=== PATIENT | female | born 1960 | race Caucasian/White ===

== ENCOUNTER 2020-02-14 11:30 | Outpatient (RCR) | payer MEDICARE, SELFPAY | END 2020-02-14 23:55 | disposition home or self-care (01) | LOC: HO.PAOS 11:30 | PROVIDERS: Visit Provider Psychologist | DX: F33.1 Major depressive disorder, recurrent, moderate (principal); F43.10 Post-traumatic stress disorder, unspecified; F50.81 Binge eating disorder; F10.10 Alcohol abuse, uncomplicated; F11.11 Opioid abuse, in remission | CPT/HCPCS: 90834 ==

== ENCOUNTER → 2020-02-21 10:57 | Outpatient (BNVA) | payer MEDICARE, SELFPAY | PROVIDERS: PCP Nurse Practitioner; Referring Provider Nurse Practitioner; Visit Provider Nurse Practitioner | CPT/HCPCS: Q3014 ==

== ENCOUNTER → 2020-05-21 08:30 | Outpatient (BNVA) | payer MEDICARE, SELFPAY | PROVIDERS: PCP Nurse Practitioner; Visit Provider Nurse Practitioner | DX: K59.9 Functional intestinal disorder, unspecified (principal); K21.9 Gastro-esophageal reflux disease without esophagitis | CPT/HCPCS: Q3014 ==

== ENCOUNTER → 2020-11-11 08:48 | Outpatient (BNVA) | payer MEDICARE, SELFPAY | PROVIDERS: Visit Provider Nurse Practitioner | CPT/HCPCS: 99212 ==

== ENCOUNTER → 2021-02-26 09:30 | Outpatient (BNVA) | payer MEDICARE, SELFPAY | PROVIDERS: Visit Provider Nurse Practitioner | DX: K21.9 Gastro-esophageal reflux disease without esophagitis (principal); K59.9 Functional intestinal disorder, unspecified; K58.9 Irritable bowel syndrome, unspecified; N95.0 Postmenopausal bleeding | CPT/HCPCS: 99212 ==

== ENCOUNTER 2021-03-25 08:52 | Outpatient (REF) | payer MEDICARE, SELFPAY ==
[2021-03-25 15:25] LABS: CT PCR NOT DETECTED (Not Detect.); NG PCR NOT DETECTED (Not Detect.)
[2021-03-26 12:13] LABS: BV Int Neg Control Negative (Negative); BV Int Pos Control Positive (Positive)
[2021-03-27 13:37] LABS: HPV mRNA E6/E7 rflx Not Detected (Not Detected)
== END 2021-03-25 08:53 | disposition home or self-care (01) ==
LOC: HO.LAB 08:52
PROVIDERS: Visit Provider Obstetrics & Gynecology
DX: Z01.411 Encounter for gynecological examination (general) (routine) with abnormal findings (principal); Z11.51 Encounter for screening for human papillomavirus (HPV); N95.0 Postmenopausal bleeding; N76.0 Acute vaginitis; B96.89 Other specified bacterial agents as the cause of diseases classified elsewhere
CPT/HCPCS: 87480; 87491; 87510; 87591; 87624; 87660; 88142; 99202

== ENCOUNTER → 2021-03-26 07:42 | Outpatient (BNVA) | payer MEDICARE, SELFPAY | PROVIDERS: PCP Nurse Practitioner; Visit Provider Nurse Practitioner | DX: K58.9 Irritable bowel syndrome, unspecified (principal); K59.9 Functional intestinal disorder, unspecified; K21.9 Gastro-esophageal reflux disease without esophagitis | CPT/HCPCS: 99212 ==

== ENCOUNTER 2021-04-03 16:13 | Emergency (ER) | payer MEDICARE, SELFPAY ==
--- NOTE | ~2021-04-03 | XR_ITS ---
EXAMINATION: PELVIS AND LEFT HIP, RIGHT TIB-FIB, RIGHT KNEE CLINICAL INFORMATION: Fall with hip and knee and right lower extremity pain COMPARISON: [facility] 11/05/2019, CT abdomen pelvis and bilateral lower extremities 05/25/2017 TECHNIQUE: Single view pelvis with 2 additional views left hip, 4 views right knee, 2 right left tib-fib FINDINGS: Pelvis and left hip: Left hip appears unremarkable without fractures or significant degenerative change. The joint space is well maintained. Marked degenerative changes present in the lower lumbar spine with scoliosis convex to left. Incidental note is made of urethral bulking agents. Right knee: A right total knee prosthesis is present. The prosthesis appears in good position without evidence of loosening. No fractures are seen. Right tib-fib: Aside from the above-mentioned prosthesis, the tibia and fibula appear unremarkable. There is some soft tissue swelling at the level of the lateral malleolus. No fracture or ankle joint widening is seen. XR/XR hip LT min 2V IMPRESSION: No acute osseous injury is detected after the patient's fall. Incidental findings as described above.
--- NOTE | ~2021-04-03 | XR_ITS ---
EXAMINATION: PELVIS AND LEFT HIP, RIGHT TIB-FIB, RIGHT KNEE CLINICAL INFORMATION: Fall with hip and knee and right lower extremity pain COMPARISON: [facility] 11/05/2019, CT abdomen pelvis and bilateral lower extremities 05/25/2017 TECHNIQUE: Single view pelvis with 2 additional views left hip, 4 views right knee, 2 right left tib-fib FINDINGS: Pelvis and left hip: Left hip appears unremarkable without fractures or significant degenerative change. The joint space is well maintained. Marked degenerative changes present in the lower lumbar spine with scoliosis convex to left. Incidental note is made of urethral bulking agents. Right knee: A right total knee prosthesis is present. The prosthesis appears in good position without evidence of loosening. No fractures are seen. Right tib-fib: Aside from the above-mentioned prosthesis, the tibia and fibula appear unremarkable. There is some soft tissue swelling at the level of the lateral malleolus. No fracture or ankle joint widening is seen. XR/XR knee RT 3V IMPRESSION: No acute osseous injury is detected after the patient's fall. Incidental findings as described above.
--- NOTE | ~2021-04-03 | XR_ITS ---
EXAMINATION: PELVIS AND LEFT HIP, RIGHT TIB-FIB, RIGHT KNEE CLINICAL INFORMATION: Fall with hip and knee and right lower extremity pain COMPARISON: [facility] 11/05/2019, CT abdomen pelvis and bilateral lower extremities 05/25/2017 TECHNIQUE: Single view pelvis with 2 additional views left hip, 4 views right knee, 2 right left tib-fib FINDINGS: Pelvis and left hip: Left hip appears unremarkable without fractures or significant degenerative change. The joint space is well maintained. Marked degenerative changes present in the lower lumbar spine with scoliosis convex to left. Incidental note is made of urethral bulking agents. Right knee: A right total knee prosthesis is present. The prosthesis appears in good position without evidence of loosening. No fractures are seen. Right tib-fib: Aside from the above-mentioned prosthesis, the tibia and fibula appear unremarkable. There is some soft tissue swelling at the level of the lateral malleolus. No fracture or ankle joint widening is seen. XR/XR tibia fibula RT 2V IMPRESSION: No acute osseous injury is detected after the patient's fall. Incidental findings as described above.
[2021-04-03 16:29] VITALS: BP 167/89; PULSE 80; O2SAT 98
[2021-04-03 18:26] VITALS: BP 144/71; PULSE 66; RESP 14; TEMP 36.7; O2SAT 97; BMI 45.4
--- NOTE | 2021-04-03 19:22 | ED_ITS ---
HPI - General Adult General Chief complaint: Fall <MACO Kulkarni - Last Filed: 04/03/21 21:45> Stated complaint: mechanical fall, lower back pain <MACO Kulkarni - Last Filed: 04/03/21 21:45> Time Seen by Provider: 04/03/21 19:22 <MACO Kulkarni - Last Filed: 04/03/21 21:45> Source: patient, EMS and RN notes reviewed <MACO Kulkarni - Last Filed: 04/03/21 21:45> Mode of arrival: EMS <MCAO Kulkarni - Last Filed: 04/03/21 21:45> Limitations: no limitations <MACO Kulkarni - Last Filed: 04/03/21 21:45> History of Present Illness HPI narrative: 60-year-old female with past medical history of GERD, IBS, obesity is here today [place] Patient reports that she went to the gym in the morning without breakfast. Patient reports that she worked out for 2-1/2 hours that went out for lunch. Patient reports she had a salad with egg. Patient does report to drink water throughout the day. At 3:00 a.m. patient went to the post office. States that she was shaking and felt like she is going to pass out. Patient reports of falling onto her left side. Complaints of left hip, right knee and right conrad pain. Patient denies hitting head. Patient does not remember if she actually passed out or not. Unable to give me a full description if she lost any consciousness. Patient reports to have chest pressure in the him substernal area without any radiation. Patient denies any shortness of breath, edema, PND. Patient denies any dizziness or lightheadedness. Patient denies any nausea or vomiting no abdominal pain or discomfort. <MACO Kulkarni - Last Filed: 04/03/21 21:45> Onset (ago): minute(s) <MACO Kulkarni - Last Filed: 04/03/21 21:45> Related Data Home medications: Home Medications Medication Instructions Recorded Confirmed ascorbic acid (vitamin C) 500 mg 500 mg PO DAILY 05/21/20 11/11/20 tablet bupropion HCl 200 mg tablet,12 hr 200 mg PO BID 05/21/20 11/11/20 sustained-release celecoxib 100 mg capsule 100 mg PO BID 05/21/20 11/11/20 cetirizine 10 mg tablet 10 mg PO BID 05/21/20 11/11/20 cholecalciferol (vitamin D3) 50 50 mcg PO DAILY 05/21/20 11/11/20 mcg (2,000 unit) tablet clonazepam 1 mg tablet 1 mg PO BID PRN 05/21/20 11/11/20 clonidine HCl 0.1 mg tablet 0.1 mg PO BID PRN 05/21/20 11/11/20 cyanocobalamin (vitamin B-12) 1,000 mcg PO DAILY 05/21/20 11/11/20 1,000 mcg tablet duloxetine 60 mg capsule,delayed 60 mg PO BID 05/21/20 11/11/20 release lamotrigine 150 mg tablet 300 mg PO DAILY 05/21/20 11/11/20 potassium chloride 20 mEq 20 meq PO DAILY 05/21/20 11/11/20 tablet,extended release(part/cryst) topiramate 100 mg tablet mg PO 05/21/20 11/11/20 estradiol 10 mcg vaginal tablet 10 mcg VAGINAL 2XW 11/11/20 11/11/20 Previous Rx's Medication Instructions Recorded lactulose 20 gram/30 mL oral 30 g (45 mL) PO QID #2880 ml 02/21/20 solution dicyclomine 20 mg tablet 40 mg PO QID 30 Days #240 tab 11/11/20 sennosides 8.6 mg tablet (senna) 17.2 mg PO BEDTIME PRN #60 cap 12/23/20 magnesium oxide 500 mg PO DAILY #60 cap 01/13/21 linaclotide 145 mcg capsule 145 mcg PO QAM 30 Days #30 cap 02/26/21 (Linzess) metronidazole 500 mg tablet 500 mg PO BID 7 Days #14 tab 03/25/21 metoclopramide HCl 5 mg tablet 5 mg PO .T.i.d. a.c. 30 Days #90 03/26/21 (Reglan) tab pantoprazole 40 mg tablet,delayed 40 mg PO DAILY 30 Days #30 tab 03/26/21 release <DEAN Kulkarni-BC - Last Filed: 04/03/21 21:45> Allergies/adverse reactions: Allergies Allergy/AdvReac Type Severity Reaction Status Date / Time garlic Allergy Severe THROAT Verified 03/26/21 07:49 CLOSES cephalexin [From Allergy Mild RASH Verified 03/26/21 07:49 Keflex] red dye [Red Dye] Allergy Unknown UNKNOWN Verified 03/26/21 07:49 soy Allergy GI issues, Verified 03/26/21 07:49 mouth swelling <Debbie DEAN Sigala-BC - Last Filed: 04/03/21 21:45> Review of Systems Verdana 4l Review of Systems: Verdana 4d Verdana 4d Constitutional : No Weight loss, No Fever, No Chills, No Night Sweats, No Fatigue, No Malaise ENT/Mouth : No Hearing loss, No Ear Pain, No Nasal Congestion, No Sinus Pain, No Hoarseness, No sore throat, No Rhinorrhea, No Swallowing DifficultyDifficulty Eyes: No Eye Pain, No Swelling, No Redness, No Foreign Body, No Discharge, No Vision Changes Cardiovascular : No Chest Pain, No SOB, No Dyspnea on Exertion, No Orthopnea, No Edema, No Palpitations Respiratory : No Cough, No Sputum, No Wheezing, No Smoke Exposure, No Dyspnea Gastrointestinal : No Nausea, No Vomiting, No Diarrhea, No Constipation, No abdominal Pain, No Hematochezia, No Melena Genitourinary : no irregular bleeding, No Dysuria, No Urinary Frequency, No Hematuria, No Urinary Incontinence, No Urgency, No Flank Pain, No Urinary Flow Changes, No Hesitancy Musculoskeletal : joint pain, Myalgias, No Joint Swelling Skin : No Skin Lesions, No rash Neuro : No Weakness, No Numbness, No Paresthesias, No Loss of Consciousness, No Dizziness, No Headache Psych : No Anxiety/Panic, No Depression, No SI/HI/AH/VH, No Social Issues, <Debbie Kramer Heidi DEAN-BC - Last Filed: 04/03/21 21:45> Yes all other systems are reviewed and are negative <Debbiepb Gordon CYBER INCIDENT ANALYST-BC - Last Filed: 04/03/21 21:45> [facility] Past Medical History Surgical History: Surgical History (Updated 03/27/21 @ 08:29 by DEBI Mills) History of colonoscopy Hx of endoscopy <CIPRIANO KulkarniBC - Last Filed: 04/03/21 21:45> Family History Family History: Family History Father No problems noted. Mother No problems noted. <CIPRIANO KulkarniBC - Last Filed: 04/03/21 21:45> Social History Social History: Social History Alcohol intake: current Alcohol intake frequency: other Advance Directives: No Advance Directives Information Provided: No Patient : No <MACO Kulkarni - Last Filed: 04/03/21 21:45> Physical Exam Verdana 4l Vital Signs: Verdana 4d Verdana 4d Vital Signs: Verdana 4d Verdana 4Bd Last Vital Signs Verdana 4d Delinquent Account Clerk New 4d Delinquent Account Clerk New 4d Temp 98.0 F 04/03/21 18:26 Delinquent Account Clerk New 4d Pulse 60 04/03/21 22:17 Delinquent Account Clerk New 4d Resp 16 04/03/21 22:17 BP 138/59 L 04/03/21 22:17 Pulse Ox 99 04/03/21 22:17 BMI result Body Mass Index 45.4 <CIPRIANO KulkarniBC - Last Filed: 04/03/21 21:45> Vital Signs: Last Vital Signs Temp 98.0 F 04/03/21 18:26 Pulse 60 04/03/21 22:17 Resp 16 04/03/21 22:17 BP 138/59 L 04/03/21 22:17 Pulse Ox 99 04/03/21 22:17 BMI result Body Mass Index 45.4 <LEATHA Hodgson - Last Filed: 04/03/21 22:26> Const: General: healthy appearing, no acute distress and well developed <DEAN Kulkarni-BC - Last Filed: 04/03/21 21:45> Nutritional Appearance: well nourished <DEAN Kulkarni-BC - Last Filed: 04/03/21 21:45> Orientation/consciousness: patient oriented x3 <Debbie Williams Gordon CYBER INCIDENT ANALYST-BC - Last Filed: 04/03/21 21:45> HENMT: Head: Yes normal to inspection, Yes normocephalic and Yes atraumatic <Debbie Williams Gordon CYBER INCIDENT ANALYST-BC - Last Filed: 04/03/21 21:45> Face and sinus: Yes normal facial exam <Debbie Gordon CYBER INCIDENT ANALYST-BC - Last Filed: 04/03/21 21:45> Mouth: Normal oral and palatal mucosa present <Debbiepb Gordon CYBER INCIDENT ANALYST-BC - Last Filed: 04/03/21 21:45> Throat: Yes posterior oropharynx normal, Yes tonsils normal and Yes uvula mid line <Debbiepb Gordon CYBER INCIDENT ANALYST-BC - Last Filed: 04/03/21 21:45> Eyes: General: appearance normal, both eyes and all related structures <Debbiepb Gordon CYBER INCIDENT ANALYST-BC - Last Filed: 04/03/21 21:45> Neck: Neck: Yes normal visual inspection, Yes full ROM and Yes trachea midline <Debbie Williams Gordon CYBER INCIDENT ANALYST-BC - Last Filed: 04/03/21 21:45> Thyroid: Thyroid normal <Debbiepb Gordon CYBER INCIDENT ANALYST-BC - Last Filed: 04/03/21 21:45> Resp: Effort & Inspection: normal respiratory effort, able to speak in complete sentences, no tracheal deviation and symmetric chest movement <Debbie Gordon CYBER INCIDENT ANALYST-BC - Last Filed: 04/03/21 21:45> Auscultation: clear to auscultation bilaterally <Debbiepb Gordon CYBER INCIDENT ANALYST-BC - Last Filed: 04/03/21 21:45> Cardio: Jugular venous distension: no JVD <Debbie Gordon CYBER INCIDENT ANALYST-BC - Last Filed: 04/03/21 21:45> Rate: regular rate <Debbie Gordon CYBER INCIDENT ANALYST-BC - Last Filed: 04/03/21 21:45> Heart sounds: S1 normal heart sound present, S2 normal heart sound present, no gallops and no murmurs <Debbie Williams Gordon CYBER INCIDENT ANALYST-BC - Last Filed: 04/03/21 21:45> GI: Inspection: Yes normal to inspection and No distended <Debbie Williams Santoyoo, CYBER INCIDENT ANALYST- BC - Last Filed: 04/03/21 21:45> Palpation (GI): Soft to palpation, not firm, nontender and No hepatosplenomegaly present <Debbie D Heidi, CYBER INCIDENT ANALYST-BC - Last Filed: 04/03/21 21:45> Auscultation: normal bowel sounds <Debbie D Heidi, CYBER INCIDENT ANALYST-BC - Last Filed: 04/03/21 21:45> : General: Yes no CVA tenderness <Debbie D Heidi, CYBER INCIDENT ANALYST-BC - Last Filed: 04/03/21 21:45> Back/Spine/Pelvis: Back: no CVA tenderness <Debbie D Heidi, CYBER INCIDENT ANALYST-BC - Last Filed: 04/03/21 21:45> Cervical Spine: normal cervical lordosis <Debbie D Heidi, CYBER INCIDENT ANALYST-BC - Last Filed: 04/03/21 21:45> Thoracic/Lumbar Spine: thoracic and lumbar spine normal to inspection <Debbie D Heidi, CYBER INCIDENT ANALYST-BC - Last Filed: 04/03/21 21:45> Skin: General skin exam: elasticity normal, turgor normal and dry skin <Debbie D Heidi, CYBER INCIDENT ANALYST-BC - Last Filed: 04/03/21 21:45> Neuro: General: patient oriented x3 <Debbie D Heidi, CYBER INCIDENT ANALYST-BC - Last Filed: 04/03/21 21:45> Extrem: Right upper extremity: normal to inspection, full ROM and normal capillary re fill <Debbie D Heidi, CYBER INCIDENT ANALYST-BC - Last Filed: 04/03/21 21:45> Left upper extremity: normal to inspection, full ROM and normal capillary refill <Debbie D Heidi, CYBER INCIDENT ANALYST-BC - Last Filed: 04/03/21 21:45> Right lower extremity: normal to inspection, normal capillary refill, knee (Pain) and lower leg (Pain) <Debbie D Heidi, CYBER INCIDENT ANALYST-BC - Last Filed: 04/03/21 21:45> Left lower extremity: normal to inspection and hip/thigh (Hip pain) <Debbie D Heidi, CYBER INCIDENT ANALYST-BC - Last Filed: 04/03/21 21:45> Psych: Appearance: grossly normal <MACO Kulkarni - Last Filed: 04/03/21 21:45> Mental Status: mental status grossly normal <MACO Kulkarni - Last Filed: 04/03/21 21:45> Speech and movement: Normal speech and movement present <MACO Kulkarni - Last Filed: 04/03/21 21:45> Affect: normal affect <MACO Kulkarni - Last Filed: 04/03/21 21:45> Attitude: cooperative <MACO Kulkarni - Last Filed: 04/03/21 21:45> Thought process: Normal thought process present <MACO Kulkarni - Last Filed: 04/03/21 21:45> Thought content: Normal thought content present <MACO Kulkarni - Last Filed: 04/03/21 21:45> Insight: Good insight present (Psych) <MACO Kulkarni - Last Filed: 04/03/21 21:45> Judgement: Good judgement present (Psych) <MACO Kulkarni - Last Filed: 04/03/21 21:45> Course Course Course Narrative: 60-year-old female with past medical history of GERD, IBS, obesity is here today [place] Patient reports that she went to the gym in the morning without breakfast. Patient reports that she worked out for 2-1/2 hours that went out for lunch. Patient reports she had a salad with egg. Patient does report to drink water throughout the day. At 3:00 a.m. patient went to the post office. States that she was shaking and felt like she is going to pass out. Patient reports of falling onto her left side. Complaints of left hip, right knee and right conrad pain. Patient denies hitting head. Patient does not remember if she actually passed out or not. Unable to give me a full description if she lost any consciousness. Patient reports to have chest pressure in the him substernal area without any radiation. Patient denies any shortness of breath, edema, PND. Patient denies any dizziness or lightheadedness. Patient denies any nausea or vomiting no abdominal pain or discomfort. X-ray of left hip, right knee, right tib-fib, EKG, CBC, BMP, trop. Will medicate patient with oxycodone for her hip and extremity pain <DEAN Kulkarni-BC - Last Filed: 04/03/21 21:45> Reevaluation(s) Reevaluation #1: All x-rays are negative, chemistry pending, patient reports mild improvement in pain after taking oxycodone. Report given to Jeana ZHANG to resume care of this patient. <DEAN Kulkarni-BC - Last Filed: 04/03/21 21:45> Medical Decision Making MDM Narrative Medical decision making narrative: Patient is a 60 year old female presenting to the emergency department today after a mechanical fall with hip pain. Patient's physical exam was unremarkable. Patient's blood work was unremarkable. Patient's EKG was unremarkable. Patient's imaging showed no acute process. I explained my physical exam findings as well as all test results to the patient. I answered all questions asked by the patient. I stressed the importance of the patient taking her medication as prescribed. I stressed the importance of the patient following up with her primary care provider. I stressed the importance of the patient having a more robust meal prior to working out. I stressed the importance of the patient returning to the emergency department immediately if her symptoms were to worsen or if she were to develop any dizziness, shortness of breath, difficulty breathing, chest pain, blurry vision, loss of vision, nausea, vomiting, abdominal pain, fever, chills, back pain, or any other complaints. Patient verbalized agreement and understanding with this treatment plan and discharge. <LEATHA Hodgson - Last Filed: 04/03/21 22:26> Differential Diagnosis Differential Diagnosis: vasovagal, hypoglycemia, safe and vault mechanic fall <LEATHA Hodgson - Last Filed: 04/03/21 22:26> Medical Records Medical records reviewed: Yes I reviewed the patient's medical records. <LEATHA Hodgson - Last Filed: 04/03/21 22:26> Lab Data Lab results reviewed: Yes I reviewed the patient's lab results. <LEATHA Hodgson - Last Filed: 04/03/21 22:26> Result diagrams: : 04/03/21 21:12 04/03/21 21:12 <CIPRIANO Kulkarni - Last Filed: 04/03/21 21:45> Labs: Lab Results 04/03/21 04/03/21 04/03/21 Range/Units 21:12 21:12 21:12 WBC 11.9 H (4.8-10.8) X10*3/uL RBC 4.82 (4.20-5.50) X10*6/uL Hgb 14.5 (12.0-16.0) g/dl Hct 43.1 (37.0-47.0) % MCV 89.4 (80.0-98.0) fL MCH 30.1 (27.0-33.0) pg MCHC 33.6 (31.0-35.0) g/dl RDW 13.2 (11.0-16.0) % Plt Count 231 (160-400) X10*3/uL MPV 10.2 (9.4-12.3) fL Immature Gran % (Auto) 0.4 (0.0-0.4) % Neut % (Auto) 64.7 (45-73) % Lymph % (Auto) 29.1 (20-40) % [place] % (Auto) 4.7 (2-11) % Eos % (Auto) 0.9 (0-4) % Baso % (Auto) 0.2 (0-2) % Lymph # (Auto) 3.5 (1.2-4.9) X10*3/uL [place] # (Auto) 0.6 (0.1-1.2) X10*3/uL Eos # (Auto) 0.1 (0.0-0.4) X10*3/uL Baso # (Auto) 0.0 (0.0-0.2) X10*3/uL Abs Immat Gran (auto) 0.05 H (0.00-0.03) X10*3/uL Absolute Neuts (auto) 7.7 (2.0-8.3) x10*3/uL Absolute Nucleated RBC 0.000 (0.0-0.012) X10*3/uL Nucleated RBC % (auto) 0.0 (0.0-0.2) /100WBC Sodium 140 (135-145) mmol/L Potassium 3.9 (3.3-5.1) mmol/L Chloride 105 (96-108) mmol/L Carbon Dioxide 27 (22-29) mmol/L Anion Gap 12 (12-20) BUN 12 (9-16) mg/dL Creatinine 0.70 (0.5-1.4) mg/dL Estim Creat Clear Calc 120.8 Estimated GFR > 60 Random Glucose 107 (60-115) mg/dL Calcium 9.5 (8.4-10.2) mg/dL Troponin I High Sens 5.1 (<3.5-17.0) ng/L <Debbie Gordon, CYBER INCIDENT ANALYST-BC - Last Filed: 04/03/21 21:45> Lab Results 04/03/21 04/03/21 04/03/21 Range/Units 21:12 21:12 21:12 WBC 11.9 H (4.8-10.8) X10*3/uL RBC 4.82 (4.20-5.50) X10*6/uL Hgb 14.5 (12.0-16.0) g/dl Hct 43.1 (37.0-47.0) % MCV 89.4 (80.0-98.0) fL MCH 30.1 (27.0-33.0) pg MCHC 33.6 (31.0-35.0) g/dl RDW 13.2 (11.0-16.0) % Plt Count 231 (160-400) X10*3/uL MPV 10.2 (9.4-12.3) fL Immature Gran % (Auto) 0.4 (0.0-0.4) % Neut % (Auto) 64.7 (45-73) % Lymph % (Auto) 29.1 (20-40) % [place] % (Auto) 4.7 (2-11) % Eos % (Auto) 0.9 (0-4) % Baso % (Auto) 0.2 (0-2) % Lymph # (Auto) 3.5 (1.2-4.9) X10*3/uL [place] # (Auto) 0.6 (0.1-1.2) X10*3/uL Eos # (Auto) 0.1 (0.0-0.4) X10*3/uL Baso # (Auto) 0.0 (0.0-0.2) X10*3/uL Abs Immat Gran (auto) 0.05 H (0.00-0.03) X10*3/uL Absolute Neuts (auto) 7.7 (2.0-8.3) x10*3/uL Absolute Nucleated RBC 0.000 (0.0-0.012) X10*3/uL Nucleated RBC % (auto) 0.0 (0.0-0.2) /100WBC Sodium 140 (135-145) mmol/L Potassium 3.9 (3.3-5.1) mmol/L Chloride 105 (96-108) mmol/L Carbon Dioxide 27 (22-29) mmol/L Anion Gap 12 (12-20) BUN 12 (9-16) mg/dL Creatinine 0.70 (0.5-1.4) mg/dL Estim Creat Clear Calc 120.8 Estimated GFR > 60 Random Glucose 107 (60-115) mg/dL Calcium 9.5 (8.4-10.2) mg/dL Troponin I High Sens 5.1 (<3.5-17.0) ng/L <LEATHA Hodgson - Last Filed: 04/03/21 22:26> Imaging Data Left hip, R knee, R tibfib x-ray: Attestation: I personally reviewed and interpreted this imaging study as follows: <DEAN Kulkarni- - Last Filed: 04/03/21 21:45> Radiologist's impression: FINDINGS: Pelvis and left hip: Left hip appears unremarkable without fractures or significant degenerative change. The joint space is well maintained. Marked degenerative changes present in the lower lumbar spine with scoliosis convex to left. Incidental note is made of urethral bulking agents. Right knee: A right total knee prosthesis is present. The prosthesis appears in good position without evidence of loosening. No fractures are seen. Right tib-fib: Aside from the above-mentioned prosthesis, the tibia and fibula appear unremarkable. There is some soft tissue swelling at the level of the lateral malleolus. No fracture or ankle joint widening is seen.? XR/XR tibia fibula RT 2V IMPRESSION: No acute osseous injury is detected after the patient's fall. Incidental findings as described above.? <Debbie Williams Heidi, MACO - Last Filed: 04/03/21 21:45> Discharge Plan Discharge Clinical Impression: Syncope Qualifiers: Syncope type: unspecified Qualified Code(s): R55 - Syncope and collapse <Debbie Williams Heidi, MACO - Last Filed: 04/03/21 21:45> Patient Disposition: Home, Self-Care <Debbie Williams Heidi, MACO - Last Filed: 04/03/21 21:45> Additional Instructions: Call to discuss finding and establishing with a primary care provider. <Debbie Williams HeidiMACO - Last Filed: 04/03/21 21:45> Prescriptions: No Action sennosides [senna] 8.6 mg tablet 17.2 mg PO BEDTIME PRN (Reason: for constipation) Qty: 60 5RF magnesium oxide 250 mg magnesium tablet 500 mg PO DAILY Qty: 60 2RF lactulose 20 gram/30 mL solution 30 g PO QID Qty: 2880 6RF estradiol 10 mcg tablet 10 mcg vaginal 2XW 0RF dicyclomine 20 mg tablet 40 mg PO QID 30 Days Qty: 240 6RF Hold Instructions: Doctor's Order topiramate 100 mg tablet PO 0RF celecoxib 100 mg capsule 100 mg PO BID 0RF bupropion HCl 200 mg tablet sustained-release 12 hr 200 mg PO BID 0RF lamotrigine 150 mg tablet 300 mg PO DAILY 0RF duloxetine 60 mg capsule,delayed release(DR/EC) 60 mg PO BID 0RF ascorbic acid (vitamin C) 500 mg tablet 500 mg PO DAILY 0RF cyanocobalamin (vitamin B-12) 1,000 mcg tablet 1,000 mcg PO DAILY 0RF potassium chloride 20 mEq tablet,ER particles/crystals 20 meq PO DAILY 0RF clonidine HCl 0.1 mg tablet 0.1 mg PO BID PRN0RF cetirizine 10 mg tablet 10 mg PO BID 0RF cholecalciferol (vitamin D3) 50 mcg (2,000 unit) tablet 50 mcg PO DAILY 0RF clonazepam 1 mg tablet 1 mg PO BID PRN0RF metoclopramide HCl [Reglan] 5 mg tablet 5 mg PO .T.i.d. a.c. 30 Days Qty: 90 6RF pantoprazole 40 mg tablet,delayed release (DR/EC) 40 mg PO DAILY 30 Days Qty: 30 6RF Linzess 145 mcg capsule 145 mcg PO QAM 30 Days Qty: 30 6RF Hold Instructions: too expensive metronidazole 500 mg tablet 500 mg PO BID 7 Days Qty: 14 0RF <MACO Kulkarni - Last Filed: 04/03/21 21:45> Print Language: Somali <MACO Kulkarni - Last Filed: 04/03/21 21:45>
[2021-04-03] MEDS: oxyCODONE HCl Immed Release 5 MG TABLET PO (20:26)
[2021-04-03 21:22] LABS: MANUAL DIFF FLAG NO
[2021-04-03 21:24] LABS: Basophils Percent Auto 0.2 % (0-2); Eosinophils Absolute Auto 0.1 X10*3/uL (0.0-0.4); Eosinophils Percent Auto 0.9 % (0-4); Hematocrit 43.1 % (37.0-47.0); Hemoglobin 14.5 g/dl (12.0-16.0); Imm Gran Abs Auto 0.05 X10*3/uL (0.00-0.03); Imm Gran Pct Auto 0.4 % (0.0-0.4); Lymphocytes Absolute Auto 3.5 X10*3/uL (1.2-4.9); Lymphocytes Percent Auto 29.1 % (20-40); Mean Corpuscular HGB Conc 33.6 g/dl (31.0-35.0); Mean Corpuscular Hemoglobin 30.1 pg (27.0-33.0); Mean Corpuscular Volume 89.4 fL (80.0-98.0); Mean Platelet Volume 10.2 fL (9.4-12.3); Monocytes Absolute Auto 0.6 X10*3/uL (0.1-1.2); Monocytes Percent Auto 4.7 % (2-11); Neutrophils Absolute Auto 7.7 x10*3/uL (2.0-8.3); Neutrophils Percent Auto 64.7 % (45-73); Platelet Count 231 X10*3/uL (160-400); Red Blood Count 4.82 X10*6/uL (4.20-5.50); Red Cell Distribution Width 13.2 % (11.0-16.0); White Blood Count 11.9 X10*3/uL (4.8-10.8)
[2021-04-03 21:42] LABS: Anion Gap 12 (12-20); Blood Urea Nitrogen 12 mg/dL (9-16); Calcium 9.5 mg/dL (8.4-10.2); Carbon Dioxide 27 mmol/L (22-29); Chloride 105 mmol/L (96-108); Creatinine Clr Calc Pharmacy 120.8; Estimated Glomerular Filt Rate > 60; Glucose Random 107 mg/dL (60-115); Potassium 3.9 mmol/L (3.3-5.1); Sodium 140 mmol/L (135-145)
[2021-04-03 21:50] LABS: Troponin-I High Sensitivity 5.1 ng/L (<3.5-17.0)
[2021-04-03 22:17] VITALS: BP 138/59; PULSE 60; RESP 16; O2SAT 99
[2021-04-03] MEDS: Morphine Sulfate 4 MG/ML CARTRIDGE IM (22:57)
== END 2021-04-03 23:04 | disposition home or self-care (01) ==
PROVIDERS: Nurse Practitioner Family; Emergency Provider Emergency Medicine Emergency Medical Services
DX: S79.912A Unspecified injury of left hip, initial encounter (principal); S79.911A Unspecified injury of right hip, initial encounter; R55 Syncope and collapse; M25.561 Pain in right knee; M79.604 Pain in right leg; M54.50 Low back pain, unspecified; W01.0XXA Fall on same level from slipping, tripping and stumbling without subsequent striking against object, initial encounter; Y93.9 Activity, unspecified; Y92.242 Post office as the place of occurrence of the external cause; Y99.9 Unspecified external cause status; Z79.899 Other long term (current) drug therapy
CPT/HCPCS: 36415; 73502; 73562; 73590; 80048; 84484; 85025; 96372; 99284; J2270

== ENCOUNTER 2021-04-15 10:25 | Outpatient (REF) | payer MEDICARE, SELFPAY | END 2021-04-15 10:26 | disposition home or self-care (01) | LOC: HO.LAB 10:25 | PROVIDERS: Visit Provider Obstetrics & Gynecology | DX: N95.0 Postmenopausal bleeding (principal) | CPT/HCPCS: 58100; 88305 ==

== ENCOUNTER → 2021-04-29 12:28 | Outpatient (BNVA) | payer MEDICARE, SELFPAY | PROVIDERS: Visit Provider Obstetrics & Gynecology | DX: N95.0 Postmenopausal bleeding (principal) | CPT/HCPCS: Q3014 ==

== ENCOUNTER 2021-05-11 11:21 | Outpatient (REF) | payer MEDICARE, SELFPAY ==
--- NOTE | ~2021-05-11 | US_ITS ---
EXAMINATION: US PELVIS CLINICAL INFORMATION: Postmenopausal bleeding COMPARISON: None TECHNIQUE: Ultrasound of the pelvis is performed using both transabdominal and transvaginal transducers along with color Doppler. Transvaginal imaging is performed due to inadequate visualization transabdominally. FINDINGS: Uterus: The uterus is anteverted and measures 5.8 x 1.8 x 2.6 cm. The double wall endometrial thickness is 2 mm. The uterus is smooth in contour and has normal myometrial echogenicity. No visible fibroid. Nabothian cyst in the cervix. Adnexa: The left ovary is not seen. The right ovary is better seen transabdominally. The right ovary measures 2.8 x 1.8 x 1.5 cm, volume 4.0 mL and appears normal. Color Doppler appears normal. US/US pelvic and transvaginal IMPRESSION: Unremarkable uterus. The endometrial stripe is 2 mm. Nonvisualization of the left ovary. The right ovary appears normal.
== END 2021-05-11 11:22 | disposition home or self-care (01) ==
LOC: HO.US 11:21
PROVIDERS: Visit Provider Obstetrics & Gynecology
DX: N95.0 Postmenopausal bleeding (principal)
CPT/HCPCS: 76830; 76856

== ENCOUNTER → 2021-05-19 14:59 | Outpatient (BNVA) | payer MEDICARE, SELFPAY | PROVIDERS: PCP Nurse Practitioner; Visit Provider Obstetrics & Gynecology | DX: Z01.818 Encounter for other preprocedural examination (principal); N95.0 Postmenopausal bleeding | CPT/HCPCS: 99212 ==

== ENCOUNTER 2021-05-21 06:57 | Day surgery (SDC) | payer MEDICARE, SELFPAY ==
[2021-05-15 11:50] VITALS: BMI 45.3
--- NOTE | 2021-05-20 09:22 | P.CONAN_ITS ---
Documented by User: Elizabeth Montgomery NP 05/20/21 09:24 HPI - Anesthesia Eval Consult details Narrative: 61yo F for D&C Hysteroscopy PMFSH Active Problems Active Problems: All Active Problems (Updated 05/15/21 @ 11:27 by Lety Jiménez RN) IBS (irritable bowel syndrome) (Acute) GERD (gastroesophageal reflux disease) (Acute) Small bowel motility disorder (Acute) Left lower quadrant abdominal pain (Acute) Post-menopause bleeding (Acute) Well woman exam (Acute) Bacterial vaginosis (Acute) Past Medical History Medical History Anxiety and depression Asthma Chronic back pain Elevated cholesterol GERD (gastroesophageal reflux disease) Headache IBS (irritable bowel syndrome) LINDSEY (obstructive sleep apnea) Osteoarthritis PTSD (post-traumatic stress disorder) Family History Family History Father No problems noted. Mother No problems noted. Surgical History Surgical History History of appendectomy History of colonoscopy History of tonsillectomy and adenoidectomy History of total right knee replacement (TKR) Hx of cholecystectomy Hx of endoscopy Social History Social History Are you a primary home care associate to a significant other at home: No Do you presently have visiting nurse or other home services: No Alcohol intake: current Alcohol intake frequency: holidays/special occasions only Patient Tobacco Use Status: Never used Tobacco Use of substances other than those prescribed or required for medical reasons: No Have you been hit, kicked, punched, or otherwise hurt by someone within the past year? If so, by whom?: No Are you DNR?: No Advance Directives: No Advance Directives Information Provided: No Advance Directives on File: No Recently lost weight without trying: No Eating poorly because of decreased appetite: No Nutrition Risks: No Nutritional Risk Patient : No Meds Allergies Allergy/AdvReac Type Severity Reaction Status Date / Time garlic Allergy Severe THROAT Verified 05/19/21 15:27 CLOSES cephalexin [From Keflex] Allergy Mild RASH Verified 05/15/21 11:27 red dye [Red Dye] Allergy Unknown UNKNOWN Verified 05/15/21 11:27 soy Allergy GI issues, Verified 05/15/21 11:27 mouth swelling Home Medications Medication Instructions Recorded Confirmed Last Taken Type ascorbic acid (vitamin C) 500 mg 500 mg PO DAILY 05/21/20 05/15/21 Unknown History tablet bupropion HCl 200 mg tablet,12 hr 200 mg PO BID 05/21/20 05/15/21 Unknown History sustained-release celecoxib 100 mg capsule 100 mg PO BID 05/21/20 05/15/21 Unknown History cetirizine 10 mg tablet 10 mg PO BID 05/21/20 05/15/21 Unknown History cholecalciferol (vitamin D3) 50 50 mcg PO DAILY 05/21/20 05/15/21 Unknown History mcg (2,000 unit) tablet clonazepam 1 mg tablet 1 mg PO BID PRN 05/21/20 05/15/21 Unknown History clonidine HCl 0.1 mg tablet 0.1 mg PO BID PRN 05/21/20 05/15/21 Unknown History cyanocobalamin (vitamin B-12) 1,000 mcg PO DAILY 05/21/20 05/15/21 Unknown History 1,000 mcg tablet duloxetine 60 mg capsule,delayed 60 mg PO BID 05/21/20 05/15/21 Unknown History release lamotrigine 150 mg tablet 300 mg PO DAILY 05/21/20 05/15/21 Unknown History potassium chloride 20 mEq 20 meq PO DAILY 05/21/20 05/15/21 Unknown History tablet,extended release(part/cryst) topiramate 100 mg tablet 150 mg PO BID 05/21/20 05/15/21 Unknown History estradiol 10 mcg vaginal tablet 10 mcg VAGINAL 2XW 11/11/20 05/15/21 Unknown History beclomethasone dipropionate 80 2 puff PO BID 05/15/21 05/15/21 Unknown History mcg/actuation HFA breath activated aerosol (Qvar RediHaler) hydrochlorothiazide 25 mg tablet 1 tab PO DAILY 05/15/21 05/15/21 Unknown History levalbuterol tartrate 45 1 - 2 puff INHALATION Q4-6H PRN 05/15/21 05/15/21 Unknown History mcg/actuation aerosol inhaler methocarbamol 750 mg tablet 1 tab PO TID 05/15/21 05/15/21 Unknown History pravastatin 80 mg tablet 1 tab PO DAILY 05/15/21 05/15/21 Unknown History Exam Exam Date and Time: May 20, [id number] Height,Weight and Vital Signs: Height 5 ft 6.5 in Weight 129.274 kg Pertinent Lab Results Pertinent Lab Results: Laboratory Tests 04/03/21 04/03/21 21:12 21:12 WBC 11.9 H Hgb 14.5 Hct 43.1 Plt Count 231 Sodium 140 Potassium 3.9 Chloride 105 Carbon Dioxide 27 BUN 12 Creatinine 0.70 Assessment and Plan Assessment Anesthesia Assessment: Chart Reviewed Documented by User: Travis Ceballos MD 05/21/21 08:12 PMFSH Past Medical History Medical History Anxiety and depression Asthma Chronic back pain Elevated cholesterol GERD (gastroesophageal reflux disease) Headache IBS (irritable bowel syndrome) LINDSEY (obstructive sleep apnea) Osteoarthritis PTSD (post-traumatic stress disorder) Family History Family History Father No problems noted. Mother No problems noted. Family history of problems with anesthesia: No Surgical History Surgical History History of appendectomy History of colonoscopy History of tonsillectomy and adenoidectomy History of total right knee replacement (TKR) Hx of cholecystectomy Hx of endoscopy History of Problems with Anesthesia: No Social History Social History Are you a primary home care associate to a significant other at home: No Do you presently have visiting nurse or other home services: No Alcohol intake: current Alcohol intake frequency: holidays/special occasions only Patient Tobacco Use Status: Never used Tobacco Use of substances other than those prescribed or required for medical reasons: No Have you been hit, kicked, punched, or otherwise hurt by someone within the past year? If so, by whom?: No Are you DNR?: No Advance Directives: No Advance Directives Information Provided: No Advance Directives on File: No Recently lost weight without trying: No Eating poorly because of decreased appetite: No Nutrition Risks: No Nutritional Risk Patient : No Meds Allergies Allergy/AdvReac Type Severity Reaction Status Date / Time garlic Allergy Severe THROAT Verified 05/19/21 15:27 CLOSES cephalexin [From Keflex] Allergy Mild RASH Verified 05/15/21 11:27 red dye [Red Dye] Allergy Unknown UNKNOWN Verified 05/15/21 11:27 soy Allergy GI issues, Verified 05/15/21 11:27 mouth swelling Home Medications Medication Instructions Recorded Confirmed Last Taken Type ascorbic acid (vitamin C) 500 mg 500 mg PO DAILY 05/21/20 05/15/21 Unknown History tablet bupropion HCl 200 mg tablet,12 hr 200 mg PO BID 05/21/20 05/15/21 Unknown History sustained-release celecoxib 100 mg capsule 100 mg PO BID 05/21/20 05/15/21 Unknown History cetirizine 10 mg tablet 10 mg PO BID 05/21/20 05/15/21 Unknown History cholecalciferol (vitamin D3) 50 50 mcg PO DAILY 05/21/20 05/15/21 Unknown History mcg (2,000 unit) tablet clonazepam 1 mg tablet 1 mg PO BID PRN 05/21/20 05/15/21 Unknown History clonidine HCl 0.1 mg tablet 0.1 mg PO BID PRN 05/21/20 05/15/21 Unknown History cyanocobalamin (vitamin B-12) 1,000 mcg PO DAILY 05/21/20 05/15/21 Unknown History 1,000 mcg tablet duloxetine 60 mg capsule,delayed 60 mg PO BID 05/21/20 05/15/21 Unknown History release lamotrigine 150 mg tablet 300 mg PO DAILY 05/21/20 05/15/21 Unknown History potassium chloride 20 mEq 20 meq PO DAILY 05/21/20 05/15/21 Unknown History tablet,extended release(part/cryst) topiramate 100 mg tablet 150 mg PO BID 05/21/20 05/15/21 Unknown History estradiol 10 mcg vaginal tablet 10 mcg VAGINAL 2XW 11/11/20 05/15/21 Unknown History beclomethasone dipropionate 80 2 puff PO BID 05/15/21 05/15/21 Unknown History mcg/actuation HFA breath activated aerosol (Qvar RediHaler) hydrochlorothiazide 25 mg tablet 1 tab PO DAILY 05/15/21 05/15/21 Unknown History levalbuterol tartrate 45 1 - 2 puff INHALATION Q4-6H PRN 05/15/21 05/15/21 Unknown History mcg/actuation aerosol inhaler methocarbamol 750 mg tablet 1 tab PO TID 05/15/21 05/15/21 Unknown History pravastatin 80 mg tablet 1 tab PO DAILY 05/15/21 05/15/21 Unknown History Exam Airway Mallampati Class: II TM Dist: >3cm Neck ROM: Full Assessment and Plan Assessment Anesthesia Assessment: Anesthesia Plan Discussed Final Anesthetic Review Family History of Problems with Anesthesia: No History of Problems with Anesthesia: No NPO: Yes ASA Class: III Final Preanesthetic Review: No Changes in Pt Med Stat, Meds/Allgs Chart Reviewed, Consent Obtained/Reviewed and Anes Risks/Benef Reviewed Patient Risk: Intermediate Procedure Risk: Low Anesthetic Plan Anesthetic Plan: GA Disposition: Standard PACU
[2021-05-21] VITALS (9 sets, daily range): BP systolic 121–155; BP diastolic 49–85; PULSE 65–76; RESP 14–18; TEMP 36.1–36.4; O2SAT 94–99
--- NOTE | 2021-05-21 07:29 | MHC.SHP ---
Pre-Procedural Eval Section A Date of Service: 05/21/21 The patient is an INPATIENT: No Changes since office visit: No Cold of Flu in the past 2 weeks, No New Medical Problems, No Changes in Medication and No Patient answered all questions The History & Physical has been completed within 30 days and I have reviewed it.: Yes Section B Chief Complaint: bleeding Allergies: Allergies Allergy/AdvReac Type Severity Reaction Status Date / Time garlic Allergy Severe THROAT Verified 05/19/21 15:27 CLOSES cephalexin [From Keflex] Allergy Mild RASH Verified 05/15/21 11:27 red dye [Red Dye] Allergy Unknown UNKNOWN Verified 05/15/21 11:27 soy Allergy GI issues, Verified 05/15/21 11:27 mouth swelling Plan Diagnosis/Plan: Unchanged I have reviewed the history and physical and performed a pertinent physical examination on my patient. No changes have occurred unless specified.
[2021-05-21] MEDS: Lactated Ringers 1,000 ML 100 ML IVCONT (07:31)
--- NOTE | 2021-05-21 08:42 | P.BOP_ITS ---
Brief Operative Note Date of Service: 05/21/21 Pre-op diagnosis: Menopausal bleeding Post-op diagnosis: same (Normal endometrial cavity) Procedure: Hysteroscopy D&C Surgeon: Ulisses Sanford MD Anesthesia: MAC Was an Acid Dumper used for this Procedure?: No Estimated blood loss (mL): 0 Pathology: other (Endometrial Scrapping.) Condition: stable Disposition: PACU
--- NOTE | 2021-05-21 08:43 | W.PM.OPN ---
Operative Note Operative Note Date of Service: 05/21/21 Narrative: Preop Diagnosis: Post Menopausal bleeding Operation: Diagnostic Hysteroscopy, Dilataion & Curettage Post Op Diagnosis: Normal endometrial cavity QBL: Minimal Anesthesia: MAC Surgeon: Ulisses Sanford MD [employer] Architect: None Complication: None Pathology: Endometrial Scrapings Complication: None Pathology: Endometrial Scrapings Procedure: The patient was put in the dorsal lithotomy position, scrubbed, and draped in the usual manner. A sterile speculum was inserted in the patient's vagina. The anterior lip of the cervix was grasped with a single tooth tenaculum. The cervix was dilated up to 5 mm, then the scope was inserted in the patient's uterus. Inspection revealed Normal endometrial cavity. Sharp curettings was carried on with mild to moderate amount of tissues retrieved. At the end of the procedure, all instruments were taken out of the patient uterine and vaginal cavity. The single tooth tenaculum was removed and homeostasis was assured using pressure,. The patient tolerated the procedure well and was transferred to the PACU in a stable condition.
[2021-05-21] MEDS: oxyCODONE HCl Immed Release 5 MG TABLET PO (09:00)
[2021-05-21] MEDS: fentaNYL citrate/PF 100 MCG/2 ML VIAL 50 MCG IVPUSH ×2 (09:00→09:06)
[2021-05-21] MEDS: ondansetron HCL 4 MG/2 ML VIAL IVPUSH (09:32)
== END 2021-05-21 10:22 | disposition home or self-care (01) ==
PROVIDERS: Visit Provider Obstetrics & Gynecology
PROC: 0UDB8ZZ Extraction of Endometrium, Via Natural or Artificial Opening Endoscopic (ICD-10-PCS; CPT 58558; principal; 2021-05-21 08:30)
DX: N95.0 Postmenopausal bleeding (principal); J45.909 Unspecified asthma, uncomplicated; E78.00 Pure hypercholesterolemia, unspecified; K21.9 Gastro-esophageal reflux disease without esophagitis; G47.33 Obstructive sleep apnea (adult) (pediatric); F32.9 Major depressive disorder, single episode, unspecified; F41.1 Generalized anxiety disorder; Z88.1 Allergy status to other antibiotic agents
CPT/HCPCS: 58558; 88305; J1885; J2250; J2405; J3010

== ENCOUNTER → 2021-05-25 11:59 | Outpatient (BNVA) | payer MEDICARE, SELFPAY | PROVIDERS: Visit Provider Obstetrics & Gynecology | DX: Z13.89 Encounter for screening for other disorder (principal) ==

== ENCOUNTER → 2021-06-04 12:29 | Outpatient (BNVA) | payer MEDICARE, SELFPAY | PROVIDERS: Visit Provider Obstetrics & Gynecology | DX: N95.0 Postmenopausal bleeding (principal); N76.0 Acute vaginitis; B96.89 Other specified bacterial agents as the cause of diseases classified elsewhere | CPT/HCPCS: Q3014 ==

== ENCOUNTER 2021-08-05 12:34 | Emergency (ER) | payer MEDICARE, SELFPAY ==
[2021-08-05 12:41] VITALS: BP 110/70; PULSE 78; O2SAT 98
[2021-08-05 12:45] VITALS: BP 127/65; PULSE 73; RESP 18; TEMP 36.9; O2SAT 95; BMI 46.5
== END 2021-08-05 15:51 | disposition left against medical advice (07) ==
PROVIDERS: Emergency Provider Emergency Medicine
DX: Z71.1 Person with feared health complaint in whom no diagnosis is made (principal)
CPT/HCPCS: 99281

== ENCOUNTER → 2021-10-30 08:00 | Outpatient (BNVA) | payer MEDICARE, SELFPAY | PROVIDERS: Visit Provider Nurse Practitioner | DX: K59.9 Functional intestinal disorder, unspecified (principal); K21.9 Gastro-esophageal reflux disease without esophagitis; D89.40 Mast cell activation, unspecified | CPT/HCPCS: 99212 ==

== ENCOUNTER → 2021-12-25 08:00 | Outpatient (BNVA) | payer MEDICARE, SELFPAY | PROVIDERS: PCP Nurse Practitioner; Visit Provider Nurse Practitioner | DX: K21.9 Gastro-esophageal reflux disease without esophagitis (principal); K58.9 Irritable bowel syndrome, unspecified; D89.40 Mast cell activation, unspecified; K59.04 Chronic idiopathic constipation; K59.9 Functional intestinal disorder, unspecified | CPT/HCPCS: 99212 ==

== ENCOUNTER → 2022-06-09 07:49 | Outpatient (BNVA) | payer MEDICARE, SELFPAY | PROVIDERS: PCP Nurse Practitioner; Referring Provider Nurse Practitioner; Visit Provider Nurse Practitioner | DX: K59.04 Chronic idiopathic constipation (principal); K21.9 Gastro-esophageal reflux disease without esophagitis | CPT/HCPCS: 99212 ==

== ENCOUNTER → 2022-08-04 07:51 | Outpatient (BNVA) | payer MEDICARE, SELFPAY | PROVIDERS: PCP Nurse Practitioner; Referring Provider Nurse Practitioner; Visit Provider Nurse Practitioner | DX: K59.04 Chronic idiopathic constipation (principal); K21.9 Gastro-esophageal reflux disease without esophagitis; K59.9 Functional intestinal disorder, unspecified; Z79.899 Other long term (current) drug therapy | CPT/HCPCS: 99212 ==

== ENCOUNTER → 2022-08-31 13:59 | Outpatient (BNVA) | payer MEDICARE, SELFPAY | PROVIDERS: PCP Nurse Practitioner; Visit Provider Obstetrics & Gynecology | DX: Z01.419 Encounter for gynecological examination (general) (routine) without abnormal findings (principal); R32 Unspecified urinary incontinence | CPT/HCPCS: 99212; G0101 ==

== ENCOUNTER → 2022-09-01 08:06 | Outpatient (BNVA) | payer MEDICARE, SELFPAY | PROVIDERS: PCP Nurse Practitioner; Visit Provider Nurse Practitioner | DX: K59.04 Chronic idiopathic constipation (principal); K21.9 Gastro-esophageal reflux disease without esophagitis; K59.9 Functional intestinal disorder, unspecified | CPT/HCPCS: 99212 ==

== ENCOUNTER 2022-09-22 07:52 | Outpatient (AMB) | payer MEDICARE, SELFPAY ==
--- NOTE | 2022-09-22 08:13 | A.OFFVIS_ITS ---
Intake Vital Signs 09/22/22 08:19 Height 5 ft 7 in Weight 271 lb BMI 42.4 BP 114/56 L Blood Pressure Location Lt brachial Position Sitting Pulse 71 Intake Visit Reasons: 3 Week fu Intake Note: Patient follow up for diarrhea and med check Patient cc: Nauseas, between diarrhea/constipation, abdominal pain with bloating. 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 Is only taking bisacodyl when does not move her bowels, a nd this is producing very hard stool followed by diarrhea (and bloating). I want her to continue the amitiza and add 1 bisacodyl qhs and titrate to 2 if needed. Can even add a third dose in the am if needed. Worried that [facility] sent a letter that the Amitiza will only be paid for over 1 year. Will address this at that time, there may be a new coupon or insurance coverage may change (Medicare coverage had too high a copay for Linzess etc). The she also continues on her Reglan 10 mg 4 times a day and her lansoprazole 30 mg daily. ROV 3 weeks. (2) GERD (gastroesophageal reflux disease): ?Code(s): K21.9 - Gastro-esophageal reflux disease without esophagitis (3) Small bowel motility disorder: ?Code(s): K59.9 - Functional intestinal disorder, unspecified ?Patient Instructions: Alcira Gordon Please continue to take the lubiprostone twice a day and add 1 of the bisacodyl at bedtime. If 1 of the bisacodyl is not moving her bowels then give her 2 at bedtime. If this is not working, then you can give her 1 bisacodyl in the morning (this would be a total of 3 bisacodyl a day, and you should not do more than this.) I want to see you in 3 weeks. TODAY'S VISIT She is here today with her who is supportive She is having many fecal accidents she is taking Amiitza 24 bid and 1 bisacodyl. She is also on reglan 10mg qid, she has had problems with nausea and while improved she still has this sometimes. We will decrease the Amitiza to 24mcg qd and stop bisacodyl. This is really limiting her life, ruchi her participation in her pool PT. She continues on her lansoprazole 30 mg twice a day with good control of her heartburn. Because of her nausea I am reluctant to limit the Reglan right now but we may consider this going forward ROV 2 weeks. [facility] Medical History Anxiety and depression Asthma Chronic back pain Elevated cholesterol GERD (gastroesophageal reflux disease) Headache IBS (irritable bowel syndrome) IBS (irritable bowel syndrome) LINDSEY (obstructive sleep apnea) Osteoarthritis PTSD (post-traumatic stress disorder) Surgical History History of appendectomy History of colonoscopy History of tonsillectomy and adenoidectomy History of total right knee replacement (TKR) Hx of cholecystectomy Hx of endoscopy Family History Father No problems noted. Mother No problems noted. Social History Are you a primary animal care attendant to a significant other at home: No Do you presently have visiting nurse or other home services: No Alcohol intake: current Alcohol intake frequency: holidays/special occasions only Patient Tobacco Use Status: Never used Tobacco Female Reproductive History Menstrual Age of Menarche: 12 Review of Systems Const Denies fatigue and Reports weakness Eyes Details: glasses Reports requires corrective lenses ENT Reports Normal hearing present, Denies dysphagia, Denies odynophagia, Reports disequilibrium, Denies throat swelling and Denies tongue swelling GI Details: Fecal incontinence Denies abdominal pain, Denies melena, Denies bloating, Denies hematochezia, Denies constipation, Denies GI cramping, Denies dysphagia, Denies excessive flatus, Denies early satiety, Reports heartburn, Reports diarrhea, Reports nausea, Denies odynophagia, Denies vomiting and Denies hematemesis Skin/Breast Denies pruritus, Denies lesions, Denies rash and Denies jaundice Neuro Reports Normal hearing present, Denies Abnormal speech present, Reports memory loss, Reports disequilibrium and Reports weakness Psych Reports memory loss Endo Denies fatigue Aller/Immun Denies throat swelling and Denies tongue swelling Physical Exam Vital Signs: Last Vital Signs Pulse 71 09/22/22 08:19 BP 114/56 L 09/22/22 08:19 BMI result Body Mass Index 42.4 Const General: cooperative, no acute distress, well developed and well groomed Nutritional Appearance: well nourished and obese Orientation/consciousness: oriented to person, oriented to place and oriented to time Limitations: No language barrier and wheelchair HEENT Head: Yes normocephalic and Yes atraumatic Eyes General: appearance normal, both eyes and all related structures Pupils: Equal, round and reactive pupils present Neck Neck: Yes normal visual inspection and Yes no lymphadenopathy Thyroid: Thyroid normal Resp Effort & Inspection: normal respiratory effort and able to speak in complete sentences Auscultation: clear to auscultation bilaterally Cardio Rate: regular rate Rhythm: regular rhythm Heart sounds: Normal, physiologic split S2 sound present Peripheral pulses: radial pulses present and posterior tibial pulses present GI Inspection: No distended, Yes Abdominal panniculus present and Yes obesity Palpation (GI): Soft to palpation, nontender, no guarding, not rigid and No hepatosplenomegaly present Percussion: Yes normal to percussion Auscultation: normal bowel sounds Rectal Exam - Female: deferred Skin General skin exam: no rashes or lesions noted, turgor normal, skin not dry, no jaundice, No spider nevi and no striae Rashes: no rashes Nails: normal Neuro General: oriented to person, oriented to place and oriented to time Cranial nerves: Yes Equal, round and reactive pupils present and Yes Normal hearing present Speech: No Abnormal speech present Extrem General: Yes normal to inspection, No clubbing, No cyanosis and No edema Psych Appearance: grossly normal and well kempt Mental Status: mental status grossly normal Speech and movement: Normal speech and movement present Affect: normal affect Attitude: cooperative Thought process: Normal thought process present and not confabulating Thought content: Normal thought content present Insight: Limited insight present (Psych) Judgement: Limited judgement present (Psych) Assessment & Plan Assessment & Plan (1) Small bowel motility disorder: Code(s): K59.9 - Functional intestinal disorder, unspecified Plan: She is here today with her who is supportive She is having many fecal accidents she is taking Amiitza 24 bid and 1 bisacodyl. She is also on reglan 10mg qid, she has had problems with nausea and while improved she still has this sometimes. We will decrease the Amitiza to 24mcg qd and stop bisacodyl. This is really limiting her life, ruchi her participation in her pool PT. She continues on her lansoprazole 30 mg twice a day with good control of her heartburn. Because of her nausea I am reluctant to limit the Reglan right now but we may consider this going forward ROV 2 weeks. (2) Chronic idiopathic constipation: Code(s): K59.04 - Chronic idiopathic constipation (3) GERD (gastroesophageal reflux disease): Code(s): K21.9 - Gastro-esophageal reflux disease without esophagitis (4) Nausea: Code(s): R11.0 - Nausea Coding Level of Care Code Est Pt Level 3 (08354) Diagnoses Small bowel motility disorder K59.9 Chronic idiopathic constipation K59.04 GERD (gastroesophageal reflux disease) K21.9 Nausea R11.0
[2022-09-22 08:19] VITALS: BP 114/56; PULSE 71; BMI 42.4
== END 2022-09-22 08:34 | disposition home or self-care (01) ==
PROVIDERS: PCP Nurse Practitioner; Visit Provider Nurse Practitioner
DX: K59.9 Functional intestinal disorder, unspecified (principal); K59.04 Chronic idiopathic constipation; K21.9 Gastro-esophageal reflux disease without esophagitis; R11.0 Nausea
CPT/HCPCS: 99213

== ENCOUNTER → 2022-09-22 07:52 | Outpatient (BNVA) | payer MEDICARE, SELFPAY | PROVIDERS: PCP Nurse Practitioner; Visit Provider Nurse Practitioner | DX: K59.04 Chronic idiopathic constipation (principal); K59.9 Functional intestinal disorder, unspecified; K21.9 Gastro-esophageal reflux disease without esophagitis; R11.0 Nausea | CPT/HCPCS: 99212 ==

== ENCOUNTER 2022-10-07 07:52 | Outpatient (AMB) | payer MEDICARE, SELFPAY ==
--- NOTE | 2022-10-07 07:56 | A.OFFVIS_ITS ---
Intake Vital Signs 10/07/22 08:24 Height 5 ft 7 in Weight 274 lb BMI 42.9 BP 119/59 L Blood Pressure Location Lt brachial Position Sitting Pulse 77 Intake Visit Reasons: 2 week followup Intake Note: Patient follow up abdominal bloating. Patient cc: abdominal pain with bloating and some diarrhea. Animal Care Assistant Required: No Accompanied by: Spouse Allergies garlic Allergy (Severe, Verified 10/07/22 08:22) THROAT CLOSES cephalexin [From Keflex] Allergy (Mild, Verified 10/07/22 08:22) RASH soy Allergy (Verified 10/07/22 08:22) GI issues, mouth swelling HPI 2 week followup HPI Details Assessment & Plan (1) Small bowel motility disorder: ?Code(s): K59.9 - Functional intestinal disorder, unspecified ?Plan: She is here today with her who is supportive She is having many fecal accidents she is taking Amiitza 24 bid and 1 bisacodyl. She is also on reglan 10mg qid, she has had problems with nausea and while improved she still has this sometimes. We will decrease the Amitiza to 24mcg qd and stop bisacodyl. This is really limiting her life, ruchi her participation in her pool PT. She continues on her lansoprazole 30 mg twice a day with good control of her heartburn.? Because of her nausea I am reluctant to limit the Reglan right now but we may consider this going forward ROV 2 weeks. (2) Chronic idiopathic constipation: ?Code(s): K59.04 - Chronic idiopathic constipation (3) GERD (gastroesophageal reflux disease): ?Code(s): K21.9 - Gastro-esophageal reflux disease without esophagitis (4) Nausea: ?Code(s): R11.0 - Nausea TODAY'S VISIT put 1 Amitiza in am for week one, but then forgot and put 2 for week two. BUT she had cIC with just 1 pill and watery diarrhea with 2 tabs. Will titrate with senna qhs 1-3 tabs and amitiza in am. I want to move the Amitiza to morning dosing to try to prevent overnight fecal accidents. She continues on her lansoprazole 30 mg twice a day with good control of her heartburn.? Because of her nausea I am reluctant to limit the Reglan right now but we may consider this going forward ROV 3 weeks. will call computers down. [facility]LY [facility], [facility] Medical History Anxiety and depression Asthma Chronic back pain Elevated cholesterol GERD (gastroesophageal reflux disease) Headache IBS (irritable bowel syndrome) IBS (irritable bowel syndrome) LINDSEY (obstructive sleep apnea) Osteoarthritis PTSD (post-traumatic stress disorder) Surgical History History of appendectomy History of colonoscopy History of tonsillectomy and adenoidectomy History of total right knee replacement (TKR) Hx of cholecystectomy Hx of endoscopy Family History Father No problems noted. Mother No problems noted. Social History Are you a primary assistant child care teacher to a significant other at home: No Do you presently have visiting nurse or other home services: No Alcohol intake: current Alcohol intake frequency: holidays/special occasions only Patient Tobacco Use Status: Never used Tobacco Female Reproductive History Menstrual Age of Menarche: 12 Review of Systems Const Denies fatigue, Denies fever(s), Denies night sweats, Denies poor appetite and Denies weight loss Eyes Details: Glasses Reports requires corrective lenses ENT Reports Normal hearing present, Denies dental pain, Denies dysphagia, Denies hearing loss, Denies mouth pain, Denies odynophagia, Denies throat swelling, Denies tongue swelling and Reports other (Dentition adequate) Card Reports no additional complaints Resp Reports no additional complaints GI Denies abdominal pain, Denies melena, Reports bloating, Denies hematochezia, Reports constipation, Denies GI cramping, Denies dysphagia, Denies excessive flatus, Denies early satiety, Reports heartburn, Reports diarrhea, Reports nausea, Denies odynophagia, Denies vomiting and Denies hematemesis Musc Reports abnormal gait, Reports back pain, Reports arthralgias and Reports stiffness Skin/Breast Denies pruritus, Denies lesions, Denies rash and Denies jaundice Neuro Reports Normal hearing present, Denies Abnormal speech present, Reports abnormal gait and Reports memory loss Psych Reports memory loss Endo Denies fatigue Aller/Immun Denies throat swelling and Denies tongue swelling Physical Exam Vital Signs: Last Vital Signs Pulse 77 10/07/22 08:24 BP 119/59 L 10/07/22 08:24 BMI result Body Mass Index 42.9 Const General: cooperative, no acute distress, well developed and well groomed Nutritional Appearance: well nourished and obese Orientation/consciousness: oriented to person, oriented to place and oriented to time Limitations: No language barrier, wheelchair and other limitations HEENT Head: Yes normocephalic and Yes atraumatic Eyes General: appearance normal, both eyes and all related structures Pupils: Equal, round and reactive pupils present Neck Neck: Yes normal visual inspection and Yes no lymphadenopathy Thyroid: Thyroid normal Resp Effort & Inspection: normal respiratory effort and able to speak in complete sentences Auscultation: clear to auscultation bilaterally Cardio Rate: regular rate Rhythm: regular rhythm Heart sounds: Normal, physiologic split S2 sound present Peripheral pulses: radial pulses present and posterior tibial pulses present GI Inspection: No distended, Yes Abdominal panniculus present and Yes obesity Palpation (GI): Soft to palpation, nontender, no guarding, not rigid and No hepatosplenomegaly present Percussion: Yes normal to percussion Auscultation: normal bowel sounds Rectal Exam - Female: deferred Skin General skin exam: no rashes or lesions noted, turgor normal, skin not dry, no jaundice, No spider nevi and no striae Rashes: no rashes Nails: normal Neuro General: oriented to person, oriented to place and oriented to time Cranial nerves: Yes Equal, round and reactive pupils present and Yes Normal hearing present Speech: No Abnormal speech present Extrem General: Yes normal to inspection, No clubbing, No cyanosis and No edema Psych Appearance: grossly normal and well kempt Mental Status: mental status grossly normal Speech and movement: Normal speech and movement present Affect: normal affect Attitude: cooperative Thought process: Normal thought process present and not confabulating Thought content: Normal thought content present Insight: Limited insight present (Psych) Judgement: Limited judgement present (Psych) Assessment & Plan Assessment & Plan (1) Chronic idiopathic constipation: Code(s): K59.04 - Chronic idiopathic constipation Plan: put 1 Amitiza in am for week one, but then forgot and put 2 for week two. BUT she had cIC with just 1 pill and watery diarrhea with 2 tabs. Will titrate with senna qhs 1-3 tabs and amitiza in am. I want to move the Amitiza to morning dosing to try to prevent overnight fecal accidents. She continues on her lansoprazole 30 mg twice a day with good control of her heartburn.? Because of her nausea I am reluctant to limit the Reglan right now but we may consider this going forward ROV 3 weeks. will call computers down. 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
[2022-10-07 08:24] VITALS: BP 119/59; PULSE 77; BMI 42.9
== END 2022-10-07 08:25 | disposition home or self-care (01) ==
PROVIDERS: PCP Nurse Practitioner; Visit Provider Nurse Practitioner
DX: K59.04 Chronic idiopathic constipation (principal); K59.9 Functional intestinal disorder, unspecified; K21.9 Gastro-esophageal reflux disease without esophagitis; R11.0 Nausea; D89.40 Mast cell activation, unspecified
CPT/HCPCS: 99213

== ENCOUNTER → 2022-10-07 07:52 | Outpatient (BNVA) | payer MEDICARE, SELFPAY | PROVIDERS: PCP Nurse Practitioner; Visit Provider Nurse Practitioner | DX: K59.04 Chronic idiopathic constipation (principal); K59.9 Functional intestinal disorder, unspecified; K21.9 Gastro-esophageal reflux disease without esophagitis; R11.0 Nausea; D89.40 Mast cell activation, unspecified | CPT/HCPCS: 99212 ==

== ENCOUNTER 2022-10-22 11:52 | Outpatient (REF) | payer MEDICARE, SELFPAY | END 2022-10-22 11:53 | disposition home or self-care (01) | LOC: HO.LNP 11:52 | PROVIDERS: PCP Nurse Practitioner; Visit Provider Nurse Practitioner Family | DX: R33.9 Retention of urine, unspecified (principal); R32 Unspecified urinary incontinence | CPT/HCPCS: 51798; 81003; 87086; 99202 ==

== ENCOUNTER 2022-10-22 11:52 | Outpatient (AMB) | payer MEDICARE, SELFPAY ==
--- NOTE | 2022-10-22 12:20 | A.OFFVIS_ITS ---
Intake Intake Visit Reasons: urinary incontinence Intake Note: New Patient presents for initial visit urinary incontinence Urology Medications: none Blood Thinner: none PVR: 222ml's Harnessmaker Required: No Accompanied by: Spouse Allergies garlic Allergy (Severe, Verified 10/22/22 12:43) THROAT CLOSES cephalexin [From Keflex] Allergy (Mild, Verified 10/22/22 12:43) RASH soy Allergy (Verified 10/22/22 12:43) GI issues, mouth swelling Medication List - Last Reconciled 10/22/22 by DEAN Pritchard- ascorbic acid (vitamin C) 500 mg PO DAILY beclomethasone dipropionate 80 mcg/actuation (Qvar RediHaler) 2 puffs PO BID betamethasone, augmented 0.05 % appl topical BID PRN bisacodyl (Dulcolax (bisacodyl)) 5 mg PO BID bupropion HCl 200 mg PO BID celecoxib 100 mg PO BID cetirizine 10 mg PO BID cholecalciferol (vitamin D3) 50 mcg PO DAILY clonazepam 1 mg PO BID PRN clonidine HCl 0.1 mg PO BID PRN cromolyn mg PO cyanocobalamin (vitamin B-12) 1,000 mcg PO DAILY desmopressin 0 mg PO dicyclomine 40 mg (2 x 20 mg) PO QID 30 days duloxetine 60 mg PO BID epinephrine 0.3 mL IM ONCE PRN famotidine (Pepcid) 40 mg PO BEDTIME hydrochlorothiazide 1 tab PO DAILY hydrocortisone 10 mg PO BID lactulose 30 grams (45 mL) PO QID lamotrigine 300 mg PO DAILY lansoprazole 30 mg PO DAILY levalbuterol tartrate 45 mcg/actuation (Xopenex HFA) 1 puff inhalation Q4-6H PRN levothyroxine 100 mcg PO DAILY lubiprostone (Amitiza) 24 mcg PO BID 30 days magnesium oxide 500 mg (2 x 250 mg magnesium) PO DAILY metoclopramide HCl (Reglan) 10 mg PO QIDACHS montelukast 10 mg PO QPM nitrofurantoin macrocrystal 100 mg PO BID 7 days potassium chloride ER 20 mEq PO DAILY pravastatin 1 tab PO DAILY sennosides (senna) 17.2 mg (2 x 8.6 mg) PO BEDTIME PRN terazosin 1 mg PO BEDTIME 30 days topiramate 150 mg PO BID HPI HPI Comments History of Present Illness Details Alcira is a pleasant 62 year old female patient of Dr. Mathews was accompanied by her at today's visit. She has a past medical history of anxiety, depression, asthma, chronic back pain, hypercholesteremia, GERD, headaches, irritable bowel syndrome, obstructive sleep apnea, diabetes insipidus, osteoarthritis, and PTSD. She presents to the office today as a new patient for ongoing urinary issues. In discussion with the patient today she reports noting for months now urinary frequency, urinary urgency, and episodes of incontinence if not near a bathroom. She also reports intermittent issues with dysuria. She otherwise denies hematuria, foul smelling urine, changes to urinary stream, flank pain, fever, and or chills. In office urinalysis results reviewed with the patient today. PVR 222 mL. Discussed contributing factors of diabetes insipidus and obstructive sleep apnea. Discussed at length potential c auses as well as affects of incomplete bladder emptying. She otherwise offers no other issues or concerns at this time. [facility] Medical History Anxiety and depression Asthma Chronic back pain Elevated cholesterol GERD (gastroesophageal reflux disease) Headache IBS (irritable bowel syndrome) IBS (irritable bowel syndrome) LINDSEY (obstructive sleep apnea) Osteoarthritis PTSD (post-traumatic stress disorder) Surgical History History of appendectomy History of colonoscopy History of tonsillectomy and adenoidectomy History of total right knee replacement (TKR) Hx of cholecystectomy Hx of endoscopy Family History Father No problems noted. Mother No problems noted. Social History Are you a primary aged or disabled carer to a significant other at home: No Do you presently have visiting nurse or other home services: No Alcohol intake: current Alcohol intake frequency: holidays/special occasions only Patient Tobacco Use Status: Never used Tobacco Female Reproductive History Menstrual Age of Menarche: 12 Review of Systems Const Reports as per HPI Eyes Reports no additional complaints ENT Reports no additional complaints Card Reports as per HPI Resp Reports as per HPI GI Reports as per HPI Reports as per [facility] Psych Reports as per HPI Endo Reports as per HPI Physical Exam Const General: cooperative, healthy appearing, comfortable, no acute distress, well developed, alert and awake Orientation/consciousness: patient oriented x3 Limitations: wheelchair HEENT Head: Yes normal to inspection, Yes normocephalic and Yes atraumatic Ears: hearing grossly normal bilaterally Eyes General: appearance normal, both eyes and all related structures Neck Neck: Yes normal visual inspection and Yes trachea midline Chest Chest palpation & inspection: normal inspection of the chest Resp Effort & Inspection: normal respiratory effort and able to speak in complete sentences Cardio Rate: regular rate GI Inspection: Yes normal to inspection General: Yes no CVA tenderness Back/Spine/Pelvis Back: no CVA tenderness Skin General skin exam: no rashes or lesions noted Neuro General: patient oriented x3 Extrem General: Yes normal to inspection Psych Appearance: grossly normal and well kempt Mental Status: mental status grossly normal Speech and movement: Normal speech and movement present and Clear speech present Affect: normal affect Attitude: cooperative Thought process: Normal thought process present Thought content: Normal thought content present Insight: Fair insight present (Psych) Judgement: Fair judgement present (Psych) Office Procedures Post Void Residual Post Residual Void Post Void Residual (PVR): 222 [id number] Void Residual by ultrasound Results AMB Urinalysis, Automated UA Leukoctes 15 Yemi/uL Last Edit by Shahbaz Pichardo on 10/22/22 12:31 UA Nitrite Last Edit by Shahbaz Pichardo on 10/22/22 12:31 UA Urobilinogen 0.2 mg/dL Last Edit by Shahbaz Pichardo on 10/22/22 12:31 UA Protein 30 mg/dL Last Edit by Cool Lumenssamantha Pichardo on 10/22/22 12:31 UA pH 6.0 Last Edit by Bambecoernestine Pichardo on 10/22/22 12:31 UA Blood 10 Thanh/uL Last Edit by Shahbaz Pichardo on 10/22/22 12:31 UA Specific [place] 1.015 Last Edit by Bambecoernestine Pichardo on 10/22/22 12:31 UA Ketone Positive Last Edit by GilmerRoyal Yatri Holidaysernestine Pichardo on 10/22/22 12:31 UA Bilirubin 1 mg/dL Last Edit by Shahbaz Pichardo on 10/22/22 12:31 UA Glucose 0 mg/dL Last Edit by Shahbaz Pichardo on 10/22/22 12:31 Results Reviewed Results Reviewed: Laboratory Last Values Urine pH (Auto) 6.0 10/22/22 12:22 Specific [place] (Auto) 1.015 10/22/22 12:22 Urine Protein (Auto) 30 mg/dL 10/22/22 12:22 Glucose (UA)(Auto) 0 mg/dL 10/22/22 12:22 Urine Ketones (Auto) Positive 10/22/22 12:22 Urine Blood (Auto) 10 Thanh/uL 10/22/22 12:22 Urine Bilirubin (Auto) 1 mg/dL 10/22/22 12:22 Urine Urobilinogen (Auto) 0.2 mg/dL 10/22/22 12:22 Leukocyte Esterase (Auto) 15 Yemi/uL 10/22/22 12:22 Assessment & Plan Assessment & Plan (1) Incomplete bladder emptying: Code(s): R33.9 - Retention of urine, unspecified (2) Urine incontinence: Code(s): R32 - Unspecified urinary incontinence Plan In office urinalysis results reviewed with the patient today; will send for urine culture PVR 222 mL. Discussed at length potential causes as well as affects of incomplete bladder emptying on the body as well as overall health and well-being Discussed obtaining retroperitoneal ultrasound for further assessment evaluation. Start terazosin 1 mg at bedtime as discussed and prescribed. Start Macrobid 100mg BID as discussed and prescribed. Discussed scheduled toileting to assist with incomplete bladder emptying due to decreased mobility as patient reporting urinary urgency and frequency with episodes of incontinence not near a bathroom and utilizes wheelchair. Follow-up in 6-8 weeks with imaging to be completed prior; or sooner with any issues, concerns, and or questions. Orders: Orders US retroperitoneal comp 10/22/22 R33.9 - Retention of urine, unspecified Urine Culture 10/22/22 R32 - Unspecified urinary incontinence, R33.9 - Retention of urine, unspecified AMB Urinalysis Automated 10/22/22 Z13.9 - Encounter for screening, unspecified AMB Post Void Residual by ultrasound 10/22/22 R32 - Unspecified urinary incontinence Medications: New nitrofurantoin macrocrystal must administer with a meal/food 100 mg PO BID 7 days 14 caps 0RF N39.0 - Urinary tract infection, site not specified terazosin 1 mg PO BEDTIME 30 days 30 caps 1RF R39.12 - Poor urinary stream Patient Instructions: The patient had an opportunity to ask questions regarding the treatment plan. All questions were answered. Physical exam, labs, and imaging were discussed and reviewed in detail. As well as risks, benefits, and discussion of treatment choices. No major barriers to understanding were identified. The patient expressed understanding and agreement with the above treatment plan. The patient was made aware they should contact our office by phone for worsening of their current condition, the appearance of new symptoms, or with any questions or concerns. Compliance is encouraged with any medications and follow up testing that is ordered. It is a privilege to be allowed the opportunity to participate in? your urological care.? Again, if you have any questions or concerns If you have any questions or concerns please do not hesitate to contact me. The office is [phone]. This note is constructed using voice recognition software. While every effort has been made to ensure accuracy bottom bleacher errors may have been included. Yours sincerely, DEAN Pritchard-ROMINA Coding Level of Care Code New Pt Level 4 (41056) Diagnoses Incomplete bladder emptying R33.9 Urine incontinence R32 CPT Codes Post Residual Void - PVR CPT Code: 26132-Eqyv Void Residual by ultrasound ([id number])
== END 2022-10-22 12:40 | disposition home or self-care (01) ==
PROVIDERS: PCP Nurse Practitioner; Visit Provider Nurse Practitioner Family
DX: R33.9 Retention of urine, unspecified (principal); R32 Unspecified urinary incontinence
CPT/HCPCS: 99204; 99214

== ENCOUNTER 2022-10-26 08:09 | Outpatient (AMB) | payer MEDICARE, SELFPAY ==
--- NOTE | 2022-10-26 08:12 | A.OFFVIS_ITS ---
Intake Vital Signs 10/26/22 08:22 Height 5 ft 7 in Weight 270 lb BMI 42.3 BP 107/74 Blood Pressure Location Lt brachial Position Sitting Pulse 71 Intake Visit Reasons: 3 week follow up Intake Note: Alcira presents in office as a est.patient for a 3week f/u PT CC: pt reports having abdominal pain , diarrhea/ constipation pt denies any other GI Issues Commercial Insurance Underwriter Required: No Accompanied by: Significant Other Allergies garlic Allergy (Severe, Verified 10/26/22 08:22) THROAT CLOSES cephalexin [From Keflex] Allergy (Mild, Verified 10/26/22 08:22) RASH soy Allergy (Verified 10/26/22 08:22) GI issues, mouth swelling HPI 3 week follow up HPI Details Assessment & Plan (1) Chronic idiopathic constipation: ?Code(s): K59.04 - Chronic idiopathic constipation ?Plan: put 1 Amitiza in am for week one, but then forgot and put 2 for week two. BUT she had cIC with just 1 pill and watery diarrhea with 2 tabs. Will titrate with senna qhs 1-3 tabs and amitiza in am.? I want to move the Amitiza to morning dosing to try to prevent overnight fecal accidents. She continues on her lansoprazole 30 mg twice a day with good control of her heartburn.? Because of her nausea I am reluctant to limit the Reglan right now but we may consider this going forward ROV 3 weeks. will call computers down. (2) Small bowel motility disorder: ?Code(s): K59.9 - Functional intestinal disorder, unspecified (3) GERD (gastroesophageal reflux disease): ?Code(s): K21.9 - Gastro-esophageal reflux disease without esophagitis (4) Nausea: ?Code(s): R11.0 - Nausea (5) Mast cell activation syndrome: ?Code(s): D89.40 - Mast cell activation, unspecified TODAY'S VISIT She only moved her bowels twice since I saw her, one solid bowel movement, one diarrheal. She had severe cramping prior to the diarrhea, but she made it to the BR. I think we need to add fiber, she had some left over fibercon at home. I will also send psylluim tablets to see if they are covered by insurance. Despite the fact that she says she has had no bloating when she did not move her bowels she feels that she needs to move more frequently. However, she is having better control of her stools unless fecal accidents. Given the severity of her response to twice a day Amitiza I want to move very slowly and add fiber before we consider titrating up the senna. Especially since she did have 1 episode of watery diarrhea. They were never called to make the appt last time computers were down! I apologize for this as that was a very confusing day and I am happy that we eventually got back together. She continues on her lansoprazole twice a day and her Reglan. Her appetite is good. ROV 3 weeks. [facility] Medical History Anxiety and depression Asthma Chronic back pain Elevated cholesterol GERD (gastroesophageal reflux disease) Headache IBS (irritable bowel syndrome) IBS (irritable bowel syndrome) LINDSEY (obstructive sleep apnea) Osteoarthritis PTSD (post-traumatic stress disorder) Surgical History History of appendectomy History of colonoscopy History of tonsillectomy and adenoidectomy History of total right knee replacement (TKR) Hx of cholecystectomy Hx of endoscopy Family History Father No problems noted. Mother No problems noted. Social History Are you a primary childbirth and infant care teacher to a significant other at home: No Do you presently have visiting nurse or other home services: No Alcohol intake: current Alcohol intake frequency: holidays/special occasions only Patient Tobacco Use Status: Never used Tobacco Female Reproductive History Menstrual Age of Menarche: 12 Review of Systems Const Denies fatigue, Denies fever(s), Reports frequent falls, Denies night sweats, Denies poor appetite and Denies weight loss Eyes Details: gkasses Reports requires corrective lenses ENT Reports Normal hearing present, Denies dental pain, Denies dysphagia, Denies hearing loss, Denies mouth pain, Denies odynophagia, Denies throat swelling, Denies tongue swelling and Reports other (Dentition adequate) Card Reports no additional complaints Resp Reports no additional complaints GI Denies abdominal pain, Denies melena, Denies bloating, Denies hematochezia, Reports constipation, Denies GI cramping, Denies dysphagia, Denies excessive flatus, Reports early satiety, Reports heartburn, Reports diarrhea, Denies nausea, Denies odynophagia, Denies vomiting and Denies hematemesis Musc Reports myalgias Skin/Breast Denies pruritus, Denies lesions, Denies rash and Denies jaundice Neuro Reports Normal hearing present, Denies Abnormal speech present and Reports frequent falls Endo Denies fatigue Aller/Immun Denies throat swelling and Denies tongue swelling Physical Exam Vital Signs: Last Vital Signs Pulse 71 10/26/22 08:22 BP 107/74 10/26/22 08:22 BMI result Body Mass Index 42.3 Const General: cooperative, no acute distress, well developed and well groomed Nutritional Appearance: well nourished and obese Orientation/consciousness: oriented to person, oriented to place and oriented to time Limitations: No language barrier and wheelchair HEENT Head: Yes normocephalic and Yes atraumatic Eyes General: appearance normal, both eyes and all related structures Pupils: Equal, round and reactive pupils present Neck Neck: Yes normal visual inspection and Yes no lymphadenopathy Thyroid: Thyroid normal Resp Effort & Inspection: normal respiratory effort and able to speak in complete sentences Auscultation: clear to auscultation bilaterally Cardio Rate: regular rate Rhythm: regular rhythm Heart sounds: Normal, physiologic split S2 sound present Peripheral pulses: radial pulses present and posterior tibial pulses present GI Inspection: No distended, Yes Abdominal panniculus present and Yes obesity Palpation (GI): Soft to palpation, nontender, no guarding, not rigid and No hepatosplenomegaly present Percussion: Yes normal to percussion Auscultation: normal bowel sounds Rectal Exam - Female: deferred Skin General skin exam: no rashes or lesions noted, turgor normal, skin not dry, no jaundice, No spider nevi and no striae Rashes: no rashes Nails: normal Neuro General: oriented to person, oriented to place and oriented to time Cranial nerves: Yes Equal, round and reactive pupils present and Yes Normal hearing present Speech: No Abnormal speech present Extrem General: Yes normal to inspection, No clubbing, No cyanosis and No edema Psych Appearance: grossly normal and well kempt Mental Status: mental status grossly normal Speech and movement: Normal speech and movement present Affect: normal affect Attitude: cooperative Thought process: Normal thought process present and not confabulating Thought content: Normal thought content present Insight: Limited insight present (Psych) Judgement: Limited judgement present (Psych) Assessment & Plan Assessment & Plan (1) Chronic idiopathic constipation: Code(s): K59.04 - Chronic idiopathic constipation Plan: She is here today with her who is her main cavalry officer and is supportive. She only moved her bowels twice since I saw her, one solid bowel movement, one diarrheal. She had severe cramping prior to the diarrhea, but she made it to the BR. I think we need to add fiber, she had some left over fibercon at home. I will also send psylluim tablets to see if they are covered by insurance. Despite the fact that she says she has had no bloating when she did not move her bowels she feels that she needs to move more frequently. However, she is having better control of her stools unless fecal accidents. Given the severity of her response to twice a day Amitiza I want to move very slowly and add fiber before we consider titrating up the senna. Especially since she did have 1 episode of watery diarrhea. They were never called to make the appt last time computers were down! I apologize for this as that was a very confusing day and I am happy that we eventually got back together. She continues on her lansoprazole twice a day and her Reglan. Her appetite is good. ROV 3 weeks. (2) GERD (gastroesophageal reflux disease): Code(s): K21.9 - Gastro-esophageal reflux disease without esophagitis (3) Small bowel motility disorder: Code(s): K59.9 - Functional intestinal disorder, unspecified Medications: New psyllium husk (Daily Fiber) 0.8 grams (2 x 0.4 gram) PO DAILY 60 caps 3RF K59.04 - Chronic idiopathic constipation Coding Level of Care Code Est Pt Level 3 (35042) Diagnoses Chronic idiopathic constipation K59.04 GERD (gastroesophageal reflux disease) K21.9 Small bowel motility disorder K59.9
[2022-10-26 08:22] VITALS: BP 107/74; PULSE 71; BMI 42.3
== END 2022-10-26 08:44 | disposition home or self-care (01) ==
PROVIDERS: PCP Nurse Practitioner; Visit Provider Nurse Practitioner
DX: K59.04 Chronic idiopathic constipation (principal); K21.9 Gastro-esophageal reflux disease without esophagitis; K59.9 Functional intestinal disorder, unspecified
CPT/HCPCS: 99213

== ENCOUNTER → 2022-10-26 08:09 | Outpatient (BNVA) | payer MEDICARE, SELFPAY | PROVIDERS: PCP Nurse Practitioner; Visit Provider Nurse Practitioner | DX: K59.04 Chronic idiopathic constipation (principal); K21.9 Gastro-esophageal reflux disease without esophagitis; K59.9 Functional intestinal disorder, unspecified | CPT/HCPCS: 99212 ==

== ENCOUNTER 2022-11-11 10:16 | Outpatient (REF) | payer MEDICARE, SELFPAY ==
--- NOTE | ~2022-11-11 | US_ITS ---
EXAMINATION: US RETROPERITONEAL COMPLETE (RENAL) CLINICAL INFORMATION: Retention of urine, unspecified. COMPARISON: Ultrasound abdomen limited 11/05/2019. X-ray abdomen 03/14/2019. TECHNIQUE: Real-time imaging of the kidneys and bladder. FINDINGS: RIGHT KIDNEY: 10.7 x 5.1 x 6.8 cm (SAG x AP x TRV). The kidney is normal in size, contour, and echogenicity. Renal cortical thickness is normal. No calculi or focal parenchymal lesions. No hydronephrosis. LEFT KIDNEY: 11.6 x 5.0 x 5.1 cm (SAG x AP x TRV). The kidney is normal in size, contour, and echogenicity. Renal cortical thickness is normal. No calculi or focal parenchymal lesions. No hydronephrosis. BLADDER: Well distended and normal. Bilateral ureteral jets are demonstrated. Prevoid bladder volume is 286 mL. Postvoid bladder volume is 27 mL. US/US retroperitoneal comp IMPRESSION: Unremarkable examination.
== END 2022-11-11 10:17 | disposition home or self-care (01) ==
LOC: HO.US 10:16
PROVIDERS: Visit Provider Nurse Practitioner Family
DX: R33.9 Retention of urine, unspecified (principal)
CPT/HCPCS: 76770

== ENCOUNTER 2022-11-18 09:40 | Outpatient (AMB) | payer MEDICARE, SELFPAY ==
--- NOTE | 2022-11-18 09:43 | A.OFFVIS_ITS ---
Intake Vital Signs 11/18/22 09:47 Height 5 ft 7 in BP 100/50 L Blood Pressure Location Lt brachial Position Sitting Pulse 62 Comment Unable to stand on scale, PT came in on wheelchair Intake Visit Reasons: 3 week follow up Intake Note: Alcira presents presents to in office visit today in 3 weeks follow up of CIC. CC: Patient reports she continues having constipation and diarrhea but is a little bit better per PT. She also reports having LUQ abdominal pain for the last few weeks . Denies other GI symptoms today. Site Operations Manager Required: No Accompanied by: Significant Other Allergies garlic Allergy (Severe, Verified 10/26/22 08:22) THROAT CLOSES cephalexin [From Keflex] Allergy (Mild, Verified 10/26/22 08:22) RASH soy Allergy (Verified 10/26/22 08:22) GI issues, mouth swelling HPI 3 week follow up HPI Details Assessment & Plan (1) Chronic idiopathic constipation: Code(s): K59.04 - Chronic idiopathic constipation Plan: She is here today with her who is her main social media content specialist and is supportive. She only moved her bowels twice since I saw her, one solid bowel movement, one diarrheal. She had severe cramping prior to the diarrhea, but she made it to the BR. I think we need to add fiber, she had some left over fibercon at home. I will also send psylluim tablets to see if they are covered by insurance. Despite the fact that she says she has had no bloating when she did not move her bowels she feels that she needs to move more frequently. However, she is having better control of her stools unless fecal accidents. Given the severity of her response to twice a day Amitiza I want to move very slowly and add fiber before we consider titrating up the senna. Especially since she did have 1 episode of watery diarrhea. They were never called to make the appt last time computers were down! I apologize for this as that was a very confusing day and I am happy that we eventually got back together. She continues on her lansoprazole twice a day and her Reglan. Her appetite is good. ROV 3 weeks. (2) GERD (gastroesophageal reflux diseas e): Code(s): K21.9 - Gastro-esophageal reflux disease without esophagitis (3) Small bowel motility disorder: Code(s): K59.9 - Functional intestinal disorder, unspecified Medications: New psyllium husk (Clementine ly Fiber) 0.8 grams (2 x 0.4 gram) PO DAILY 60 caps 3RF K59.04 - Chronic i diopathic constipa tion TODAY'S VISIT She continues to struggle, but the fiber has helped with her urge to poop although she still has urgency. Overall, the diarrhea is better controlled (no more nocturnal accidents or trails to the br or poop ) but now does not move bowels every day and struggles with very hard stooling when she does build up I have to yank it out. After this she will have some diarrhea and urgency. She is taking 2 fiber tablets qam and 2 senna qhs. Will now add a third senna qam and continue her prior regimen, she continues on her lansoprazole and her Reglan. Has pain in low left flank, ? if bowel vs other, had US of renals that was neg. No colicky course of the pain. ROV 2 weeks. [facility] Medical History Osteoarthritis IBS (irritable bowel syndrome) Chronic back pain Headache GERD (gastroesophageal reflux disease) PTSD (post-traumatic stress disorder) Anxiety and depression LINDSEY (obstructive sleep apnea) Asthma Elevated cholesterol IBS (irritable bowel syndrome) Surgical History History of appendectomy History of tonsillectomy and adenoidectomy Hx of cholecystectomy History of total right knee replacement (TKR) Hx of endoscopy History of colonoscopy Family History Father No problems noted. Mother No problems noted. Social History Are you a primary career center director to a significant other at home: No Do you presently have visiting nurse or other home services: No Alcohol intake: current Alcohol intake frequency: holidays/special occasions only Patient Tobacco Use Status: Never used Tobacco Female Reproductive History Menstrual Age of Menarche: 12 Review of Systems Const Denies fatigue, Denies fever(s), Denies night sweats, Denies poor appetite and Denies weight loss Eyes Details: glasses Reports requires corrective lenses ENT Reports Normal hearing present, Denies dental pain, Denies dysphagia, Denies hearing loss, Denies mouth pain, Denies odynophagia, Denies throat swelling, Denies tongue swelling and Reports other (Dentition adequate) Card Reports no additional complaints Resp Reports no additional complaints GI Reports abdominal pain, Denies melena, Reports bloating, Denies hematochezia, Reports constipation, Reports GI cramping, Denies dysphagia, Denies excessive flatus, Denies early satiety, Reports heartburn, Reports diarrhea, Denies nausea, Denies odynophagia, Denies vomiting and Denies hematemesis Skin/Breast Denies pruritus, Denies lesions, Denies rash and Denies jaundice Neuro Reports Normal hearing present and Denies Abnormal speech present Endo Denies fatigue Aller/Immun Denies throat swelling and Denies tongue swelling Physical Exam Vital Signs: Last Vital Signs Pulse 62 11/18/22 09:47 BP 100/50 L 11/18/22 09:47 Const General: cooperative, no acute distress, well developed and well groomed Nutritional Appearance: well nourished and obese Orientation/consciousness: oriented to person, oriented to place and oriented to time Limitations: No language barrier and wheelchair HEENT Head: Yes normocephalic and Yes atraumatic Eyes General: appearance normal, both eyes and all related structures Pupils: Equal, round and reactive pupils present Neck Neck: Yes normal visual inspection and Yes no lymphadenopathy Thyroid: Thyroid normal Resp Effort & Inspection: normal respiratory effort and able to speak in complete sentences Auscultation: clear to auscultation bilaterally Cardio Rate: regular rate Rhythm: regular rhythm Heart sounds: Normal, physiologic split S2 sound present Peripheral pulses: radial pulses present and posterior tibial pulses present GI Inspection: No distended, Yes Abdominal panniculus present and Yes obesity Palpation (GI): Soft to palpation, nontender, no guarding, not rigid and No hepatosplenomegaly present Percussion: Yes normal to percussion Auscultation: normal bowel sounds Rectal Exam - Female: deferred Skin General skin exam: no rashes or lesions noted, turgor normal, skin not dry, no jaundice, No spider nevi and no striae Rashes: no rashes Nails: normal Neuro General: oriented to person, oriented to place and oriented to time Cranial nerves: Yes Equal, round and reactive pupils present and Yes Normal hearing present Speech: No Abnormal speech present Extrem General: Yes normal to inspection, No clubbing, No cyanosis and No edema Psych Appearance: grossly normal and well kempt Mental Status: mental status grossly normal Speech and movement: Normal speech and movement present Affect: normal affect Attitude: cooperative Thought process: Normal thought process present and not confabulating Thought content: Normal thought content present Insight: Limited insight present (Psych) Judgement: Limited judgement present (Psych) Assessment & Plan Assessment & Plan (1) Chronic idiopathic constipation: Code(s): K59.04 - Chronic idiopathic constipation Plan: She continues to struggle, but the fiber has helped with her urge to poop although she still has urgency. Overall, the diarrhea is better controlled (no more nocturnal accidents or trails to the br or poop ) but now does not move bowels every day and struggles with very hard stooling when she does build up I have to yank it out. After this she will have some diarrhea and urgency. She is taking 2 fiber tablets qam and 2 senna qhs. Will now add a third senna qam and continue her prior regimen, she continues on her lansoprazole and her Reglan. Has pain in low left flank, ? if bowel vs other, had US of renals that was neg. No colicky course of the pain. ROV 2 weeks. (2) GERD (gastroesophageal reflux disease): Code(s): K21.9 - Gastro-esophageal reflux disease without esophagitis (3) Small bowel motility disorder: Code(s): K59.9 - Functional intestinal disorder, unspecified Medications: Changed From sennosides 17.2 mg (2 x 8.6 mg) PO BEDTIME PRN 60 tabs 5RF for constipation To sennosides (senna) 1 tab qam and 2 tab qhs orally bedtime PRN; 90 tabs 5RF for constipation Coding Level of Care Code Est Pt Level 3 (49896) Diagnoses Chronic idiopathic constipation K59.04 GERD (gastroesophageal reflux disease) K21.9 Small bowel motility disorder K59.9
[2022-11-18 09:47] VITALS: BP 100/50; PULSE 62
== END 2022-11-18 10:29 | disposition home or self-care (01) ==
PROVIDERS: PCP Nurse Practitioner; Visit Provider Nurse Practitioner
DX: K59.04 Chronic idiopathic constipation (principal); K21.9 Gastro-esophageal reflux disease without esophagitis; K59.9 Functional intestinal disorder, unspecified
CPT/HCPCS: 99213

== ENCOUNTER → 2022-11-18 09:40 | Outpatient (BNVA) | payer MEDICARE, SELFPAY | PROVIDERS: PCP Nurse Practitioner; Visit Provider Nurse Practitioner | DX: K59.04 Chronic idiopathic constipation (principal); K21.9 Gastro-esophageal reflux disease without esophagitis; K59.9 Functional intestinal disorder, unspecified; Z79.899 Other long term (current) drug therapy | CPT/HCPCS: 99212 ==

== ENCOUNTER 2022-12-03 10:05 | Outpatient (AMB) | payer MEDICARE, SELFPAY ==
--- NOTE | 2022-12-03 10:05 | MHC.OFFVIS ---
Intake Vital Signs 12/03/22 10:10 Height 5 ft 7 in Weight 266 lb BMI 41.7 BP 125/57 L Blood Pressure Location Lt brachial Position Sitting Pulse 66 Comment Weight stated per PT/wheelchair Intake Visit Reasons: 2 week follow up Intake Note: Patient presents to in office visit today in 2 weeks follow up. CC: Patient reports she was doing great for the first 4 days after last visit but then everything went back to how it was before. She c/o constipation, diarrhea, abdominal bloating and pain. Allergies garlic Allergy (Severe, Verified 10/26/22 08:22) THROAT CLOSES cephalexin [From Keflex] Allergy (Mild, Verified 10/26/22 08:22) RASH soy Allergy (Verified 10/26/22 08:22) GI issues, mouth swelling HPI 2 week follow up HPI Details Assessment & Plan (1) Chronic idiopathic constipation: Code(s): K59.04 - Chronic idiopathic constipation Plan: She continues to struggle, but the fiber has helped with her urge to poop although she still has urgency. Overall, the diarrhea is better controlled (no more nocturnal accidents or trails to the br or poop ) but now does not move bowels every day and struggles with very hard stooling when she does build up I have to yank it out. After this she will have some diarrhea and urgency. She is taking 2 fiber tablets qam and 2 senna qhs. Will now add a third senna qam and continue her prior regimen, she continues on her lansoprazole and her Reglan. Has pain in low left flank, ? if bowel vs other, had US of renals that was neg. No colicky course of the pain. ROV 2 weeks. (2) GERD (gastroesophageal reflux disease): Code(s): K21.9 - Gastro-esophageal reflux disease without esophagitis (3) Small bowel motility disorder: Code(s): K59.9 - Functional intestinal disorder, unspecified Medications: Changed From sennosides 17.2 mg (2 x 8.6 m g) PO BEDTIME PRN 60 tabs 5RF for co nstipation To sennosides (senna) 1 tab qam and 2 ta b qhs orally bedti me PRN; 90 tabs 5 RF for constipatio n TODAY'S VISIT She is here today with her who is supportive For the 1st 4 days she was having normal bowel movements and was very excited! Then she had constipation with hard stools followed by diarrhea again. Because she had to go out to medical appointments she took an Imodium which further led to dysfunction of her cycle. There are no other changes in terms of medications or diet. At this point I think will try doing 2 senna in the morning 2 at night and continue with the 2 fiber in the morning and see if we can get better control of her bowels. If this gives her diarrhea then we may back off to 1 senna in the morning 2 at night and do 3 fiber pills in the morning and will try to continue to titrate this from there. Return office visit in 2 weeks. [facility] Medical History Osteoarthritis IBS (irritable bowel syndrome) Chronic back pain Headache GERD (gastroesophageal reflux disease) PTSD (post-traumatic stress disorder) Anxiety and depression LINDSEY (obstructive sleep apnea) Asthma Elevated cholesterol IBS (irritable bowel syndrome) Surgical History History of appendectomy History of tonsillectomy and adenoidectomy Hx of cholecystectomy History of total right knee replacement (TKR) Hx of endoscopy History of colonoscopy Family History Father No problems noted. Mother No problems noted. Social History Are you a primary personal care service provider to a significant other at home: No Do you presently have visiting nurse or other home services: No Alcohol intake: current Alcohol intake frequency: holidays/special occasions only Patient Tobacco Use Status: Never used Tobacco Female Reproductive History Menstrual Age of Menarche: 12 Review of Systems Const Denies fatigue, Denies fever(s), Denies night sweats, Denies poor appetite and Denies weight loss Eyes Details: glasses Reports requires corrective lenses ENT Reports Normal hearing present, Denies dental pain, Denies dysphagia, Denies hearing loss, Denies mouth pain, Denies odynophagia, Denies throat swelling, Denies tongue swelling and Reports other (Dentition adequate) Card Reports no additional complaints Resp Reports no additional complaints GI Denies abdominal pain, Denies melena, Denies bloating, Denies hematochezia, Reports constipation, Denies GI cramping, Denies dysphagia, Denies excessive flatus, Denies early satiety, Reports heartburn, Reports diarrhea, Denies nausea, Denies odynophagia, Denies vomiting and Denies hematemesis Skin/Breast Denies pruritus, Denies lesions, Denies rash and Denies jaundice Neuro Reports Normal hearing present and Denies Abnormal speech present Endo Denies fatigue Aller/Immun Denies throat swelling and Denies tongue swelling Physical Exam Vital Signs: Last Vital Signs Pulse 66 12/03/22 10:10 BP 125/57 L 12/03/22 10:10 BMI result Body Mass Index 41.7 Const General: cooperative, no acute distress, well developed and well groomed Nutritional Appearance: well nourished and obese Orientation/consciousness: oriented to person, oriented to place and oriented to time Limitations: No language barrier and wheelchair HEENT Head: Yes normocephalic and Yes atraumatic Eyes General: appearance normal, both eyes and all related structures Pupils: Equal, round and reactive pupils present Neck Neck: Yes normal visual inspection and Yes no lymphadenopathy Thyroid: Thyroid normal Resp Effort & Inspection: normal respiratory effort and able to speak in complete sentences Auscultation: clear to auscultation bilaterally Cardio Rate: regular rate Rhythm: regular rhythm Heart sounds: Normal, physiologic split S2 sound present Peripheral pulses: radial pulses present and posterior tibial pulses present GI Inspection: No distended, Yes Abdominal panniculus present and Yes obesity Palpation (GI): Soft to palpation, nontender, no guarding, not rigid and No hepatosplenomegaly present Percussion: Yes normal to percussion Auscultation: normal bowel sounds Rectal Exam - Female: deferred Skin General skin exam: no rashes or lesions noted, turgor normal, skin not dry, no jaundice, No spider nevi and no striae Rashes: no rashes Nails: normal Neuro General: oriented to person, oriented to place and oriented to time Cranial nerves: Yes Equal, round and reactive pupils present and Yes Normal hearing present Speech: No Abnormal speech present Extrem General: Yes normal to inspection, No clubbing, No cyanosis and No edema Psych Appearance: grossly normal and well kempt Mental Status: mental status grossly normal Speech and movement: Normal speech and movement present Affect: normal affect Attitude: cooperative Thought process: Normal thought process present and not confabulating Thought content: Normal thought content present Insight: Limited insight present (Psych) Judgement: Limited judgement present (Psych) Assessment & Plan Assessment & Plan (1) Chronic idiopathic constipation: Code(s): K59.04 - Chronic idiopathic constipation Plan: She is here today with her who is supportive For the 1st 4 days she was having normal bowel movements and was very excited! Then she had constipation with hard stools followed by diarrhea again. Because she had to go out to medical appointments she took an Imodium which further led to dysfunction of her cycle. There are no other changes in terms of medications or diet. At this point I think will try doing 2 senna in the morning 2 at night and continue with the 2 fiber in the morning and see if we can get better control of her bowels. If this gives her diarrhea then we may back off to 1 senna in the morning 2 at night and do 3 fiber pills in the morning and will try to continue to titrate this from there. She continues on her famotidine with good control of her GERD. Return office visit in 2 weeks. (2) GERD (gastroesophageal reflux disease): Code(s): K21.9 - Gastro-esophageal reflux disease without esophagitis (3) Small bowel motility disorder: Code(s): K59.9 - Functional intestinal disorder, unspecified Medications: Changed From sennosides (senna) 1 tab qam and 2 tab qhs orally bedtime PRN; 90 tabs 5RF for constipation To sennosides (senna) 17.2 mg (2 x 8.6 mg) PO BID 120 tabs 5RF for constipation Coding Level of Care Code Est Pt Level 3 (80533) Diagnoses Chronic idiopathic constipation K59.04 GERD (gastroesophageal reflux disease) K21.9 Small bowel motility disorder K59.9
[2022-12-03 10:10] VITALS: BP 125/57; PULSE 66; BMI 41.7
== END 2022-12-03 10:31 | disposition home or self-care (01) ==
PROVIDERS: PCP Nurse Practitioner; Visit Provider Nurse Practitioner
DX: K59.04 Chronic idiopathic constipation (principal); K21.9 Gastro-esophageal reflux disease without esophagitis; K59.9 Functional intestinal disorder, unspecified
CPT/HCPCS: 99213

== ENCOUNTER → 2022-12-03 10:05 | Outpatient (BNVA) | payer MEDICARE, SELFPAY | PROVIDERS: PCP Nurse Practitioner; Visit Provider Nurse Practitioner | DX: K59.04 Chronic idiopathic constipation (principal); K59.9 Functional intestinal disorder, unspecified; K21.9 Gastro-esophageal reflux disease without esophagitis | CPT/HCPCS: 99212 ==

== ENCOUNTER 2022-12-15 08:38 | Outpatient (AMB) | payer MEDICARE, SELFPAY ==
--- NOTE | 2022-12-15 08:42 | MHC.OFFVIS ---
Intake Intake Visit Reasons: 7 week follow up/ US(set) Intake Note: Patient presents for follow up visit incomplete bladder emptying Urology Medications: terazosin Blood Thinner: none PVR: Belt Sander Stone Required: No Accompanied by: Spouse Allergies garlic Allergy (Severe, Verified 12/15/22 09:13) THROAT CLOSES cephalexin [From Keflex] Allergy (Mild, Verified 12/15/22 09:13) RASH soy Allergy (Verified 12/15/22 09:13) GI issues, mouth swelling Medication List - Last Reconciled 12/15/22 by DEAN Pritchard-ROMINA ascorbic acid (vitamin C) 500 mg PO DAILY beclomethasone dipropionate 80 mcg/actuation (Qvar RediHaler) 2 puffs PO BID betamethasone, augmented 0.05 % appl topical BID PRN bisacodyl (Dulcolax (bisacodyl)) 5 mg PO BID bupropion HCl 200 mg PO BID celecoxib 100 mg PO BID cetirizine 10 mg PO BID cholecalciferol (vitamin D3) 50 mcg PO DAILY clonazepam 1 mg PO BID PRN clonidine HCl 0.1 mg PO BID PRN cromolyn mg PO cyanocobalamin (vitamin B-12) 1,000 mcg PO DAILY desmopressin 0.1 mg PO dicyclomine 40 mg (2 x 20 mg) PO QID 30 days duloxetine 60 mg PO BID epinephrine 0.3 mL IM ONCE PRN famotidine (Pepcid) 40 mg PO BEDTIME uzyppkqvxrj-ulyqzdusv-wjqlbomr 200-62.5-25 mcg (Trelegy Ellipta) 1 ea inhalation DAILY hydrochlorothiazide 1 tab PO DAILY hydrocortisone 10 mg PO BID lactulose 30 grams (45 mL) PO QID lamotrigine 300 mg PO DAILY lansoprazole 30 mg PO DAILY levalbuterol tartrate 45 mcg/actuation (Xopenex HFA) 1 puff inhalation Q4-6H PRN levothyroxine 112 mcg PO DAILY lubiprostone (Amitiza) 24 mcg PO BID 30 days magnesium oxide 500 mg (2 x 250 mg magnesium) PO DAILY metoclopramide HCl (Reglan) 10 mg PO QIDACHS montelukast 10 mg PO QPM potassium chloride ER 20 mEq PO DAILY pravastatin 1 tab PO DAILY psyllium husk (Daily Fiber) 0.8 grams (2 x 0.4 gram) PO DAILY sennosides (senna) 17.2 mg (2 x 8.6 mg) PO BID terazosin 1 mg PO BEDTIME 30 days tizanidine 4 mg PO TID topiramate 150 mg PO BID HPI HPI Comments History of Present Illness Details Alcira is a pleasant 62 year old female patient of Dr. Mathews was accompanied by her at today's visit. She has a past medical history of anxiety, depression, asthma, chronic back pain, hypercholesteremia, GERD, headaches, irritable bowel syndrome, obstructive sleep apnea, diabetes insipidus, osteoarthritis, and PTSD. She presents to the office today for follow-up. Of note, patient was seen approximately 2 months ago for ongoing lower urinary tract issues at which time a retroperitoneal ultrasound was ordered and the patient was started on 1 mg of terazosin at bedtime due to incomplete bladder emptying. Recent retroperitoneal ultrasound results reviewed with the patient today and her today. Bilateral kidneys with no calculi, lesions, and or hydronephrosis noted. The bladder is well distended and normal. Pre void bladder volume is approximately 285 mL. Postvoid bladder volume is approximately 30 mL. Patient reports feeling ongoing issues with dysuria and foul-smelling urine. However feels urinary frequency and urgency has improved with 1 mg of terazosin at bedtime. In office urinalysis results reviewed with the patient today. Discussed obtaining microgen for further assessment and evaluation. She otherwise denies hematuria, changes to urinary stream, flank pain, fever, and or chills. Discussed contributing factors of diabetes insipidus and obstructive sleep apnea in relation to lower urinary tract symptoms. She discusses following up with a probe hours every 2 weeks in attempt to manage constipation/diarrhea. She discusses continuing to lose weight. She otherwise offers no other issues or concerns at this time. [facility] Medical History Osteoarthritis IBS (irritable bowel syndrome) Chronic back pain Headache GERD (gastroesophageal reflux disease) PTSD (post-traumatic stress disorder) Anxiety and depression LINDSEY (obstructive sleep apnea) Asthma Elevated cholesterol IBS (irritable bowel syndrome) Surgical History History of appendectomy History of tonsillectomy and adenoidectomy Hx of cholecystectomy History of total right knee replacement (TKR) Hx of endoscopy History of colonoscopy Family History Father No problems noted. Mother No problems noted. Social History Are you a primary daycare worker to a significant other at home: No Do you presently have visiting nurse or other home services: No Alcohol intake: current Alcohol intake frequency: holidays/special occasions only Patient Tobacco Use Status: Never used Tobacco Female Reproductive History Menstrual Age of Menarche: 12 Review of Systems Const Reports as per HPI Eyes Reports no additional complaints ENT Reports no additional complaints Card Reports as per HPI Resp Reports as per HPI GI Reports as per HPI Reports as per HPI Psych Reports as per HPI Endo Reports as per HPI Physical Exam Const General: cooperative, healthy appearing, comfortable, no acute distress, well developed, alert and awake Orientation/consciousness: patient oriented x3 Limitations: wheelchair HEENT Head: Yes normal to inspection, Yes normocephalic and Yes atraumatic Ears: hearing grossly normal bilaterally Eyes General: appearance normal, both eyes and all related structures Neck Neck: Yes normal visual inspection and Yes trachea midline Chest Chest palpation & inspection: normal inspection of the chest Resp Effort & Inspection: normal respiratory effort and able to speak in complete sentences Cardio Rate: regular rate GI Inspection: Yes normal to inspection General: Yes no CVA tenderness Back/Spine/Pelvis Back: no CVA tenderness Skin General skin exam: no rashes or lesions noted Neuro General: patient oriented x3 Extrem General: Yes normal to inspection Psych Appearance: grossly normal and well kempt Mental Status: mental status grossly normal Speech and movement: Normal speech and movement present and Clear speech present Affect: normal affect Attitude: cooperative Thought process: Normal thought process present Thought content: Normal thought content present Insight: Fair insight present (Psych) Judgement: Fair judgement present (Psych) Office Procedures Post Void Residual Post Residual Void Post Void Residual (PVR): 32 [id number] Void Residual by ultrasound Results AMB Urinalysis, Automated UA Leukoctes 15 Yemi/uL Last Edit by Shahbaz Pichardo on 12/15/22 08:59 UA Nitrite Negative Last Edit by Shahbaz Pichardo on 12/15/22 08:59 UA Urobilinogen 0.2 mg/dL Last Edit by Shahbaz Pichardo on 12/15/22 08:59 UA Protein 0 mg/dL Last Edit by Shahbaz Pichardo on 12/15/22 08:59 UA pH 6.5 Last Edit by Shahbaz Pichardo on 12/15/22 08:59 UA Blood 0 Thanh/uL Last Edit by Shahbaz Pichardo on 12/15/22 08:59 UA Specific [place] 1.010 Last Edit by Shahbaz Pichardo on 12/15/22 08:59 UA Ketone Negative Last Edit by Shahbaz Pichardo on 12/15/22 08:59 UA Bilirubin 0 mg/dL Last Edit by Shahbaz Pichardo on 12/15/22 08:59 UA Glucose 0 mg/dL Last Edit by Shahbaz Pichardo on 12/15/22 08:59 Results Reviewed Results Reviewed: Laboratory Last Values Urine pH (Auto) 6.5 12/15/22 08:49 Specific [place] (Auto) 1.010 12/15/22 08:49 Urine Protein (Auto) 0 mg/dL 12/15/22 08:49 Glucose (UA)(Auto) 0 mg/dL 12/15/22 08:49 Urine Ketones (Auto) Negative 12/15/22 08:49 Urine Blood (Auto) 0 Thanh/uL 12/15/22 08:49 Urine Nitrite (Auto) Negative 12/15/22 08:49 Urine Bilirubin (Auto) 0 mg/dL 12/15/22 08:49 Urine Urobilinogen (Auto) 0.2 mg/dL 12/15/22 08:49 Leukocyte Esterase (Auto) 15 Yemi/uL 12/15/22 08:49 Date of Service: 11/11/22 EXAMINATION: US RETROPERITONEAL COMPLETE (RENAL) FINDINGS: RIGHT KIDNEY: 10.7 x 5.1 x 6.8 cm (SAG x AP x TRV). The kidney is normal in size, contour, and echogenicity. Renal cortical thickness is normal. No calculi or focal parenchymal lesions. No hydronephrosis. LEFT KIDNEY: 11.6 x 5.0 x 5.1 cm (SAG x AP x TRV). The kidney is normal in size, contour, and echogenicity. Renal cortical thickness is normal. No calculi or focal parenchymal lesions. No hydronephrosis. BLADDER: Well distended and normal. Bilateral ureteral jets are demonstrated. Prevoid bladder volume is 286 mL. Postvoid bladder volume is 27 mL. IMPRESSION: Unremarkable examination. Assessment & Plan Assessment & Plan (1) Incomplete bladder emptying: Code(s): R33.9 - Retention of urine, unspecified (2) Foul smelling urine: Code(s): R82.90 - Unspecified abnormal findings in urine (3) Cloudy urine: Code(s): R82.90 - Unspecified abnormal findings in urine (4) Dysuria: Code(s): R30.0 - Dysuria Plan In office urinalysis results reviewed with the patient today; will send for microgen testing (patient reporting cloudy urine, dysuria, and foul-smelling urine) Recent retroperitoneal ultrasound results reviewed with the patient and her today; as noted above. Continue terazosin 1 mg at bedtime. Start Estrace cream as discussed and prescribed. Discussed, educated, encouraged on the importance of continuing to drink plenty of water daily. Discussed regulation of bowels in correlation with lower urinary tract symptoms Continue to follow with GI as planned Follow-up in 3 months with PVR; or sooner with any issues, concerns, and or questions. Orders: Orders AMB Urinalysis Automated Today Z13.9 - Encounter for screening, unspecified AMB Post Void Residual by ultrasound Today R33.9 - Retention of urine, unspecified Medications: New estradiol 0.01%(0.1mg/gram) (Estrace) 1 g vaginal 3XW 30 days 42.5 grams 0RF Patient Instructions: The patient had an opportunity to ask questions regarding the treatment plan. All questions were answered. Physical exam, labs, and imaging were discussed and reviewed in detail. As well as risks, benefits, and discussion of treatment choices. No major barriers to understanding were identified. The patient expressed understanding and agreement with the above treatment plan. The patient was made aware they should contact our office by phone for worsening of their current condition, the appearance of new symptoms, or with any questions or concerns. Compliance is encouraged with any medications and follow up testing that is ordered. It is a privilege to be allowed the opportunity to participate in? your urological care.? Again, if you have any questions or concerns If you have any questions or concerns please do not hesitate to contact me. The office is [phone]. This note is constructed using voice recognition software. While every effort has been made to ensure accuracy corporate sales trainer errors may have been included. Yours sincerely, DEAN Pritchard-ROMINA Coding Level of Care Code Est Pt Level 4 (02076) Diagnoses Incomplete bladder emptying R33.9 Foul smelling urine R82.90 Cloudy urine R82.90 Dysuria R30.0 CPT Codes Post Residual Void - PVR CPT Code: 78865-[place] Void Residual by ultrasound ([id number])
== END 2022-12-15 09:30 | disposition home or self-care (01) ==
PROVIDERS: PCP Nurse Practitioner; Visit Provider Nurse Practitioner Family
DX: R33.9 Retention of urine, unspecified (principal); R82.90 Unspecified abnormal findings in urine; R30.0 Dysuria; Z13.9 Encounter for screening, unspecified
CPT/HCPCS: 99214

== ENCOUNTER → 2022-12-15 08:38 | Outpatient (BNVA) | payer MEDICARE, SELFPAY | PROVIDERS: PCP Nurse Practitioner; Visit Provider Nurse Practitioner Family | DX: R33.9 Retention of urine, unspecified (principal); E23.2 Diabetes insipidus; R82.90 Unspecified abnormal findings in urine; R30.0 Dysuria | CPT/HCPCS: 51798; 81003; 99212 ==

== ENCOUNTER 2022-12-31 08:19 | Outpatient (AMB) | payer MEDICARE, SELFPAY ==
--- NOTE | 2022-12-31 08:33 | MHC.OFFVIS ---
Intake Vital Signs 12/31/22 08:37 Height 5 ft 7 in Weight 258 lb BMI 40.4 BP 128/60 Blood Pressure Location Lt brachial Position Sitting Pulse 73 Intake Visit Reasons: 2 week follow up Intake Note: Patient follow up Patient cc: nauseas on and off, abdominal pain with bloating on and off, and between diarrhea and constipation. 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 Then she had constipation with hard stools followed by diarrhea again. Because she had to go out to medical appointments she took an Imodium which further led to dysfunction of her cycle. There are no other changes in terms of medications or diet. At this point I think will try doing 2 senna in the morning 2 at night and continue with the 2 fiber in the morning and see if we can get better control of her bowels. If this gives her diarrhea then we may back off to 1 senna in the morning 2 at night and do 3 fiber pills in the morning and will try to continue to titrate this from there. She continues on her famotidine with good control of her GERD. Return office visit in 2 weeks. (2) GERD (gastroesophageal reflux disease): Code(s): K21.9 - Gastro-esophageal reflux disease without esophagitis (3) Small bowel motility disorder: Code(s): K59.9 - Functional intestinal disorder, unspecified Medications: Changed From sennosides (senna) 1 tab qam and 2 t ab qhs orally bedt rick PRN; 90 tabs 5RF for constipati on To sennosides (senna) 17.2 mg (2 x 8.6 m g) PO BID 120 tabs 5RF for constipat ion TODAY'S VISIT Her is with her today Having quite a bit of diarrhea and accidents. Given her difficulties ? 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 Sanford and I will send him a note. Back to 2 senna qam and 1 senna qha, changing the reglan to 1 qam and qlunch and 2 qsupper an qhs. She continues to be quite difficult to regulate alternating wildly between diarrhea and constipation and having extreme reactions to some medications we will continue to try to chip away at this to give her the best normalcy. Certainly since she is largely wheelchair bound we want to minimize her falling because of fecal urgency. ROV 2 weeks. [facility] Medical History Osteoarthritis IBS (irritable bowel syndrome) Chronic back pain Headache GERD (gastroesophageal reflux disease) PTSD (post-traumatic stress disorder) Anxiety and depression LINDSEY (obstructive sleep apnea) Asthma Elevated cholesterol IBS (irritable bowel syndrome) Surgical History History of appendectomy History of tonsillectomy and adenoidectomy Hx of cholecystectomy History of total right knee replacement (TKR) Hx of endoscopy History of colonoscopy Family History Father No problems noted. Mother No problems noted. Social History Are you a primary care analyst to a significant other at home: No Do you presently have visiting nurse or other home services: No Alcohol intake: current Alcohol intake frequency: holidays/special occasions only Comment: Fell > 1 month ago - states fainted- no issues since Patient Tobacco Use Status: Never used Tobacco Female Reproductive History Menstrual Age of Menarche: 12 Review of Systems Const Denies fatigue, Denies fever(s), Reports frequent falls, Denies night sweats, Denies poor appetite and Denies weight loss Eyes Details: glasses Reports requires corrective lenses ENT Reports Normal hearing present, Denies dental pain, Denies dysphagia, Denies hearing loss, Denies mouth pain, Denies odynophagia, Denies throat swelling, Denies tongue swelling and Reports other (Dentition adequate) Card Reports no additional complaints Resp Reports no additional complaints GI Denies abdominal pain, Denies melena, Denies bloating, Denies hematochezia, Denies constipation, Reports GI cramping, Denies dysphagia, Denies excessive flatus, Denies early satiety, Reports heartburn, Reports diarrhea, Denies nausea, Denies odynophagia, Denies vomiting and Denies hematemesis Musc Reports abnormal gait, Reports back pain and Reports arthralgias Skin/Breast Denies pruritus, Denies lesions, Denies rash and Denies jaundice Neuro Reports Normal hearing present, Denies Abnormal speech present, Reports abnormal gait and Reports frequent falls Endo Denies fatigue Aller/Immun Denies throat swelling and Denies tongue swelling Physical Exam Vital Signs: Last Vital Signs Pulse 73 12/31/22 08:37 BP 128/60 12/31/22 08:37 BMI result Body Mass Index 40.4 Const General: cooperative, no acute distress, well developed and well groomed Nutritional Appearance: well nourished and obese Orientation/consciousness: oriented to person, oriented to place and oriented to time Limitations: No language barrier, wheelchair and other limitations (Memory limitations) HEENT Head: Yes normocephalic and Yes atraumatic Eyes General: appearance normal, both eyes and all related structures Pupils: Equal, round and reactive pupils present Neck Neck: Yes normal visual inspection and Yes no lymphadenopathy Thyroid: Thyroid normal Resp Effort & Inspection: normal respiratory effort and able to speak in complete sentences Auscultation: clear to auscultation bilaterally Cardio Rate: regular rate Rhythm: regular rhythm Heart sounds: Normal, physiologic split S2 sound present Peripheral pulses: radial pulses present and posterior tibial pulses present GI Inspection: No distended, Yes Abdominal panniculus present and Yes obesity Palpation (GI): Soft to palpation, nontender, no guarding, not rigid and No hepatosplenomegaly present Percussion: Yes normal to percussion Auscultation: normal bowel sounds Rectal Exam - Female: deferred Skin General skin exam: no rashes or lesions noted, turgor normal, skin not dry, no jaundice, No spider nevi and no striae Rashes: no rashes Nails: normal Neuro General: oriented to person, oriented to place and oriented to time Cranial nerves: Yes Equal, round and reactive pupils present and Yes Normal hearing present Speech: No Abnormal speech present Extrem General: Yes normal to inspection, No clubbing, No cyanosis and No edema Psych Appearance: grossly normal and well kempt Mental Status: mental status grossly normal Speech and movement: Normal speech and movement present Affect: normal affect Attitude: cooperative Thought process: Normal thought process present and not confabulating Thought content: Normal thought content present Insight: Limited insight present (Psych) Judgement: Limited judgement present (Psych) Assessment & Plan Assessment & Plan (1) Chronic idiopathic constipation: Code(s): K59.04 - Chronic idiopathic constipation (2) GERD (gastroesophageal reflux disease): Code(s): K21.9 - Gastro-esophageal reflux disease without esophagitis (3) Small bowel motility disorder: Code(s): K59.9 - Functional intestinal disorder, unspecified (4) Left lower quadrant abdominal pain: Code(s): R10.32 - Left lower quadrant pain Plan Her is with her today Having quite a bit of diarrhea and accidents. Given her difficulties ? 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 Sanford and I will send him a note. Back to 2 senna qam and 1 senna qha, changing the reglan to 1 qam and qlunch and 2 qsupper an qhs. She continues to be quite difficult to regulate alternating wildly between diarrhea and constipation and having extreme reactions to some medications we will continue to try to chip away at this to give her the best normalcy. Certainly since she is largely wheelchair bound we want to minimize her falling because of fecal urgency. Nevertheless constipation is the dominant underlying process. ROV 2 weeks. Medications: Changed From metoclopramide HCl 10 mg PO QIDACHS 120 tabs 6RF K59.9 - Functional intestinal disorder, unspecified To metoclopramide HCl (Reglan) 1 qac am, 1qac lunch, 2qac supper, 2qhs orally 4 times a day before meal/bed; 180 tabs 6RF K59.9 - Functional intestinal disorder, unspecified Patient Instructions: Alcira Gordon Continue your Amitiza and magnesium, go back to 2 senna qam an 1 qhs and I am changing the metoclopramide as follows: 1 tablet at breakfast 1 tablet at lunch 2 tablets at supper 2 tablets at bedtime Continue the fiber as usual. ROV 2 weeks. Coding Level of Care Code Est Pt Level 3 (74221) Diagnoses Chronic idiopathic constipation K59.04 GERD (gastroesophageal reflux disease) K21.9 Small bowel motility disorder K59.9 Left lower quadrant abdominal pain R10.32
[2022-12-31 08:37] VITALS: BP 128/60; PULSE 73; BMI 40.4
== END 2022-12-31 09:01 | disposition home or self-care (01) ==
PROVIDERS: PCP Nurse Practitioner; Visit Provider Nurse Practitioner
DX: K59.04 Chronic idiopathic constipation (principal); K21.9 Gastro-esophageal reflux disease without esophagitis; K59.9 Functional intestinal disorder, unspecified; R10.32 Left lower quadrant pain
CPT/HCPCS: 99213

== ENCOUNTER → 2022-12-31 08:19 | Outpatient (BNVA) | payer MEDICARE, SELFPAY | PROVIDERS: PCP Nurse Practitioner; Visit Provider Nurse Practitioner | DX: K59.04 Chronic idiopathic constipation (principal); K21.9 Gastro-esophageal reflux disease without esophagitis; K59.9 Functional intestinal disorder, unspecified; R10.32 Left lower quadrant pain | CPT/HCPCS: 99212 ==

== ENCOUNTER 2023-01-14 10:28 | Outpatient (AMB) | payer MEDICARE, SELFPAY ==
--- NOTE | 2023-01-14 10:42 | MHC.OFFVIS ---
Intake Vital Signs 01/14/23 10:43 Height 5 ft 7 in BMI Reason not done Patient refused/unable BP 114/54 L Blood Pressure Location Lt brachial Position Sitting Pulse 74 Comment Patient came in a wheelchair Intake Visit Reasons: 2 week follow up Intake Note: Patient presents to in office today in follow up of abdominal pain and constipation. CC: Patient reports she is constipated and has only had a BM twice since last visit. She also c/o abdominal pain, and excruciating pain when she had a BM. 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 Accompanied by: Spouse Allergies garlic Allergy (Severe, Verified 02/16/23 13:24) THROAT CLOSES cephalexin [From Keflex] Allergy (Mild, Verified 02/16/23 13:24) RASH HPI 2 week follow up HPI Details Assessment & Plan (1) Chronic idiopathic constipation: Code(s): K59.04 - Chronic idiopathic constipation (2) GERD (gastroesophageal reflux disease): Code(s): K21.9 - Gastro-esophageal reflux disease without esophagitis Medications: Changed From metoclopramide HCl (Reglan) 10 mg PO QIDACHS 120 tabs 6RF K59.9 - Functional intestinal disord er, unspecified To metoclopramide HCl (Reglan) 1 qac am, 1qac liat ch, 2qac supper, 2 qhs orally 4 times a day before meal /bed; 180 tabs 6R F K59.9 - Functional intestinal disord er, unspecified Patient Instructions: Alcira Gordon Continue your Amitiza and magnesium, go back to 2 senna qam an 1 qhs and I am changing the metoclopramide as follows: 1 tablet at breakfast 1 tablet at lunch 2 tablets at supper 2 tablets at bedtime Continue the fiber as usual. ROV 2 weeks. TODAY'S VISIT She did not move her bowels for 6 days. Then she moved very large bolus that was quite painful and really emptied out for 2 days in a row. She this happened in over the last 3 days and although she has not moved her bowels yet today she does not feel bloated yet. At least she has not had any diarrhea. They did implemented changes including the new metoclopramide dosing and at this point I think we might be close to where we need to be. Hopefully she will be able to move a smaller amount every day or every other day and not become impacted and not have to worry about the life limiting occurrences of severe diarrhea. Return office visit in 2 weeks. I sent a note to her tube sizer operator Dr. Sanford to see if he can consider evaluating her for possible rectocele and if she needs a bladder suspension. Return office visit in 2 weeks. [facility] Medical History Osteoarthritis IBS (irritable bowel syndrome) Chronic back pain Headache GERD (gastroesophageal reflux disease) PTSD (post-traumatic stress disorder) Anxiety and depression LINDSEY (obstructive sleep apnea) Asthma Elevated cholesterol IBS (irritable bowel syndrome) Surgical History History of appendectomy History of tonsillectomy and adenoidectomy Hx of cholecystectomy History of total right knee replacement (TKR) Hx of endoscopy History of colonoscopy Family History Father No problems noted. Mother No problems noted. Social History Are you a primary residential child care counselor to a significant other at home: No Do you presently have visiting nurse or other home services: No Alcohol intake: current Alcohol intake frequency: holidays/special occasions only Comment: Fell > 1 month ago - states fainted- no issues since Patient Tobacco Use Status: Never used Tobacco Female Reproductive History Menstrual Age of Menarche: 12 Review of Systems Const Denies fatigue, Denies fever(s), Denies night sweats, Denies poor appetite and Denies weight loss Eyes Details: glasses Reports requires corrective lenses ENT Reports Normal hearing present, Denies dental pain, Denies dysphagia, Denies hearing loss, Denies mouth pain, Denies odynophagia, Denies throat swelling, Denies tongue swelling and Reports other (Dentition adequate) Card Reports no additional complaints Resp Reports no additional complaints GI Denies abdominal pain, Denies melena, Reports bloating, Denies hematochezia, Reports constipation, Reports GI cramping, Denies dysphagia, Denies excessive flatus, Denies early satiety, Reports heartburn, Reports diarrhea, Denies nausea, Denies odynophagia, Denies vomiting and Denies hematemesis Skin/Breast Denies pruritus, Denies lesions, Denies rash and Denies jaundice Neuro Reports Normal hearing present and Denies Abnormal speech present Endo Denies fatigue Aller/Immun Denies throat swelling and Denies tongue swelling Physical Exam Vital Signs: Last Vital Signs Pulse 74 01/14/23 10:43 BP 114/54 L 01/14/23 10:43 Const General: cooperative, no acute distress, well developed and well groomed Nutritional Appearance: well nourished and obese Orientation/consciousness: oriented to person, oriented to place and oriented to time Limitations: No language barrier and wheelchair HEENT Head: Yes normocephalic and Yes atraumatic Eyes General: appearance normal, both eyes and all related structures Pupils: Equal, round and reactive pupils present Neck Neck: Yes normal visual inspection and Yes no lymphadenopathy Thyroid: Thyroid normal Resp Effort & Inspection: normal respiratory effort and able to speak in complete sentences Auscultation: clear to auscultation bilaterally Cardio Rate: regular rate Rhythm: regular rhythm Heart sounds: Normal, physiologic split S2 sound present Peripheral pulses: radial pulses present and posterior tibial pulses present GI Inspection: No distended, Yes Abdominal panniculus present and Yes obesity Palpation (GI): Soft to palpation, nontender, no guarding, not rigid and No hepatosplenomegaly present Percussion: Yes normal to percussion Auscultation: normal bowel sounds Rectal Exam - Female: deferred Skin General skin exam: no rashes or lesions noted, turgor normal, skin not dry, no jaundice, No spider nevi and no striae Rashes: no rashes Nails: normal Neuro General: oriented to person, oriented to place and oriented to time Cranial nerves: Yes Equal, round and reactive pupils present and Yes Normal hearing present Speech: No Abnormal speech present Extrem General: Yes normal to inspection, No clubbing, No cyanosis and No edema Psych Appearance: grossly normal and well kempt Mental Status: mental status grossly normal Speech and movement: Normal speech and movement present Affect: normal affect Attitude: cooperative Thought process: Normal thought process present and not confabulating Thought content: Normal thought content present Insight: Limited insight present (Psych) Judgement: Limited judgement present (Psych) Assessment & Plan Assessment & Plan (1) Chronic idiopathic constipation: Code(s): K59.04 - Chronic idiopathic constipation Plan: She did not move her bowels for 6 days. Then she moved very large bolus that was quite painful and really emptied out for 2 days in a row. She this happened in over the last 3 days and although she has not moved her bowels yet today she does not feel bloated yet. At least she has not had any diarrhea. They did implemented changes including the new metoclopramide dosing and at this point I think we might be close to where we need to be. Hopefully she will be able to move a smaller amount every day or every other day and not become impacted and not have to worry about the life limiting occurrences of severe diarrhea. Return office visit in 2 weeks. I sent a note to her tube sizer operator Dr. Sanford to see if he can consider evaluating her for possible rectocele and if she needs a bladder suspension. Return office visit in 2 weeks. (2) GERD (gastroesophageal reflux disease): Code(s): K21.9 - Gastro-esophageal reflux disease without esophagitis Coding Level of Care Code Est Pt Level 3 (21112) Diagnoses Chronic idiopathic constipation K59.04 GERD (gastroesophageal reflux disease) K21.9
[2023-01-14 10:43] VITALS: BP 114/54; PULSE 74
== END 2023-01-14 11:17 | disposition home or self-care (01) ==
PROVIDERS: PCP Nurse Practitioner; Visit Provider Nurse Practitioner
DX: K59.04 Chronic idiopathic constipation (principal); K21.9 Gastro-esophageal reflux disease without esophagitis
CPT/HCPCS: 99213

== ENCOUNTER → 2023-01-14 10:28 | Outpatient (BNVA) | payer MEDICARE, SELFPAY | PROVIDERS: PCP Nurse Practitioner; Visit Provider Nurse Practitioner | DX: K59.04 Chronic idiopathic constipation (principal); K21.9 Gastro-esophageal reflux disease without esophagitis | CPT/HCPCS: 99212 ==

== ENCOUNTER 2023-02-01 12:48 | Outpatient (AMB) | payer MEDICARE, SELFPAY ==
--- NOTE | 2023-02-01 12:54 | A.OFFVIS_ITS ---
Intake Vital Signs 02/01/23 13:02 Height 5 ft 7 in BMI Reason not done Patient refused/unable BP 101/52 L Blood Pressure Location Lt brachial Position Sitting Pulse 68 Intake Visit Reasons: 2 week follow up Intake Note: Alcira returns to in office 2 weeks follow up of [facility] CC:Patient reports she was impacted the other day and not doing well. She also reports abdominal pain and a little bit of nausea. Allergies garlic Allergy (Severe, Verified 03/17/23 13:04) THROAT CLOSES cephalexin [From Keflex] Allergy (Mild, Verified 03/17/23 13:04) RASH HPI 2 week follow up HPI Details She did not move h er bowels for 6 da ys. Then she move d very large bolus that was quite pa inful and really e mptied out for 2 d ays in a row. She this happened in over the last 3 da ys and although sh e has not moved he r bowels yet today she does not feel bloated yet. At least she has not had any diarrhea. They did implemen mable changes includ ing the new metocl opramide dosing an d at this point I think we might be close to where we need to be. Hopef ully she will be a ble to move a smal ler amount every d ay or every other day and not become impacted and not have to worry abou t the life limitin g occurrences of s evere diarrhea. Return office vis it in 2 weeks. 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 Sanford to see if he can cons ider evaluating he r for possible rec tocele and if she needs a bladder bee spension. TODAYS VISIT She left a messag e They implemente d 1 senna at night , but she became i mpacted...BUT they also travelled to [place], and was not h er usual diet or w ater intake. We wi ll not change anyt tyrone for now will keep the same to s ee how she does on her regular routi ne especially sinc e she knows how to deal with impacti on if necessary. 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 But for now we want to see how she does with this regimen during her normal routines. At ast on the positiv e side, she did no t have any diarrhe al accidents to sp lit all her trip. Return office v isit in 2 weeks [facility] Medical History Osteoarthritis IBS (irritable bowel syndrome) Chronic back pain Headache GERD (gastroesophageal reflux disease) PTSD (post-traumatic stress disorder) Anxiety and depression LINDSEY (obstructive sleep apnea) Asthma Elevated cholesterol IBS (irritable bowel syndrome) Surgical History History of appendectomy History of tonsillectomy and adenoidectomy Hx of cholecystectomy History of total right knee replacement (TKR) Hx of endoscopy History of colonoscopy Family History Father No problems noted. Mother No problems noted. Social History Are you a primary residential care officer to a significant other at home: No Do you presently have visiting nurse or other home services: No Alcohol intake: current Alcohol intake frequency: holidays/special occasions only Comment: Fell > 1 month ago - states fainted- no issues since Patient Tobacco Use Status: Never used Tobacco Female Reproductive History Menstrual Age of Menarche: 12 Review of Systems Const Denies fatigue, Denies fever(s), Reports frequent falls, Denies night sweats, Denies poor appetite and Denies weight loss ENT Reports Normal hearing present, Denies dental pain, Denies dysphagia, Denies hearing loss, Denies mouth pain, Denies odynophagia, Denies throat swelling, Denies tongue swelling and Reports other (Dentition adequate) Card Reports no additional complaints Resp Reports no additional complaints GI Denies abdominal pain, Denies melena, Reports bloating, Denies hematochezia, Reports constipation, Denies GI cramping, Denies dysphagia, Denies excessive flatus, Denies early satiety, Reports heartburn, Reports diarrhea, Denies nausea, Denies odynophagia, Denies vomiting and Denies hematemesis Musc Reports abnormal gait, Reports back pain and Reports arthralgias Skin/Breast Denies pruritus, Denies lesions, Denies rash and Denies jaundice Neuro Reports Normal hearing present, Denies Abnormal speech present, Reports abnormal gait and Reports frequent falls Endo Denies fatigue Aller/Immun Denies throat swelling and Denies tongue swelling Physical Exam Vital Signs: Last Vital Signs Pulse 68 02/01/23 13:02 BP 101/52 L 02/01/23 13:02 Const General: cooperative, no acute distress, well developed and well groomed Nutritional Appearance: well nourished and obese Orientation/consciousness: oriented to person, oriented to place and oriented to time Limitations: No language barrier and wheelchair HEENT Head: Yes normocephalic and Yes atraumatic Eyes General: appearance normal, both eyes and all related structures Pupils: Equal, round and reactive pupils present Neck Neck: Yes normal visual inspection and Yes no lymphadenopathy Thyroid: Thyroid normal Resp Effort & Inspection: normal respiratory effort and able to speak in complete sentences Auscultation: clear to auscultation bilaterally Cardio Rate: regular rate Rhythm: regular rhythm Heart sounds: Normal, physiologic split S2 sound present Peripheral pulses: radial pulses present and posterior tibial pulses present GI Inspection: No distended, Yes Abdominal panniculus present and Yes obesity Palpation (GI): Soft to palpation, nontender, no guarding, not rigid and No hepatosplenomegaly present Percussion: Yes normal to percussion Auscultation: normal bowel sounds Rectal Exam - Female: deferred Skin General skin exam: no rashes or lesions noted, turgor normal, skin not dry, no jaundice, No spider nevi and no striae Rashes: no rashes Nails: normal Neuro General: oriented to person, oriented to place and oriented to time Cranial nerves: Yes Equal, round and reactive pupils present and Yes Normal hearing present Speech: No Abnormal speech present Extrem General: Yes normal to inspection, No clubbing, No cyanosis and No edema Psych Appearance: grossly normal and well kempt Mental Status: mental status grossly normal Speech and movement: Normal speech and movement present Affect: normal affect Attitude: cooperative Thought process: Normal thought process present and not confabulating Thought content: Normal thought content present Insight: Limited insight present (Psych) Judgement: Limited judgement present (Psych) Assessment & Plan Assessment & Plan (1) Rectocele: Code(s): N81.6 - Rectocele (2) Chronic idiopathic constipation: Code(s): K59.04 - Chronic idiopathic constipation (3) Incomplete bladder emptying: Code(s): R33.9 - Retention of urine, unspecified (4) GERD (gastroesophageal reflux disease): Code(s): K21.9 - Gastro-esophageal reflux disease without esophagitis (5) Left lower quadrant abdominal pain: Code(s): R10.32 - Left lower quadrant pain Plan She left a message They implemented 1 senna at night, but she became impacted...BUT they also travelled to [place], and was not her usual diet or water intake. We will not change anything for now will keep the same to see how she does on her regular routine especially since she knows how to deal with impaction if necessary. If this is not successful we can consider some sort of modified alternation of dose of the senna such as 1 tablet 1 night to the next or something that seems to fit her body. But for now we want to see how she does with this regimen during her normal routines. At least on the positive side, she did not have any diarrheal accidents to split all her trip. Return office visit in 2 weeks Orders: Referrals VACCINE MANAGER Referral N81.6 - Rectocele, K59.04 - Chronic idiopathic constipation Coding Level of Care Code Est Pt Level 3 (97667) Diagnoses Rectocele N81.6 Chronic idiopathic constipation K59.04 Incomplete bladder emptying R33.9 GERD (gastroesophageal reflux disease) K21.9 Left lower quadrant abdominal pain R10.32
[2023-02-01 13:02] VITALS: BP 101/52; PULSE 68
== END 2023-02-01 13:44 | disposition home or self-care (01) ==
PROVIDERS: PCP Nurse Practitioner; Visit Provider Nurse Practitioner
DX: N81.6 Rectocele (principal); K59.04 Chronic idiopathic constipation; R33.9 Retention of urine, unspecified; K21.9 Gastro-esophageal reflux disease without esophagitis; R10.32 Left lower quadrant pain
CPT/HCPCS: 99213

== ENCOUNTER → 2023-02-01 12:48 | Outpatient (BNVA) | payer MEDICARE, SELFPAY | PROVIDERS: PCP Nurse Practitioner; Visit Provider Nurse Practitioner | DX: K59.04 Chronic idiopathic constipation (principal); K21.9 Gastro-esophageal reflux disease without esophagitis; R33.9 Retention of urine, unspecified; R10.32 Left lower quadrant pain; N81.6 Rectocele | CPT/HCPCS: 99212 ==

== ENCOUNTER 2023-02-16 13:14 | Outpatient (REF) | payer MEDICARE, SELFPAY ==
[2023-02-16 15:16] LABS: Alanine Aminotransferase 12 U/L (0-31); Albumin Level 4.1 g/dL (3.5-5.0); Alkaline Phosphatase 92 U/L (39-117); Anion Gap 9 (12-20); Aspartate Amino Transferase 15 U/L (5-31); Bilirubin Total 0.3 mg/dL (0.0-1.0); Blood Urea Nitrogen 11 mg/dL (9-16); Calcium 9.3 mg/dL (8.4-10.2); Carbon Dioxide 24 mmol/L (22-29); Chloride 97 mmol/L (96-108); Estimated Glomerular Filt Rate > 60; Glucose Random 102 mg/dL (60-115); Potassium 4.2 mmol/L (3.3-5.1); Sodium 126 mmol/L (135-145); Total Protein 6.7 g/dL (6.5-8.0)
== END 2023-02-16 13:15 | disposition home or self-care (01) ==
LOC: HO.LAB 13:14
PROVIDERS: PCP Nurse Practitioner; Visit Provider Nurse Practitioner
DX: K59.04 Chronic idiopathic constipation (principal); K21.9 Gastro-esophageal reflux disease without esophagitis; K59.9 Functional intestinal disorder, unspecified; N81.6 Rectocele; R33.9 Retention of urine, unspecified; R10.32 Left lower quadrant pain; D89.40 Mast cell activation, unspecified; E28.2 Polycystic ovarian syndrome; E23.2 Diabetes insipidus
CPT/HCPCS: 36415; 80053; 99212

== ENCOUNTER 2023-02-16 13:14 | Outpatient (AMB) | payer MEDICARE, SELFPAY ==
--- NOTE | 2023-02-16 13:19 | MHC.OFFVIS ---
Intake Vital Signs 02/16/23 13:23 Height 5 ft 7 in Weight 260 lb BMI 40.7 BP 111/55 L Blood Pressure Location Lt brachial Position Sitting Pulse 63 Intake Visit Reasons: 2 week follow up Intake Note: Alcira presents in the office as a 2 week follow up. CC: States that she went 9 days without having a BM - no blood but she has lots of pains when it is time to have her BM. 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 Allergies garlic Allergy (Severe, Verified 02/16/23 13:24) THROAT CLOSES cephalexin [From Keflex] Allergy (Mild, Verified 02/16/23 13:24) RASH HPI 2 week follow up HPI Details Assessment & Plan (1) Rectocele: Code(s): N81.6 - Rectocele (2) Chronic idiopathic constipation: Code(s): K59.04 - Chronic idiopathic constipation (3) Incomplete bladder emptying: Code(s): R33.9 - Retention of urine, unspecified (4) GERD (gastroesophageal reflux disease): Code(s): K21.9 - Gastro-esophageal reflux disease without esophagitis (5) Left lower quadrant abdominal pain: Code(s): R10.32 - Left lower quadrant pain Orders: Referrals RRTS Referral K59.04 - Chronic i diopathic constipa tion, N81.6 - Rect ocele . She left a [facility] e [place] implemented ti 1 senna at night, but she became impacted...BUT they also travelled to [facility] T day, and was not her usual diet or water intake. We will not change anything for now will keep the same to see how she does on her regular routine especially since she knows how to deal with impaction if necessary. If this is not successful we can consider some sort of modified alternation of dose of the senna such as 1 tablet 1 night to the next or something that seems to fit her body. But for now we want to see how she does with this regimen during her normal routines. At least on the positive side, she did not have any diarrheal accidents to split all her trip. Return office visit in 2 weeks CORRESPONDENCE On 01/20/23 @ 11:33 JamesJune Wrote To Ramirez (2) V please call the patient and have her call Dr. Claribel Miller to make an earlier appointment for evaluation for possible rectocele. On 01/14/23 @ 14:00 ClaribelUlisses Faustino Wrote To Ramirez I will be happy to see her in the office for evaluation, please have her call the office for an evaluation On 01/14/23 @ 11:11 JamesJune Wrote To (2) Hi, I am seeing this pt and wonder if you can see her and evaluate if she has any rectal prolapse contributing to her severe and difficult to manage constipation. Please advise. Thank you for your consideration. TODAY'S VISIT She is here today with her who is supportive They mention that they have not been able to get the Cromyln to treat her mast cell syndrome and this is likely effecting the gut as well. It is a mfg problems and she has been out of it for 4-6 weeks. She feels that her stooling problems were not as severe when she had access to the medication. She also has SIADH which causes hyponatremia and complicates her situation - but will try a small dose of budesinide (since it should only act in the gut) and monitor sodium levels. ROV next week, no change in bowel regimen - did not move bowels for 9 days then one very large BM. At least she is not having diarrhea and fecal incontinence that puts her at risk for falls. ? IBS manifestation of uncontrolled mast cell activation syndrome. I feel that this is a necessary trial since we have done everything we can to try to manipulate her constipation meds without being able to adequately regulate her bowel movements so there has to be something else interfering. It is most likely that this systemic problem is complicating matters.. [facility] Medical History Osteoarthritis IBS (irritable bowel syndrome) Chronic back pain Headache GERD (gastroesophageal reflux disease) PTSD (post-traumatic stress disorder) Anxiety and depression LINDSEY (obstructive sleep apnea) Asthma Elevated cholesterol IBS (irritable bowel syndrome) Surgical History History of appendectomy History of tonsillectomy and adenoidectomy Hx of cholecystectomy History of total right knee replacement (TKR) Hx of endoscopy History of colonoscopy Family History Father No problems noted. Mother No problems noted. Social History Are you a primary critical care technician to a significant other at home: No Do you presently have visiting nurse or other home services: No Alcohol intake: current Alcohol intake frequency: holidays/special occasions only Comment: Fell > 1 month ago - states fainted- no issues since Patient Tobacco Use Status: Never used Tobacco Female Reproductive History Menstrual Age of Menarche: 12 Review of Systems Const Denies fatigue, Denies fever(s), Reports frequent falls, Denies night sweats, Denies poor appetite and Denies weight loss Eyes Details: glasses Reports requires corrective lenses ENT Reports Normal hearing present, Denies dental pain, Denies dysphagia, Denies hearing loss, Denies mouth pain, Denies odynophagia, Denies throat swelling, Denies tongue swelling and Reports other (Dentition adequate) Card Reports no additional complaints Resp Reports no additional complaints GI Denies abdominal pain, Denies melena, Reports bloating, Denies hematochezia, Reports constipation, Reports GI cramping, Denies dysphagia, Denies excessive flatus, Denies early satiety, Reports heartburn, Denies diarrhea, Denies nausea, Denies odynophagia, Denies vomiting and Denies hematemesis Musc Reports abnormal gait, Reports back pain, Reports myalgias and Reports arthralgias Skin/Breast Denies pruritus, Denies lesions, Denies rash and Denies jaundice Neuro Reports Normal hearing present, Denies Abnormal speech present, Reports abnormal gait, Reports frequent falls and Reports lack of coordination Endo Denies fatigue Aller/Immun Denies throat swelling and Denies tongue swelling Physical Exam Vital Signs: Last Vital Signs Pulse 63 02/16/23 13:23 BP 111/55 L 02/16/23 13:23 BMI result Body Mass Index 40.7 Const General: cooperative, no acute distress, well developed and well groomed Nutritional Appearance: well nourished and obese Orientation/consciousness: oriented to person, oriented to place and oriented to time Limitations: No language barrier and wheelchair HEENT Head: Yes normocephalic and Yes atraumatic Eyes General: appearance normal, both eyes and all related structures Pupils: Equal, round and reactive pupils present Neck Neck: Yes normal visual inspection and Yes no lymphadenopathy Thyroid: Thyroid normal Resp Effort & Inspection: normal respiratory effort and able to speak in complete sentences Auscultation: clear to auscultation bilaterally Cardio Rate: regular rate Rhythm: regular rhythm Heart sounds: Normal, physiologic split S2 sound present Peripheral pulses: radial pulses present and posterior tibial pulses present GI Inspection: No distended, Yes Abdominal panniculus present and Yes obesity Palpation (GI): Soft to palpation, nontender, no guarding, not rigid and No hepatosplenomegaly present Percussion: Yes normal to percussion Auscultation: normal bowel sounds Rectal Exam - Female: deferred Skin General skin exam: no rashes or lesions noted, turgor normal, skin not dry, no jaundice, No spider nevi and no striae Rashes: no rashes Nails: normal Neuro General: oriented to person, oriented to place and oriented to time Cranial nerves: Yes Equal, round and reactive pupils present and Yes Normal hearing present Speech: No Abnormal speech present Extrem General: Yes normal to inspection, No clubbing, No cyanosis and No edema Psych Appearance: grossly normal and well kempt Mental Status: mental status grossly normal Speech and movement: Normal speech and movement present Affect: normal affect Attitude: cooperative Thought process: not confabulating and Impoverished thought process present Thought content: Normal thought content present Insight: Limited insight present (Psych) Judgement: Limited judgement present (Psych) Assessment & Plan Assessment & Plan (1) Chronic idiopathic constipation: Code(s): K59.04 - Chronic idiopathic constipation (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 - Mast cell activation, unspecified (3) Rectocele: Code(s): N81.6 - Rectocele (4) GERD (gastroesophageal reflux disease): Code(s): K21.9 - Gastro-esophageal reflux disease without esophagitis (5) Small bowel motility disorder: Code(s): K59.9 - Functional intestinal disorder, unspecified (6) Hyponatremia: Code(s): E87.1 - Hypo-osmolality and hyponatremia (7) Diabetes insipidus: Code(s): 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 It is a mfg problems and she has been out of it for 4-6 weeks. She feels that her stooling problems were not as severe when she had access to the medication. She also has SIADH which causes hyponatremia and complicates her situation - but will try a small dose of budesinide (since it should only act in the gut) and monitor sodium levels. ROV next week, no change in bowel regimen - did not move bowels for 9 days then one very large BM. At least she is not having diarrhea and fecal incontinence that puts her at risk for falls. ? IBS manifestation of uncontrolled mast cell activation syndrome. I feel that this is a necessary trial since we have done everything we can to try to manipulate her constipation meds without being able to adequately regulate her bowel movements so there has to be something else interfering. It is most likely that this systemic problem is complicating matters.. A in terms of her other GI conditions she continues on her lansoprazole 30 mg daily,. Dicyclomine as needed, famotidine at bedtime, and she has lactulose magnesium and fiber available for her. Orders: Orders Comprehensive Met. Panel Today E23.2 - Diabetes insipidus, E87.1 - Hypo-osmolality and hyponatremia Medications: New budesonide ER 3 mg PO QAM 30 ea 6RF D89.40 - Mast cell activation, unspecified, E87.1 - Hypo-osmolality and hyponatremia, K59.04 - Chronic idiopathic constipation Coding Level of Care Code Est Pt Level 4 (88988) Diagnoses Chronic idiopathic constipation K59.04 Mast cell activation syndrome D89.40 Rectocele N81.6 GERD (gastroesophageal reflux disease) K21.9 Small bowel motility disorder K59.9 Hyponatremia E87.1 Diabetes insipidus E23.2
[2023-02-16 13:23] VITALS: BP 111/55; PULSE 63; BMI 40.7
== END 2023-02-16 13:56 | disposition home or self-care (01) ==
PROVIDERS: PCP Nurse Practitioner; Visit Provider Nurse Practitioner
DX: K59.04 Chronic idiopathic constipation (principal); D89.40 Mast cell activation, unspecified; N81.6 Rectocele; K21.9 Gastro-esophageal reflux disease without esophagitis; E87.1 Hypo-osmolality and hyponatremia; E23.2 Diabetes insipidus
CPT/HCPCS: 99214

== ENCOUNTER 2023-02-22 13:09 | Outpatient (AMB) | payer MEDICARE, SELFPAY ==
--- NOTE | 2023-02-22 13:15 | MHC.OFFVIS ---
Intake Vital Signs 02/22/23 13:26 Height 5 ft 7 in Weight 255 lb BMI 39.9 BP 137/69 Blood Pressure Location Lt brachial Position Sitting Pulse 71 Intake Visit Reasons: 1 week follow up Intake Note: Patient one week follow up Patient cc: constipation, abdominal pain with bloating and cramping. 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 Accompanied by: Spouse Allergies garlic Allergy (Severe, Verified 02/22/23 13:19) THROAT CLOSES cephalexin [From Keflex] Allergy (Mild, Verified 02/22/23 13:19) RASH HPI 1 week follow up HPI Details Assessment & Plan (1) Chronic idiopathic constipation: Code(s): K59.04 - Chronic idiopathic constipation (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 - Mast cell activation, unspecified (3) Rectocele: Code(s): N81.6 - Rectocele (4) GERD (gastroesophageal reflux disease): Code(s): K21.9 - Gastro-esophageal reflux disease without esophagitis (5) Small bowel motility disorder: Code(s): K59.9 - Functional intestinal disorder, unspecified (6) Hyponatremia: Code(s): E87.1 - Hypo-osmolality and hyponatremia (7) Diabetes insipidus: Code(s): 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 It is a mfg problems and she has been out of it for 4-6 weeks. She feels that her stooling problems were not as severe when she had access to the medication. She also has SIADH which causes hyponatremia and complicates her situation - but will try a small dose of budesinide (since it should only act in the gut) and monitor sodium levels. ROV next week, no change in bowel regimen - did not move bowels for 9 days then one very large BM. At least she is not having diarrhea and fecal incontinence that puts her at risk for falls. ? IBS manifestation of uncontrolled mast cell activation syndrome. I feel that this is a necessary trial since we have done everything we can to try to manipulate her constipation meds without being able to adequately regulate her bowel movements so there has to be something else interfering. It is most likely that this systemic problem is complicating matters.. A in terms of her other GI conditions she continues on her lansoprazole 30 mg daily,. Dicyclomine as needed, famotidine at bedtime, and she has lactulose magnesium and fiber available for her. Orders: Orders Comprehensive Met. Panel Today E23.2 - Diabetes i nsipidus, E87.1 - Hypo-osmolality an d hyponatremia Medications: New budesonide ER 3 mg PO QAM 30 ea 6RF D89.40 - Mast cell activation, unspe cified, E87.1 - Hy po-osmolality and hyponatremia, K59. 04 - Chronic idiop athic constipation LABS: Laboratory Tests 02/16/23 14:31 Sodium 126 L Potassium 4.2 Chloride 97 Carbon Dioxide 24 Anion Gap 9 L Estimated GFR > 60 Total Bilirubin 0.3 AST 15 ALT 12 Alkaline Phosphata se 92 TODAY'S VISIT She only moved bowels once this week, but no diarrhea. DId not receive budesinide, apparently it needed a PA. We will get on this. I don't want her to start the med until 03/08. Will see her back week so f9th and monitor na+. SHe goes in for back surgery 04/07/2023!! [facility] Medical History Osteoarthritis IBS (irritable bowel syndrome) Chronic back pain Headache GERD (gastroesophageal reflux disease) PTSD (post-traumatic stress disorder) Anxiety and depression LINDSEY (obstructive sleep apnea) Asthma Elevated cholesterol IBS (irritable bowel syndrome) Surgical History History of appendectomy History of tonsillectomy and adenoidectomy Hx of cholecystectomy History of total right knee replacement (TKR) Hx of endoscopy History of colonoscopy Family History Father No problems noted. Mother No problems noted. Social History Are you a primary animal care service worker to a significant other at home: No Do you presently have visiting nurse or other home services: No Alcohol intake: current Alcohol intake frequency: holidays/special occasions only Comment: Fell > 1 month ago - states fainted- no issues since Patient Tobacco Use Status: Never used Tobacco Female Reproductive History Menstrual Age of Menarche: 12 Review of Systems Const Denies fatigue, Denies fever(s), Denies night sweats, Denies poor appetite and Denies weight loss Eyes Details: Glasses Reports requires corrective lenses ENT Reports Normal hearing present, Denies dental pain, Denies dysphagia, Denies hearing loss, Denies mouth pain, Denies odynophagia, Denies throat swelling, Denies tongue swelling and Reports other (Dentition adequate) Card Reports no additional complaints Resp Reports no additional complaints GI Denies abdominal pain, Denies melena, Reports bloating, Denies hematochezia, Reports constipation, Reports GI cramping, Denies dysphagia, Denies excessive flatus, Denies early satiety, Reports heartburn, Denies diarrhea, Denies nausea, Denies odynophagia, Denies vomiting and Denies hematemesis Musc Reports abnormal gait, Reports back pain, Reports myalgias and Reports stiffness Skin/Breast Denies pruritus, Denies lesions, Denies rash and Denies jaundice Neuro Reports Normal hearing present, Denies Abnormal speech present, Reports abnormal gait and Reports memory loss Psych Reports memory loss Endo Denies fatigue Aller/Immun Denies throat swelling and Denies tongue swelling Physical Exam Vital Signs: Last Vital Signs Pulse 71 02/22/23 13:26 BP 137/69 02/22/23 13:26 BMI result Body Mass Index 39.9 Const General: cooperative, no acute distress, well developed and well groomed Nutritional Appearance: well nourished and obese Orientation/consciousness: oriented to person, oriented to place and oriented to time Limitations: No language barrier and wheelchair HEENT Head: Yes normocephalic and Yes atraumatic Eyes General: appearance normal, both eyes and all related structures Pupils: Equal, round and reactive pupils present Neck Neck: Yes normal visual inspection and Yes no lymphadenopathy Thyroid: Thyroid normal Resp Effort & Inspection: normal respiratory effort and able to speak in complete sentences Auscultation: clear to auscultation bilaterally Cardio Rate: regular rate Rhythm: regular rhythm Heart sounds: Normal, physiologic split S2 sound present Peripheral pulses: radial pulses present and posterior tibial pulses present GI Inspection: No distended, Yes Abdominal panniculus present and Yes obesity Palpation (GI): Soft to palpation, nontender, no guarding, not rigid and No hepatosplenomegaly present Percussion: Yes normal to percussion Auscultation: normal bowel sounds Rectal Exam - Female: deferred Skin General skin exam: no rashes or lesions noted, turgor normal, skin not dry, no jaundice, No spider nevi and no striae Rashes: no rashes Nails: normal Neuro General: oriented to person, oriented to place and oriented to time Cranial nerves: Yes Equal, round and reactive pupils present and Yes Normal hearing present Speech: No Abnormal speech present Extrem General: Yes normal to inspection, No clubbing, No cyanosis and No edema Psych Appearance: grossly normal and well kempt Mental Status: mental status grossly normal Speech and movement: Normal speech and movement present Affect: normal affect Attitude: cooperative Thought process: Normal thought process present and not confabulating Thought content: Normal thought content present Insight: Fair insight present (Psych) Judgement: Fair judgement present (Psych) Assessment & Plan Assessment & Plan (1) Chronic idiopathic constipation: Code(s): K59.04 - Chronic idiopathic constipation (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 - Mast cell activation, unspecified (3) Diabetes insipidus: Code(s): E23.2 - Diabetes insipidus (4) Hyponatremia: Code(s): E87.1 - Hypo-osmolality and hyponatremia (5) GERD (gastroesophageal reflux disease): Code(s): K21.9 - Gastro-esophageal reflux disease without esophagitis (6) Rectocele: Code(s): N81.6 - Rectocele Plan She only moved bowels once this week, but no diarrhea. DId not receive budesinide, apparently it needed a PA. We will get on this. I don't want her to start the med until 03/08. Will see her back week so f9th and monitor na+. SHe goes in for back surgery 04/07/2023!! Coding Level of Care Code Est Pt Level 3 (76665) Diagnoses Chronic idiopathic constipation K59.04 Mast cell activation syndrome D89.40 Diabetes insipidus E23.2 Hyponatremia E87.1 GERD (gastroesophageal reflux disease) K21.9 Rectocele N81.6
[2023-02-22 13:26] VITALS: BP 137/69; PULSE 71; BMI 39.9
== END 2023-02-22 14:18 | disposition home or self-care (01) ==
PROVIDERS: PCP Nurse Practitioner; Visit Provider Nurse Practitioner
DX: K59.04 Chronic idiopathic constipation (principal); D89.40 Mast cell activation, unspecified; E23.2 Diabetes insipidus; E87.1 Hypo-osmolality and hyponatremia; K21.9 Gastro-esophageal reflux disease without esophagitis; N81.6 Rectocele
CPT/HCPCS: 99213

== ENCOUNTER → 2023-02-22 13:09 | Outpatient (BNVA) | payer MEDICARE, SELFPAY | PROVIDERS: PCP Nurse Practitioner; Visit Provider Nurse Practitioner | DX: K59.04 Chronic idiopathic constipation (principal); K21.9 Gastro-esophageal reflux disease without esophagitis; D89.40 Mast cell activation, unspecified; E23.2 Diabetes insipidus; E87.1 Hypo-osmolality and hyponatremia; N81.6 Rectocele | CPT/HCPCS: 99212 ==

== ENCOUNTER 2023-03-16 14:38 | Outpatient (AMB) | payer MEDICARE, SELFPAY ==
--- NOTE | 2023-03-16 14:45 | A.OFFVIS_ITS ---
Intake Vital Signs 03/16/23 14:46 Height 5 ft 7 in BMI Reason not done Patient refused/unable BP 101/60 Blood Pressure Location Lt brachial Position Sitting Pulse 74 Intake Visit Reasons: 3 weeks follow up Intake Note: Patient presents to in office visit today in follow up of of CIC. CC: Patient reports doing about the same and having x2 accidents in her pants, most recent one last night. Denies other GI symptoms today. 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 Accompanied by: Spouse Allergies garlic Allergy (Severe, Verified 03/16/23 14:55) THROAT CLOSES cephalexin [From Keflex] Allergy (Mild, Verified 03/16/23 14:55) RASH HPI 3 weeks follow up HPI Details Assessment & Plan (1) Chronic idiopathic constipation: Code(s): K59.04 - Chronic idiopathic constipation (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 - Mast cell activation, unspecified (3) Diabetes insipidus: Code(s): E23.2 - Diabetes insipidus (4) Hyponatremia: Code(s): E87.1 - Hypo-osmolality and hyponatremia (5) GERD (gastroesophageal reflux diseas e): Code(s): K21.9 - Gastro-esophageal reflux disease without esophagitis (6) Rectocele: Code(s): N81.6 - Rectocele Plan She only moved bowels once this week, but no diarrhea. DId not receive bu desinide, apparently it needed a PA. We will get on this. I don't want her to start the med until 03/08. Will see her back week so f9th and monitor na+. SHe goes in for back surgery 04/07/2023!! TODAY'S VISIT She had 3 episodes of diarrhea with fecal incontinence since I last saw her. This is obviously distressing to her. However there been a several medication changes 1 is that there been taking Metamucil and senna psyllium fiber (which I doubt is having an impact) but also her desmopressin was discontinued. Of course also she is on the budesonide. She continues on her senna 2 at night 1 in the morning without modification. She had her blood drawn 4 days ago at [facility] and I check the system and her sodium was 142 so clearly the budesonide is not having bad impact on that. At this point I think were going to try continuing to be a desonide and decreasing the senna to 1 in the morning 1 at night. This is going along the lines of thinking that her mast cell activation syndrome may be affecting her got because she cannot access her swallowed [place] in sodium because of drug shortage is. She will be seeing SAFETY AND SECURITY OFFICER for eval of the rectocele next week. Return office visit before the end of the month and before her back surgery. [facility] Medical History Osteoarthritis IBS (irritable bowel syndrome) Chronic back pain Headache GERD (gastroesophageal reflux disease) PTSD (post-traumatic stress disorder) Anxiety and depression LINDSEY (obstructive sleep apnea) Asthma Elevated cholesterol IBS (irritable bowel syndrome) Surgical History History of appendectomy History of tonsillectomy and adenoidectomy Hx of cholecystectomy History of total right knee replacement (TKR) Hx of endoscopy History of colonoscopy Family History Father No problems noted. Mother No problems noted. Social History Are you a primary health care marketing manager to a significant other at home: No Do you presently have visiting nurse or other home services: No Alcohol intake: current Alcohol intake frequency: holidays/special occasions only Comment: Fell > 1 month ago - states fainted- no issues since Patient Tobacco Use Status: Never used Tobacco Female Reproductive History Menstrual Age of Menarche: 12 Review of Systems Const Denies fatigue, Denies fever(s), Denies night sweats, Denies poor appetite and Reports weight loss (Intentional dieting) Eyes Details: glasses Reports requires corrective lenses ENT Reports Normal hearing present, Denies dental pain, Denies dysphagia, Denies hearing loss, Denies mouth pain, Denies odynophagia, Denies throat swelling, Denies tongue swelling and Reports other (Dentition adequate) Card Reports no additional complaints Resp Reports no additional complaints GI Denies abdominal pain, Denies melena, Denies bloating, Denies hematochezia, Reports constipation, Denies GI cramping, Denies dysphagia, Denies excessive flatus, Denies early satiety, Reports heartburn, Reports diarrhea, Denies nausea, Denies odynophagia, Denies vomiting and Denies hematemesis Musc Reports abnormal gait and Reports back pain Skin/Breast Denies pruritus, Denies lesions, Denies rash and Denies jaundice Neuro Reports Normal hearing present, Denies Abnormal speech present and Reports abnormal gait Endo Denies fatigue Aller/Immun Denies throat swelling and Denies tongue swelling Physical Exam Vital Signs: Last Vital Signs Pulse 74 03/16/23 14:46 BP 101/60 03/16/23 14:46 Const General: cooperative, no acute distress, well developed and well groomed Nutritional Appearance: well nourished and obese Orientation/consciousness: oriented to person, oriented to place and oriented to time Limitations: No language barrier HEENT Head: Yes normocephalic and Yes atraumatic Eyes General: appearance normal, both eyes and all related structures Pupils: Equal, round and reactive pupils present Neck Neck: Yes normal visual inspection and Yes no lymphadenopathy Thyroid: Thyroid normal Resp Effort & Inspection: normal respiratory effort and able to speak in complete sentences Auscultation: clear to auscultation bilaterally Cardio Rate: regular rate Rhythm: regular rhythm Heart sounds: Normal, physiologic split S2 sound present Peripheral pulses: radial pulses present and posterior tibial pulses present GI Inspection: No distended, Yes Abdominal panniculus present and Yes obesity Palpation (GI): Soft to palpation, nontender, no guarding, not rigid and No hepatosplenomegaly present Percussion: Yes normal to percussion Auscultation: normal bowel sounds Rectal Exam - Female: deferred Skin General skin exam: no rashes or lesions noted, turgor normal, skin not dry, no jaundice, No spider nevi and no striae Rashes: no rashes Nails: normal Neuro General: oriented to person, oriented to place and oriented to time Cranial nerves: Yes Equal, round and reactive pupils present and Yes Normal hearing present Speech: No Abnormal speech present Extrem General: Yes normal to inspection, No clubbing, No cyanosis and No edema Psych Appearance: grossly normal and well kempt Mental Status: mental status grossly normal Speech and movement: Normal speech and movement present Affect: normal affect Attitude: cooperative Thought process: Normal thought process present and not confabulating Thought content: Normal thought content present Insight: Limited insight present (Psych) Judgement: Limited judgement present (Psych) Assessment & Plan Assessment & Plan (1) Chronic idiopathic constipation: Code(s): K59.04 - Chronic idiopathic constipation (2) GERD (gastroesophageal reflux disease): Code(s): K21.9 - Gastro-esophageal reflux disease without esophagitis (3) Mast cell activation syndrome: Code(s): D89.40 - Mast cell activation, unspecified (4) Small bowel motility disorder: Code(s): K59.9 - Functional intestinal disorder, unspecified (5) Rectocele: Code(s): N81.6 - Rectocele Plan She had 3 episodes of diarrhea with fecal incontinence since I last saw her. This is obviously distressing to her. However there been a several medication changes 1 is that there been taking Metamucil and senna psyllium fiber (which I doubt is having an impact) but also her desmopressin was discontinued. Of course also she is on the budesonide. She continues on her senna 2 at night 1 in the morning without modification. She had her blood drawn 4 days ago at [facility] and I check the system and her sodium was 142 so clearly the budesonide is not having bad impact on that. At this point I think were going to try continuing to be a desonide and decreasing the senna to 1 in the morning 1 at night. This is going along the lines of thinking that her mast cell activation syndrome may be affecting her got because she cannot access her swallowed [place] in sodium because of drug shortage is. She will be seeing SAFETY AND SECURITY OFFICER for eval of the rectocele next week. Return office visit before the end of the month and before her back surgery. Coding Level of Care Code Est Pt Level 3 (76069) Diagnoses Chronic idiopathic constipation K59.04 GERD (gastroesophageal reflux disease) K21.9 Mast cell activation syndrome D89.40 Small bowel motility disorder K59.9 Rectocele N81.6
[2023-03-16 14:46] VITALS: BP 101/60; PULSE 74
== END 2023-03-16 15:24 | disposition home or self-care (01) ==
PROVIDERS: PCP Nurse Practitioner; Visit Provider Nurse Practitioner
DX: K59.04 Chronic idiopathic constipation (principal); K21.9 Gastro-esophageal reflux disease without esophagitis; D89.40 Mast cell activation, unspecified; K59.9 Functional intestinal disorder, unspecified; N81.6 Rectocele
CPT/HCPCS: 99213

== ENCOUNTER → 2023-03-16 14:38 | Outpatient (BNVA) | payer MEDICARE, SELFPAY | PROVIDERS: PCP Nurse Practitioner; Visit Provider Nurse Practitioner | DX: K59.04 Chronic idiopathic constipation (principal); K21.9 Gastro-esophageal reflux disease without esophagitis; K59.9 Functional intestinal disorder, unspecified; N81.6 Rectocele; D89.40 Mast cell activation, unspecified | CPT/HCPCS: 99212 ==

== ENCOUNTER 2023-03-17 12:56 | Outpatient (AMB) | payer MEDICARE, SELFPAY ==
--- NOTE | 2023-03-17 12:57 | A.OFFVIS_ITS ---
Intake Intake Visit Reasons: 3m/PVR Intake Note: Patient presents for follow up visit urinary incontinence Urology Medications: terazosin, estrace cream Blood Thinner: none PVR: 0ml's Commercial Painter Required: No Accompanied by: Spouse Allergies garlic Allergy (Severe, Verified 03/17/23 19:25) THROAT CLOSES cephalexin [From Keflex] Allergy (Mild, Verified 03/17/23 19:25) RASH Medication List - Last Reconciled 03/17/23 by MACO Pritchard ascorbic acid (vitamin C) 500 mg PO DAILY beclomethasone dipropionate 80 mcg/actuation (Qvar RediHaler) 2 puffs PO BID betamethasone, augmented 0.05 % appl topical BID PRN budesonide ER 3 mg PO QAM bupropion HCl 200 mg PO BID celecoxib 100 mg PO BID cetirizine 10 mg PO BID cholecalciferol (vitamin D3) 50 mcg PO DAILY clonazepam 1 mg PO BID PRN clonidine HCl 0.1 mg PO BID PRN cromolyn mg PO cyanocobalamin (vitamin B-12) 1,000 mcg PO DAILY desmopressin 0.1 mg PO dicyclomine 40 mg (2 x 20 mg) PO QID 30 days duloxetine 60 mg PO BID epinephrine 0.3 mL IM ONCE PRN estradiol 0.01%(0.1mg/gram) (Estrace) 1 g vaginal 3XW 30 days famotidine 40 mg PO BEDTIME hydrochlorothiazide 1 tab PO DAILY hydrocortisone 10 mg PO BID lactulose 30 grams PO QID PRN lamotrigine 300 mg PO DAILY lansoprazole 30 mg PO DAILY levalbuterol tartrate 45 mcg/actuation (Xopenex HFA) 1 puff inhalation Q4-6H PRN levothyroxine 112 mcg PO DAILY lubiprostone 24 mcg PO BID magnesium oxide 500 mg (2 x 250 mg magnesium) PO DAILY metoclopramide HCl mg PO montelukast 10 mg PO QPM potassium chloride ER 20 mEq PO DAILY pravastatin 1 tab PO DAILY psyllium husk 0.8 grams (2 x 0.4 gram) PO DAILY sennosides (senna) 17.2 mg (2 x 8.6 mg) PO BID terazosin 1 mg PO BEDTIME 90 days tizanidine 4 mg PO TID topiramate 150 mg PO BID HPI HPI Comments History of Present Illness Details Alcira is a pleasant 62 year old female patient of Dr. Mathews was accompanied by her at today's visit. She has a past medical history of anxiety, depression, asthma, chronic back pain, hypercholesteremia, GERD, headaches, irritable bowel syndrome, obstructive sleep apnea, diabetes insipidus, osteoarthritis, and PTSD. She presents to the office today for follow-up. Of note, patient was seen approximately 3 months ago for ongoing lower urinary tract issues at which time she was started on low-dose terazosin 1 mg for incomplete bladder emptying as well as Estrace cream. In discussion with the patient today she reports noting significant improvement in lower urinary tract symptoms. She currently denies any bothersome urinary issues or concerns. Previous workup has included a retroperitoneal ultrasound noting bilateral kidneys with no calculi, lesions, and or hydronephrosis noted. The bladder is well distended and normal. Pre void bladder volume is approximately 285 mL. Postvoid bladder volume is approximately 30 mL. A microgen was ordered and completed and patient has since completed antibiotic therapy of levofloxacin as prescribed. She reports noting dysuria and foul-smelling urine have since improved. In office urinalysis results reviewed with the patient today. PVR 0 mL Discussed obtaining microgen for further assessment and evaluation. She otherwise denies hematuria, changes to urinary stream, flank pain, fever, and or chills. Discussed contributing factors of diabetes insipidus and obstructive sleep apnea in relation to lower urinary tract symptoms. She discusses how she is continuing to lose weight and has upcoming lumbar surgery. She otherwise offers no other issues or concerns at this time. [facility] Medical History Osteoarthritis IBS (irritable bowel syndrome) Chronic back pain Headache GERD (gastroesophageal reflux disease) PTSD (post-traumatic stress disorder) Anxiety and depression LINDSEY (obstructive sleep apnea) Asthma Elevated cholesterol IBS (irritable bowel syndrome) Surgical History History of appendectomy History of tonsillectomy and adenoidectomy Hx of cholecystectomy History of total right knee replacement (TKR) Hx of endoscopy History of colonoscopy Family History Father No problems noted. Mother No problems noted. Social History Are you a primary career discovery teacher to a significant other at home: No Do you presently have visiting nurse or other home services: No Alcohol intake: current Alcohol intake frequency: holidays/special occasions only Comment: Fell > 1 month ago - states fainted- no issues since Patient Tobacco Use Status: Never used Tobacco Female Reproductive History Menstrual Age of Menarche: 12 Review of Systems Const Reports as per [facility] Eyes Reports no additional complaints ENT Reports no additional complaints Card Reports as per HPI Resp Reports as per HPI GI Reports as per HPI Reports as per [facility] Psych Reports as per [facility] Endo Reports as per HPI Physical Exam Const General: cooperative, healthy appearing, comfortable, no acute distress, well developed, alert and awake Orientation/consciousness: patient oriented x3 Limitations: wheelchair HEENT Head: Yes normal to inspection, Yes normocephalic and Yes atraumatic Ears: hearing grossly normal bilaterally Eyes General: appearance normal, both eyes and all related structures Neck Neck: Yes normal visual inspection and Yes trachea midline Chest Chest palpation & inspection: normal inspection of the chest Resp Effort & Inspection: normal respiratory effort and able to speak in complete se ntences Cardio Rate: regular rate GI Inspection: Yes normal to inspection General: Yes no CVA tenderness Back/Spine/Pelvis Back: no CVA tenderness Skin General skin exam: no rashes or lesions noted Neuro General: patient oriented x3 Extrem General: Yes normal to inspection Psych Appearance: grossly normal and well kempt Mental Status: mental status grossly normal Speech and movement: Normal speech and movement present and Clear speech present Affect: normal affect Attitude: cooperative Thought process: Normal thought process present Thought content: Normal thought content present Insight: Fair insight present (Psych) Judgement: Fair judgement present (Psych) Office Procedures Post Void Residual Post Residual Void Post Void Residual (PVR): 0 [id number]-[id number] Void Residual by ultrasound Results AMB Urinalysis, Automated UA Leukoctes 15 Yemi/uL Last Edit by Shahbaz Pichardo on 03/17/23 13:17 UA Nitrite Negative Last Edit by Shahbaz Pichardo on 03/17/23 13:17 UA Urobilinogen 0.2 mg/dL Last Edit by Shahbaz Pichardo on 03/17/23 13:17 UA Protein 15 mg/dL Last Edit by Shahbaz Escalantejavad on 03/17/23 13:17 UA pH 6.0 Last Edit by Shahbaz Pichardo on 03/17/23 13:17 UA Blood 0 Thanh/uL Last Edit by Shahbaz Pichardo on 03/17/23 13:17 UA Specific [place] 1.015 Last Edit by Shahbaz Pichardo on 03/17/23 13:17 UA Ketone Negative Last Edit by Shahbaz Pichardo on 03/17/23 13:17 UA Bilirubin 0 mg/dL Last Edit by Shahbaz Pichardo on 03/17/23 13:17 UA Glucose 0 mg/dL Last Edit by Shahbaz Pichardo on 03/17/23 13:17 Results Reviewed Results Reviewed: Laboratory Last Values Urine pH (Auto) 6.0 03/17/23 13:05 Specific [place] (Auto) 1.015 03/17/23 13:05 Urine Protein (Auto) 15 mg/dL 03/17/23 13:05 Glucose (UA)(Auto) 0 mg/dL 03/17/23 13:05 Urine Ketones (Auto) Negative 03/17/23 13:05 Urine Blood (Auto) 0 Thanh/uL 03/17/23 13:05 Urine Nitrite (Auto) Negative 03/17/23 13:05 Urine Bilirubin (Auto) 0 mg/dL 03/17/23 13:05 Urine Urobilinogen (Auto) 0.2 mg/dL 03/17/23 13:05 Leukocyte Esterase (Auto) 15 Yemi/uL 03/17/23 13:05 Assessment & Plan Assessment & Plan (1) Incomplete bladder emptying: Code(s): R33.9 - Retention of urine, unspecified (2) Foul smelling urine: Code(s): R82.90 - Unspecified abnormal findings in urine (3) Cloudy urine: Code(s): R82.90 - Unspecified abnormal findings in urine (4) Dysuria: Code(s): R30.0 - Dysuria Plan In office urinalysis results reviewed with the patient today PVR 0 mL. Continue terazosin 1 mg at bedtime; refill provided Continue Estrace cream as discussed and prescribed. Patient currently denies any bothersome urinary issues or concerns. Discussed, educated, encouraged on the importance of continuing to drink plenty of water daily. Follow-up in 6 months with PVR; or sooner with any issues, concerns, and or questions. Orders: Orders AMB Urinalysis Automated Today Z13.9 - Encounter for screening, unspecified AMB Post Void Residual by ultrasound Today R32 - Unspecified urinary incontinence Medications: Changed From terazosin 1 mg PO BEDTIME 30 days 30 caps 1RF R39.12 - Poor urinary stream To terazosin 1 mg PO BEDTIME 90 days 90 caps 2RF R39.12 - Poor urinary stream Patient Instructions: The patient had an opportunity to ask questions regarding the treatment plan. All questions were answered. Physical exam, labs, and imaging were discussed and reviewed in detail. As well as risks, benefits, and discussion of treatment choices. No major barriers to understanding were identified. The patient expressed understanding and agreement with the above treatment plan. The patient was made aware they should contact our office by phone for worsening of their current condition, the appearance of new symptoms, or with any questions or concerns. Compliance is encouraged with any medications and follow up testing that is ordered. It is a privilege to be allowed the opportunity to participate in? your urological care.? Again, if you have any questions or concerns If you have any questions or concerns please do not hesitate to contact me. The office is [phone]. This note is constructed using voice recognition software. While every effort has been made to ensure accuracy manager retail store errors may have been included. Yours sincerely, MACO Pritchard Coding Level of Care Code Est Pt Level 3 (02847) Diagnoses Incomplete bladder emptying R33.9 Foul smelling urine R82.90 Cloudy urine R82.90 Dysuria R30.0 CPT Codes Post Residual Void - PVR CPT Code: 68451-Vwtl Void Residual by ultrasound ([id number])
== END 2023-03-17 13:40 | disposition home or self-care (01) ==
PROVIDERS: PCP Nurse Practitioner; Visit Provider Nurse Practitioner Family
DX: R33.9 Retention of urine, unspecified (principal); R82.90 Unspecified abnormal findings in urine; R30.0 Dysuria; Z13.9 Encounter for screening, unspecified
CPT/HCPCS: 99213

== ENCOUNTER → 2023-03-17 12:56 | Outpatient (BNVA) | payer MEDICARE, SELFPAY | PROVIDERS: PCP Nurse Practitioner; Visit Provider Nurse Practitioner Family | DX: R33.9 Retention of urine, unspecified (principal); R82.90 Unspecified abnormal findings in urine; R30.0 Dysuria | CPT/HCPCS: 51798; 81003; 99212 ==

== ENCOUNTER 2023-03-23 15:13 | Outpatient (AMB) | payer MEDICARE, SELFPAY ==
--- NOTE | 2023-03-23 15:14 | A.OFFVIS_ITS ---
Intake Vital Signs 03/23/23 15:17 Height 5 ft 7 in Weight 253 lb 8.505 oz BMI 39.7 BP 132/84 Intake Visit Reasons: Rectocele Pierogi Maker Required: No Information Interpreted: non-clinical & clinical Cooky Machine Operator: Cooky Machine Operator Present (Autumn SORIANO) Accompanied by: Spouse Allergies garlic Allergy (Severe, Verified 03/23/23 15:18) THROAT CLOSES cephalexin [From Keflex] Allergy (Mild, Verified 03/23/23 15:18) RASH Post menopausal: Yes HPI HPI Comments History of Present Illness Details The patient is referred from GI to rule out rectocele as a cause of her constipation the patient is not having any bulge per vagina. The patient is complaining of a rash around her inguinal area that is recurrent PFS Medical History Osteoarthritis IBS (irritable bowel syndrome) Chronic back pain Headache GERD (gastroesophageal reflux disease) PTSD (post-traumatic stress disorder) Anxiety and depression LINDSEY (obstructive sleep apnea) Asthma Elevated cholesterol IBS (irritable bowel syndrome) Surgical History History of appendectomy History of tonsillectomy and adenoidectomy Hx of cholecystectomy History of total right knee replacement (TKR) Hx of endoscopy History of colonoscopy Family History Father No problems noted. Mother No problems noted. Social History Are you a primary morning caregiver to a significant other at home: No Do you presently have visiting nurse or other home services: No Alcohol intake: current Alcohol intake frequency: holidays/special occasions only Comment: Fell > 1 month ago - states fainted- no issues since Patient Tobacco Use Status: Never used Tobacco Female Reproductive History Menstrual Age of Menarche: 12 Review of Systems Const All systems reviewed & are unremarkable except as noted in HPI and below Physical Exam Vital Signs: Last Vital Signs BP 132/84 03/23/23 15:17 BMI result Body Mass Index 39.7 General: Yes no CVA tenderness External Female Exam: normal external appearance and normal appearance of the urethra Speculum Exam - Vagina: normal appearance of the vagina, normal palpation, no lesions and no masses Speculum Exam - Cervix: normal appearance of the cervix, normal palpation, no lesions, no masses and nontender Bimanual exam- vagina & uterus: normal bimanual exam, normal palpation, uterine size normal, normal palpation, uterine shape normal, No Cervical tenderness present and non-tender Bimanual Exam- Adnexa, other: normal adnexae Back/Spine/Pelvis Back: no CVA tenderness Skin Other: Skin tag candidiasis around the inguinal area Assessment & Plan Assessment & Plan (1) Constipation: Code(s): K59.00 - Constipation, unspecified Plan: Discussed with the patient the finding on pelvic exam showing no evidence of rectocele, recommended to follow-up with GI for other possible cause of constipation (2) Skin candidiasis: Code(s): B37.2 - Candidiasis of skin and nail Plan: The patient was instructed to keep the area dry, use hair blower after showering, use baby powder without Talc and Desitin cream in addition to applying lotrisone cream BID x5 days Medications: New clotrimazole-betamethasone 1-0.05 % 1 appl topical BID 45 grams 0RF 5 days Coding Level of Care Code Est Pt Level 3 (17949) Diagnoses Constipation K59.00 Skin candidiasis B37.2
[2023-03-23 15:17] VITALS: BP 132/84; BMI 39.7
== END 2023-03-23 15:32 | disposition home or self-care (01) ==
LOC: HO.HWS 15:13
PROVIDERS: PCP Nurse Practitioner; Visit Provider Obstetrics & Gynecology
DX: K59.00 Constipation, unspecified (principal); B37.2 Candidiasis of skin and nail
CPT/HCPCS: 99213

== ENCOUNTER → 2023-03-23 15:13 | Outpatient (BNVA) | payer MEDICARE, SELFPAY | PROVIDERS: PCP Nurse Practitioner; Visit Provider Obstetrics & Gynecology | DX: K59.00 Constipation, unspecified (principal); B37.2 Candidiasis of skin and nail | CPT/HCPCS: 99212 ==

== ENCOUNTER 2023-03-31 14:07 | Outpatient (AMB) | payer MEDICARE, SELFPAY ==
[2023-03-31 14:14] VITALS: BP 131/81; BMI 39.5
--- NOTE | 2023-03-31 14:14 | MHC.OFFVIS ---
Intake Vital Signs 03/31/23 14:14 Height 5 ft 7 in Weight 252 lb BMI 39.5 BP 131/81 Blood Pressure Location Lt radial Position Sitting Intake Visit Reasons: 2 week follow up Intake Note: Patient presents to in office visit today in follow up of of CIC. CC: Patient reports she have only had 2 BMs since her last visit. Per patient one was normal and the 2nd one was diarrhea. 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 This is obviously distressing to her. However there been a several medication changes 1 is that there been taking Metamucil and senna psyllium fiber (which I doubt is having an impact) but also her desmopressin was discontinued. Of course also she is on the budesonide. She continues on her senna 2 at night 1 in the morning without modification. She had her blood drawn 4 days ago at [facility] and I check the system and her sodium was 142 so clearly the budesonide is not having bad impact on that. At this point I think were going to try continuing budesonide and decreasing the senna to 1 in the morning 1 at night. This is going along the lines of thinking that her mast cell activation syndrome may be affecting her got because she cannot access her swallowed Harjit in sodium because of drug shortage is. She will be seeing ACTIVITIES AIDE for eval of the rectocele next week. Return office visit before the end of the month and before her back surgery. TODAY'S VISIT She saw the ACTIVITIES AIDE and they do not believe she has a rectocele. SHe had one episode of diarrhea after one regular BM and then she did not move her bowels for several days and the next BM was diarrhea with urgency. For now I think were going to hold at this level with 1 senna in the morning and 1 at night she will continue her fiber supplement, and will take this up after she has her back surgery which is happening at the beginning of next month. They have already had to stop the magnesium and several other kwst-mdj-zznkubi medications to limit bleeding possibilities for surgery. Although magnesium is not known for causing bleeding that is fine it probably will make a big difference right now anyway. Certainly her senna although technically an eaek-usy-gvjyzzf her fiber also will not cause a problem. She continues on budesonide for now since she still does not have access to cromolyn sodium. Were going to have to play it by ear to see when she comes back to see me depending on how the back surgery goes and how she does in her process of healing. ROV 6 weeks or reschedule depending on her response to surgery. [facility] Medical History (Updated 03/31/23 @ 14:27 by DEBI Mills) Osteoarthritis IBS (irritable bowel syndrome) Chronic back pain Headache GERD (gastroesophageal reflux disease) PTSD (post-traumatic stress disorder) Anxiety and depression LINDSEY (obstructive sleep apnea) Asthma Elevated cholesterol IBS (irritable bowel syndrome) Surgical History History of appendectomy History of tonsillectomy and adenoidectomy Hx of cholecystectomy History of total right knee replacement (TKR) Hx of endoscopy History of colonoscopy Family History Father No problems noted. Mother No problems noted. Social History Are you a primary care program resident to a significant other at home: No Do you presently have visiting nurse or other home services: No Alcohol intake: current Alcohol intake frequency: holidays/special occasions only Comment: Fell > 1 month ago - states fainted- no issues since Patient Tobacco Use Status: Never used Tobacco Female Reproductive History Menstrual Age of Menarche: 12 Review of Systems Const Denies fatigue, Denies fever(s), Denies night sweats, Denies poor appetite and Reports weight loss (Intentional dieting) Eyes Details: glasses Reports requires corrective lenses ENT Reports Normal hearing present, Denies dental pain, Denies dysphagia, Denies hearing loss, Denies mouth pain, Denies odynophagia, Denies throat swelling, Denies tongue swelling and Reports other (Dentition adequate) Card Reports no additional complaints Resp Reports no additional complaints GI Denies abdominal pain, Denies melena, Reports bloating, Denies hematochezia, Reports constipation, Denies GI cramping, Denies dysphagia, Denies excessive flatus, Denies early satiety, Denies heartburn, Reports diarrhea, Denies nausea, Denies odynophagia, Denies vomiting and Denies hematemesis Musc Reports abnormal gait, Reports back pain, Reports myalgias and Reports arthralgias Skin/Breast Denies pruritus, Denies lesions, Denies rash and Denies jaundice Neuro Reports Normal hearing present, Denies Abnormal speech present and Reports abnormal gait Endo Denies fatigue Aller/Immun Denies throat swelling and Denies tongue swelling Physical Exam Vital Signs: Last Vital Signs BP 131/81 03/31/23 14:14 BMI result Body Mass Index 39.5 Const General: cooperative, no acute distress, well developed and well groomed Nutritional Appearance: well nourished and obese Orientation/consciousness: oriented to person, oriented to place and oriented to time Limitations: No language barrier HEENT Head: Yes normocephalic and Yes atraumatic Eyes General: appearance normal, both eyes and all related structures Pupils: Equal, round and reactive pupils present Neck Neck: Yes normal visual inspection and Yes no lymphadenopathy Thyroid: Thyroid normal Resp Effort & Inspection: normal respiratory effort and able to speak in complete sentences Auscultation: clear to auscultation bilaterally Cardio Rate: regular rate Rhythm: regular rhythm Heart sounds: Normal, physiologic split S2 sound present Peripheral pulses: radial pulses present and posterior tibial pulses present GI Inspection: No distended, Yes Abdominal panniculus present and Yes obesity Palpation (GI): Soft to palpation, nontender, no guarding, not rigid and No hepatosplenomegaly present Percussion: Yes normal to percussion Auscultation: normal bowel sounds Rectal Exam - Female: deferred Skin General skin exam: no rashes or lesions noted, turgor normal, skin not dry, no jaundice, No spider nevi and no striae Rashes: no rashes Nails: normal Neuro General: oriented to person, oriented to place and oriented to time Cranial nerves: Yes Equal, round and reactive pupils present and Yes Normal hearing present Speech: No Abnormal speech present Extrem General: Yes normal to inspection, No clubbing, No cyanosis and No edema Psych Appearance: grossly normal and well kempt Mental Status: mental status grossly normal Speech and movement: Normal speech and movement present Affect: normal affect Attitude: cooperative Thought process: Normal thought process present and not confabulating Thought content: Normal thought content present Insight: Limited insight present (Psych) Judgement: Limited judgement present (Psych) Assessment & Plan Assessment & Plan (1) Chronic idiopathic constipation: Code(s): K59.04 - Chronic idiopathic constipation (2) GERD (gastroesophageal reflux disease): Code(s): K21.9 - Gastro-esophageal reflux disease without esophagitis (3) Small bowel motility disorder: Code(s): K59.9 - Functional intestinal disorder, unspecified (4) Rectocele: Code(s): N81.6 - Rectocele (5) Mast cell activation syndrome: Code(s): D89.40 - Mast cell activation, unspecified Plan She is here today with her who is supportive, as usual. She has not in a wheelchair today, again! She saw the ACTIVITIES AIDE and they do not believe she has a rectocele. SHe had one episode of diarrhea after one regular BM and then she did not move her bowels for several days and the next BM was diarrhea with urgency. For now I think were going to hold at this level with 1 senna in the morning and 1 at night she will continue her fiber supplement, and will take this up after she has her back surgery which is happening at the beginning of next month. They have already had to stop the magnesium and several other rrfo-oie-dtxugrz medications to limit bleeding possibilities for surgery. Although magnesium is not known for causing bleeding that is fine it probably will make a big difference right now anyway. Certainly her senna although technically an tcqi-omg-bpgwuud her fiber also will not cause a problem. She continues on budesonide for now since she still does not have access to cromolyn sodium. Were going to have to play it by ear to see when she comes back to see me depending on how the back surgery goes and how she does in her process of healing. ROV 6 weeks or reschedule depending on her response to surgery. Coding Level of Care Code Est Pt Level 3 (41951) Diagnoses Chronic idiopathic constipation K59.04 GERD (gastroesophageal reflux disease) K21.9 Small bowel motility disorder K59.9 Rectocele N81.6 Mast cell activation syndrome D89.40
== END 2023-03-31 15:10 | disposition home or self-care (01) ==
PROVIDERS: PCP Nurse Practitioner; Visit Provider Nurse Practitioner
DX: K59.04 Chronic idiopathic constipation (principal); K21.9 Gastro-esophageal reflux disease without esophagitis; K59.9 Functional intestinal disorder, unspecified; N81.6 Rectocele; D89.40 Mast cell activation, unspecified
CPT/HCPCS: 99213

== ENCOUNTER → 2023-03-31 14:07 | Outpatient (BNVA) | payer MEDICARE, SELFPAY | PROVIDERS: PCP Nurse Practitioner; Visit Provider Nurse Practitioner | DX: K59.04 Chronic idiopathic constipation (principal); K21.9 Gastro-esophageal reflux disease without esophagitis; K59.9 Functional intestinal disorder, unspecified; N81.6 Rectocele; D89.40 Mast cell activation, unspecified | CPT/HCPCS: 99212 ==

== ENCOUNTER 2023-04-28 13:40 | Outpatient (REF) | payer MEDICARE, SELFPAY ==
[2023-04-28 13:52] LABS: Appearance Urine Turbid; Color Urine Dark Yellow; Glucose Urine UA Negative (Negative); Leukocyte Esterase Urine Large (3+) (Negative); Nitrite Urine Positive (Negative); Specific Gravity - Urine 1.025 (1.005-1.025); UMIC TRIGGER UA YES; Urine Blood Large (3+) (Negative); Urine Ketones Trace mg/dL (Negative); Urine Protein 30 (1+) mg/dL (Neg-Trace)
[2023-04-28 14:02] LABS: Bacteria Urine 4+ (None Seen); RBC Urine >20 /HPF (0-2); Squamous Epithelial Cell Urine 0-2 /HPF (0-2); WBC Urine >50 /HPF (0-5)
== END 2023-04-28 13:41 | disposition home or self-care (01) ==
LOC: HO.HVNA 13:40
PROVIDERS: Visit Provider Nurse Practitioner
DX: R35.0 Frequency of micturition (principal)
CPT/HCPCS: 81001; 87086; 87088; 87186

== ENCOUNTER 2023-05-03 11:57 | Outpatient (REF) | payer MEDICARE, SELFPAY ==
[2023-05-03 12:00] LABS: MANUAL DIFF FLAG NO
[2023-05-03 12:06] LABS: Basophils Percent Auto 0.4 % (0-2); Eosinophils Absolute Auto 0.1 X10*3/uL (0.0-0.4); Eosinophils Percent Auto 1.1 % (0-4); Hematocrit 35.9 % (37.0-47.0); Hemoglobin 11.6 g/dl (12.0-16.0); Imm Gran Abs Auto 0.02 X10*3/uL (0.00-0.03); Imm Gran Pct Auto 0.2 % (0.0-0.4); Lymphocytes Absolute Auto 2.8 X10*3/uL (1.2-4.9); Lymphocytes Percent Auto 32.9 % (20-40); Mean Corpuscular HGB Conc 32.3 g/dl (31.0-35.0); Mean Corpuscular Hemoglobin 28.9 pg (27.0-33.0); Mean Corpuscular Volume 89.3 fL (80.0-98.0); Monocytes Absolute Auto 0.4 X10*3/uL (0.1-1.2); Monocytes Percent Auto 4.9 % (2-11); Neutrophils Absolute Auto 5.2 x10*3/uL (2.0-8.3); Neutrophils Percent Auto 60.5 % (45-73); Platelet Count 316 X10*3/uL (160-400); Red Blood Count 4.02 X10*6/uL (4.20-5.50); Red Cell Distribution Width 15.2 % (11.0-16.0); White Blood Count 8.5 X10*3/uL (4.8-10.8)
== END 2023-05-03 11:58 | disposition home or self-care (01) ==
LOC: HO.HVNA 11:57
PROVIDERS: Visit Provider Nurse Practitioner
DX: D72.829 Elevated white blood cell count, unspecified (principal)
CPT/HCPCS: 36415; 85025

== ENCOUNTER 2023-05-12 13:22 | Outpatient (AMB) | payer MEDICARE, SELFPAY ==
[2023-05-12 13:37] VITALS: BP 115/63; PULSE 71; BMI 38.1
--- NOTE | 2023-05-12 13:37 | MHC.OFFVIS ---
Intake Vital Signs 05/12/23 13:37 Height 5 ft 7 in Weight 243 lb BMI 38.1 BP 115/63 Blood Pressure Location Lt brachial Position Sitting Pulse 71 Intake Visit Reasons: 6 week follow up Intake Note: Patient presents to in office visit today in follow up of of CIC. CC: Patient states she was 9 days without a BM. She called the office on 05/04 and advised to take Senna BID. She was finally able to go on but has not gone to the BR since. She c/o abdominal pain. Hydro Technician Required: No Accompanied by: Spouse Allergies garlic Allergy (Severe, Verified 05/12/23 14:05) THROAT CLOSES cephalexin [From Keflex] Allergy (Mild, Verified 05/12/23 14:05) RASH HPI 6 week follow up HPI Details Assessment & Plan (1) Chronic idiopathic constipation: Code(s): K59.04 - Chronic idiopathic constipation (2) GERD (gastroesophageal reflux disease): Code(s): K21.9 - Gastro-esophageal reflux disease without esophagitis (3) Small bowel motility disorder: Code(s): K59.9 - Functional intestinal disorder, unspecified (4) Rectocele: Code(s): N81.6 - Rectocele (5) Mast cell activation syndrome: Code(s): D89.40 - Mast cell activation, unspecified Plan She is here today with her who is supportive, as usual. She has not in a wheelchair today, again! She saw the [employer] SUPERVISOR and they do not believe she has a rectocele. SHe had one episode of diarrhea after one regular BM and then she did not move her bowels for several days and the next BM was diarrhea with urgency. For now I think were going to hold at this level with 1 senna in the morning and 1 at night she will continue her fiber supplement, and will take this up after she has her back surgery which is happening at the beginning of next month. They have already had to stop the magnesium and several other [id number] medications to limit bleeding possibilities for surgery. Although magnesium is not known for causing bleeding that is fine it probably will make a big difference right now anyway. Certainly her senna although technically an [id number] her fiber also will not cause a problem. She continues on budesonide for now since she still does not have access to cromolyn sodium. Were going to have to play it by ear to see when she comes back to see me depending on how the back surgery goes and how she does in her process of healing. ROV 6 weeks or reschedule depending on her response to surgery. CORRESPONDENCE On 05/04/23 @ 12:20 Catie Flores Wrote To Catie Flores patient had surgery on 04/07/23 - patient did get Oxycodone but has not used it recently. I advised her to take the Senna BID until she moves her bowels, did inform her it may cause diarrhea. Catie Flores completed item. On 05/04/23 @ 10:29 Oliva Ramirez Wrote To Catie Flores Did she have her surgery yet? Any other medication changes? I recommend she go to 2 senna bid until she moves her bowels, but this may cause diarrhea. On 05/04/23 @ 09:16 Catie Flores Wrote To JamesJune I received a call from patients VNA. patients VNA states patient has not had a BM in approximately a week. I spoke w/ patient and she confirmed that she is taking all medications prescribed by you as prescribed but she is not having any relief. patient reports the other thing she has trialed is Metamucil OTC. patient requesting advice. TODAY'S VISIT She is here today with her who is supportive She is post op, and her back is sore but it does not hurt like hell like they said it would. She has only used 2 oxycodone inthe past 2 weeks. She took 2 senna qam and 1 qhs and then moved her bowels after a day. She is now constipated again, she has not moved her bowels fora week again. I suggest we re instate the same regimen, and she can experiment with this qod or 2 tabs bid. She can self titrate. ROV 6 weeks. [facility] Medical History Osteoarthritis IBS (irritable bowel syndrome) Chronic back pain Headache GERD (gastroesophageal reflux disease) PTSD (post-traumatic stress disorder) Anxiety and depression LINDSEY (obstructive sleep apnea) Asthma Elevated cholesterol IBS (irritable bowel syndrome) Surgical History History of appendectomy History of tonsillectomy and adenoidectomy Hx of cholecystectomy History of total right knee replacement (TKR) Hx of endoscopy History of colonoscopy Family History Father No problems noted. Mother No problems noted. Social History Are you a primary youth career specialist to a significant other at home: No Do you presently have visiting nurse or other home services: No Alcohol intake: current Alcohol intake frequency: holidays/special occasions only Comment: Fell > 1 month ago - states fainted- no issues since Patient Tobacco Use Status: Never used Tobacco Female Reproductive History Menstrual Age of Menarche: 12 Review of Systems Const Denies fatigue, Denies fever(s), Denies night sweats, Denies poor appetite and Denies weight loss Eyes Details: glasses Reports requires corrective lenses ENT Reports Normal hearing present, Denies dental pain, Denies dysphagia, Denies hearing loss, Denies mouth pain, Denies odynophagia, Denies throat swelling, Denies tongue swelling and Reports other (Dentition adequate) Card Reports no additional complaints Resp Reports no additional complaints GI Details: Denies abdominal pain, Denies melena, Reports bloating, Denies hematochezia, Reports constipation, Reports GI cramping, Denies dysphagia, Denies excessive flatus, Denies early satiety, Reports heartburn, Denies diarrhea, Denies nausea, Denies odynophagia, Denies vomiting and Denies hematemesis Skin/Breast Denies pruritus, Denies lesions, Denies rash and Denies jaundice Neuro Reports Normal hearing present and Denies Abnormal speech present Endo Denies fatigue Aller/Immun Denies throat swelling and Denies tongue swelling Physical Exam Vital Signs: Last Vital Signs Pulse 71 05/12/23 13:37 BP 115/63 05/12/23 13:37 BMI result Body Mass Index 38.1 Const General: cooperative, no acute distress, well developed and well groomed Nutritional Appearance: well nourished and obese Orientation/consciousness: oriented to person, oriented to place and oriented to time Limitations: No language barrier HEENT Head: Yes normocephalic and Yes atraumatic Eyes General: appearance normal, both eyes and all related structures Pupils: Equal, round and reactive pupils present Neck Neck: Yes normal visual inspection and Yes no lymphadenopathy Thyroid: Thyroid normal Resp Effort & Inspection: normal respiratory effort and able to speak in complete sentences Auscultation: clear to auscultation bilaterally Cardio Rate: regular rate Rhythm: regular rhythm Heart sounds: Normal, physiologic split S2 sound present Peripheral pulses: radial pulses present and posterior tibial pulses present GI Inspection: No distended, Yes Abdominal panniculus present and Yes obesity Palpation (GI): Soft to palpation, nontender, no guarding, not rigid and No hepatosplenomegaly present Percussion: Yes normal to percussion Auscultation: normal bowel sounds Rectal Exam - Female: deferred Skin General skin exam: no rashes or lesions noted, turgor normal, skin not dry, no jaundice, No spider nevi and no striae Rashes: no rashes Nails: normal Neuro General: oriented to person, oriented to place and oriented to time Cranial nerves: Yes Equal, round and reactive pupils present and Yes Normal hearing present Speech: No Abnormal speech present Extrem General: Yes normal to inspection, No clubbing, No cyanosis and No edema Psych Appearance: grossly normal and well kempt Mental Status: mental status grossly normal Speech and movement: Normal speech and movement present Affect: normal affect Attitude: cooperative Thought process: Normal thought process present and not confabulating Thought content: Normal thought content present Insight: Limited insight present (Psych) Judgement: Limited judgement present (Psych) Assessment & Plan Assessment & Plan (1) Chronic idiopathic constipation: Code(s): K59.04 - Chronic idiopathic constipation (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 - Mast cell activation, unspecified (3) GERD (gastroesophageal reflux disease): Code(s): K21.9 - Gastro-esophageal reflux disease without esophagitis (4) Small bowel motility disorder: Code(s): K59.9 - Functional intestinal disorder, unspecified Plan She is here today with her who is supportive She is post op, and her back is sore but it does not hurt like hell like they said it would. She has only used 2 oxycodone inthe past 2 weeks. She took 2 senna qam and 1 qhs and then moved her bowels after a day. She is now constipated again, she has not moved her bowels fora week again. I suggest we re instate the same regimen, and she can experiment with this qod or 2 tabs bid. She can self titrate. Her current regimen consists of budesonide 3 mg in the morning, dicyclomine 40 mg 4 times a day as needed, famotidine 40 mg at bedtime, lansoprazole 30 mg in the morning, lactulose as needed, magnesium oxide as needed, metoclopramide, and psyllium husk fiber ROV 6 weeks. Medications: Refilled sennosides (senna) 17.2 mg (2 x 8.6 mg) PO BID 120 tabs 5RF for constipation Coding Level of Care Code Est Pt Level 3 (02439) Diagnoses Chronic idiopathic constipation K59.04 Mast cell activation syndrome D89.40 GERD (gastroesophageal reflux disease) K21.9 Small bowel motility disorder K59.9
== END 2023-05-12 14:18 | disposition home or self-care (01) ==
PROVIDERS: PCP Nurse Practitioner; Visit Provider Nurse Practitioner
DX: K59.04 Chronic idiopathic constipation (principal); D89.40 Mast cell activation, unspecified; K21.9 Gastro-esophageal reflux disease without esophagitis; K59.9 Functional intestinal disorder, unspecified
CPT/HCPCS: 99213

== ENCOUNTER → 2023-05-12 13:22 | Outpatient (BNVA) | payer MEDICARE, SELFPAY | PROVIDERS: PCP Nurse Practitioner; Visit Provider Nurse Practitioner | DX: K59.04 Chronic idiopathic constipation (principal); K21.9 Gastro-esophageal reflux disease without esophagitis; K59.9 Functional intestinal disorder, unspecified; D89.40 Mast cell activation, unspecified | CPT/HCPCS: 99212 ==

== ENCOUNTER 2023-06-24 11:25 | Outpatient (AMB) | payer MEDICARE, SELFPAY ==
--- NOTE | 2023-06-24 11:29 | A.OFFVIS_ITS ---
Intake Visit Reasons: 6 week follow up CIC, IBS Intake Note: Patient is seen in office for 6 weeks follow up visit, following CIC & IBS. Patient c/o: last visit Senna was increase and was experiencing involintary diarrhea, had to cut back down to normal dose and has constipation, has a BM every 4 to 5 days, bloated, abdominal pain, some nausea, denies any other concerns Aligning Checker Required: No Accompanied by: Spouse Allergies garlic Allergy (Severe, Verified 06/24/23 11:34) THROAT CLOSES cephalexin [From Keflex] Allergy (Mild, Verified 06/24/23 11:34) RASH HPI HPI 6 week follow up CIC, IBS: Details: Assessment & Plan (1) Chronic idiopathic constipation: Code(s): K59.04 - Chronic idiopathic constipation (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 - Mast cell activation, unspecified (3) GERD (gastroesophageal reflux disease): Code(s): K21.9 - Gastro-esophageal reflux disease without esophagitis (4) Small bowel motility disorder: Code(s): K59.9 - Functional intestinal disorder, unspecified Plan She is here today with her who is supportive She is post op, and her back is sore but it does not hurt like hell like they said it would. She has only used 2 oxycodone inthe past 2 weeks. She took 2 senna qam and 1 qhs and then moved her bowels after a day. She is now constipated again, she has not moved her bowels fora week again. I suggest we re instate the same regimen, and she can experiment with this qod or 2 tabs bid. She can self titrate. Her current regimen consists of budesonide 3 mg in the morning, dicyclomine 40 mg 4 times a day as needed, famotidine 40 mg at bedtime, lansoprazole 30 mg in the morning, lactulose as needed, magnesium oxide as needed, metoclopramide, and psyllium husk fiber ROV 6 weeks. Medications: Refilled sennosides (senna) 17.2 mg (2 x 8.6 mg) PO BID 120 tabs 5RF for constipation TODAY'S VISIT She is here today with her who is supportive She could not titrate the senna, 1 am and 1 qhs and she has CIC, and 1 qam 2 qhs caused diarrhe and accidents. I want her to try doing 1.5 tabs cone a day and 1 the other either am or pm whichever seems best to her. Return office visit they return from their forward vacation sometime July. [facility] Medical History Osteoarthritis IBS (irritable bowel syndrome) Chronic back pain Headache GERD (gastroesophageal reflux disease) PTSD (post-traumatic stress disorder) Anxiety and depression LINDSEY (obstructive sleep apnea) Asthma Elevated cholesterol IBS (irritable bowel syndrome) Surgical History History of appendectomy History of tonsillectomy and adenoidectomy Hx of cholecystectomy History of total right knee replacement (TKR) Hx of endoscopy History of colonoscopy Family History Father No problems noted. Mother No problems noted. Social History Are you a primary medicare specialist to a significant other at home: No Do you presently have visiting nurse or other home services: No Alcohol intake: current Alcohol intake frequency: holidays/special occasions only Comment: Fell > 1 month ago - states fainted- no issues since Patient Tobacco Use Status: Never used Tobacco Female Reproductive History Menstrual Age of Menarche: 12 Review of Systems Const Details: glasses Denies fatigue, Denies fever(s), Denies night sweats, Denies poor appetite and Denies weight loss Eyes Details: Glasses Reports requires corrective lenses ENT Reports Normal hearing present, Denies dental pain, Denies dysphagia, Denies hearing loss, Denies mouth pain, Denies odynophagia, Denies throat swelling, Denies tongue swelling and Reports other (Dentition adequate) Card Reports no additional complaints Resp Reports no additional complaints GI Details: Denies abdominal pain, Denies melena, Denies bloating, Denies hematochezia, Reports constipation, Denies GI cramping, Denies dysphagia, Denies excessive flatus, Denies early satiety, Denies heartburn, Reports diarrhea, Denies nausea, Denies odynophagia, Denies vomiting and Denies hematemesis Skin/Breast Denies pruritus, Denies lesions, Denies rash and Denies jaundice Neuro Reports Normal hearing present and Denies Abnormal speech present Endo Denies fatigue Aller/Immun Denies throat swelling and Denies tongue swelling Physical Exam Const General: cooperative, no acute distress, well developed and well groomed Nutritional Appearance: well nourished and obese Orientation/consciousness: oriented to person, oriented to place and oriented to time Limitations: No language barrier HEENT Head: Yes normocephalic and Yes atraumatic Eyes General: appearance normal, both eyes and all related structures Pupils: Equal, round and reactive pupils present Neck Neck: Yes normal visual inspection and Yes no lymphadenopathy Thyroid: Thyroid normal Resp Effort & Inspection: normal respiratory effort and able to speak in complete sentences Auscultation: clear to auscultation bilaterally Cardio Rate: regular rate Rhythm: regular rhythm Heart sounds: Normal, physiologic split S2 sound present Peripheral pulses: radial pulses present and posterior tibial pulses present GI Inspection: No distended, Yes Abdominal panniculus present and Yes obesity Palpation (GI): Soft to palpation, nontender, no guarding, not rigid and No hepatosplenomegaly present Percussion: Yes normal to percussion Auscultation: normal bowel sounds Rectal Exam - Female: deferred Skin General skin exam: no rashes or lesions noted, turgor normal, skin not dry, no jaundice, No spider nevi and no striae Rashes: no rashes Nails: normal Neuro General: oriented to person, oriented to place and oriented to time Cranial nerves: Yes Equal, round and reactive pupils present and Yes Normal hearing present Speech: No Abnormal speech present Extrem General: Yes normal to inspection, No clubbing, No cyanosis and No edema Psych Appearance: grossly normal and well kempt Mental Status: mental status grossly normal Speech and movement: Normal speech and movement present Affect: normal affect Attitude: cooperative Thought process: Normal thought process present and not confabulating Thought content: Normal thought content present Insight: Limited insight present (Psych) Judgement: Limited judgement present (Psych) Assessment & Plan Assessment & Plan (1) Chronic idiopathic constipation: Code(s): K59.04 - Chronic idiopathic constipation Category: Medical (2) GERD (gastroesophageal reflux disease): Code(s): K21.9 - Gastro-esophageal reflux disease without esophagitis Category: Medical Plan She is here today with her who is supportive She could not titrate the senna, 1 am and 1 qhs and she has CIC, and 1 qam 2 qhs caused diarrhea and accidents. I want her to try doing 1.5 tabs cone a day and 1 the other either am or pm whichever seems best to her. Return office visit they return from their forward vacation sometime July.
== END 2023-06-24 11:49 | disposition home or self-care (01) ==
PROVIDERS: PCP Nurse Practitioner; Visit Provider Nurse Practitioner
DX: K59.04 Chronic idiopathic constipation (principal); K21.9 Gastro-esophageal reflux disease without esophagitis
CPT/HCPCS: 99213

== ENCOUNTER → 2023-06-24 11:25 | Outpatient (BNVA) | payer MEDICARE, SELFPAY | PROVIDERS: PCP Nurse Practitioner; Visit Provider Nurse Practitioner | DX: K59.04 Chronic idiopathic constipation (principal); K21.9 Gastro-esophageal reflux disease without esophagitis | CPT/HCPCS: 99212 ==

== ENCOUNTER 2023-07-28 10:14 | Outpatient (AMB) | payer MEDICARE, SELFPAY ==
--- NOTE | 2023-07-28 10:22 | A.OFFVIS_ITS ---
Vital Signs 07/28/23 10:25 Height 5 ft 7 in Weight 246 lb BMI 38.5 BP 121/70 Blood Pressure Location Rt brachial Position Sitting Pulse 67 Intake Visit Reasons: follow up CIC Intake Note: Patient presents to in office visit today in follow up of CIC. CC:Patient states that she went away to [place] and in 2 weeks she only had 3 BM's (lose stools) and also a few accidents or episodes of fecal incontinence. Licensed Clinical Psychologist Required: No Accompanied by: Spouse Allergies garlic Allergy (Severe, Verified 07/28/23 10:29) THROAT CLOSES cephalexin [From Keflex] Allergy (Mild, Verified 07/28/23 10:29) RASH HPI HPI follow up CIC: Details: Assessment & Plan (1) Chronic idiopathic constipation: Code(s): K59.04 - Chronic idiopathic constipation Category: Medical (2) GERD (gastroesophageal reflux disease): Code(s): K21.9 - Gastro-esophageal reflux disease without esophagitis Category: Medical Plan She is here today with her who is supportive She could not titrate the senna, 1 am and 1 qhs and she has CIC, and 1 qam 2 qhs caused diarrhea and accidents. I want her to try doing 1.5 tabs cone a day and 1 the other either am or pm whichever seems best to her. Return office visit they return from their forward vacation sometime July. TODAY'S VISIT She had mostly diarrhea while she was away on vacation and a rough 2 weeks. However, her also had some GI upset so they are uncertain if it was the food the water etc. while traveling that contributed. She was drinking a lot more diet coke and she found that the diarrhea stopped when she stopped drinking it so it is possible she is sensitive to the sweetener. Diarrhea is a common side effect of many artificial sweeteners. I believe lacey is using NutraSweet but I will check into this. At home that usually use Stevia and I am uncertain about the GI side effects of this particular supplement. I will try to do a deeper investigation. In the meantime the going to experiment still with senna dosing trying 1 pill 1 night alternating with 1-1/2 the next. I am going to get them in to see Dr. Velazquez son because of the possible overlay of mast cell syndrome with the GI system for 2nd opinion. In the meantime they will continue with me. Return office visit in 4 weeks with me and when available with Dr. Velazquez son. [facility] Medical History Osteoarthritis IBS (irritable bowel syndrome) Chronic back pain Headache GERD (gastroesophageal reflux disease) PTSD (post-traumatic stress disorder) Anxiety and depression LINDSEY (obstructive sleep apnea) Asthma Elevated cholesterol IBS (irritable bowel syndrome) Surgical History History of appendectomy History of tonsillectomy and adenoidectomy Hx of cholecystectomy History of total right knee replacement (TKR) Hx of endoscopy History of colonoscopy Family History Father No problems noted. Mother No problems noted. Social History Are you a primary acute care registered nurse to a significant other at home: No Do you presently have visiting nurse or other home services: No Alcohol intake: current Alcohol intake frequency: holidays/special occasions only Comment: Fell > 1 month ago - states fainted- no issues since Patient Tobacco Use Status: Never used Tobacco Female Reproductive History Menstrual Age of Menarche: 12 Review of Systems Const Denies fatigue, Denies fever(s), Denies night sweats, Denies poor appetite and Denies weight loss Eyes Details: glasses Reports requires corrective lenses ENT Reports Normal hearing present, Denies dental pain, Denies dysphagia, Denies hearing loss, Denies mouth pain, Denies odynophagia, Denies throat swelling, Denies tongue swelling and Reports other (Dentition adequate) Card Reports no additional complaints Resp Reports no additional complaints GI Details: Denies abdominal pain, Denies melena, Denies bloating, Denies hematochezia, Reports constipation, Denies GI cramping, Denies dysphagia, Denies excessive flatus, Denies early satiety, Denies heartburn, Reports diarrhea, Denies nausea, Denies odynophagia, Denies vomiting and Denies hematemesis Skin/Breast Denies pruritus, Denies lesions, Denies rash and Denies jaundice Neuro Reports Normal hearing present and Denies Abnormal speech present Endo Denies fatigue Aller/Immun Denies throat swelling and Denies tongue swelling Physical Exam Vital Signs: Last Vital Signs Pulse 67 07/28/23 10:25 BP 121/70 07/28/23 10:25 BMI result Body Mass Index 38.5 Const General: cooperative, no acute distress, well developed and well groomed Nutritional Appearance: well nourished and obese Orientation/consciousness: oriented to person, oriented to place and oriented to time Limitations: No language barrier HEENT Head: Yes normocephalic and Yes atraumatic Eyes General: appearance normal, both eyes and all related structures Pupils: Equal, round and reactive pupils present Neck Neck: Yes normal visual inspection and Yes no lymphadenopathy Thyroid: Thyroid normal Resp Effort & Inspection: normal respiratory effort and able to speak in complete sentences Auscultation: clear to auscultation bilaterally Cardio Rate: regular rate Rhythm: regular rhythm Heart sounds: Normal, physiologic split S2 sound present Peripheral pulses: radial pulses present and posterior tibial pulses present GI Inspection: No distended, Yes Abdominal panniculus present and Yes obesity Palpation (GI): Soft to palpation, nontender, no guarding, not rigid and No hepatosplenomegaly present Percussion: Yes normal to percussion Auscultation: normal bowel sounds Rectal Exam - Female: deferred Skin General skin exam: no rashes or lesions noted, turgor normal, skin not dry, no jaundice, No spider nevi and no striae Rashes: no rashes Nails: normal Neuro General: oriented to person, oriented to place and oriented to time Cranial nerves: Yes Equal, round and reactive pupils present and Yes Normal hearing present Speech: No Abnormal speech present Extrem General: Yes normal to inspection, No clubbing, No cyanosis and No edema Psych Appearance: grossly normal and well kempt Mental Status: mental status grossly normal Speech and movement: Normal speech and movement present Affect: normal affect Attitude: cooperative Thought process: Normal thought process present and not confabulating Thought content: Normal thought content present Insight: Limited insight present (Psych) Judgement: Limited judgement present (Psych) Assessment & Plan Assessment & Plan (1) Chronic idiopathic constipation: Code(s): K59.04 - Chronic idiopathic constipation Category: Medical (2) GERD (gastroesophageal reflux disease): Code(s): K21.9 - Gastro-esophageal reflux disease without esophagitis Category: Medical (3) Mast cell activation syndrome: Code(s): D89.40 - Mast cell activation, unspecified Category: Medical Plan She had mostly diarrhea while she was away on vacation and a rough 2 weeks. However, her also had some GI upset so they are uncertain if it was the food the water etc. while traveling that contributed. She was drinking a lot more diet coke and she found that the diarrhea stopped when she stopped drinking it so it is possible she is sensitive to the sweetener. Diarrhea is a common side effect of many artificial sweeteners. I believe lacey is using NutraSweet but I will check into this. At home that usually use Stevia and I am uncertain about the GI side effects of this particular supplement. I will try to do a deeper investigation. In the meantime the going to experiment still with senna dosing trying 1 pill 1 night alternating with 1-1/2 the next. I am going to get them in to see Dr. Velazquez son because of the possible overlay of mast cell syndrome with the GI system for 2nd opinion. In the meantime they will continue with me. Return office visit in 4 weeks with me and when available with Dr. Velazquez son. Coding Level of Care Code Est Pt Level 3 (75507) Diagnoses Chronic idiopathic constipation K59.04 GERD (gastroesophageal reflux disease) K21.9 Mast cell activation syndrome D89.40
[2023-07-28 10:25] VITALS: BP 121/70; PULSE 67; BMI 38.5
== END 2023-07-28 11:00 | disposition home or self-care (01) ==
PROVIDERS: PCP Nurse Practitioner; Visit Provider Nurse Practitioner
DX: K59.04 Chronic idiopathic constipation (principal); K21.9 Gastro-esophageal reflux disease without esophagitis; D89.40 Mast cell activation, unspecified
CPT/HCPCS: 99213

== ENCOUNTER → 2023-07-28 10:14 | Outpatient (BNVA) | payer MEDICARE, SELFPAY | PROVIDERS: PCP Nurse Practitioner; Visit Provider Nurse Practitioner | DX: K59.04 Chronic idiopathic constipation (principal); K21.9 Gastro-esophageal reflux disease without esophagitis; D89.40 Mast cell activation, unspecified | CPT/HCPCS: 99212 ==

== ENCOUNTER 2023-08-26 10:11 | Outpatient (AMB) | payer MEDICARE, SELFPAY ==
--- NOTE | 2023-08-26 10:18 | MHC.OFFVIS ---
Vital Signs 08/26/23 10:20 Height 5 ft 7 in Weight 240 lb BMI 37.6 BP 92/62 Blood Pressure Location Lt brachial Position Sitting Pulse 72 Intake Visit Reasons: 4 week follow up Intake Note: Alcira presents to in office 4 weeks follow up of CIC. CC: Patient reports having a lot of accidents referring to feces incontinence and loose stools. She also c/o abdominal pain and today was bad per Pt . Denies other GI symptoms today. Accompanied by: Spouse Allergies garlic Allergy (Severe, Verified 08/26/23 10:23) THROAT CLOSES cephalexin [From Keflex] Allergy (Mild, Verified 08/26/23 10:23) RASH HPI HPI 4 week follow up: Details: Assessment & Plan (1) Chronic idiopathic constipation: Code(s): K59.04 - Chronic idiopathic constipation Category: Medical (2) GERD (gastroesophageal reflux disease): Code(s): K21.9 - Gastro-esophageal reflux disease without esophagitis Category: Medical (3) Mast cell activation syndrome: Code(s): D89.40 - Mast cell activation, unspecified Category: Medical Plan She had mostly diarrhea while she was away on vacation and a rough 2 weeks. However, her also had some GI upset so they are uncertain if it was the food the water etc. while traveling that contributed. She was drinking a lot more diet coke and she found that the diarrhea stopped when she stopped drinking it so it is possible she is sensitive to the sweetener. Diarrhea is a common side effect of many artificial sweeteners. I believe lacey is using NutraSweet but I will check into this. At home that usually use Stevia and I am uncertain about the GI side effects of this particular supplement. I will try to do a deeper investigation. In the meantime the going to experiment still with senna dosing trying 1 pill 1 night alternating with 1-1/2 the next. I am going to get them in to see Dr. Velazquez son because of the possible overlay of mast cell syndrome with the GI system for 2nd opinion. In the meantime they will continue with me. Return office visit in 4 weeks with me and when available with Dr. Velazquez son. CORRESPONDENCE On 08/15/23 @ 14:12 Santa Pradhan Wrote To Patient called requesting to have rx for lubiprostone sent to her pharmacy because even after PA approval the brand name is to costly. On 08/10/23 @ 11:19 Catie Flores Wrote To Catie Flores PA req for Amitiza. I submitted PA. It was approved 05/12/23 to 08/09/24. I informed pharmacy and also scanned approval letter into patients chart Catie Flores completed item. TODAY'S VISIT She is here today with her who is supportive She is still having diarrhea and fecal accidents. This is at alt 1.5 senna qod. I want her to stop the senna for a day, then restart at 1.25 qod - her thinks he can cut them that small. She also continues on her Amitiza. While we had thought initially this was from traveling the diarrhea has not ceased after she has been home for quite some time. The appt with Dr. Wang for mast cell consideration is in October. ROV 6 weeks. [facility] Medical History (Updated 08/26/23 @ 10:26 by DEBI Mills) Hyponatremia Bacterial vaginosis Dysuria Cloudy urine Foul smelling urine Left lower quadrant abdominal pain Well woman exam Osteoarthritis IBS (irritable bowel syndrome) Chronic back pain Headache GERD (gastroesophageal reflux disease) PTSD (post-traumatic stress disorder) Anxiety and depression LINDSEY (obstructive sleep apnea) Asthma Elevated cholesterol IBS (irritable bowel syndrome) Surgical History History of appendectomy History of tonsillectomy and adenoidectomy Hx of cholecystectomy History of total right knee replacement (TKR) Hx of endoscopy History of colonoscopy Family History Father No problems noted. Mother No problems noted. Social History Are you a primary careers counsellor to a significant other at home: No Do you presently have visiting nurse or other home services: No Alcohol intake: current Alcohol intake frequency: holidays/special occasions only Comment: Fell > 1 month ago - states fainted- no issues since Patient Tobacco Use Status: Never used Tobacco Female Reproductive History Menstrual Age of Menarche: 12 Review of Systems Const Denies fatigue, Denies fever(s), Denies night sweats, Denies poor appetite and Denies weight loss Eyes Details: glasses Reports requires corrective lenses ENT Reports Normal hearing present, Denies dental pain, Denies dysphagia, Denies hearing loss, Denies mouth pain, Denies odynophagia, Denies throat swelling, Denies tongue swelling and Reports other (Dentition adequate) Card Reports no additional complaints Resp Reports no additional complaints GI Details: Denies abdominal pain, Denies melena, Reports bloating, Denies hematochezia, Reports constipation, Denies GI cramping, Denies dysphagia, Denies excessive flatus, Denies early satiety, Denies heartburn, Reports diarrhea, Denies nausea, Denies odynophagia, Denies vomiting and Denies hematemesis Skin/Breast Denies pruritus, Denies lesions, Denies rash and Denies jaundice Neuro Reports Normal hearing present and Denies Abnormal speech present Endo Denies fatigue Aller/Immun Denies throat swelling and Denies tongue swelling Physical Exam Vital Signs: Last Vital Signs Pulse 72 08/26/23 10:20 BP 92/62 08/26/23 10:20 BMI result Body Mass Index 37.6 Const General: cooperative, no acute distress, well developed and well groomed Nutritional Appearance: well nourished and obese Orientation/consciousness: oriented to person, oriented to place and oriented to time Limitations: No language barrier HEENT Head: Yes normocephalic and Yes atraumatic Eyes General: appearance normal, both eyes and all related structures Pupils: Equal, round and reactive pupils present Neck Neck: Yes normal visual inspection and Yes no lymphadenopathy Thyroid: Thyroid normal Resp Effort & Inspection: normal respiratory effort and able to speak in complete sentences Auscultation: clear to auscultation bilaterally Cardio Rate: regular rate Rhythm: regular rhythm Heart sounds: Normal, physiologic split S2 sound present Peripheral pulses: radial pulses present and posterior tibial pulses present GI Inspection: No distended, No Abdominal panniculus present and Yes obesity Palpation (GI): Soft to palpation, nontender, no guarding, not rigid and No hepatosplenomegaly present Percussion: Yes normal to percussion Auscultation: normal bowel sounds Rectal Exam - Female: deferred Skin General skin exam: no rashes or lesions noted, turgor normal, skin not dry, no jaundice, No spider nevi and no striae Rashes: no rashes Nails: normal Neuro General: oriented to person, oriented to place and oriented to time Cranial nerves: Yes Equal, round and reactive pupils present and Yes Normal hearing present Speech: No Abnormal speech present Extrem General: Yes normal to inspection, No clubbing, No cyanosis and No edema Psych Appearance: grossly normal and well kempt Mental Status: mental status grossly normal Speech and movement: Normal speech and movement present Affect: normal affect Attitude: cooperative Thought process: Normal thought process present and not confabulating Thought content: Normal thought content present Insight: Limited insight present (Psych) Judgement: Limited judgement present (Psych) Assessment & Plan Assessment & Plan (1) Chronic idiopathic constipation: Code(s): K59.04 - Chronic idiopathic constipation Category: Medical (2) GERD (gastroesophageal reflux disease): Code(s): K21.9 - Gastro-esophageal reflux disease without esophagitis Category: Medical (3) Small bowel motility disorder: Code(s): K59.9 - Functional intestinal disorder, unspecified Category: Medical (4) Mast cell activation syndrome: Code(s): D89.40 - Mast cell activation, unspecified Category: Medical (5) Urine incontinence: Code(s): R32 - Unspecified urinary incontinence Category: Medical (6) Rectocele: Code(s): N81.6 - Rectocele Category: Medical Plan She is here today with her who is supportive She is still having diarrhea and fecal accidents. This is at alt 1.5 senna qod. I want her to stop the senna for a day, then restart at 1.25 qod - her thinks he can cut them that small. She also continues on her Amitiza. While we had thought initially this was from traveling the diarrhea has not ceased after she has been home for quite some time. The appt with Dr. Wang for mast cell consideration is in October. ROV 6 weeks. Orders: Referrals Pelvic Camera Systems Engineer Referral N81.6 - Rectocele, R32 - Unspecified urinary incontinence Coding Level of Care Code Est Pt Level 3 (33172) Diagnoses Chronic idiopathic constipation K59.04 GERD (gastroesophageal reflux disease) K21.9 Small bowel motility disorder K59.9 Mast cell activation syndrome D89.40 Urine incontinence R32 Rectocele N81.6
[2023-08-26 10:20] VITALS: BP 92/62; PULSE 72; BMI 37.6
== END 2023-08-26 10:52 | disposition home or self-care (01) ==
PROVIDERS: PCP Nurse Practitioner; Visit Provider Nurse Practitioner
DX: K59.04 Chronic idiopathic constipation (principal); K21.9 Gastro-esophageal reflux disease without esophagitis; K59.9 Functional intestinal disorder, unspecified; D89.40 Mast cell activation, unspecified; R32 Unspecified urinary incontinence; N81.6 Rectocele
CPT/HCPCS: 99213

== ENCOUNTER → 2023-08-26 10:11 | Outpatient (BNVA) | payer MEDICARE, SELFPAY | PROVIDERS: PCP Nurse Practitioner; Visit Provider Nurse Practitioner | DX: K59.04 Chronic idiopathic constipation (principal); K21.9 Gastro-esophageal reflux disease without esophagitis; K59.9 Functional intestinal disorder, unspecified; D89.40 Mast cell activation, unspecified; R32 Unspecified urinary incontinence; N81.6 Rectocele | CPT/HCPCS: 99212 ==

== ENCOUNTER 2023-09-15 12:50 | Outpatient (AMB) | payer MEDICARE, SELFPAY ==
--- NOTE | 2023-09-15 12:59 | A.OFFVIS_ITS ---
Intake Visit Reasons: 6m/PVR Intake Note: Patient is Present for PVR/ Urology Med: Estradiol, Terazosin Antibiotic Allergy: Keflex Blood Thinner:None Last PVR: 0 Todays PVR: 0 Patient states she does not take medications constantly she does forget to take at times. 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 Required: No Allergies garlic Allergy (Severe, Verified 09/15/23 21:54) THROAT CLOSES cephalexin [From Keflex] Allergy (Mild, Verified 09/15/23 21:54) RASH Medication List - Last Reconciled 09/15/23 by DEAN Pritchard- ascorbic acid (vitamin C) 500 mg PO DAILY budesonide DR-ER 3 mg PO QAM bupropion HCl SR 200 mg PO BID cetirizine 10 mg PO BID cholecalciferol (vitamin D3) 50 mcg PO DAILY clonazepam 1 mg PO BID PRN clonidine HCl 0.1 mg PO BID PRN clotrimazole-betamethasone 1-0.05 % 1 appl topical BID 5 days cyanocobalamin (vitamin B-12) 1,000 mcg PO DAILY dicyclomine 40 mg (2 x 20 mg) PO QID 30 days duloxetine 60 mg PO BID epinephrine 0.3 mL IM ONCE PRN estradiol 0.01%(0.1mg/gram) (Estrace) 1 g vaginal 3XW 30 days famotidine 40 mg PO BEDTIME hydrochlorothiazide 1 tab PO DAILY hydrocortisone 10 mg PO BID lamotrigine 300 mg PO DAILY lansoprazole 30 mg PO DAILY levalbuterol tartrate 45 mcg/actuation (Xopenex HFA) 1 puff inhalation Q4-6H PRN levothyroxine 112 mcg PO DAILY lubiprostone (Amitiza) 24 mcg PO BID magnesium oxide 500 mg (2 x 250 mg magnesium) PO DAILY metoclopramide HCl mg PO montelukast 10 mg PO QPM potassium chloride ER 20 mEq PO DAILY pravastatin 1 tab PO DAILY psyllium husk 0.8 grams (2 x 0.4 gram) PO DAILY sennosides (senna) 17.2 mg (2 x 8.6 mg) PO BID terazosin 1 mg PO BEDTIME 90 days tizanidine 4 mg PO TID topiramate 150 mg PO BID HPI Comments Details: Alcira is a pleasant 63 year old female patient of Dr. Mathews was accompanied by her at today's visit. She has a past medical history of anxiety, depression, asthma, chronic back pain, hypercholesteremia, GERD, headaches, irritable bowel syndrome, obstructive sleep apnea, diabetes insipidus, osteoarthritis, and PTSD. She presents to the office today for follow-up of her ongoing lower urinary tract symptoms as well as incomplete bladder emptying. In discussion with the patient today she reports since her last office visit here 3 months ago she does continue to report episodes of nocturia up to 6 times per night however does not feel any bothersome urinary issues throughout the day. She reports compliance with Estrace cream and terazosin as prescribed. Previous workup has included a retroperitoneal ultrasound noting bilateral kidneys with no calculi, lesions, and or hydronephrosis noted. The bladder is well distended and normal. Pre void bladder volume is approximately 285 mL. Postvoid bladder volume is approximately 30 mL. Patient with a previous microgen 12/27 and has since completed antibiotic therapy of levofloxacin as prescribed. She reports noting dysuria and foul- smelling urine have since improved. In office urinalysis results reviewed with the patient today. PVR 0 mL. She otherwise denies hematuria, changes to urinary stream, flank pain, fever, and or chills. Discussed contributing factors of diabetes insipidus and obstructive sleep apnea in relation to lower urinary tract symptoms. She discusses how she is continuing to lose weight and has an upcoming lumbar surgery. She also discusses her upcoming appointment with Gastroenterology given her longstanding history of bowel issues and fecal incontinence. Discussed possible InterStim for lower urinary tract symptoms as well as fecal incontinence she is experiencing. However, she would like to discuss this with GI provider as well. She otherwise offers no other issues or concerns at this time. [facility] Medical History (Reviewed 09/15/23 @ 22:02 by NEIDA [facility]) Hyponatremia Bacterial vaginosis Dysuria Cloudy urine Foul smelling urine Left lower quadrant abdominal pain Well woman exam Osteoarthritis IBS (irritable bowel syndrome) Chronic back pain Headache GERD (gastroesophageal reflux disease) PTSD (post-traumatic stress disorder) Anxiety and depression LINDSEY (obstructive sleep apnea) Asthma Elevated cholesterol IBS (irritable bowel syndrome) Surgical History History of appendectomy History of tonsillectomy and adenoidectomy Hx of cholecystectomy History of total right knee replacement (TKR) Hx of endoscopy History of colonoscopy Family History Father No problems noted. Mother No problems noted. Social History Are you a primary urgent care physician assistant to a significant other at home: No Do you presently have visiting nurse or other home services: No Alcohol intake: current Alcohol intake frequency: holidays/special occasions only Comment: Fell > 1 month ago - states fainted- no issues since Patient Tobacco Use Status: Never used Tobacco Female Reproductive History Menstrual Age of Menarche: 12 Review of Systems Const Reports as per HPI Eyes Reports no additional complaints ENT Reports no additional complaints Card Reports as per HPI Resp Reports as per HPI GI Reports as per HPI Reports as per HPI Psych Reports as per HPI Endo Reports as per HPI Physical Exam Const General: cooperative, healthy appearing, comfortable, no acute distress, well developed, alert and awake Nutritional Appearance: overweight Orientation/consciousness: patient oriented x3 HEENT Head: Yes normal to inspection, Yes normocephalic and Yes atraumatic Ears: hearing grossly normal bilaterally Eyes General: appearance normal, both eyes and all related structures Neck Neck: Yes normal visual inspection and Yes trachea midline Chest Chest palpation & inspection: normal inspection of the chest Resp Effort & Inspection: normal respiratory effort and able to speak in complete sentences Cardio Rate: regular rate GI Inspection: Yes normal to inspection General: Yes no CVA tenderness Back/Spine/Pelvis Back: no CVA tenderness Skin General skin exam: no rashes or lesions noted Neuro General: patient oriented x3 Extrem General: Yes normal to inspection Psych Appearance: grossly normal and well kempt Mental Status: mental status grossly normal Speech and movement: Normal speech and movement present and Clear speech present Affect: normal affect Attitude: cooperative Thought process: Normal thought process present Thought content: Normal thought content present Insight: Fair insight present (Psych) Judgement: Fair judgement present (Psych) Office Procedures Post Void Residual Post Residual Void Post Void Residual (PVR): 0 [id number] Void Residual by ultrasound Results AMB Urinalysis, Automated UA Leukoctes 0 Yemi/uL Last Edit by BO Alanis on 09/15/23 13:15 UA Nitrite Negative Last Edit by Melida Quinones, RMA on 09/15/23 13:15 UA Urobilinogen 0.2 mg/dL Last Edit by Melida Quinones, RMA on 09/15/23 13:1 5 UA Protein 0 mg/dL Last Edit by Melida Quinones, RMA on 09/15/23 13:15 UA pH 6.0 Last Edit by Melida Quinones, RMA on 09/15/23 13:15 UA Blood 0 Thanh/uL Last Edit by Melida Quinones, RMA on 09/15/23 13:15 UA Specific [place] 1.010 Last Edit by Melida Quinones, RMA on 09/15/23 13: 15 UA Ketone Negative Last Edit by Melida Quinones, RMA on 09/15/23 13:15 UA Bilirubin 0 mg/dL Last Edit by Melida Quinones, RMA on 09/15/23 13:15 UA Glucose 0 mg/dL Last Edit by Melida Quinones, A on 09/15/23 13:15 Results Reviewed Results Reviewed: Laboratory Last Values Urine pH (Auto) 6.0 09/15/23 13:08 Specific [place] (Auto) 1.010 09/15/23 13:08 Urine Protein (Auto) 0 mg/dL 09/15/23 13:08 Glucose (UA)(Auto) 0 mg/dL 09/15/23 13:08 Urine Ketones (Auto) Negative 09/15/23 13:08 Urine Blood (Auto) 0 Thanh/uL 09/15/23 13:08 Urine Nitrite (Auto) Negative 09/15/23 13:08 Urine Bilirubin (Auto) 0 mg/dL 09/15/23 13:08 Urine Urobilinogen (Auto) 0.2 mg/dL 09/15/23 13:08 Leukocyte Esterase (Auto) 0 Yemi/uL 09/15/23 13:08 Assessment & Plan Assessment & Plan (1) Incomplete bladder emptying: Code(s): R33.9 - Retention of urine, unspecified Category: Medical (2) Urine incontinence: Code(s): R32 - Unspecified urinary incontinence Category: Medical (3) Nocturia: Code(s): R35.1 - Nocturia Category: Medical Plan In office urinalysis results reviewed with the patient today; as noted above. PVR 0 mL. Discussed at length potential causes for lower urinary tracts symptoms patient is experiencing. Continue Estrace cream and terazosin as prescribed. Discussed possible InterStim given patient's lower urinary tract symptoms as well as fecal incontinence she has been experiencing; she will think about this; information provided. Discussed at length importance of weight loss as well as management of diabetes insipidus and sleep apnea to improve lower urinary tract symptoms as well as overall health and well-being. Follow-up in 3 months with PVR; or sooner with any issues, concerns, and or questions. Orders: Orders AMB Urinalysis Automated Today Z13.9 - Encounter for screening, unspecified AMB Post Void Residual by ultrasound Today R33.9 - Retention of urine, unspecified Patient Instructions: The patient had an opportunity to ask questions regarding the treatment plan. All questions were answered. Physical exam, labs, and imaging were discussed and reviewed in detail. As well as risks, benefits, and discussion of treatment choices. No major barriers to understanding were identified. The patient expressed understanding and agreement with the above treatment plan. The patient was made aware they should contact our office by phone for worsening of their current condition, the appearance of new symptoms, or with any questions or concerns. Compliance is encouraged with any medications and follow up testing that is ordered. It is a privilege to be allowed the opportunity to participate in? your urological care.? Again, if you have any questions or concerns If you have any questions or concerns please do not hesitate to contact me. The office is [phone]. This note is constructed using voice recognition software. While every effort has been made to ensure accuracy testing analyst errors may have been included. Yours sincerely, MACO Pritchard Coding Level of Care Code Est Pt Level 3 (52331) Complex EM visit Add On G2211 Diagnoses Incomplete bladder emptying R33.9 Urine incontinence R32 Nocturia R35.1 CPT Codes Post Residual Void - PVR CPT Code: 68838-[id number] Void Residual by ultrasound ([id number])
== END 2023-09-15 13:40 | disposition home or self-care (01) ==
PROVIDERS: PCP Nurse Practitioner; Visit Provider Nurse Practitioner Family
DX: R33.9 Retention of urine, unspecified (principal); R32 Unspecified urinary incontinence; R35.1 Nocturia; Z13.9 Encounter for screening, unspecified
CPT/HCPCS: 99213; G2211

== ENCOUNTER → 2023-09-15 12:50 | Outpatient (BNVA) | payer MEDICARE, SELFPAY | PROVIDERS: PCP Nurse Practitioner; Visit Provider Nurse Practitioner Family | DX: R33.9 Retention of urine, unspecified (principal); R32 Unspecified urinary incontinence; R35.1 Nocturia | CPT/HCPCS: 51798; 81003; 99212 ==

== ENCOUNTER 2023-10-07 11:05 | Outpatient (AMB) | payer MEDICARE, SELFPAY ==
[2023-10-07 11:07] VITALS: BP 118/49; BMI 38.1
--- NOTE | 2023-10-07 11:07 | A.OFFVIS_ITS ---
Vital Signs 10/07/23 11:07 Height 5 ft 7 in Weight 243 lb BMI 38.1 BP 118/49 L Blood Pressure Location Rt brachial Position Sitting Intake Visit Reasons: 6 week follow up Intake Note: Alcira presents to in office 6 weeks follow up of CIC. CC: Patient reports that she continues having lower abdominal sharp pain, occasional incontinence, and nausea. Hospice Manager Required: No Accompanied by: Spouse Allergies garlic Allergy (Severe, Verified 10/07/23 11:16) THROAT CLOSES cephalexin [From Keflex] Allergy (Mild, Verified 10/07/23 11:16) RASH HPI HPI 6 week follow up: Details: Assessment & Plan (1) Chronic idiopathic constipation: Code(s): K59.04 - Chronic idiopathic constipation Category: Medical (2) GERD (gastroesophageal reflux disease): Code(s): K21.9 - Gastro-esophageal reflux disease without esophagitis Category: Medical (3) Small bowel motility disorder: Code(s): K59.9 - Functional intestinal disorder, unspecified Category: Medical (4) Mast cell activation syndrome: Code(s): D89.40 - Mast cell activation, unspecified Category: Medical (5) Urine incontinence: Code(s): R32 - Unspecified urinary incontinence Category: Medical (6) Rectocele: Code(s): N81.6 - Rectocele Category: Medical Plan She is here today with her who is supportive She is still having diarrhea and fecal accidents. This is at alt 1.5 senna qod. I want her to stop the senna for a day, then restart at 1.25 qod - her thinks he can cut them that small. She also continues on her Amitiza. While we had thought initially this was from traveling the diarrhea has not ceased after she has been home for quite some time. The appt with Dr. Wang for mast cell consideration is in October 30/2024 ROV 6 weeks. Orders: Referrals Pelvic Computer Systems Consultant Referral N81.6 - Rectocele, R32 - Unspecified urinary incontinence TODAY'S VISIT She is here today with her who is supportive. The appt with Dr. Wang for mast cell consideration is in October 30/2024 She has had a lot of diarrhea, and is having fecal accidents. She coughs and I go. This was with taking 1.25 senna qod adn 1 senna qhs. We will try 1.25 qam and 0.5 qhs. They are not having trouble cutting the pills. She needs to call back the PT for pelvic floor dysfunction. I give them the phone # again. They are aware of the upcoming consult with Dr. Wang. ARA CEDEÑOD after Dr. Wang [facility] Medical History Hyponatremia Bacterial vaginosis Dysuria Cloudy urine Foul smelling urine Left lower quadrant abdominal pain Well woman exam Osteoarthritis IBS (irritable bowel syndrome) Chronic back pain Headache GERD (gastroesophageal reflux disease) PTSD (post-traumatic stress disorder) Anxiety and depression LINDSEY (obstructive sleep apnea) Asthma Elevated cholesterol IBS (irritable bowel syndrome) Surgical History History of appendectomy History of tonsillectomy and adenoidectomy Hx of cholecystectomy History of total right knee replacement (TKR) Hx of endoscopy History of colonoscopy Family History Father No problems noted. Mother No problems noted. Social History Are you a primary respiratory care program director to a significant other at home: No Do you presently have visiting nurse or other home services: No Alcohol intake: current Alcohol intake frequency: holidays/special occasions only Comment: Fell > 1 month ago - states fainted- no issues since Patient Tobacco Use Status: Never used Tobacco Female Reproductive History Menstrual Age of Menarche: 12 Review of Systems Const Denies fatigue, Denies fever(s), Denies night sweats, Denies poor appetite and Denies weight loss Eyes Details: glasses Reports requires corrective lenses ENT Reports Normal hearing present, Denies dental pain, Denies dysphagia, Denies hearing loss, Denies mouth pain, Denies odynophagia, Denies throat swelling, Denies tongue swelling and Reports other (Dentition adequate) Card Reports no additional complaints Resp Reports no additional complaints GI Details: Denies abdominal pain, Denies melena, Denies bloating, Denies hematochezia, Denies constipation, Denies GI cramping, Denies dysphagia, Denies excessive flatus, Denies early satiety, Denies heartburn, Reports diarrhea, Denies nausea, Denies odynophagia, Denies vomiting and Denies hematemesis Skin/Breast Denies pruritus, Denies lesions, Denies rash and Denies jaundice Neuro Reports Normal hearing present and Denies Abnormal speech present Endo Denies fatigue Aller/Immun Denies throat swelling and Denies tongue swelling Physical Exam Vital Signs: Last Vital Signs BP 118/49 L 10/07/23 11:07 BMI result Body Mass Index 38.1 Const General: cooperative, no acute distress, well developed and well groomed Nutritional Appearance: well nourished and obese Orientation/consciousness: oriented to person, oriented to place and oriented to time Limitations: No language barrier HEENT Head: Yes normocephalic and Yes atraumatic Eyes General: appearance normal, both eyes and all related structures Pupils: Equal, round and reactive pupils present Neck Neck: Yes normal visual inspection and Yes no lymphadenopathy Thyroid: Thyroid normal Resp Effort & Inspection: normal respiratory effort and able to speak in complete sentences Auscultation: clear to auscultation bilaterally Cardio Rate: regular rate Rhythm: regular rhythm Heart sounds: Normal, physiologic split S2 sound present Peripheral pulses: radial pulses present and posterior tibial pulses present GI Inspection: No distended, Yes Abdominal panniculus present and Yes obesity Palpation (GI): Soft to palpation, nontender, no guarding, not rigid and No hepatosplenomegaly present Percussion: Yes normal to percussion Auscultation: normal bowel sounds Rectal Exam - Female: deferred Skin General skin exam: no rashes or lesions noted, turgor normal, skin not dry, no jaundice, No spider nevi and no striae Rashes: no rashes Nails: normal Neuro General: oriented to person, oriented to place and oriented to time Cranial nerves: Yes Equal, round and reactive pupils present and Yes Normal hearing present Speech: No Abnormal speech present Extrem General: Yes normal to inspection, No clubbing, No cyanosis and No edema Psych Appearance: grossly normal and well kempt Mental Status: mental status grossly normal Speech and movement: Normal speech and movement present Affect: normal affect Attitude: cooperative Thought process: Normal thought process present and not confabulating Thought content: Normal thought content present Insight: Limited insight present (Psych) Judgement: Limited judgement present (Psych) Assessment & Plan Assessment & Plan (1) Chronic idiopathic constipation: Code(s): K59.04 - Chronic idiopathic constipation Category: Medical (2) GERD (gastroesophageal reflux disease): Code(s): K21.9 - Gastro-esophageal reflux disease without esophagitis Category: Medical (3) Small bowel motility disorder: Code(s): K59.9 - Functional intestinal disorder, unspecified Category: Medical Plan She is here today with her who is supportive. The appt with Dr. Wang for mast cell consideration is in October 30/2024 She has had a lot of diarrhea, and is having fecal accidents. She coughs and I go. This was with taking 1.25 senna qod adn 1 senna qhs. We will try 1.25 qam and 0.5 qhs. They are not having trouble cutting the pills. She needs to call back the PT for pelvic floor dysfunction. I give them the phone # again. They are aware of the upcoming consult with Dr. Wang. ROV TBD after Dr. Wang Coding Level of Care Code Est Pt Level 3 (49732) Diagnoses Chronic idiopathic constipation K59.04 GERD (gastroesophageal reflux disease) K21.9 Small bowel motility disorder K59.9
== END 2023-10-07 11:44 | disposition home or self-care (01) ==
PROVIDERS: PCP Nurse Practitioner; Visit Provider Nurse Practitioner
DX: K59.04 Chronic idiopathic constipation (principal); K21.9 Gastro-esophageal reflux disease without esophagitis; K59.9 Functional intestinal disorder, unspecified
CPT/HCPCS: 99213

== ENCOUNTER → 2023-10-07 11:05 | Outpatient (BNVA) | payer MEDICARE, SELFPAY | PROVIDERS: PCP Nurse Practitioner; Visit Provider Nurse Practitioner | DX: K59.04 Chronic idiopathic constipation (principal); K21.9 Gastro-esophageal reflux disease without esophagitis; K59.9 Functional intestinal disorder, unspecified | CPT/HCPCS: 99212 ==

== ENCOUNTER 2023-10-31 10:20 | Outpatient (AMB) | payer MEDICARE, SELFPAY ==
--- NOTE | 2023-10-31 10:25 | MHC.OFFVIS ---
Vital Signs 10/31/23 10:31 Height 5 ft 7 in Weight 244 lb BMI 38.2 BP 112/52 L Blood Pressure Location Lt brachial Position Sitting Pulse 73 Intake Visit Reasons: 2nd opinion (June) Intake Note: Alcira presents in the office as a 2nd opinion per Oliva mckeon. 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, with chronic issues with abn bowel habit she has noted mostly issues with diarrhea occ constipation she can go 5-6 times a day she has urgency and she is aware of it as well she can have cramps relieved by passing stool no blood, no melena in stool stool can be just like water, can smell bad at times some times if eats regular ice cream can worsen sx no gerd no dysphagia no n/v can have mild bloating she takes senna she is taking fiber she was taking cromolyn and it was helping so put on budesonide whihc is not helping she is also on amitiza 24 mcg bid and mag oxide EXAM: GENERAL: The patient is well developed and nontoxic. VITAL SIGNS:see workflow HEENT: Nonicteric sclerae, PERRLA, EOMI. Oropharynx clear. Moist mucous membranes. Conjunctivae appear well perfused. No thyroid mass. CHEST: Chest wall is nontender. HEART: Regular rate and rhythm without murmurs. LUNGS: Clear to auscultation bilaterally. ABDOMEN: Soft, positive bowel sounds, nontender, no organomegaly.no flank tenderness SKIN: No rash, no excessive bruising, petechiae, or purpura. NEUROLOGIC: Cranial nerves II-XII intact without motor/sensory deficit. Psych: normal affect A/P: 1/ Diarrhea, suspect over medicated maybe med side effect, no egd or colo for at least 10 yrs aslo anemia PLAN: 1/ labs as below 2/ stop senna and mag oxide, 3/ stop budesonide 4/ egd and colo with bx ON LICENSE OF [facility] Medical History Hyponatremia Bacterial vaginosis Dysuria Cloudy urine Foul smelling urine Left lower quadrant abdominal pain Well woman exam Osteoarthritis IBS (irritable bowel syndrome) Chronic back pain Headache GERD (gastroesophageal reflux disease) PTSD (post-traumatic stress disorder) Anxiety and depression LINDSEY (obstructive sleep apnea) Asthma Elevated cholesterol IBS (irritable bowel syndrome) Surgical History History of appendectomy History of tonsillectomy and adenoidectomy Hx of cholecystectomy History of total right knee replacement (TKR) Hx of endoscopy History of colonoscopy Family History Father No problems noted. Mother No problems noted. Social History Are you a primary menagerie caretaker to a significant other at home: No Do you presently have visiting nurse or other home services: No Alcohol intake: current Alcohol intake frequency: holidays/special occasions only Comment: Fell > 1 month ago - states fainted- no issues since Patient Tobacco Use Status: Never used Tobacco Female Reproductive History Menstrual Age of Menarche: 12 Physical Exam Vital Signs: Last Vital Signs Pulse 73 10/31/23 10:31 BP 112/52 L 10/31/23 10:31 BMI result Body Mass Index 38.2 Assessment & Plan Assessment & Plan (1) Abnormal bowel habits: Code(s): R19.8 - Other specified symptoms and signs involving the digestive system and abdomen Category: Medical Plan: see above (2) Anemia: Code(s): D64.9 - Anemia, unspecified Category: Medical Plan: see above Orders: Orders Comprehensive Met. Panel Today D64.9 - Anemia, unspecified, K75.81 - Nonalcoholic steatohepatitis (CALI), R19.8 - Other specified symptoms and signs involving the digestive system and abdomen UA CC w/rflx Micro + Cult Today D64.9 - Anemia, unspecified, R19.8 - Other specified symptoms and signs involving the digestive system and abdomen, R30.0 - Dysuria Vitamin B1 Today D64.9 - Anemia, unspecified, R19.8 - Other specified symptoms and signs involving the digestive system and abdomen Vitamin B12 and Folate Today D64.9 - Anemia, unspecified, R19.8 - Other specified symptoms and signs involving the digestive system and abdomen Vitamin B5 (Pantothenic Acid) Today D64.9 - Anemia, unspecified, R19.8 - Other specified symptoms and signs involving the digestive system and abdomen Vitamin E Today D64.9 - Anemia, unspecified, R19.8 - Other specified symptoms and signs involving the digestive system and abdomen N-Methylhistamine 24Hr Today D64.9 - Anemia, unspecified, R19.8 - Other specified symptoms and signs involving the digestive system and abdomen Lactoferrin, Fecal, Quant. Today D64.9 - Anemia, unspecified, K51.50 - Left sided colitis without complications, R19.8 - Other specified symptoms and signs involving the digestive system and abdomen C Reactive Protein Today D64.9 - Anemia, unspecified, R19.8 - Other specified symptoms and signs involving the digestive system and abdomen Angiotensin Converting Enzyme Today D64.9 - Anemia, unspecified, R19.8 - Other specified symptoms and signs involving the digestive system and abdomen Complete Blood Count Auto Diff Today D64.9 - Anemia, unspecified, R19.8 - Other specified symptoms and signs involving the digestive system and abdomen Fecal Fat Qualitative Today D64.9 - Anemia, unspecified, R19.8 - Other specified symptoms and signs involving the digestive system and abdomen Ferritin Today D64.9 - Anemia, unspecified, R19.8 - Other specified symptoms and signs involving the digestive system and abdomen Magnesium Today D64.9 - Anemia, unspecified, R19.8 - Other specified symptoms and signs involving the digestive system and abdomen Vitamin A Today D64.9 - Anemia, unspecified, R19.8 - Other specified symptoms and signs involving the digestive system and abdomen Vitamin B3 (Niacin) Today D64.9 - Anemia, unspecified, R19.8 - Other specified symptoms and signs involving the digestive system and abdomen Vitamin B6 Today D64.9 - Anemia, unspecified, R19.8 - Other specified symptoms and signs involving the digestive system and abdomen Vitamin C Today D64.9 - Anemia, unspecified, R19.8 - Other specified symptoms and signs involving the digestive system and abdomen Vitamin D 25-OH Total Today D64.9 - Anemia, unspecified, R19.8 - Other specified symptoms and signs involving the digestive system and abdomen Vitamin K1 Today D64.9 - Anemia, unspecified, R19.8 - Other specified symptoms and signs involving the digestive system and abdomen Zinc Today D64.9 - Anemia, unspecified, R19.8 - Other specified symptoms and signs involving the digestive system and abdomen Pancreatic Elastase-1 Today D64.9 - Anemia, unspecified, R19.8 - Other specified symptoms and signs involving the digestive system and abdomen Medications: Changed From psyllium husk 0.8 grams (2 x 0.4 gram) PO DAILY 60 caps 3RF K59.04 - Chronic idiopathic constipation To psyllium husk 0.8 grams (2 x 0.4 gram) PO BID 60 caps 3RF K59.04 - Chronic idiopathic constipation Discontinued budesonide DR-ER Discontinued Reason: Doctor's Order 3 mg PO QAM 30 caps 6RF D89.40 - Mast cell activation, unspecified, E87.1 - Hypo-osmolality and hyponatremia, K59.04 - Chronic idiopathic constipation magnesium oxide Discontinued Reason: Doctor's Order 500 mg (2 x 250 mg magnesium) PO DAILY 60 tabs 2RF Coding Level of Care Code Est Pt Level 4 (15046) Diagnoses Abnormal bowel habits R19.8 Anemia D64.9
[2023-10-31 10:31] VITALS: BP 112/52; PULSE 73; BMI 38.2
== END 2023-10-31 11:14 | disposition home or self-care (01) ==
PROVIDERS: PCP Nurse Practitioner; Visit Provider Internal Medicine Gastroenterology
DX: R19.8 Other specified symptoms and signs involving the digestive system and abdomen (principal); D64.9 Anemia, unspecified
CPT/HCPCS: 99214

== ENCOUNTER → 2023-10-31 10:20 | Outpatient (BNVA) | payer MEDICARE, SELFPAY | PROVIDERS: PCP Nurse Practitioner; Visit Provider Internal Medicine Gastroenterology | DX: R91.8 Other nonspecific abnormal finding of lung field (principal); D64.9 Anemia, unspecified | CPT/HCPCS: 99212 ==

== ENCOUNTER 2023-11-01 13:12 | Outpatient (REF) | payer MEDICARE, SELFPAY ==
[2023-11-01 15:20] LABS: Alanine Aminotransferase 16 U/L (0-31); Albumin Level 4.2 g/dL (3.5-5.0); Alkaline Phosphatase 71 U/L (39-117); Anion Gap 9 (12-20); Aspartate Amino Transferase 17 U/L (5-31); Bilirubin Total 0.3 mg/dL (0.0-1.0); Blood Urea Nitrogen 11 mg/dL (9-16); C Reactive Protein 0.11 mg/dL (< or = 0.50); Calcium 9.2 mg/dL (8.4-10.2); Carbon Dioxide 25 mmol/L (22-29); Chloride 99 mmol/L (96-108); Estimated Glomerular Filt Rate > 60; Glucose Random 80 mg/dL (60-115); Magnesium 2.2 mg/dL (1.6-2.6); Potassium 4.2 mmol/L (3.3-5.1); Sodium 129 mmol/L (135-145); Total Protein 6.7 g/dL (6.5-8.0)
[2023-11-01 15:37] LABS: Ferritin 40 ng/mL (10-250); Vitamin D 25-OH Total 46.4 ng/mL (>30)
[2023-11-01 15:40] LABS: Appearance Urine Clear; Color Urine Yellow; Glucose Urine UA Negative (Negative); Leukocyte Esterase Urine Moderate (2+) (Negative); Nitrite Urine Negative (Negative); UMIC TRIGGER UACC YES; Urine Blood Negative (Negative); Urine Ketones Negative (Negative); Urine Protein Negative (Neg-Trace)
[2023-11-01 15:46] LABS: Bacteria Urine None Seen (None Seen); Hyaline Casts Urine 0-2 /LPF (0-2); RBC Urine 0-2 /HPF (0-2); Squamous Epithelial Cell Urine 0-2 /HPF (0-2); UACC Culture Trigger YES
[2023-11-01 15:49] LABS: Folate 5.9 ng/mL (> or = 4.0); Vitamin B12 464 pg/mL (200-900)
[2023-11-04 17:58] LABS: Zinc 63 mcg/dL (60-130)
[2023-11-04 19:44] LABS: Angiotensin Converting Enzyme 26 U/L (9-67)
[2023-11-05 08:23] LABS: Vitamin C 1.7 mg/dL (0.3-2.7)
[2023-11-06 10:27] LABS: Vitamin B1 9 nmol/L (8-30)
[2023-11-06 15:03] LABS: Vitamin B6 40.6 ng/mL (2.1-21.7)
[2023-11-06 15:23] LABS: Nicotinamide 29 ng/mL (see note); Vit B3 - Nicotinic Acid <20 ng/mL (see note)
[2023-11-06 17:04] LABS: Alpha-Tocopherol 15.1 mg/L (5.7-19.9); Beta-Gamma Tocopherol <1.0 mg/L (<=4.3)
[2023-11-07 01:33] LABS: Vitamin K1 706 pg/mL (130-1500)
[2023-11-07 11:23] LABS: Vitamin B5 (Pantothenic Acid) 132 ng/mL (<275)
== END 2023-11-01 13:13 | disposition home or self-care (01) ==
LOC: HO.LAB 13:12
PROVIDERS: Visit Provider Internal Medicine Gastroenterology
DX: R19.8 Other specified symptoms and signs involving the digestive system and abdomen (principal); D64.9 Anemia, unspecified; K75.81 Nonalcoholic steatohepatitis (NASH)
CPT/HCPCS: 36415; 80053; 81001; 82164; 82180; 82306; 82607; 82728; 82746; 83735; 84207; 84425; 84446; 84590; 84591; 84597; 84630; 86140; 87086

== ENCOUNTER 2023-11-06 16:00 | Outpatient (REF) | payer MEDICARE, SELFPAY ==
[2023-11-16 13:23] LABS: Fecal Fat Qualitative NORMAL (NORMAL)
[2023-11-16 18:24] LABS: Lactoferrin, Fecal, Quant. <6.25 mcg/mL (<7.25)
[2023-12-01 05:45] LABS: Pancreatic Elastase-1 441 mcg/g
== END 2023-11-06 16:01 | disposition home or self-care (01) ==
LOC: HO.LNP 16:00
PROVIDERS: Visit Provider Internal Medicine Gastroenterology
DX: R19.8 Other specified symptoms and signs involving the digestive system and abdomen (principal); D64.9 Anemia, unspecified; K51.50 Left sided colitis without complications
CPT/HCPCS: 82656; 82705; 83631

== ENCOUNTER 2023-11-08 14:47 | Outpatient (REF) | payer MEDICARE, SELFPAY ==
[2023-11-08 15:38] LABS: MANUAL DIFF FLAG NO
[2023-11-08 16:04] LABS: Basophils Absolute Auto 0.1 X10*3/uL (0.0-0.2); Basophils Percent Auto 0.6 % (0-2); Eosinophils Absolute Auto 0.1 X10*3/uL (0.0-0.4); Eosinophils Percent Auto 1.1 % (0-4); Hematocrit 40.2 % (37.0-47.0); Hemoglobin 13.1 g/dl (12.0-16.0); Imm Gran Abs Auto 0.03 X10*3/uL (0.00-0.03); Imm Gran Pct Auto 0.4 % (0.0-0.4); Lymphocytes Absolute Auto 2.3 X10*3/uL (1.2-4.9); Lymphocytes Percent Auto 28.2 % (20-40); Mean Corpuscular HGB Conc 32.6 g/dl (31.0-35.0); Mean Corpuscular Hemoglobin 30.3 pg (27.0-33.0); Mean Corpuscular Volume 92.8 fL (80.0-98.0); Monocytes Absolute Auto 0.4 X10*3/uL (0.1-1.2); Monocytes Percent Auto 5.4 % (2-11); Neutrophils Absolute Auto 5.3 x10*3/uL (2.0-8.3); Neutrophils Percent Auto 64.3 % (45-73); Platelet Count 253 X10*3/uL (160-400); Red Blood Count 4.33 X10*6/uL (4.20-5.50); Red Cell Distribution Width 13.2 % (11.0-16.0); White Blood Count 8.2 X10*3/uL (4.8-10.8)
== END 2023-11-08 14:48 | disposition home or self-care (01) ==
LOC: HO.LAB 14:47
PROVIDERS: Visit Provider Internal Medicine Gastroenterology
DX: R19.8 Other specified symptoms and signs involving the digestive system and abdomen (principal); D64.9 Anemia, unspecified
CPT/HCPCS: 36415; 85025

== ENCOUNTER 2023-11-11 14:59 | Outpatient (REF) | payer MEDICARE, SELFPAY ==
[2023-11-22 16:08] LABS: Creatinine 24Hr Urine 990 mg/24 h (603 - 1783); N-Methylhistamine, 24Hr Urine 164 mcg/g Cr (30-200); Total Volume 3300 mL
== END 2023-11-11 15:00 | disposition home or self-care (01) ==
LOC: HO.LNP 14:59
PROVIDERS: Visit Provider Internal Medicine Gastroenterology
DX: R19.8 Other specified symptoms and signs involving the digestive system and abdomen (principal); D64.9 Anemia, unspecified
CPT/HCPCS: 81050; 82542

== ENCOUNTER 2023-12-29 11:28 | Outpatient (AMB) | payer MEDICARE, SELFPAY ==
--- NOTE | 2023-12-29 11:41 | A.OFFVIS_ITS ---
Intake Visit Reasons: 3m/PVR Intake Note: Patient presents today for follow up on: dysuria, incomplete bladder emptying Urology Med: Estradiol, Terazosin Antibiotic Allergy: Keflex Blood Thinner:None Last PVR: 0ml's Escrow Processor Required: No Accompanied by: Unknown Allergies garlic Allergy (Severe, Verified 12/29/23 13:20) THROAT CLOSES cephalexin [From Keflex] Allergy (Mild, Verified 12/29/23 13:20) RASH Medication List - Last Reconciled 12/29/23 by DEAN Pritchard-ROMINA ascorbic acid (vitamin C) (Vitamin C) 500 mg PO DAILY bupropion HCl SR 200 mg PO BID celecoxib 100 mg PO BID cetirizine 10 mg PO BID cholecalciferol (vitamin D3) 50 mcg PO DAILY clonazepam 1 mg PO BID PRN clonidine HCl 0.1 mg PO BID PRN clotrimazole-betamethasone 1-0.05 % 1 appl topical BID 5 days cyanocobalamin (vitamin B-12) 1,000 mcg PO DAILY dicyclomine 40 mg (2 x 20 mg) PO QID 30 days duloxetine 60 mg PO BID epinephrine 0.3 mL IM ONCE PRN estradiol 0.01%(0.1mg/gram) (Estrace) 1 g vaginal 3XW 30 days famotidine 40 mg PO BEDTIME hydrocortisone 10 mg PO BID lamotrigine 300 mg PO DAILY lansoprazole 30 mg PO DAILY levalbuterol tartrate 45 mcg/actuation (Xopenex HFA) 1 puff inhalation Q4-6H PRN levothyroxine 112 mcg PO DAILY lubiprostone (Amitiza) 24 mcg PO BID metoclopramide HCl mg PO montelukast 10 mg PO QPM potassium chloride ER 20 mEq PO DAILY pravastatin 1 tab PO DAILY psyllium husk 0.8 grams (2 x 0.4 gram) PO BID sodium,potassium,mag sulfates 17.5-3.13-1.6 gram (Suprep Bowel Prep Kit) DILUTE; drink 1/2 at 6-8 pm and half at 11 PM- 1AM terazosin 1 mg PO BEDTIME 90 days tizanidine 4 mg PO TID topiramate 150 mg PO BID HPI Comments Details: Alcira is a pleasant 63 year old female patient of Dr. Mathews was accompanied by her at today's visit. She has a past medical history of anxiety, depression, asthma, chronic back pain, hypercholesteremia, GERD, headaches, irritable bowel syndrome, obstructive sleep apnea, diabetes insipidus, osteoarthritis, and PTSD. She presents to the office today for follow-up of her ongoing lower urinary tract symptoms as well as incomplete bladder emptying. In discussion with the patient today she reports since her l ast office visit here 3 months ago she does continue to report episodes of nocturia up to 6 times per night however does feel at times it does decrease. She discusses having no bothersome urinary issues throughout the day however feels at night is when symptoms are bothersome. In office urinalysis results reviewed with the patient today. PVR 0 mL. She does report compliance with Estrace and terazosin as prescribed. Previous workup has included a retroperitoneal ultrasound noting bilateral kidneys with no calculi, lesions, and or hydronephrosis noted. The bladder is well distended and normal. Pre void bladder volume is approximately 285 mL. Postvoid bladder volume is approximately 30 mL. Patient with a previous microgen 12/27 and has since completed antibiotic therapy of levofloxacin as prescribed. She otherwise denies hematuria, changes to urinary stream, flank pain, fever, and or chills. Discussed contributing factors of diabetes insipidus and obstructive sleep apnea in relation to lower urinary tract symptoms. She discusses how she is continuing to lose weight and has an upcoming lumbar surgery. She discusses her upcoming trip to [facility] for 3 weeks. She also discusses her upcoming appointment with Gastroenterology given her longstanding history of bowel issues and fecal incontinence. Discussed possible InterStim for lower urinary tract symptoms as well as fecal incontinence she is experiencing. However, she would like to discuss this with GI provider as well. She otherwise offers no other issues or concerns at this time. [facility] Medical History Hyponatremia Bacterial vaginosis Dysuria Cloudy urine Foul smelling urine Left lower quadrant abdominal pain Well woman exam Osteoarthritis IBS (irritable bowel syndrome) Chronic back pain Headache GERD (gastroesophageal reflux disease) PTSD (post-traumatic stress disorder) Anxiety and depression LINDSEY (obstructive sleep apnea) Asthma Elevated cholesterol IBS (irritable bowel syndrome) Surgical History History of appendectomy History of tonsillectomy and adenoidectomy Hx of cholecystectomy History of total right knee replacement (TKR) Hx of endoscopy History of colonoscopy Family History Father No problems noted. Mother No problems noted. Social History Are you a primary urgent care nurse practitioner to a significant other at home: No Do you presently have visiting nurse or other home services: No Alcohol intake: current Alcohol intake frequency: holidays/special occasions only Comment: Fell > 1 month ago - states fainted- no issues since Patient Tobacco Use Status: Never used Tobacco Female Reproductive History Menstrual Age of Menarche: 12 Review of Systems Const Reports as per HPI Eyes Reports no additional complaints ENT Reports no additional complaints Card Reports as per HPI Resp Reports as per HPI GI Reports as per HPI Reports as per HPI Psych Reports as per HPI Endo Reports as per HPI Physical Exam Const General: cooperative, healthy appearing, comfortable, no acute distress, well developed, alert and awake Nutritional Appearance: overweight Orientation/consciousness: patient oriented x3 HEENT Head: Yes normal to inspection, Yes normocephalic and Yes atraumatic Ears: hearing grossly normal bilaterally Eyes General: appearance normal, both eyes and all related structures Neck Neck: Yes normal visual inspection and Yes trachea midline Chest Chest palpation & inspection: normal inspection of the chest Resp Effort & Inspection: normal respiratory effort and able to speak in complete sentences Cardio Rate: regular rate GI Inspection: Yes normal to inspection General: Yes no CVA tenderness Back/Spine/Pelvis Back: no CVA tenderness Skin General skin exam: no rashes or lesions noted Neuro General: patient oriented x3 Extrem General: Yes normal to inspection Psych Appearance: grossly normal and well kempt Mental Status: mental status grossly normal Speech and movement: Normal speech and movement present and Clear speech present Affect: normal affect Attitude: cooperative Thought process: Normal thought process present Thought content: Normal thought content present Insight: Fair insight present (Psych) Judgement: Fair judgement present (Psych) Office Procedures Post Void Residual Post Residual Void Post Void Residual (PVR): 0 [id number] Void Residual by ultrasound Results AMB Urinalysis, Automated UA Leukoctes 0 Yemi/uL Last Edit by [employer] on 12/29/23 12:14 UA Nitrite Last Edit by [employer] on 12/29/23 12:14 UA Urobilinogen 0.2 mg/dL Last Edit by [employer] on 12/29/23 12:14 UA Protein 0 mg/dL Last Edit by [employer] on 12/29/23 12:14 UA pH 6.0 Last Edit by [employer] on 12/29/23 12:14 UA Blood 0 Thanh/uL Last Edit by [employer] on 12/29/23 12:14 UA Specific [place] 1.015 Last Edit by [employer] on 12/29/23 12:14 UA Ketone Last Edit by [employer] on 12/29/23 12:14 UA Bilirubin 0 mg/dL Last Edit by [employer] on 12/29/23 12:14 UA Glucose 0 mg/dL Last Edit by [employer] on 12/29/23 12:14 Results Reviewed Results Reviewed: Laboratory Last Values Urine pH (Auto) 6.0 12/29/23 12:13 Specific [place] (Auto) 1.015 12/29/23 12:13 Urine Protein (Auto) 0 mg/dL 12/29/23 12:13 Glucose (UA)(Auto) 0 mg/dL 12/29/23 12:13 Urine Blood (Auto) 0 Thanh/uL 12/29/23 12:13 Urine Bilirubin (Auto) 0 mg/dL 12/29/23 12:13 Urine Urobilinogen (Auto) 0.2 mg/dL 12/29/23 12:13 Leukocyte Esterase (Auto) 0 Yemi/uL 12/29/23 12:13 Assessment & Plan Assessment & Plan (1) Incomplete bladder emptying: Code(s): R33.9 - Retention of urine, unspecified Category: Medical (2) Urine incontinence: Code(s): R32 - Unspecified urinary incontinence Category: Medical (3) Nocturia: Code(s): R35.1 - Nocturia Category: Medical Plan In office urinalysis results reviewed with the patient today; as noted above. PVR 0 mL. Discussed at length potential causes for lower urinary tracts symptoms patient is experiencing. Continue Estrace cream and terazosin as prescribed. Discussed possible InterStim given patient's lower urinary tract symptoms as well as fecal incontinence she has been experiencing; she will think about this; information provided. Discussed at length importance of weight loss as well as management of diabetes insipidus and sleep apnea to improve lower urinary tract symptoms as well as overall health and well-being. Will obtain sleep study for further assessment and evaluation. Discussed lifestyle modifications to assist with nocturia such as limiting fluids 2-3 hours prior to bed as well as elevating bilateral legs in the evening to help with bilateral lower leg edema. Follow-up in 3 months with PVR; or sooner with any issues, concerns, and or questions. Orders: Orders AMB Post Void Residual by ultrasound 12/29/23 R35.1 - Nocturia RT home sleep study Today R06.83 - Snoring AMB Urinalysis Automated 12/29/23 Z13.9 - Encounter for screening, unspecified Patient Instructions: The patient had an opportunity to ask questions regarding the treatment plan. All questions were answered. Physical exam, labs, and imaging were discussed and reviewed in detail. As well as risks, benefits, and discussion of treatment choices. No major barriers to understanding were identified. The patient expressed understanding and agreement with the above treatment plan. The patient was made aware they should contact our office by phone for worsening of their current condition, the appearance of new symptoms, or with any questions or concerns. Compliance is encouraged with any medications and follow up testing that is ordered. It is a privilege to be allowed the opportunity to participate in? your urological care.? Again, if you have any questions or concerns If you have any questions or concerns please do not hesitate to contact me. The office is [phone]. This note is constructed using voice recognition software. While every effort has been made to ensure accuracy supervisor concrete pipe plant errors may have been included. Yours sincerely, MACO Pritchard Coding Level of Care Code Est Pt Level 3 (04938) Complex EM visit Add On G2211 Diagnoses Incomplete bladder emptying R33.9 Urine incontinence R32 Nocturia R35.1 CPT Codes Post Residual Void - PVR CPT Code: 55968-Sqyo Void Residual by ultrasound ([id number]) Time Spent (min) 30
== END 2023-12-29 12:15 | disposition home or self-care (01) ==
PROVIDERS: PCP Nurse Practitioner; Visit Provider Nurse Practitioner Family
DX: R33.9 Retention of urine, unspecified (principal); R32 Unspecified urinary incontinence; R35.1 Nocturia
CPT/HCPCS: 99213; G2211

== ENCOUNTER → 2023-12-29 11:28 | Outpatient (BNVA) | payer MEDICARE, SELFPAY | PROVIDERS: PCP Nurse Practitioner; Visit Provider Nurse Practitioner Family | DX: R30.0 Dysuria (principal); R33.9 Retention of urine, unspecified; R15.9 Full incontinence of feces; R35.1 Nocturia; R32 Unspecified urinary incontinence | CPT/HCPCS: 51798; 81003; 99212 ==

== ENCOUNTER 2024-02-06 10:11 | Outpatient (AMB) | payer MEDICARE, SELFPAY ==
--- NOTE | 2024-02-06 10:14 | MHC.OFFVIS ---
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 No complaints. Last Pap/HPV was negative in 03/28 Last Mammogram was done few months ago in an outside facility, no reports available , was negative according to the patient The patient is scheduled for a screening Colonoscopy on 02/16/2024 [facility] Medical History Well woman exam Hyponatremia Bacterial vaginosis Dysuria Cloudy urine Foul smelling urine Left lower quadrant abdominal pain Osteoarthritis IBS (irritable bowel syndrome) Chronic back pain Headache GERD (gastroesophageal reflux disease) PTSD (post-traumatic stress disorder) Anxiety and depression LINDSEY (obstructive sleep apnea) Asthma Elevated cholesterol IBS (irritable bowel syndrome) Surgical History History of appendectomy History of tonsillectomy and adenoidectomy Hx of cholecystectomy History of total right knee replacement (TKR) Hx of endoscopy History of colonoscopy Family History Father No problems noted. Mother No problems noted. Social History Are you a primary manager intensive care to a significant other at home: No Do you presently have visiting nurse or other home services: No Alcohol intake: current Alcohol intake frequency: holidays/special occasions only Comment: Fell > 1 month ago - states fainted- no issues since Patient Tobacco Use Status: Never used Tobacco Female Reproductive History Menstrual Age of Menarche: 12 Date of last pap smear: 03/25/21 (negative pap smear, negative hpv) Review of Systems Const All systems reviewed & are unremarkable except as noted in HPI and below Card Reports as per HPI Resp Reports as per HPI GI Reports as per HPI and Reports no additional complaints Reports as per HPI Physical Exam Const General: cooperative, healthy appearing and comfortable Chest Chest palpation & inspection: normal inspection of the chest and normal palpation of entire chest wall Breast/axilla inspection: normal inspection of the breasts and normal inspection of the axillae Breast/axilla palpation: normal palpation of the breasts, normal palpation of the axillae and no axillary lymphadenopathy Resp Effort & Inspection: normal respiratory effort Auscultation: clear to auscultation bilaterally Percussion: percussion normal Cardio Palpation: normal PMI Rate: regular rate Rhythm: regular rhythm Heart sounds: no murmurs and no rubs Peripheral pulses: Peripheral pulses 2+ throughout GI Inspection: Yes normal to inspection Palpation (GI): Soft to palpation, nontender, no guarding, not rigid and No hepatosplenomegaly present Percussion: Yes normal to percussion Auscultation: normal bowel sounds Rectal Exam - Female: deferred General: Yes bladder normal to palpation External Female Exam: No lesion Speculum Exam - Vagina: normal appearance of the vagina, normal palpation, normal vaginal discharge and not erythematous Speculum Exam - Cervix: normal appearance of the cervix and normal palpation Bimanual exam- vagina & uterus: normal bimanual exam, normal palpation, uterine size normal, bladder normal to palpation, consistency normal and normal palpation Bimanual Exam- Adnexa, other: normal adnexae, no masses and no tenderness Assessment & Plan Assessment & Plan (1) Well woman exam: Code(s): Z01.419 - Encounter for gynecological examination (general) (routine) without abnormal findings Category: Medical Plan: Co testing not indicated this year. Counseled the patient about the recommended dietary allowance of 1200 mg of Calcium & 600 IU of vitamin D. Instructions given the patient to schedule next screening Mammogram . The patient is scheduled on 02/16/2024 for screening colonoscopy . The patient was instructed to perform monthly self-breast exams and schedule annual exam in a year. All questions answered and the patient verbalized understanding. Coding Level of Care Code Est Pt Prev Care 40-64y(88279) Diagnoses Well woman exam Z01.419
[2024-02-06 10:27] VITALS: BP 132/80; BMI 38.2
== END 2024-02-06 10:42 | disposition home or self-care (01) ==
PROVIDERS: PCP Nurse Practitioner; Visit Provider Obstetrics & Gynecology
DX: Z01.419 Encounter for gynecological examination (general) (routine) without abnormal findings (principal)
CPT/HCPCS: G0101

== ENCOUNTER → 2024-02-06 10:11 | Outpatient (BNVA) | payer MEDICARE, SELFPAY | PROVIDERS: PCP Nurse Practitioner; Visit Provider Obstetrics & Gynecology | DX: Z01.419 Encounter for gynecological examination (general) (routine) without abnormal findings (principal) | CPT/HCPCS: G0101 ==

== ENCOUNTER → 2024-02-07 13:03 | Outpatient (REF) | payer MEDICARE, SELFPAY | LOC: HO.SL 13:03 | PROVIDERS: PCP Nurse Practitioner; Visit Provider Nurse Practitioner Family | DX: R06.83 Snoring (principal); G47.10 Hypersomnia, unspecified | CPT/HCPCS: 95806 ==

== ENCOUNTER → 2024-02-07 13:16 | Outpatient (BNV) | payer MEDICARE, SELFPAY | PROVIDERS: PCP Nurse Practitioner; Visit Provider Internal Medicine | DX: R06.83 Snoring (principal); G47.10 Hypersomnia, unspecified | CPT/HCPCS: 95806 ==

== ENCOUNTER → 2024-02-16 10:24 | Day surgery (SDC) | payer MEDICARE, SELFPAY ==
[2024-02-14 15:19] VITALS: BMI 38.2
--- NOTE | 2024-02-16 10:50 | P.HPSUR_ITS ---
Pre-Procedural Eval Section A - 24 Hr Update-Section A only Date of Service: 02/16/24 Section B - Complete if H&P > 30 days Chief Complaint: Other specified symptoms and signs involving the Details of Present Illness: diarrhea and anemia Relevant Family History (Specify if Yes): No Relevant Social History: None Present Medications: see Short Stay Collaborative assessment Medical History: Significant History (Mast cell activation syndrome Diabetes insipidus Hyponatremia Osteoarthritis Chronic back pain Headache GERD (gastroesophageal reflux disease) PTSD (post-traumatic stress disorder) Anxiety and depression LINDSEY (obstructive sleep apnea) Asthma Elevated cholesterol Left lower quadrant abdominal pain IBS) History of Previous Operations: Relevant previous surgery/procedure and date(s) (History of back surgery History of appendectomy History of tonsillectomy and adenoidectomy Hx of cholecystectomy History of total right knee replacement (TKR) Hx of endoscopy History of colonoscopy) Allergies: Allergies Allergy/AdvReac Type Severity Reaction Status Date / Time garlic Allergy Severe THROAT Verified 02/16/24 10:49 CLOSES cephalexin [From Keflex] Allergy Mild RASH Verified 02/16/24 10:49 Review of Systems Sugical H&P ROS: Negative: Constitution, Cardiovascular, Respiratory, Neurological, Psychiatric, Hem-Onc, Allergic/Immunologic, Gastrointestinal, Genitourinary, Musculoskeletal, Integumentary, Endocrine and Ey es/Ears/Nose/Throat Exam Surgical H&P Exam: Normal: HEENT, Normal: Heart, Normal: Lungs, Normal: Extremities, Normal: Abdomen, Normal: Skin and Normal: Neurological Plan Diagnosis/Plan: Unchanged I have reviewed the history and physical and performed a pertinent physical examination on my patient. No changes have occurred unless specified. Time Spent With Patient Time: Total time managing care of this patient today ____ minutes.
[2024-02-16 10:56] VITALS: BMI 38.7
--- NOTE | 2024-02-16 11:00 | P.CONAN_ITS ---
Documented by User: Elizabeth Montgomery NP 02/15/24 09:41 HPI - Anesthesia Eval Consult details Narrative: 63yo F for Upper Endoscopy and Colonoscopy Diabetes insipidus with low Na 10/2023. Mast cell - unable to reach patient by phone to further eval presentation/preop medication needs [facility] Active Problems Active Problems: All Active Problems Snoring (Acute) Anemia (Acute) Abnormal bowel habits (Acute) Nocturia (Acute) Skin candidiasis (Acute) Rectocele (Acute) Diabetes insipidus (Acute) Incomplete bladder emptying (Acute) Nausea (Acute) Urine incontinence (Acute) Chronic idiopathic constipation (Acute) Mast cell activation syndrome (Acute) Well woman exam (Acute) Post-menopause bleeding (Acute) Small bowel motility disorder (Acute) GERD (gastroesophageal reflux disease) (Acute) Past Medical History Medical History (Updated 02/14/24 @ 15:08 by Naomi Rivero RN) Mast cell activation syndrome Diabetes insipidus Hyponatremia Osteoarthritis Chronic back pain Headache GERD (gastroesophageal reflux disease) PTSD (post-traumatic stress disorder) Anxiety and depression LINDSEY (obstructive sleep apnea) Asthma Elevated cholesterol Left lower quadrant abdominal pain IBS (irritable bowel syndrome) Family History Family History Father No problems noted. Mother No problems noted. Family history of problems with anesthesia: No Surgical History Surgical History (Updated 02/16/24 @ 10:49 by Darleen Barahona RN) History of total left knee replacement History of back surgery History of appendectomy History of tonsillectomy and adenoidectomy Hx of cholecystectomy History of total right knee replacement (TKR) Hx of endoscopy History of colonoscopy History of Problems with Anesthesia: No Social History Social History Are you a primary director of home care hospice to a significant other at home: No Do you presently have visiting nurse or other home services: No Alcohol intake: current Alcohol intake frequency: holidays/special occasions only Comment: fall last week however not frequent Patient Tobacco Use Status: Never used Tobacco Use of substances other than those prescribed or required for medical reasons: No Have you been hit, kicked, punched, or otherwise hurt by someone within the past year? If so, by whom?: No Are you DNR?: No Advance Directives: No Advance Directives Information Provided: Yes Advance Directives on File: No Recently lost weight without trying: No How much weight loss: Not applicable Eating poorly because of decreased appetite: No Nutrition screen score: 0 Nutrition Risks: No Nutritional Risk Patient : No : No Poor oral hygiene: No Meds Allergies Allergy/AdvReac Type Severity Reaction Status Date / Time garlic Allergy Severe THROAT Verified 02/16/24 10:49 CLOSES cephalexin [From Keflex] Allergy Mild RASH Verified 02/16/24 10:49 Home Medications ?Medication ?Instructions ?Recorded ?Confirmed ?Last Taken ?Type bupropion HCl 200 mg tablet,12 hr 200 mg PO BID 05/21/20 02/16/24 Unknown History sustained-release cetirizine 10 mg tablet 10 mg PO BID 05/21/20 02/16/24 Unknown History cholecalciferol (vitamin D3) 50 50 mcg PO DAILY 05/21/20 02/16/24 Unknown History mcg (2,000 unit) tablet clonazepam 1 mg tablet 1 mg PO BID PRN Anxiety 05/21/20 02/16/24 Unknown History clonidine HCl 0.1 mg tablet 0.1 mg PO BID PRN Anxiety 05/21/20 02/16/24 Unknown History cyanocobalamin (vitamin B-12) 1,000 mcg PO DAILY 05/21/20 02/16/24 Unknown History 1,000 mcg tablet duloxetine 60 mg capsule,delayed 60 mg PO BID 05/21/20 02/16/24 Unknown History release lamotrigine 150 mg tablet 300 mg PO DAILY 05/21/20 02/16/24 Unknown History potassium chloride 20 mEq 20 meq PO DAILY 05/21/20 02/16/24 Unknown History tablet,extended release(part/cryst) topiramate 100 mg tablet 150 mg PO BID 05/21/20 02/16/24 Unknown History pravastatin 80 mg tablet 1 tab PO DAILY 05/15/21 02/16/24 Unknown History epinephrine 0.3 mg/0.3 mL 0.3 ml IM ONCE PRN Anaphylaxis 06/09/22 02/16/24 Unknown History injection, auto-injector hydrocortisone 5 mg tablet 10 mg PO BID 06/09/22 02/16/24 Unknown History levalbuterol tartrate 45 1 puff inhalation Q4-6H PRN asthma 06/09/22 02/16/24 Unknown History mcg/actuation aerosol inhaler (Xopenex HFA) montelukast 10 mg tablet 10 mg PO QPM 06/09/22 02/16/24 Unknown History levothyroxine 112 mcg tablet 112 mcg PO DAILY 11/18/22 02/16/24 Unknown History tizanidine 4 mg tablet 4 mg PO TID 11/18/22 02/16/24 Unknown History metoclopramide HCl 10 mg tablet 10 mg PO DAILY 03/16/23 02/16/24 Unknown History ascorbic acid (vitamin C) 500 mg 500 mg PO DAILY 10/31/23 02/16/24 Unknown History chewable tablet (Vitamin C) celecoxib 100 mg capsule 100 mg PO BID 10/31/23 02/16/24 02/15/24 History Exam Height,Weight and Vital Signs: Height 5 ft 7 in Weight 110.677 kg Assessment and Plan Assessment Anesthesia Assessment: Chart Reviewed Final Anesthetic Review Family History of Problems with Anesthesia: No History of Problems with Anesthesia: No Documented by User: Ciera Lombardi DO 02/16/24 11:12 HPI - Anesthesia Eval Consult details Narrative: 63yo F for Upper Endoscopy and Colonoscopy Diabetes insipidus with low Na 10/2023. Mast cell activation syndrome - patient states that she does not need pre- treatment before anesthesia. [facility] Past Medical History Medical History (Updated 02/14/24 @ 15:08 by Naomi Rivero RN) Mast cell activation syndrome Diabetes insipidus Hyponatremia Osteoarthritis Chronic back pain Headache GERD (gastroesophageal reflux disease) PTSD (post-traumatic stress disorder) Anxiety and depression ILNDSEY (obstructive sleep apnea) Asthma Elevated cholesterol Left lower quadrant abdominal pain IBS (irritable bowel syndrome) Family History Family History Father No problems noted. Mother No problems noted. Family history of problems with anesthesia: No Surgical History Surgical History (Updated 02/16/24 @ 10:49 by Darleen Barahona RN) History of total left knee replacement History of back surgery History of appendectomy History of tonsillectomy and adenoidectomy Hx of cholecystectomy History of total right knee replacement (TKR) Hx of endoscopy History of colonoscopy History of Problems with Anesthesia: No Social History Social History Are you a primary director of home care hospice to a significant other at home: No Do you presently have visiting nurse or other home services: No Alcohol intake: current Alcohol intake frequency: holidays/special occasions only Comment: fall last week however not frequent Patient Tobacco Use Status: Never used Tobacco Use of substances other than those prescribed or required for medical reasons: No Have you been hit, kicked, punched, or otherwise hurt by someone within the past year? If so, by whom?: No Are you DNR?: No Advance Directives: No Advance Directives Information Provided: Yes Advance Directives on File: No Recently lost weight without trying: No How much weight loss: Not applicable Eating poorly because of decreased appetite: No Nutrition screen score: 0 Nutrition Risks: No Nutritional Risk Patient : No : No Poor oral hygiene: No Meds Allergies Allergy/AdvReac Type Severity Reaction Status Date / Time garlic Allergy Severe THROAT Verified 02/16/24 10:49 CLOSES cephalexin [From Keflex] Allergy Mild RASH Verified 02/16/24 10:49 Home Medications ?Medication ?Instructions ?Recorded ?Confirmed ?Last Taken ?Type bupropion HCl 200 mg tablet,12 hr 200 mg PO BID 05/21/20 02/16/24 Unknown History sustained-release cetirizine 10 mg tablet 10 mg PO BID 05/21/20 02/16/24 Unknown History cholecalciferol (vitamin D3) 50 50 mcg PO DAILY 05/21/20 02/16/24 Unknown History mcg (2,000 unit) tablet clonazepam 1 mg tablet 1 mg PO BID PRN Anxiety 05/21/20 02/16/24 Unknown History clonidine HCl 0.1 mg tablet 0.1 mg PO BID PRN Anxiety 05/21/20 02/16/24 Unknown History cyanocobalamin (vitamin B-12) 1,000 mcg PO DAILY 05/21/20 02/16/24 Unknown History 1,000 mcg tablet duloxetine 60 mg capsule,delayed 60 mg PO BID 05/21/20 02/16/24 Unknown History release lamotrigine 150 mg tablet 300 mg PO DAILY 05/21/20 02/16/24 Unknown History potassium chloride 20 mEq 20 meq PO DAILY 05/21/20 02/16/24 Unknown History tablet,extended release(part/cryst) topiramate 100 mg tablet 150 mg PO BID 05/21/20 02/16/24 Unknown History pravastatin 80 mg tablet 1 tab PO DAILY 05/15/21 02/16/24 Unknown History epinephrine 0.3 mg/0.3 mL 0.3 ml IM ONCE PRN Anaphylaxis 06/09/22 02/16/24 Unknown History injection, auto-injector hydrocortisone 5 mg tablet 10 mg PO BID 06/09/22 02/16/24 Unknown History levalbuterol tartrate 45 1 puff inhalation Q4-6H PRN asthma 06/09/22 02/16/24 Unknown History mcg/actuation aerosol inhaler (Xopenex HFA) montelukast 10 mg tablet 10 mg PO QPM 06/09/22 02/16/24 Unknown History levothyroxine 112 mcg tablet 112 mcg PO DAILY 11/18/22 02/16/24 Unknown History tizanidine 4 mg tablet 4 mg PO TID 11/18/22 02/16/24 Unknown History metoclopramide HCl 10 mg tablet 10 mg PO DAILY 03/16/23 02/16/24 Unknown History ascorbic acid (vitamin C) 500 mg 500 mg PO DAILY 10/31/23 02/16/24 Unknown History chewable tablet (Vitamin C) celecoxib 100 mg capsule 100 mg PO BID 10/31/23 02/16/24 02/15/24 History Exam Exam Date and Time: 02/16/24 1100 Air[address] Mallampati Class: III TM Dist: >3cm Neck ROM: Full Loose/Missing/Broken Teeth: No (patient denies any loose or broken teeth) Heart: S1S2 Lungs: CTAB Assessment and Plan Assessment Anesthesia Assessment: Anesthesia Plan Discussed and Chart Reviewed Final Anesthetic Review Family History of Problems with Anesthesia: No History of Problems with Anesthesia: No NPO: Yes ASA Class: III Final Preanesthetic Review: No Changes in Pt Med Stat, Meds/Allgs Chart Reviewed, Consent Obtained/Reviewed and Anes Risks/Benef Reviewed Patient Risk: Intermediate Procedure Risk: Low Anesthetic Plan Anesthetic Plan: MAC: and Agree w/ Assess. and Plan Disposition: Standard PACU
[2024-02-16 11:07] VITALS: BP 125/75; PULSE 69; RESP 16; TEMP 36.4; O2SAT 99
[2024-02-16] MEDS: Sodium Phosphate,Mono-Dibasic 133 ML ENEMA PR (11:07)
[2024-02-16] MEDS: Lactated Ringers 1,000 ML 100 ML IVCONT (11:24)
--- NOTE | 2024-02-16 11:28 | PC.NURSE ---
Patient in preop. States she drank water overnight. When questioned, she stated she drank about 4 bottles of water up until 5am . This nurse verified nothing in mouth after 5am. Dr. Lombardi at bedside and made aware. Okay to proceed.
[2024-02-16 11:44] LABS: Anion Gap 10 (12-20); Blood Urea Nitrogen 8 mg/dL (9-16); Calcium 8.5 mg/dL (8.4-10.2); Carbon Dioxide 24 mmol/L (22-29); Chloride 93 mmol/L (96-108); Creatinine Clr Calc Pharmacy 114.3; Estimated Glomerular Filt Rate > 60; Glucose Fasting 101 mg/dL (60-99); Potassium 3.1 mmol/L (3.3-5.1); Sodium 124 mmol/L (135-145)
--- NOTE | 2024-02-16 12:24 | PC.NURSE ---
Patient in preop. BMP resulted with low sodium and potassium. Case cancelled per Dr. Wang. Dr. Wang to ED MD report given. Patient transferred to ED by two RNs via stretcher. Patient hooked up to ED monitor, all belongings with patient upon transfer. Bedside report given to Denise Frost RN. Call placed to patients Eduardo to update him per patient request.
== END ==
LOC: HO.SSS 10:25
PROVIDERS: Nurse Practitioner; Visit Provider Internal Medicine Gastroenterology
DX: R19.8 Other specified symptoms and signs involving the digestive system and abdomen (principal); Z53.09 Procedure and treatment not carried out because of other contraindication; D64.9 Anemia, unspecified; E23.2 Diabetes insipidus; E87.1 Hypo-osmolality and hyponatremia; D89.40 Mast cell activation, unspecified; Z88.1 Allergy status to other antibiotic agents
CPT/HCPCS: 36415; 80048; J1100; J1596; J2003; J2704

== ENCOUNTER 2024-02-16 12:20 | Inpatient (IN) | payer MEDICARE, SELFPAY ==
[2024-02-16 12:23] VITALS: BP 142/83; PULSE 60; RESP 18; TEMP 36.6; O2SAT 100; BMI 38.7
--- NOTE | 2024-02-16 12:40 | ED_ITS ---
HPI - Recheck/Abnormal Lab/Rx General Chief Complaint: Recheck/Abnormal Lab/Rx Stated Complaint: from short stay Time Seen by Provider: 02/16/24 12:32 Source: patient Mode of arrival: ambulatory Limitations: no limitations History of Present Illness HPI narrative: 63-year-old female was getting a colonoscopy today to the prep and had preop labs done patient found to have a potassium at 3.1 and a sodium of 124 we have no previous lab results with the patient. She was sent to the ER. She feels slightly fatigued but has no other complaints we have no previous lab work to compare. MD complaint: abnormal lab Related Data Home Medications ?Medication ?Instructions ?Recorded ?Confirmed bupropion HCl 200 mg tablet,12 hr 200 mg PO BID 05/21/20 02/16/24 sustained-release cetirizine 10 mg tablet 10 mg PO BID 05/21/20 02/16/24 cholecalciferol (vitamin D3) 50 50 mcg PO DAILY 05/21/20 02/16/24 mcg (2,000 unit) tablet clonazepam 1 mg tablet 1 mg PO BID PRN Anxiety 05/21/20 02/16/24 clonidine HCl 0.1 mg tablet 0.1 mg PO BID PRN Anxiety 05/21/20 02/16/24 cyanocobalamin (vitamin B-12) 1,000 mcg PO DAILY 05/21/20 02/16/24 1,000 mcg tablet duloxetine 60 mg capsule,delayed 60 mg PO BID 05/21/20 02/16/24 release lamotrigine 150 mg tablet 300 mg PO DAILY 05/21/20 02/16/24 potassium chloride 20 mEq 20 meq PO DAILY 05/21/20 02/16/24 tablet,extended release(part/cryst) topiramate 100 mg tablet 150 mg PO BID 05/21/20 02/16/24 pravastatin 80 mg tablet 1 tab PO DAILY 05/15/21 02/16/24 epinephrine 0.3 mg/0.3 mL 0.3 ml IM ONCE PRN Anaphylaxis 06/09/22 02/16/24 injection, auto-injector hydrocortisone 5 mg tablet 10 mg PO BID 06/09/22 02/16/24 levalbuterol tartrate 45 1 puff inhalation Q4-6H PRN asthma 06/09/22 02/16/24 mcg/actuation aerosol inhaler (Xopenex HFA) montelukast 10 mg tablet 10 mg PO QPM 06/09/22 02/16/24 levothyroxine 112 mcg tablet 112 mcg PO DAILY 11/18/22 02/16/24 tizanidine 4 mg tablet 4 mg PO TID 11/18/22 02/16/24 metoclopramide HCl 10 mg tablet 10 mg PO DAILY 03/16/23 02/16/24 ascorbic acid (vitamin C) 500 mg 500 mg PO DAILY 10/31/23 02/16/24 chewable tablet (Vitamin C) celecoxib 100 mg capsule 100 mg PO BID 10/31/23 02/16/24 Previous Rx's ?Medication ?Instructions ?Recorded dicyclomine 20 mg tablet 40 mg (2 x 20 mg) PO QID 30 days 11/11/20 #240 tabs estradiol 0.01% (0.1 mg/gram) 1 g vaginal 3XW 30 days #42.5 grams 12/15/22 vaginal cream (Estrace) lansoprazole 30 mg capsule,delayed 30 mg PO DAILY #30 caps 01/24/23 release clotrimazole-betamethasone 1 1 appl topical BID 5 days #45 grams 03/23/23 %-0.05 % topical cream famotidine 40 mg tablet 40 mg PO BEDTIME #30 tabs 08/15/23 lubiprostone 24 mcg capsule 24 mcg PO BID #60 caps 08/16/23 (Amitiza) psyllium husk 0.4 gram capsule 0.8 g (2 x 0.4 gram) PO BID #120 11/04/23 caps terazosin 1 mg capsule 1 mg PO BEDTIME 90 days #90 caps 01/02/24 Allergies Allergy/AdvReac Type Severity Reaction Status Date / Time garlic Allergy Severe THROAT Verified 02/16/24 12:25 CLOSES cephalexin [From Keflex] Allergy Mild RASH Verified 02/16/24 12:25 Review of Systems Review of Systems: Review of systems: General: Fatigue Patient denies any fever chills recent illness or falls Musculoskeletal: Denies back pain or body aches or other injuries HEENT: denies headache, runny nose, ear pain Respiratory: denies shortness of breath, cough Cardiovascular: no chest pain or palpitations : denies dysuria, frequency Abdomen: no nausea vomiting denies abdominal pain Extremities: no swelling, no pain Skin: no diaphoresis Yes all other systems are reviewed and are negative PMFSH Past Medical History Medical History (Updated 02/16/24 @ 12:47 by Mao Brower DO) Mast cell activation syndrome Diabetes insipidus Hyponatremia Osteoarthritis Chronic back pain Headache GERD (gastroesophageal reflux disease) PTSD (post-traumatic stress disorder) Anxiety and depression LINDSEY (obstructive sleep apnea) Asthma Elevated cholesterol Left lower quadrant abdominal pain IBS (irritable bowel syndrome) Surgical History (Updated 02/16/24 @ 10:49 by Darleen Barahona RN) History of total left knee replacement History of back surgery History of appendectomy History of tonsillectomy and adenoidectomy Hx of cholecystectomy History of total right knee replacement (TKR) Hx of endoscopy History of colonoscopy Family History Family History Father No problems noted. Mother No problems noted. Social History Social History Are you a primary cna caregiver to a significant other at home: No Do you presently have visiting nurse or other home services: No Alcohol intake: current Alcohol intake frequency: holidays/special occasions only Comment: fall last week however not frequent Patient Tobacco Use Status: Never used Tobacco Smoked in Last 30 Days: No Use of substances other than those prescribed or required for medical reasons: No Advance Directives: No Advance Directives Information Provided: Yes Do you have a plan to hurt others: No Plan Patient : No Physical Exam Vital Signs: Vital Signs: Last Vital Signs Temp 98 F 02/16/24 12:23 Pulse 60 02/16/24 12:23 Resp 18 02/16/24 12:23 BP 142/83 H 02/16/24 12:23 Pulse Ox 100 02/16/24 12:23 O2 Del Method Room Air 02/16/24 12:23 BMI result Body Mass Index 38.7 General: Well-appearing well-nourished in no signs of distress HEENT: Normocephalic atraumatic Neck: No signs of JVD, no masses no tenderness or lymphadenopathy Cardiovascular: Regular rate and rhythm Respiratory: Clear to auscultation bilaterally Abdomen: Soft nontender no masses Extremities: Normal pedal pulses no signs of edema Skin: Dry warm no rashes Back: No tenderness full ROM Course Reevaluation(s) Reevaluation #1: Magnesium seems to be within normal limits patient looks well I did touch base with GI the patient states that she was supposed be admitted to get her colonoscopy in the morning I reached out to Dr. Wang from GI. Who wanted patient admitted to medicine. I did discuss with Dr. Barrientos who agreed with admission. Time: 13:34 Medications Administered Generic Name Dose Route Start Last Admin Trade Name Freq PRN Reason Stop Dose Admin Sodium Chloride 1,000 mls @ 999 mls/hr 02/16/24 12:45 02/16/24 13:04 Ns IV 02/16/24 13:45 999 mls/hr .Q1H1M MELA Administration Discontinued Medications Generic Name Dose Route Start Last Admin Trade Name Freq PRN Reason Stop Dose Admin Potassium Chloride 40 meq 02/16/24 12:39 02/16/24 13:04 Potassium Chloride Packet 20 Meq Packet PO 02/16/24 12:40 40 meq ONCE ONE Administration Medical Decision Making Medical Decision Making [facility] Narrative: Patient looks well has normal labs I do not think this is anything that we need to admit the patient here for I will give the patient some potassium orally some fluids and reassess Differential Diagnosis Differential Diagnoses: The differential diagnosis associated with the presentation includes Patient with known hyponatremia and hypokalemia which will replenish likely all due to bowel prep Lab Data [facility] Lab Attestation statement: I reviewed the patient's lab results. Labs: Lab Results 02/16/24 Range/Units 11:03 Magnesium 1.8 (1.6-2.6) mg/dL Discharge Plan Discharge Clinical Impression: Acute hyponatremia, Hypokalemia Patient Disposition: Admitted As Inpatient Instructions: Potassium Content of Foods List (ED), Hyponatremia (ED), Hypokalemia (ED) Additional Instructions: You were seen today due to complications to to bowel prep. You were found to have low sodium and low potassium. Please call follow up with your draft roller picker to reschedule your colonoscopy. If you have any other concerns please return to the ER. Prescriptions: No Action lansoprazole 30 mg capsule,delayed release(DR/EC) 30 mg PO DAILY Qty: 30 6RF famotidine 40 mg tablet 40 mg PO BEDTIME Qty: 30 6RF lubiprostone [Amitiza] 24 mcg capsule 24 mcg PO BID Qty: 60 3RF Rx Instructions: NO substitution, BRAND name only. psyllium husk 0.4 gram capsule 0.8 g PO BID Qty: 120 3RF terazosin 1 mg capsule 1 mg PO BEDTIME 90 Days Qty: 90 2RF pravastatin 80 mg tablet 1 tab PO DAILY dicyclomine 20 mg tablet 40 mg PO QID 30 Days Qty: 240 6RF topiramate 100 mg tablet 150 mg PO BID bupropion HCl 200 mg tablet sustained-release 12 hr 200 mg PO BID lamotrigine 150 mg tablet 300 mg PO DAILY duloxetine 60 mg capsule,delayed release(DR/EC) 60 mg PO BID cyanocobalamin (vitamin B-12) 1,000 mcg tablet 1,000 mcg PO DAILY potassium chloride 20 mEq tablet,ER particles/crystals 20 meq PO DAILY clonidine HCl 0.1 mg tablet 0.1 mg PO BID PRN (Reason: Anxiety) cetirizine 10 mg tablet 10 mg PO BID cholecalciferol (vitamin D3) 50 mcg (2,000 unit) tablet 50 mcg PO DAILY clonazepam 1 mg tablet 1 mg PO BID PRN (Reason: Anxiety) levalbuterol tartrate [Xopenex HFA] 45 mcg/actuation HFA aerosol inhaler 1 puff inhalation Q4-6H PRN (Reason: asthma) montelukast 10 mg tablet 10 mg PO QPM hydrocortisone 5 mg tablet 10 mg PO BID epinephrine 0.3 mg/0.3 mL auto-injector 0.3 ml IM ONCE PRN (Reason: Anaphylaxis) levothyroxine 112 mcg tablet 112 mcg PO DAILY tizanidine 4 mg tablet 4 mg PO TID estradiol [Estrace] 0.01 % (0.1 mg/gram) cream 1 g vaginal 3XW 30 Days Qty: 42.5 0RF clotrimazole-betamethasone 1-0.05 % cream 1 appl topical BID 5 Days Qty: 45 0RF metoclopramide HCl 10 mg tablet 10 mg PO DAILY ascorbic acid (vitamin C) [Vitamin C] 500 mg tablet,chewable 500 mg PO DAILY celecoxib 100 mg capsule 100 mg PO BID Print Language: Estonian
[2024-02-16] MEDS: Potassium Chloride Packet 20 MEQ PACKET 40 MEQ PO (13:04)
[2024-02-16] MEDS: 0.9 % Sodium Chloride 1,000 ML 999 ML IV (13:04)
[2024-02-16 13:27] LABS: Magnesium 1.8 mg/dL (1.6-2.6)
--- NOTE | 2024-02-16 14:22 | P.HPHOSP_ITS ---
History of Present Illness Date of Service: 02/16/24 Chief Complaint: Hyponatremia A 63 years old lady with PMH of diabetes insipidus, GERD, anxiety, hypothyroidism, asthma among others who presents for elective colonoscopy and found to have low sodium level with reported weakness. The patient baseline sodium runs low 126-129 secondary to known history of DI. she had bowel prep per GI and had multiple bowel movements overnight. this morning she is feeling weaker than before. lab work prior to colonoscopy showed Sodium level of 124 along with low potassium of 3.1. Procedure cancelled and she was sent to ED. No chest pain, palpitations, SOB, nausea, vomiting, diarrhea or urinary symptoms. Will be admitted for better controlling sodium level and potassium. Review of Systems 2 Review of Systems: No fever, chills but has weakness No chest pain, palpitation No shortness of breath or coughing No abdominal pain, nausea or vomiting No urinary symptoms No any rash or wounds PMFSH Medical History Mast cell activation syndrome Diabetes insipidus Hyponatremia Osteoarthritis Chronic back pain Headache GERD (gastroesophageal reflux disease) PTSD (post-traumatic stress disorder) Anxiety and depression LINDSEY (obstructive sleep apnea) Asthma Elevated cholesterol Left lower quadrant abdominal pain IBS (irritable bowel syndrome) Family History Father No problems noted. Mother No problems noted. Surgical History History of total left knee replacement History of back surgery History of appendectomy History of tonsillectomy and adenoidectomy Hx of cholecystectomy History of total right knee replacement (TKR) Hx of endoscopy History of colonoscopy Social History Household Members: Spouse Housing: Apartment Are you a primary patient care representative to a significant other at home: No Do you presently have visiting nurse or other home services: No Alcohol intake: current Alcohol intake frequency: holidays/special occasions only Comment: fall last week however not frequent Patient Tobacco Use Status: Never used Tobacco Smoked in Last 30 Days: No Use of substances other than those prescribed or required for medical reasons: No Currently Displaying Signs/Symptoms of Drug Intoxication Withdrawal: No Have you been hit, kicked, punched, or otherwise hurt by someone within the past year? If so, by whom?: No Do you feel safe in your current relationship?: Yes Is there a partner from a previous relationship who is making you feel unsafe now?: No Are you made to feel afraid or neglected: No Advance Directives: No Advance Directives Information Provided: Yes Do you have a plan to hurt others: No Plan Recently lost weight without trying: No Nutrition Risks: No Nutritional Risk Patient : No : No Poor oral hygiene: No service: No Meds Allergies Allergy/AdvReac Type Severity Reaction Status Date / Time garlic Allergy Severe THROAT Verified 02/16/24 12:25 CLOSES cephalexin [From Keflex] Allergy Mild RASH Verified 02/16/24 12:25 Home Medications ?Medication ?Instructions ?Recorded ?Confirmed ?Last Taken ?Type bupropion HCl 200 mg tablet,12 hr 200 mg PO BID 05/21/20 02/16/24 02/15/24 History sustained-release cetirizine 10 mg tablet 10 mg PO BID 05/21/20 02/16/24 02/15/24 History cholecalciferol (vitamin D3) 50 50 mcg PO DAILY 05/21/20 02/16/24 02/15/24 History mcg (2,000 unit) tablet clonazepam 1 mg tablet 1 mg PO BEDTIME PRN Anxiety 05/21/20 02/16/24 Unknown History cyanocobalamin (vitamin B-12) 1,000 mcg PO DAILY 05/21/20 02/16/24 02/15/24 History 1,000 mcg tablet duloxetine 60 mg capsule,delayed 120 mg PO DAILY 05/21/20 02/16/24 02/15/24 History release lamotrigine 150 mg tablet 300 mg PO DAILY 05/21/20 02/16/24 02/15/24 History potassium chloride 20 mEq 20 meq PO DAILY 05/21/20 02/16/24 02/15/24 History tablet,extended release(part/cryst) topiramate 100 mg tablet 150 mg PO BID 05/21/20 02/16/24 02/15/24 History pravastatin 80 mg tablet 1 tab PO BEDTIME 05/15/21 02/16/24 02/15/24 History hydrocortisone 5 mg tablet 10 mg PO BID 06/09/22 02/16/24 02/15/24 History montelukast 10 mg tablet 10 mg PO BEDTIME 06/09/22 02/16/24 02/15/24 History levothyroxine 112 mcg tablet 112 mcg PO DAILY@0600 11/18/22 02/16/24 02/15/24 History tizanidine 4 mg tablet 4 mg PO TID PRN Muscle Spasm 11/18/22 02/16/24 Unknown History ascorbic acid (vitamin C) 500 mg 500 mg PO DAILY 10/31/23 02/16/24 02/15/24 History chewable tablet (Vitamin C) celecoxib 100 mg capsule 100 mg PO BID 10/31/23 02/16/24 02/15/24 History calcium carbonate (Calcium 500) 500 mg PO DAILY 02/16/24 02/16/24 02/15/24 History lubiprostone 24 mcg capsule 24 mcg PO DAILY 02/16/24 02/16/24 02/15/24 History (Amitiza) Physical Exam 2 Vital Signs and Narrative: Vital Signs: Last Vital Signs Temp 98 F 02/16/24 12:23 Pulse 60 02/16/24 12:23 Resp 18 02/16/24 12:23 BP 142/83 H 02/16/24 12:23 Pulse Ox 100 02/16/24 12:23 O2 Del Method Room Air 02/16/24 12:23 BMI result Body Mass Index 38.7 Const: Other: Constitutional : interactive, not in distress Cardiovascular : no JVP, no lower extremity edema Respiratory : bilateral chest movement, not in resp distress Gastrointestinal: soft, lax, Non tender Skin : Warm, Dry Neurological : Alert & oriented , No focal deficit Results Labs 02/17/24 05:10 Labs: Laboratory Results - last 24 hr 02/16/24 11:03 Magnesium 1.8 Assessment and Plan (1) Hypokalemia: Status: Acute (2) Acute hyponatremia: Status: Acute Plan A 63 years old lady with PMH of diabetes insipidus, GERD, anxiety, hypothyroidism, asthma among others who presents for elective colonoscopy and found to have low sodium level with reported weakness. Acute on chronic hyponatremia secondary to dehydration and DI water restriction Urea, salt tab Give IV fluids repeat BMP in morning Acute hypokalemia replacement given repeat BMP Need of colonoscopy rescheduled for tomorrow DVT PPx SCDs given plan for Colonoscopy tomorrow The patient will likely need 2 overnight hospital stay for treatment of electrolytes imbalance pending correction and colonoscopy. Quality Stroke Does the patient have a stroke diagnosis?: No VTE Prior VTE?: No VTE Risk Level:: Medical - moderate - high VTE Device Contraindication: N/A - Device Ordered VTE Drug Contraindication: Treatment Not Indicated
[2024-02-16 16:49] VITALS: BP 145/53; PULSE 57; RESP 22; O2SAT 99
[2024-02-16] MEDS: Sodium Chloride Tab 1 GM TABLET PO ×2 (16:53→22:16)
[2024-02-16] MEDS: 0.9 % Sodium Chloride 1,000 ML 100 ML IVCONT (16:54)
--- NOTE | 2024-02-16 18:36 | PHA.MEDREC ---
Addendum entered by Jessy Andrade RPh 02/16/24 19:02: reviewed by [facility]. Original Note: Pharmacy Consult ? Medication Reconciliation Pharmacy has completed the medication reconciliation. Spoke with Patient earlier to confirm her medications and she was able to confirm a little over half before she became a bit overwhelmed when I was asking about dosage and how she was taking her medication and requested we call her Eduardo. I called the patients @[phone], he did not answer and when I went to leave a voicemail it said it was not set up for the phone yet. I called back around [phone] and was in the ER with pt. I went down and the patients confirmed the medications his confirmed and he was able to confirm the rest of them and the dose of them all too. The patient confirmed she took all her medications yesterday.
[2024-02-16 21:34] VITALS: BP 130/47; PULSE 59; RESP 12; TEMP 36.1; O2SAT 98
[2024-02-16] MEDS: Montelukast Sodium 10 MG TABLET PO (21:38)
[2024-02-16] MEDS: Hydrocortisone 10 MG TABLET PO (21:38)
[2024-02-16] MEDS: Topiramate 25 MG TABLET 150 MG PO (21:38)
[2024-02-16] MEDS: Potassium Chloride ER 20 MEQ TAB.ER.PRT 40 MEQ PO (21:39)
[2024-02-16] MEDS: Loratadine 10 MG TABLET PO (21:40)
[2024-02-16] MEDS: Famotidine 20 MG TABLET 40 MG PO (21:40)
[2024-02-16] MEDS: Urea 15 GM POWDER 30 GM PO (21:43)
[2024-02-16 22:16] VITALS: BP 130/47
[2024-02-16] MEDS: Pravastatin Sodium 80 MG TABLET PO (22:16)
[2024-02-16] MEDS: Doxazosin Mesylate 1 MG TABLET PO (22:16)
[2024-02-17] VITALS (10 sets, daily range): BP systolic 112–144; BP diastolic 44–83; PULSE 58–75; RESP 15–18; TEMP 36–36.8; O2SAT 93–100
[2024-02-17] MEDS: Melatonin 3 MG TABLET 6 MG PO (01:59)
[2024-02-17 05:42] LABS: Anion Gap 10 (12-20); Blood Urea Nitrogen 21 mg/dL (9-16); Calcium 8.6 mg/dL (8.4-10.2); Carbon Dioxide 17 mmol/L (22-29); Chloride 96 mmol/L (96-108); Creatinine Clr Calc Pharmacy 110.9; Estimated Glomerular Filt Rate > 60; Glucose Random 112 mg/dL (60-115); Potassium 4.4 mmol/L (3.3-5.1); Sodium 119 mmol/L (135-145)
[2024-02-17] MEDS: Levothyroxine Sodium 112 MCG TABLET PO (06:27)
--- NOTE | 2024-02-17 08:21 | MHC.EDTECH ---
Patient ambulated to bathroom and back to room without assistance. Patient resting at this time, states she is comfortable. Call fry placed within reach.
[2024-02-17] MEDS: Topiramate 25 MG TABLET 150 MG PO ×2 (09:21→21:20)
[2024-02-17] MEDS: Ascorbic Acid 500 MG TABLET PO (09:21)
[2024-02-17] MEDS: lamoTRIgine 100 MG TABLET 300 MG PO (09:22)
[2024-02-17] MEDS: buPROPion HCl XL 150 MG TAB.ER.24H 450 MG PO (09:22)
[2024-02-17] MEDS: Cholecalciferol (Vitamin D3) 25 MCG TABLET 50 MCG PO (09:23)
[2024-02-17] MEDS: Potassium Chloride ER 20 MEQ TAB.ER.PRT PO (09:23)
[2024-02-17] MEDS: Calcium Carbonate 750 MG TAB.CHEW PO (09:23)
[2024-02-17] MEDS: Loratadine 10 MG TABLET PO ×2 (09:23→21:21)
[2024-02-17] MEDS: Hydrocortisone 10 MG TABLET PO ×2 (09:23→21:20)
[2024-02-17] MEDS: DULoxetine HCl 60 MG CAPSULE.DR 120 MG PO (09:23)
[2024-02-17] MEDS: Cyanocobalamin (Vitamin B-12) 1,000 MCG TABLET 1000 MCG PO (09:23)
[2024-02-17] MEDS: 0.9 % Sodium Chloride Flush 3 ML SYRINGE IVFLUSH ×2 (09:24→16:14)
[2024-02-17] MEDS: Sodium Chloride Tab 1 GM TABLET 2 GM PO (09:27)
[2024-02-17] MEDS: Urea 15 GM POWDER 30 GM PO (09:27)
--- NOTE | 2024-02-17 09:47 | MHC.CM.PN ---
Attempted to meet with patient in regards to discharge planning. Patient not in room. No family present. Will attempt to meet again. Continue to monitor for d/c needs.
--- NOTE | 2024-02-17 11:45 | PM.CNNEP ---
History of Present Illness Reason for Consult Consult date: 02/17/24 Chief Complaint Chief complaint: hyponatremia,hypokalemia History of Present Illness Narrative: 63 y/o female with a medical history of diabetes insipidus (sees [facility] endocrinology for management), anxiety, depression, hypothyroidism, asthma, obesity, sleep apnea, osteoarthris, IBS, hypercholesterolemia. Presented for colonoscopy 02/15 for constipation workup per pt. Was found to have sodium of 124 and some weakness x1 week. Nephrology consulted for hyponatremia management. sodium 124 02/15, was given 30gm urea powder 02/15 evening, sodium re-check in the morning was 119. Renal function is normal. patient states she has some lower abdominal pain this a.m. that is new, mild, across lower abdomen. Otherwise no pain. States she has been having more cramping in her calves over the last week but attributed this to not going to the gym she states she usually drinks eight 16 ounce bottles of straight water each day, though states when she is not exercising she does not drink quite as much. she reports she was diagnosed with diabetes insipidus about 3 years ago, and is managed by [facility] endocrinology, takes hydrocortisone 10mg PO BID at home. She reports her sodium is sometimes high, sometimes low. She reports she feels some weakness and cramping in her calves, dizziness/lightheadedness along with mild lower abdominal pain. Otherwise no new symptoms/concerns. She states she has had chronic issue with sensation of incomplete bladder emptying, reports seen by urology and workup negative for incomplete bladder emptying with PVR of 0mL. She had a renal ultrasound in November which was unremarkable without hydronephrosis/obstruction. Review of Systems Constitutional: Reports fatigue, Denies headache(s) and Reports weakness Reports dizziness and Denies headache(s) Cardiovascular: Denies chest pain, Denies leg edema, Reports lightheadedness and Denies dyspnea Respiratory: Denies cough and Denies dyspnea Gastrointestinal: Reports abdominal pain (reports mild abdominal pain across her lower abdomen), Reports constipation, Denies diarrhea, Denies nausea and Denies vomiting Genitourinary: Denies hematuria, Reports difficulty voiding (reports chronic sensation of incomplete bladder emptying), Denies dysuria, Denies flank pain and Denies urinary incontinence Musculoskeletal: Denies back pain, Denies arthralgias, Reports muscle cramps and Reports muscle weakness Skin/Breast: Denies rash Reports dizziness, Denies headache(s) and Reports weakness Endocrine: Reports fatigue PMFSH Past Medical History Medical History Mast cell activation syndrome Diabetes insipidus Hyponatremia Osteoarthritis Chronic back pain Headache GERD (gastroesophageal reflux disease) PTSD (post-traumatic stress disorder) Anxiety and depression LINDSEY (obstructive sleep apnea) Asthma Elevated cholesterol Left lower quadrant abdominal pain IBS (irritable bowel syndrome) Family History Family History Father No problems noted. Mother No problems noted. Surgical History Surgical History History of total left knee replacement History of back surgery History of appendectomy History of tonsillectomy and adenoidectomy Hx of cholecystectomy History of total right knee replacement (TKR) Hx of endoscopy History of colonoscopy Social History Social History Household Members: Spouse Housing: Apartment Are you a primary career resource technician to a significant other at home: No Do you presently have visiting nurse or other home services: No Alcohol intake: current Alcohol intake frequency: holidays/special occasions only Comment: fall last week however not frequent Patient Tobacco Use Status: Never used Tobacco Smoked in Last 30 Days: No Use of substances other than those prescribed or required for medical reasons: No Currently Displaying Signs/Symptoms of Drug Intoxication Withdrawal: No Have you been hit, kicked, punched, or otherwise hurt by someone within the past year? If so, by whom?: No Do you feel safe in your current relationship?: Yes Is there a partner from a previous relationship who is making you feel unsafe now?: No Are you made to feel afraid or neglected: No Advance Directives: No Advance Directives Information Provided: Yes Do you have a plan to hurt others: No Plan Recently lost weight without trying: No Nutrition Risks: No Nutritional Risk Patient : No : No Poor oral hygiene: No Meds Allergies Allergy/AdvReac Type Severity Reaction Status Date / Time garlic Allergy Severe THROAT Verified 02/16/24 12:25 CLOSES cephalexin [From Keflex] Allergy Mild RASH Verified 02/16/24 12:25 Active Medications: Current Medications Acetaminophen (Acetaminophen 325 Mg Tablet) 650 mg PO Q6H PRN PRN Reason: Pain, Mild (Pain Scale 1-3), fever or headache Ascorbic Acid (Ascorbic Acid 500 Mg Tablet) 500 mg PO DAILY [facility] Last Admin: 02/17/24 09:21 Dose: 500 mg Bupropion HCl (Bupropion Hcl Xl 150 Mg Tab.Er.24h) 450 mg PO DAILY [facility] Last Admin: 02/17/24 09:22 Dose: 450 mg Calcium Carbonate (Calcium Carbonate 750 Mg Tab.Chew) 750 mg PO DAILY [facility] Last Admin: 02/17/24 09:23 Dose: 750 mg Clonazepam (Clonazepam 1 Mg Tablet) 1 mg PO BEDTIME PRN PRN Reason: Anxiety Cyanocobalamin (Cyanocobalamin (Vitamin B-12) 1,000 Mcg Tablet) 1,000 mcg PO DAILY [facility] Last Admin: 02/17/24 09:23 Dose: 1,000 mcg Desmopressin Acetate (Desmopressin Acetate 4 Mcg/Ml Ampul) 4 mcg IVPUSH DAILY [facility] Last Admin: 02/17/24 09:27 Dose: 4 mcg Doxazosin Mesylate (Doxazosin Mesylate 1 Mg Tablet) 1 mg PO BEDTIME [facility] Last Admin: 02/16/24 22:16 Dose: 1 mg Duloxetine HCl (Duloxetine Hcl 60 Mg Capsule.Dr) 120 mg PO DAILY [facility] Last Admin: 02/17/24 09:23 Dose: 120 mg Famotidine (Famotidine 20 Mg Tablet) 40 mg PO BEDTIME [facility] Last Admin: 02/16/24 21:40 Dose: 40 mg Hydrocortisone (Hydrocortisone 10 Mg Tablet) 10 mg PO BID [facility] Last Admin: 02/17/24 09:23 Dose: 10 mg Lamotrigine (Lamotrigine 100 Mg Tablet) 300 mg PO DAILY [facility] Last Admin: 02/17/24 09:22 Dose: 300 mg Levothyroxine Sodium (Levothyroxine Sodium 112 Mcg Tablet) 112 mcg PO DAILY@0600 [facility] Last Admin: 02/17/24 06:27 Dose: 112 mcg Loratadine (Loratadine 10 Mg Tablet) 10 mg PO BID [facility] Last Admin: 02/17/24 09:23 Dose: 10 mg Magnesium Hydroxide (Milk Of Magnesia 30 Ml Oral.Susp) 30 ml PO DAILY PRN PRN Reason: Constipation Melatonin (Melatonin 3 Mg Tablet) 6 mg PO BEDTIME PRN PRN Reason: Insomnia Last Admin: 02/17/24 01:59 Dose: 6 mg Montelukast Sodium (Montelukast Sodium 10 Mg Tablet) 10 mg PO BEDTIME [facility] Last Admin: 02/16/24 21:38 Dose: 10 mg Non-Formulary Medication (Lubiprostone [Amitiza]) 24 mcg PO DAILY [facility] Ondansetron HCl (Ondansetron Hcl 4 Mg/2 Ml Vial) 4 mg IVPUSH Q8H PRN PRN Reason: Nausea and Vomiting Potassium Chloride (Potassium Chloride Er 20 Meq Tab.Er.Prt) 20 meq PO DAILY [facility] Last Admin: 02/17/24 09:23 Dose: 20 meq Pravastatin Sodium (Pravastatin Sodium 80 Mg Tablet) 80 mg PO BEDTIME [facility] Last Admin: 02/16/24 22:16 Dose: 80 mg Sodium Chloride (0.9 % Sodium Chloride Flush 3 Ml Syringe) [facility] Admin: 02/17/24 09:24 Dose: 3 ml Sodium Chloride (Sodium Chloride Tab 1 Gm Tablet) 2 gm PO BID [facility] Last Admin: 02/17/24 09:27 Dose: 2 gm Tizanidine HCl (Tizanidine Hcl 4 Mg Tablet) 4 mg PO TID PRN PRN Reason: Muscle Spasm Topiramate (Topiramate 25 Mg Tablet) 150 mg PO BID [facility] Last Admin: 02/17/24 09:21 Dose: 150 mg Vitamin D (Cholecalciferol (Vitamin D3) 25 Mcg Tablet) 50 mcg PO DAILY [facility] Last Admin: 02/17/24 09:23 Dose: 50 mcg Home Medications ?Medication ?Instructions ?Recorded ?Confirmed ?Last Taken ?Type bupropion HCl 200 mg tablet,12 hr 200 mg PO BID 05/21/20 02/16/24 02/15/24 History sustained-release cetirizine 10 mg tablet 10 mg PO BID 05/21/20 02/16/24 02/15/24 History cholecalciferol (vitamin D3) 50 50 mcg PO DAILY 05/21/20 02/16/24 02/15/24 History mcg (2,000 unit) tablet clonazepam 1 mg tablet 1 mg PO BEDTIME PRN Anxiety 05/21/20 02/16/24 Unknown History cyanocobalamin (vitamin B-12) 1,000 mcg PO DAILY 05/21/20 02/16/24 02/15/24 History 1,000 mcg tablet duloxetine 60 mg capsule,delayed 120 mg PO DAILY 05/21/20 02/16/24 02/15/24 History release lamotrigine 150 mg tablet 300 mg PO DAILY 05/21/20 02/16/24 02/15/24 History potassium chloride 20 mEq 20 meq PO DAILY 05/21/20 02/16/24 02/15/24 History tablet,extended release(part/cryst) topiramate 100 mg tablet 150 mg PO BID 05/21/20 02/16/24 02/15/24 History pravastatin 80 mg tablet 1 tab PO BEDTIME 05/15/21 02/16/24 02/15/24 History hydrocortisone 5 mg tablet 10 mg PO BID 06/09/22 02/16/24 02/15/24 History montelukast 10 mg tablet 10 mg PO BEDTIME 06/09/22 02/16/24 02/15/24 History levothyroxine 112 mcg tablet 112 mcg PO DAILY@0600 11/18/22 02/16/24 02/15/24 History tizanidine 4 mg tablet 4 mg PO TID PRN Muscle Spasm 11/18/22 02/16/24 Unknown History ascorbic acid (vitamin C) 500 mg 500 mg PO DAILY 10/31/23 02/16/24 02/15/24 History chewable tablet (Vitamin C) celecoxib 100 mg capsule 100 mg PO BID 10/31/23 02/16/24 02/15/24 History calcium carbonate (Calcium 500) 500 mg PO DAILY 02/16/24 02/16/24 02/15/24 History lubiprostone 24 mcg capsule 24 mcg PO DAILY 02/16/24 02/16/24 02/15/24 History (Amitiza) Physical Exam Vital Signs: Last Vital Signs Temp 97.0 F 02/17/24 11:10 Pulse 60 02/17/24 11:10 Resp 16 02/17/24 11:10 BP 128/70 02/17/24 11:10 Pulse Ox 100 02/17/24 11:10 O2 Del Method Room Air 02/17/24 11:10 BMI result Body Mass Index 38.7 Const General: no acute distress, alert and awake Resp Effort & Inspection: normal respiratory effort and able to speak in complete sentences Auscultation: clear to auscultation bilaterally Cardio Jugular venous distension: no JVD Rate: regular rate Rhythm: regular rhythm Heart sounds: S1 normal heart sound present and S2 normal heart sound present GI Palpation (GI): Soft to palpation and Tenderness to palpation present (GI) (reports mild tenderness to palpation across lower abdomen) General: Yes no CVA tenderness Back/Spine/Pelvis Back: no CVA tenderness Skin Lesions: no lesions Rashes: no rashes Extrem General: No edema Results Lab Results 02/17/24 05:10 Lab results: Chemistry 02/17/24 05:10 Sodium 119 L* Potassium 4.4 D Carbon Dioxide 17 L BUN 21 H Creatinine 0.67 Calcium 8.6 Assessment and Plan (1) Acute hyponatremia: Status: Acute (2) Diabetes insipidus: Status: Acute Plan hyponatremia likely multifactorial unsure whether she has baseline excess adh workup pending no further DDVAP please stop urea powder fluids restriction 1.2L/24hrs ok to get sodium chloride PO as ordered will check TSH and cortisol no indication for hypertonic saline, needs very close monitoring avoid rapid sodium correction- no more than 0.5mmol/L/hr if sodium drops, needs q2h sodium checks [may need ICU monitoring] Discussed with Dr Nikolas Dooley Date of Service Date of Service: 02/17/24
--- NOTE | 2024-02-17 13:16 | P.CDIM_ITS ---
PROVIDER RESPONSE TEXT: To clarify, the appropriate diagnosis supported by the clinical indicators: Obesity Due to excess calories QUERY TEXT: PHYSICIAN'S DOCUMENTATION REQUEST Date of Query: 02/17/2024 11:11 AM EST Patient Name: Alcira Gordon Admit Date: 02/16/2024 Dear Del Barrientos MD, A review of the medical record indicates additional documentation may be needed. Please review below and update the documentation accordingly. Clinical Indicators: BMI: 38.7 WT: 112.037KG HT: 5ft 7in If possible, please provide an associated diagnosis related to the abnormal BMI, such as: Obesity Due to excess calories Obesity Drug induced Obesity Due to other cause Specify the other cause Severe or Morbid Obesity With alveolar hypoventilation Severe or Morbid Obesity Without alveolar hypoventilation Other (explain) Clinically unable to determine (explain) Thank you, Eileen Finch, CCS, CDIS Use of terms such as suspected, likely, concern for, or probable (associated with a specific diagnosi s that is being evaluated, monitored, or treated as if it exists) are acceptable and can be coded in the inpatient se tting, when documented at the time of discharge. Please use your independent medical judgment in providing your response. THIS QUERY IS PART OF THE PERMANENT MEDICAL RECORD
[2024-02-17 13:49] LABS: Osmolality Urine 484 mosm/kg (373-1093)
--- NOTE | 2024-02-17 15:18 | MHC.CM.PN ---
PT LIVES W/HUSBANDIS INDEPEDENT HAD NO SERVIES HAS OWN RIDE HOME
--- NOTE | 2024-02-17 15:19 | HO.PM.IMPN ---
Subjective Subjective Date of Service: 02/17/24 Interval History: seen and evaluated this morning Na dropped to 119 she feels ok, no complaints, no confusion denies any pain NPO for now Review of Systems Review of Systems: Yes all other systems are reviewed and are negative Physical Exam Vital Signs: Vital Signs: Last Vital Signs Temp 97.0 F 02/17/24 11:10 Pulse 60 02/17/24 11:10 Resp 16 02/17/24 11:10 BP 128/70 02/17/24 11:10 Pulse Ox 100 02/17/24 11:10 O2 Del Method Room Air 02/17/24 11:10 BMI result Body Mass Index 38.7 Const: Other: Constitutional : interactive, not in distress Cardiovascular : no JVP, no lower extremity edema Respiratory : bilateral chest movement, not in resp distress Gastrointestinal: soft, lax, Non tender Skin : Warm, Dry Neurological : Alert & oriented , No focal deficit Objective Data Active Medications Acetaminophen (Acetaminophen 325 Mg Tablet) 650 mg PO Q6H PRN PRN Reason: Pain, Mild (Pain Scale 1-3), fever or headache Ascorbic Acid (Ascorbic Acid 500 Mg Tablet) 500 mg PO DAILY [facility] Last Admin: 02/17/24 09:21 Dose: 500 mg Documented By: BLAKE Bupropion HCl (Bupropion Hcl Xl 150 Mg Tab.Er.24h) 450 mg PO DAILY [facility] Last Admin: 02/17/24 09:22 Dose: 450 mg Documented By: BLAKE Calcium Carbonate (Calcium Carbonate 750 Mg Tab.Chew) 750 mg PO DAILY [facility] Last Admin: 02/17/24 09:23 Dose: 750 mg Documented By: BLAKE Clonazepam (Clonazepam 1 Mg Tablet) 1 mg PO BEDTIME PRN PRN Reason: Anxiety Cyanocobalamin (Cyanocobalamin (Vitamin B-12) 1,000 Mcg Tablet) 1,000 mcg PO DAILY [facility] Last Admin: 02/17/24 09:23 Dose: 1,000 mcg Documented By: BLAKE Doxazosin Mesylate (Doxazosin Mesylate 1 Mg Tablet) 1 mg PO BEDTIME [facility] Last Admin: 02/16/24 22:16 Dose: 1 mg Documented By: THADDEUS Duloxetine HCl (Duloxetine Hcl 60 Mg Capsule.Dr) 120 mg PO DAILY [facility] Last Admin: 02/17/24 09:23 Dose: 120 mg Documented By: BLAKE Famotidine (Famotidine 20 Mg Tablet) 40 mg PO BEDTIME [facility] Last Admin: 02/16/24 21:40 Dose: 40 mg Documented By: THADDEUS Hydrocortisone (Hydrocortisone 10 Mg Tablet) 10 mg PO BID [facility] Last Admin: 02/17/24 09:23 Dose: 10 mg Documented By: BLAKE Lamotrigine (Lamotrigine 100 Mg Tablet) 300 mg PO DAILY [facility] Last Admin: 02/17/24 09:22 Dose: 300 mg Documented By: BLAKE Levothyroxine Sodium (Levothyroxine Sodium 112 Mcg Tablet) 112 mcg PO DAILY@0600 [facility] Last Admin: 02/17/24 06:27 Dose: 112 mcg Documented By: THADDEUS Loratadine (Loratadine 10 Mg Tablet) 10 mg PO BID [facility] Last Admin: 02/17/24 09:23 Dose: 10 mg Documented By: BLAKE Magnesium Hydroxide (Milk Of Magnesia 30 Ml Oral.Susp) 30 ml PO DAILY PRN PRN Reason: Constipation Melatonin (Melatonin 3 Mg Tablet) 6 mg PO BEDTIME PRN PRN Reason: Insomnia Last Admin: 02/17/24 01:59 Dose: 6 mg Documented By: THADDEUS Montelukast Sodium (Montelukast Sodium 10 Mg Tablet) 10 mg PO BEDTIME [facility] Last Admin: 02/16/24 21:38 Dose: 10 mg Documented By: THADDEUS Non-Formulary Medication (Lubiprostone [Amitiza]) 24 mcg PO DAILY [facility] Ondansetron HCl (Ondansetron Hcl 4 Mg/2 Ml Vial) 4 mg IVPUSH Q8H PRN PRN Reason: Nausea and Vomiting Potassium Chloride (Potassium Chloride Er 20 Meq Tab.Er.Prt) 20 meq PO DAILY [facility] Last Admin: 02/17/24 09:23 Dose: 20 meq Documented By: BLAKE Pravastatin Sodium (Pravastatin Sodium 80 Mg Tablet) 80 mg PO BEDTIME [facility] Last Admin: 02/16/24 22:16 Dose: 80 mg Documented By: THADDEUS Sodium Chloride (0.9 % Sodium Chloride Flush 3 Ml Syringe) 3 ml IVFLUSH QSHIFT [facility] Last Admin: 02/17/24 09:24 Dose: 3 ml Documented By: BLAKE Sodium Chloride (Sodium Chloride Tab 1 Gm Tablet) 2 gm PO BID [facility] Last Admin: 02/17/24 09:27 Dose: 2 gm Documented By: BLAKE Tizanidine HCl (Tizanidine Hcl 4 Mg Tablet) 4 mg PO TID PRN PRN Reason: Muscle Spasm Topiramate (Topiramate 25 Mg Tablet) 150 mg PO BID [facility] Last Admin: 02/17/24 09:21 Dose: 150 mg Documented By: BLAKE Vitamin D (Cholecalciferol (Vitamin D3) 25 Mcg Tablet) 50 mcg PO DAILY [facility] Last Admin: 02/17/24 09:23 Dose: 50 mcg Documented By: BLAKE Labs 02/17/24 05:10 Labs: Laboratory Results - last 24 hr 02/17/24 02/17/24 05:10 12:45 Anion Gap 10 L Estim Creat Clear Calc 110.9 Estimated GFR > 60 Random Glucose 112 Calcium 8.6 Urine Osmolality 484 Ur Random Sodium 54.0 Assessment and Plan (1) Hypokalemia: Status: Acute (2) Acute hyponatremia: Status: Acute Plan A 63 years old lady with PMH of diabetes insipidus, GERD, anxiety, hypothyroidism, asthma among others who presents for elective colonoscopy and found to have low sodium level with reported weakness. Acute on chronic hyponatremia secondary to dehydration and DI with hx of adrenal insuffeciency water restriction DC Urea, continue salt tab nephrology consult repeat BMP Q4 Acute hypokalemia replacement given repeat BMP Need of colonoscopy rescheduled , GI following DVT PPx SCDs given plan for Colonoscopy tomorrow The patient will likely need overnight hospital stay for treatment of electrolytes imbalance pending correction and colonoscopy. Quality Stroke Does the patient have a stroke diagnosis?: No VTE Prior VTE?: No VTE Risk Level:: Medical - moderate - high VTE Device Contraindication: N/A - Device Ordered VTE Drug Contraindication: Treatment Not Indicated
[2024-02-17] MEDS: Acetaminophen 325 MG TABLET 650 MG PO (16:12)
[2024-02-17 16:16] LABS: Blood Urea Nitrogen 28 mg/dL (9-16); Creatinine Clr Calc Pharmacy 104.6; Estimated Glomerular Filt Rate > 60; Glucose Random 109 mg/dL (60-115)
[2024-02-17 16:25] LABS: Anion Gap 10 (12-20); Carbon Dioxide 22 mmol/L (22-29); Chloride 100 mmol/L (96-108); Potassium 4.4 mmol/L (3.3-5.1); Sodium 128 mmol/L (135-145)
[2024-02-17 16:34] LABS: Cortisol Random 5.9 ug/dL; TSH reflex Free T4 0.02 uIU/mL (0.32-4.0)
--- NOTE | 2024-02-17 17:07 | MHC.SHP ---
Pre-Procedural Eval Section A - 24 Hr Update-Section A only Date of Service: 02/17/24 Section B - Complete if H&P > 30 days Chief Complaint: hyponatremia,hypokalemia Details of Present Illness: diarrhea and anemia Relevant Family History (Specify if Yes): No Relevant Social History: None Present Medications: see Short Stay Collaborative assessment Medical History: Significant History (Mast cell activation syndrome Diabetes insipidus Hyponatremia Osteoarthritis Chronic back pain Headache GERD (gastroesophageal reflux disease) PTSD (post-traumatic stress disorder) Anxiety and depression LINDSEY (obstructive sleep apnea) Asthma Elevated cholesterol Left lower quadrant abdominal pain IBS) History of Previous Operations: Relevant previous surgery/procedure and date(s) (History of back surgery History of appendectomy History of tonsillectomy and adenoidectomy Hx of cholecystectomy History of total right knee replacement (TKR) Hx of endoscopy History of colonoscopy) Allergies: Allergies Allergy/AdvReac Type Severity Reaction Status Date / Time garlic Allergy Severe THROAT Verified 02/16/24 12:25 CLOSES cephalexin [From Keflex] Allergy Mild RASH Verified 02/16/24 12:25 Review of Systems Sugical H&P ROS: Negative: Constitution, Cardiovascular, Respiratory, Neurological, Psychiatric, Hem-Onc, Allergic/Immunologic, Gastrointestinal, Genitourinary, Musculoskeletal, Integumentary, Endocrine and Eyes/Ears/Nose/Throat Exam Surgical H&P Exam: Normal: HEENT, Normal: Heart, Normal: Lungs, Normal: Extremities, Normal: Abdomen, Normal: Skin and Normal: Neurological Plan Diagnosis/Plan: Unchanged I have reviewed the history and physical and performed a pertinent physical examination on my patient. No changes have occurred unless specified. Time Spent With Patient Time: Total time managing care of this patient today ____ minutes.
--- NOTE | 2024-02-17 17:23 | HO.ANESPROP2 ---
HPI - Anesthesia Eval Consult details Narrative: 63 yo female patient for EGD, Colonoscopy. H/o Diabetes Insipidus. Routinely presented yesterday for outpatient Colonoscopy. Na/K 124/3.1 Patient was admitted for correction of Na and K levels. Labs this morning following treatment showed Na/K 119/4.4 Repeat labs this afternoon Na/K 128/4.[address] Artis, hospitalist states that this is within normal range for patient and unlikely to get much better. Patient had come in prepped from home for Colonoscopy. Did receive Sodium crushed in [place] juice at around 6:30 this am [facility] Active Problems Active Problems: All Active Problems (Updated 02/17/24 @ 17:20 by Janice Jorgensen MD) Hypokalemia (Acute) Hyponatremia - fatigue, weakness Snoring (Acute) Anemia (Acute) Abnormal bowel habits (Acute) Nocturia (Acute) Skin candidiasis (Acute) Rectocele (Acute) Diabetes insipidus (Acute) Incomplete bladder emptying (Acute) Nausea (Acute) Urine incontinence (Acute) Chronic idiopathic constipation (Acute) Mast cell activation syndrome (Acute) Well woman exam (Acute) Post-menopause bleeding (Acute) Small bowel motility disorder (Acute) GERD (gastroesophageal reflux disease) (Acute) Recent Sleep Study - Negative for LINDSEY Increased BMI 38.7 Past Medical History Medical History Mast cell activation syndrome Diabetes insipidus Hyponatremia Osteoarthritis Chronic back pain Headache GERD (gastroesophageal reflux disease) PTSD (post-traumatic stress disorder) Anxiety and depression LINDSEY (obstructive sleep apnea) Asthma Elevated cholesterol Left lower quadrant abdominal pain IBS (irritable bowel syndrome) Family History Family History Father No problems noted. Mother No problems noted. Family history of problems with anesthesia: No Surgical History Surgical History History of total left knee replacement History of back surgery History of appendectomy History of tonsillectomy and adenoidectomy Hx of cholecystectomy History of total right knee replacement (TKR) Hx of endoscopy History of colonoscopy History of Problems with Anesthesia: No Social History Social History Household Members: Spouse Housing: Apartment Are you a primary respite care provider to a significant other at home: No Do you presently have visiting nurse or other home services: No Alcohol intake: current Alcohol intake frequency: holidays/special occasions only Comment: fall last week however not frequent Patient Tobacco Use Status: Never used Tobacco Smoked in Last 30 Days: No Use of substances other than those prescribed or required for medical reasons: No Currently Displaying Signs/Symptoms of Drug Intoxication Withdrawal: No Have you been hit, kicked, punched, or otherwise hurt by someone within the past year? If so, by whom?: No Do you feel safe in your current relationship?: Yes Is there a partner from a previous relationship who is making you feel unsafe now?: No Are you made to feel afraid or neglected: No Advance Directives: No Advance Directives Information Provided: Yes Do you have a plan to hurt others: No Plan Recently lost weight without trying: No Nutrition Risks: No Nutritional Risk Patient : No : No Poor oral hygiene: No service: No Meds Allergies Allergy/AdvReac Type Severity Reaction Status Date / Time garlic Allergy Severe THROAT Verified 02/16/24 12:25 CLOSES cephalexin [From Keflex] Allergy Mild RASH Verified 02/16/24 12:25 Active Medications: Current Medications Acetaminophen (Acetaminophen 325 Mg Tablet) 650 mg PO Q6H PRN PRN Reason: Pain, Mild (Pain Scale 1-3), fever or headache Last Admin: 02/17/24 16:12 Dose: 650 mg Ascorbic Acid (Ascorbic Acid 500 Mg Tablet) 500 mg PO DAILY [facility] Last Admin: 02/17/24 09:21 Dose: 500 mg Bupropion HCl (Bupropion Hcl Xl 150 Mg Tab.Er.24h) 450 mg PO DAILY [facility] Last Admin: 02/17/24 09:22 Dose: 450 mg Calcium Carbonate (Calcium Carbonate 750 Mg Tab.Chew) 750 mg PO DAILY [facility] Last Admin: 02/17/24 09:23 Dose: 750 mg Clonazepam (Clonazepam 1 Mg Tablet) 1 mg PO BEDTIME PRN PRN Reason: Anxiety Cyanocobalamin (Cyanocobalamin (Vitamin B-12) 1,000 Mcg Tablet) 1,000 mcg PO DAILY [facility] Last Admin: 02/17/24 09:23 Dose: 1,000 mcg Doxazosin Mesylate (Doxazosin Mesylate 1 Mg Tablet) 1 mg PO BEDTIME [facility] Last Admin: 02/16/24 22:16 Dose: 1 mg Duloxetine HCl (Duloxetine Hcl 60 Mg Capsule.Dr) 120 mg PO DAILY [facility] Last Admin: 02/17/24 09:23 Dose: 120 mg Famotidine (Famotidine 20 Mg Tablet) 40 mg PO BEDTIME [facility] Last Admin: 02/16/24 21:40 Dose: 40 mg Hydrocortisone (Hydrocortisone 10 Mg Tablet) 10 mg PO BID [facility] Last Admin: 02/17/24 09:23 Dose: 10 mg Dextrose (D5w) 500 mls @ 100 mls/hr IVCONT .Q5H [facility] Lamotrigine (Lamotrigine 100 Mg Tablet) 300 mg PO DAILY [facility] Last Admin: 02/17/24 09:22 Dose: 300 mg Levothyroxine Sodium (Levothyroxine Sodium 112 Mcg Tablet) 112 mcg PO DAILY@0600 [facility] Last Admin: 02/17/24 06:27 Dose: 112 mcg Loratadine (Loratadine 10 Mg Tablet) 10 mg PO BID [facility] Last Admin: 02/17/24 09:23 Dose: 10 mg Magnesium Hydroxide (Milk Of Magnesia 30 Ml Oral.Susp) 30 ml PO DAILY PRN PRN Reason: Constipation Melatonin (Melatonin 3 Mg Tablet) 6 mg PO BEDTIME PRN PRN Reason: Insomnia Last Admin: 02/17/24 01:59 Dose: 6 mg Montelukast Sodium (Montelukast Sodium 10 Mg Tablet) 10 mg PO BEDTIME [facility] Last Admin: 02/16/24 21:38 Dose: 10 mg Non-Formulary Medication (Lubiprostone [Amitiza]) 24 mcg PO DAILY [facility] Ondansetron HCl (Ondansetron Hcl 4 Mg/2 Ml Vial) 4 mg IVPUSH Q8H PRN PRN Reason: Nausea and Vomiting Potassium Chloride (Potassium Chloride Er 20 Meq Tab.Er.Prt) 20 meq PO DAILY [facility] Last Admin: 02/17/24 09:23 Dose: 20 meq Pravastatin Sodium (Pravastatin Sodium 80 Mg Tablet) 80 mg PO BEDTIME [facility] Last Admin: 02/16/24 22:16 Dose: 80 mg Sodium Chloride (0.9 % Sodium Chloride Flush 3 Ml Syringe) 3 ml IVFLUSH QSHIFT [facility] Last Admin: 02/17/24 16:14 Dose: 3 ml Tizanidine HCl (Tizanidine Hcl 4 Mg Tablet) 4 mg PO TID PRN PRN Reason: Muscle Spasm Topiramate (Topiramate 25 Mg Tablet) 150 mg PO BID [facility] Last Admin: 02/17/24 09:21 Dose: 150 mg Vitamin D (Cholecalciferol (Vitamin D3) 25 Mcg Tablet) 50 mcg PO DAILY [facility] Last Admin: 02/17/24 09:23 Dose: 50 mcg Home Medications ?Medication ?Instructions ?Recorded ?Confirmed ?Last Taken ?Type bupropion HCl 200 mg tablet,12 hr 200 mg PO BID 05/21/20 02/16/24 02/15/24 History sustained-release cetirizine 10 mg tablet 10 mg PO BID 05/21/20 02/16/24 02/15/24 History cholecalciferol (vitamin D3) 50 50 mcg PO DAILY 05/21/20 02/16/24 02/15/24 History mcg (2,000 unit) tablet clonazepam 1 mg tablet 1 mg PO BEDTIME PRN Anxiety 05/21/20 02/16/24 Unknown History cyanocobalamin (vitamin B-12) 1,000 mcg PO DAILY 05/21/20 02/16/24 02/15/24 History 1,000 mcg tablet duloxetine 60 mg capsule,delayed 120 mg PO DAILY 05/21/20 02/16/24 02/15/24 History release lamotrigine 150 mg tablet 300 mg PO DAILY 05/21/20 02/16/24 02/15/24 History potassium chloride 20 mEq 20 meq PO DAILY 05/21/20 02/16/24 02/15/24 History tablet,extended release(part/cryst) topiramate 100 mg tablet 150 mg PO BID 05/21/20 02/16/24 02/15/24 History pravastatin 80 mg tablet 1 tab PO BEDTIME 05/15/21 02/16/24 02/15/24 History hydrocortisone 5 mg tablet 10 mg PO BID 06/09/22 02/16/24 02/15/24 History montelukast 10 mg tablet 10 mg PO BEDTIME 06/09/22 02/16/24 02/15/24 History levothyroxine 112 mcg tablet 112 mcg PO DAILY@0600 11/18/22 02/16/24 02/15/24 History tizanidine 4 mg tablet 4 mg PO TID PRN Muscle Spasm 11/18/22 02/16/24 Unknown History ascorbic acid (vitamin C) 500 mg 500 mg PO DAILY 10/31/23 02/16/24 02/15/24 History chewable tablet (Vitamin C) celecoxib 100 mg capsule 100 mg PO BID 10/31/23 02/16/24 02/15/24 History calcium carbonate (Calcium 500) 500 mg PO DAILY 02/16/24 02/16/24 02/15/24 History lubiprostone 24 mcg capsule 24 mcg PO DAILY 02/16/24 02/16/24 02/15/24 History (Amitiza) Exam Height,Weight and Vital Signs: Height 5 ft 7 in Weight 112.037 kg Last Vital Signs Temp 97.6 F 02/17/24 15:34 Pulse 71 02/17/24 17:03 Resp 18 02/17/24 17:03 BP 118/70 02/17/24 17:03 Pulse Ox 99 02/17/24 17:03 O2 Del Method Room Air 02/17/24 17:03 Pertinent Lab Results Pertinent Lab Results: Laboratory Tests 02/16/24 02/17/24 02/17/24 11:03 05:10 12:45 Sodium 119 L* Potassium 4.4 D Chloride 96 Carbon Dioxide 17 L Anion Gap 10 L BUN 21 H Creatinine 0.67 Estim Creat Clear Calc 110.9 Estimated GFR > 60 Random Glucose 112 Calcium 8.6 Magnesium 1.8 TSH Random Cortisol Ur Specific [place] 1.010 Urine Osmolality 484 Ur Random Sodium 54.0 02/17/24 15:41 Sodium 128 L Potassium 4.4 Chloride 100 Carbon Dioxide 22 Anion Gap 10 L BUN 28 H Creatinine 0.71 Estim Creat Clear Calc 104.6 Estimated GFR > 60 Random Glucose 109 Calcium 9.0 Magnesium TSH 0.02 L Random Cortisol 5.9 Ur Specific [place] Urine Osmolality Ur Random Sodium Airway Mallampati Class: III TM Dist: >3cm Neck ROM: Full Loose/Missing/Broken Teeth: Yes (Missing tooth bottom Right back. Denies loose or broken teeth) Heart: RRR + murmur Lungs: CTAB Assessment and Plan Assessment Anesthesia Assessment: Anesthesia Plan Discussed and Chart Reviewed Final Anesthetic Review Family History of Problems with Anesthesia: No History of Problems with Anesthesia: No NPO: Yes ASA Class: IV Final Preanesthetic Review: No Changes in Pt Med Stat, Meds/Allgs Chart Reviewed, Consent Obtained/Reviewed and Anes Risks/Benef Reviewed Patient Risk: High Procedure Risk: Low Assessment/Block/Sedation in SS: Assess/Block/Sedation-SS Anesthetic Plan Anesthetic Plan: TIVA Disposition: Standard PACU and Inp. Admit - Standard Bed
[2024-02-17 17:32] LABS: Free T4 (Free Thyroxine) 0.96 ng/dL (0.71-1.85)
--- NOTE | 2024-02-17 18:00 | HO.OPN-COLON ---
Colonoscopy Operative Note Operative Note Date of Service: 02/17/24 Narrative: FLEXIBLE TRANSORAL UPPER GASTROINTESTINAL ENDOSCOPY WITH BIOPSIES AND COLONOSCOPY TILL MID TRANSVERSE COLON WITH RANDOM BIOPSIES Pre-op diagnosis: Chronic diarrhea, anemia Post-op diagnosis: Gastritis, Gastric polyp, incomplete colonoscopy due to suboptimal prep, hemorrhoids Endoscopist:Tawnya Artis MD Anesthesia:?MAC UPPER ENDOSCOPY Consent: Indications for the procedure and potential complications of bleeding, perforation, reaction to medications and missed diagnosis were discussed with the patient and informed consent was obtained. Instrument: Olympus GIF H 190 mid size upper endoscope Monitoring: Vital signs and clinical assessment, continuous EKG monitoring, Pulse oximetry, Carbon Dioxide monitoring and blood pressure monitoring were done throughout the procedure. Procedure: The patient was placed in the left lateral decubitis position and pre-procedure medications were administered and a bite block was placed. The endoscope was inserted into the mouth and advanced under direct vision to the third part of duodenum. A careful inspection was made as the upper endoscope was withdrawn including a retroflexed examination of the proximal stomach; Findings and interventions are described below. Findings: Larynx: Normal Esophagus: GE junction at 40 cms. Esophagus appeared dilated and aperistaltic No esophagitis or Romero's. Stomach: Moderate diffuse gastric erythema - biopsies were obtained from the gastric body and antrum. A few 8 - 10 mm benign appearing polyps in the gastric body Grade 2 flap valve on retroflexed examination of the cardia. Duodenum: Normal bulb and descending duodenum Biopsies were obtained from descending duodenum to check for celiac sprue Intervention: Biopsies as noted above COLONOSCOPY PROCEDURE NOTE Instrument: Olympus PCF H 190 L variable stiffness pediatric colonoscope Monitoring: Vital signs and clinical assessment, intermittent blood pressure monitoring, continuous EKG monitoring, Pulse oximetry and Carbon Dioxide monitoring were done throughout the procedure. Please see anesthesia flowsheet. Colon withdrawl time was: NA. Procedure: The patient was placed in the left lateral decubitis position and pre-procedure medications were administered. After a digital rectal examination of the ano-rectum, the video colonoscope was inserted into the rectum and advanced through the colon to the mid transverse colon at 90 cms. It was not possible to advance further due to solid stool blocking the lumen. The colonoscope was slowly withdrawn in a retrograde panoramic fashion and the colon mucosa was carefully examined including a retroflexed view of the rectum. Findings and interventions are described below. Procedure Difficulty: without difficulty Findings: Terminal Ileum: Not evaluated Cecum: Not evaluated due to poor prep Ascending Colon: Not evaluated due to poor prep Transverse Colon: Partially evaluated due to suboptimal prep Part of the mucosa was visualized after irrigation and appeared normal without ulcers or inflammation. Random biopsies were obtained. Descending Colon: Partially evaluated due to suboptimal prep Sigmoid Colon: Partially evaluated due to suboptimal prep Part of the mucosa was visualized after irrigation and appeared normal without ulcers or inflammation. Random biopsies were obtained. Rectum: Partially evaluated due to suboptimal prep Ano-rectum: Moderate internal hemorrhoids Colon preparation: Fair to poor despite copious irrigation. [place] Bowel Preparation Scale Right colon; 1 Transverse colon: 1 Left colon; 1 (0 = Unprepared colon segment with mucosa not seen due to solid stool that cannot be cleared. 1 = Portion of mucosa of the colon segment seen, but other areas of the colon segment not well seen due to staining, residual stool and/or opaque liquid. 2 = Minor amount of residual staining, small fragments of stool and/or opaque liquid, but mucosa of colon segment seen well. 3 = Entire mucosa of colon segment seen well with no residual staining, small fragments of stool or opaque liquid) Impression and Post Procedure Diagnosis: Endoscopy Findings: ESOPHAGUS: GE junction at 40 cms. Esophagus appeared dilated and aperistaltic No esophagitis or Romero's. STOMACH: Moderate diffuse gastric erythema - biopsies were obtained from the gastric body and antrum. A few 8 - 10 mm benign appearing polyps in the gastric body DUODENUM: Normal - biopsied to check for celiac sprue. Colonoscopy Findings: Incomplete colonoscopy till mid transverse colon due to poor prep and solid and semisolid stools throughout the colon indicating pt has chronic constipation with paradoxical diarrhea.. Part of the mucosa was visualized after irrigation and appeared normal without ulcers or inflammation. Random biopsies were obtained from the transverse and left colon to rule out microscopic colitis/ IBD. Moderate hemorrhoids on retroflexed exam. Plan: Pt has a FU appointment on 03/19/[address] Wang Repeat Colonoscopy in 2-3 years with a two day prep (since pt had a negative colonoscopy in 2019). Above findings were reviewed with the patient. BIOPSIES SHOWED: A. Small bowel, biopsy: Small intestinal mucosa within normal limits. B. Stomach, antrum, biopsy: Antral-type mucosa with mild chronic inactive inflammation; no Helicobacter organisms seen. C. Stomach, body, biopsy: Oxyntic mucosa with mild chronic inactive inflammation; no Helicobacter organisms seen. D. Stomach, polypectomy: Fundic gland polyp with background mild chronic inactive inflammation; no Helicobacter organisms seen. E. Colon, transverse, biopsy: Melanosis coli; otherwise colonic mucosa within normal limits; negative for microscopic colitis. F. Colon, left, biopsy: Melanosis coli; otherwise colonic mucosa within normal limits; negative for microscopic colitis.
[2024-02-17 19:27] LABS: Anion Gap 13 (12-20); Blood Urea Nitrogen 23 mg/dL (9-16); Calcium 8.8 mg/dL (8.4-10.2); Carbon Dioxide 22 mmol/L (22-29); Chloride 100 mmol/L (96-108); Estimated Glomerular Filt Rate > 60; Glucose Random 102 mg/dL (60-115); Sodium 131 mmol/L (135-145)
[2024-02-17] MEDS: Dextrose 5 % 500 ML 175 ML IVCONT (19:46)
[2024-02-17] MEDS: Pravastatin Sodium 80 MG TABLET PO (21:20)
[2024-02-17] MEDS: Famotidine 20 MG TABLET 40 MG PO (21:20)
[2024-02-17] MEDS: Montelukast Sodium 10 MG TABLET PO (21:20)
[2024-02-17] MEDS: Doxazosin Mesylate 1 MG TABLET PO (21:20)
[2024-02-17 23:54] LABS: Anion Gap 10 (12-20); Blood Urea Nitrogen 17 mg/dL (9-16); Calcium 8.4 mg/dL (8.4-10.2); Carbon Dioxide 23 mmol/L (22-29); Chloride 99 mmol/L (96-108); Creatinine Clr Calc Pharmacy 116.1; Estimated Glomerular Filt Rate > 60; Glucose Random 110 mg/dL (60-115); Potassium 3.7 mmol/L (3.3-5.1); Sodium 128 mmol/L (135-145)
[2024-02-18] MEDS: Dextrose 5 % 500 ML 70 ML IVCONT (00:03)
[2024-02-18 03:23] LABS: Anion Gap 10 (12-20); Blood Urea Nitrogen 15 mg/dL (9-16); Calcium 8.7 mg/dL (8.4-10.2); Carbon Dioxide 22 mmol/L (22-29); Chloride 97 mmol/L (96-108); Creatinine Clr Calc Pharmacy 100.4; Estimated Glomerular Filt Rate > 60; Glucose Random 125 mg/dL (60-115); Potassium 4.2 mmol/L (3.3-5.1); Sodium 125 mmol/L (135-145)
[2024-02-18 03:24] VITALS: BP 120/71; PULSE 59; RESP 16; TEMP 36; O2SAT 94
--- NOTE | 2024-02-18 03:41 | PC.NURSE ---
Pt seen on bed at the start of the shift alert and oriented, denies any pain nor nausea, awaiting for diet order. At 1930 Joseph Lin ordered D5W at 175 ml, Low Sodium diet ordered, IVF later decreased to 125ml/hr at 2009. At 0000 Iz=[id number], result reported to , present IVF decreased to 70 ml/hr. At 0330 Na= 125, result relayed to Dr. Kenny, present IVF was stopped.
[2024-02-18] MEDS: Levothyroxine Sodium 112 MCG TABLET PO (05:12)
[2024-02-18 07:48] VITALS: BP 123/61; PULSE 82; RESP 12; TEMP 36.8; O2SAT 99
[2024-02-18 08:03] LABS: Anion Gap 11 (12-20); Blood Urea Nitrogen 11 mg/dL (9-16); Calcium 8.3 mg/dL (8.4-10.2); Carbon Dioxide 18 mmol/L (22-29); Chloride 98 mmol/L (96-108); Creatinine Clr Calc Pharmacy 121.8; Estimated Glomerular Filt Rate > 60; Glucose Random 116 mg/dL (60-115); Potassium 3.7 mmol/L (3.3-5.1); Sodium 123 mmol/L (135-145)
[2024-02-18] MEDS: 0.9 % Sodium Chloride Flush 3 ML SYRINGE IVFLUSH ×3 (10:05→20:19)
[2024-02-18] MEDS: lamoTRIgine 100 MG TABLET 300 MG PO (10:05)
[2024-02-18] MEDS: Topiramate 25 MG TABLET 150 MG PO ×2 (10:06→20:18)
[2024-02-18] MEDS: DULoxetine HCl 60 MG CAPSULE.DR 120 MG PO (10:06)
[2024-02-18] MEDS: Cholecalciferol (Vitamin D3) 25 MCG TABLET 50 MCG PO (10:06)
[2024-02-18] MEDS: buPROPion HCl XL 150 MG TAB.ER.24H 450 MG PO (10:07)
[2024-02-18] MEDS: Loratadine 10 MG TABLET PO ×2 (10:07→20:19)
[2024-02-18] MEDS: Hydrocortisone 10 MG TABLET PO ×2 (10:07→20:19)
[2024-02-18] MEDS: Potassium Chloride ER 20 MEQ TAB.ER.PRT PO (10:07)
[2024-02-18] MEDS: Cyanocobalamin (Vitamin B-12) 1,000 MCG TABLET 1000 MCG PO (10:07)
[2024-02-18] MEDS: Ascorbic Acid 500 MG TABLET PO (10:07)
[2024-02-18] MEDS: Calcium Carbonate 750 MG TAB.CHEW PO (10:08)
[2024-02-18] MEDS: Sodium Chloride Tab 1 GM TABLET 2 GM PO ×2 (10:08→20:19)
[2024-02-18 11:50] VITALS: BP 122/60; PULSE 63; RESP 18; TEMP 36.6; O2SAT 97
--- NOTE | 2024-02-18 12:08 | HO.PM.IMPN ---
Subjective Subjective Date of Service: 02/18/24 Interval History: seen and evaluated this morning Na at 123 this morning she feels ok, no complaints, no confusion denies any pain tolerating diet Review of Systems Review of Systems: Yes all other systems are reviewed and are negative Physical Exam Vital Signs: Vital Signs: Last Vital Signs Temp 97.9 F 02/18/24 11:50 Pulse 63 02/18/24 11:50 Resp 18 02/18/24 11:50 BP 122/60 02/18/24 11:50 Pulse Ox 97 02/18/24 11:50 O2 Del Method Room Air 02/18/24 11:50 BMI result Body Mass Index 38.7 Const: Other: Constitutional : interactive, not in distress Cardiovascular : no JVP, no lower extremity edema Respiratory : bilateral chest movement, not in resp distress Gastrointestinal: soft, lax, Non tender Skin : Warm, Dry Neurological : Alert & oriented , No focal deficit Objective Data Active Medications Acetaminophen (Acetaminophen 325 Mg Tablet) 650 mg PO Q6H PRN PRN Reason: Pain, Mild (Pain Scale 1-3), fever or headache Last Admin: 02/17/24 16:12 Dose: 650 mg Documented By: DENTON Ascorbic Acid (Ascorbic Acid 500 Mg Tablet) 500 mg PO DAILY [facility] Last Admin: 02/18/24 10:07 Dose: 500 mg Documented By: GI Bupropion HCl (Bupropion Hcl Xl 150 Mg Tab.Er.24h) 450 mg PO DAILY [facility] Last Admin: 02/18/24 10:07 Dose: 450 mg Documented By: GI Calcium Carbonate (Calcium Carbonate 750 Mg Tab.Chew) 750 mg PO DAILY [facility] Last Admin: 02/18/24 10:08 Dose: 750 mg Documented By: GI Clonazepam (Clonazepam 1 Mg Tablet) 1 mg PO BEDTIME PRN PRN Reason: Anxiety Cyanocobalamin (Cyanocobalamin (Vitamin B-12) 1,000 Mcg Tablet) 1,000 mcg PO DAILY [facility] Last Admin: 02/18/24 10:07 Dose: 1,000 mcg Documented By: GI Doxazosin Mesylate (Doxazosin Mesylate 1 Mg Tablet) 1 mg PO BEDTIME [facility] Last Admin: 02/17/24 21:20 Dose: 1 mg Documented By: GOMEZILAdarsh Duloxetine HCl (Duloxetine Hcl 60 Mg Capsule.) 120 mg PO DAILY [facility] Last Admin: 02/18/24 10:06 Dose: 120 mg Documented By: GI Famotidine (Famotidine 20 Mg Tablet) 40 mg PO BEDTIME [facility] Last Admin: 02/17/24 21:20 Dose: 40 mg Documented By: ZONIA Hydrocortisone (Hydrocortisone 10 Mg Tablet) 10 mg PO BID [facility] Last Admin: 02/18/24 10:07 Dose: 10 mg Documented By: GI Lamotrigine (Lamotrigine 100 Mg Tablet) 300 mg PO DAILY [facility] Last Admin: 02/18/24 10:05 Dose: 300 mg Documented By: GI Levothyroxine Sodium (Levothyroxine Sodium 112 Mcg Tablet) 112 mcg PO DAILY@0600 [facility] Last Admin: 02/18/24 05:12 Dose: 112 mcg Documented By: ZONIA Loratadine (Loratadine 10 Mg Tablet) 10 mg PO BID [facility] Last Admin: 02/18/24 10:07 Dose: 10 mg Documented By: GI Magnesium Hydroxide (Milk Of Magnesia 30 Ml Oral.Susp) 30 ml PO DAILY PRN PRN Reason: Constipation Melatonin (Melatonin 3 Mg Tablet) 6 mg PO BEDTIME PRN PRN Reason: Insomnia Last Admin: 02/17/24 01:59 Dose: 6 mg Documented By: THADDEUS Montelukast Sodium (Montelukast Sodium 10 Mg Tablet) 10 mg PO BEDTIME [facility] Last Admin: 02/17/24 21:20 Dose: 10 mg Documented By: ZONIA Naloxone HCl (Naloxone Hcl 0.4 Mg/Ml Vial) 0.04 mg IVPUSH Q5M PRN PRN Reason: Excessive sedation or RR < 8 Non-Formulary Medication (Lubiprostone [Amitiza]) 24 mcg PO DAILY [facility] Ondansetron HCl (Ondansetron Hcl 4 Mg/2 Ml Vial) 4 mg IVPUSH Q8H PRN PRN Reason: Nausea and Vomiting Potassium Chloride (Potassium Chloride Er 20 Meq Tab.Er.Prt) 20 meq PO DAILY [facility] Last Admin: 02/18/24 10:07 Dose: 20 meq Documented By: GI Pravastatin Sodium (Pravastatin Sodium 80 Mg Tablet) 80 mg PO BEDTIME [facility] Last Admin: 02/17/24 21:20 Dose: 80 mg Documented By: CASTILAdarsh Sodium Chloride (0.9 % Sodium Chloride Flush 3 Ml Syringe) 3 ml IVFLUSH QSHIFT [facility] Last Admin: 02/18/24 10:05 Dose: 3 ml Documented By: GI Sodium Chloride (Sodium Chloride Tab 1 Gm Tablet) 2 gm PO BID [facility] Last Admin: 02/18/24 10:08 Dose: 2 gm Documented By: GI Tizanidine HCl (Tizanidine Hcl 4 Mg Tablet) 4 mg PO TID PRN PRN Reason: Muscle Spasm Topiramate (Topiramate 25 Mg Tablet) 150 mg PO BID [facility] Last Admin: 02/18/24 10:06 Dose: 150 mg Documented By: GI Vitamin D (Cholecalciferol (Vitamin D3) 25 Mcg Tablet) 50 mcg PO DAILY [facility] Last Admin: 02/18/24 10:06 Dose: 50 mcg Documented By: GI Labs 02/18/24 06:10 Labs: Laboratory Results - last 24 hr 02/17/24 02/17/24 02/17/24 12:45 15:41 19:02 Hold Purple Top Anion Gap 10 L 13 Estim Creat Clear Calc 104.6 118.0 Estimated GFR > 60 > 60 Random Glucose 109 102 Calcium 9.0 8.8 TSH 0.02 L Free T4 0.96 Random Cortisol 5.9 Ur Specific [place] 1.010 Urine Osmolality 484 Ur Random Sodium 54.0 02/17/24 02/18/24 02/18/24 23:34 03:01 06:10 Hold Purple Top SEE NOTE Anion Gap 10 L 10 L 11 L Estim Creat Clear Calc 116.1 100.4 121.8 Estimated GFR > 60 > 60 > 60 Random Glucose 110 125 H 116 H Calcium 8.4 8.7 8.3 L TSH Free T4 Random Cortisol Ur Specific [place] Urine Osmolality Ur Random Sodium Assessment and Plan (1) Hypokalemia: Status: Acute (2) Acute hyponatremia: Status: Acute Plan A 63 years old lady with PMH of diabetes insipidus, GERD, anxiety, hypothyroidism, asthma among others who presents for elective colonoscopy and found to have low sodium level with reported weakness. Acute on chronic hyponatremia secondary to dehydration and hx of adrenal insuffeciency Na at 123 water restriction DC Urea, continue salt tab nephrology following repeat BMP w goal of Na of 126-129 Acute hypokalemia replacement given repeat BMP Abnormal bowel habit EGD and colonoscopy done by GI reporting: Gastritis, gastric polyp, hemorroids and Poor prep colonoscopy follow up as OP with GI DVT PPx SCDs for hemorroids and post menopausal bleeding The patient will likely need overnight hospital stay for treatment of electrolytes imbalance pending correction of sodium level Quality Stroke Does the patient have a stroke diagnosis?: No VTE Prior VTE?: No VTE Risk Level:: Medical - moderate - high VTE Device Contraindication: N/A - Device Ordered VTE Drug Contraindication: Treatment Not Indicated
[2024-02-18] MEDS: Acetaminophen 325 MG TABLET 650 MG PO (12:11)
[2024-02-18 13:34] LABS: Anion Gap 11 (12-20); Blood Urea Nitrogen 9 mg/dL (9-16); Calcium 8.7 mg/dL (8.4-10.2); Carbon Dioxide 19 mmol/L (22-29); Chloride 98 mmol/L (96-108); Creatinine Clr Calc Pharmacy 110.9; Estimated Glomerular Filt Rate > 60; Glucose Random 103 mg/dL (60-115); Potassium 4.1 mmol/L (3.3-5.1); Sodium 124 mmol/L (135-145)
--- NOTE | 2024-02-18 14:37 | HO.POSTANES ---
Post Anesthesia Evaluation Post Anesthesia Evaluation Date of Service: 02/17/24 Vital Signs: Vital Signs Temp Pulse Resp BP Pulse Ox O2 Del Method 02/18/24 11:50 97.9 F 63 18 122/60 97 Room Air 02/18/24 07:48 98.2 F 82 12 123/61 99 Room Air 02/18/24 03:24 96.8 F 59 16 120/71 94 Room Air Anesthesia: Monitored Mental Status: Awake Pain Control: Satisfactory Nausea/Vomiting: None Hydration: Adequate Anesthesia-Related Issues: No Anes. Related Issues
[2024-02-18 15:13] VITALS: BP 123/61; PULSE 67; RESP 18; TEMP 36.8; O2SAT 100
[2024-02-18 19:26] VITALS: BP 109/60; PULSE 73; RESP 18; TEMP 36.7; O2SAT 98
[2024-02-18 20:18] VITALS: BP 109/60
[2024-02-18] MEDS: Famotidine 20 MG TABLET 40 MG PO (20:18)
[2024-02-18] MEDS: Doxazosin Mesylate 1 MG TABLET PO (20:18)
[2024-02-18] MEDS: Pravastatin Sodium 80 MG TABLET PO (20:19)
[2024-02-18] MEDS: Montelukast Sodium 10 MG TABLET PO (20:19)
[2024-02-18] MEDS: Psyllium seed 3.7 GM PACKET PO (20:19)
[2024-02-18 21:06] LABS: Anion Gap 12 (12-20); Blood Urea Nitrogen 8 mg/dL (9-16); Calcium 8.4 mg/dL (8.4-10.2); Carbon Dioxide 17 mmol/L (22-29); Chloride 101 mmol/L (96-108); Creatinine Clr Calc Pharmacy 112.6; Estimated Glomerular Filt Rate > 60; Glucose Random 95 mg/dL (60-115); Potassium 4.8 mmol/L (3.3-5.1); Sodium 125 mmol/L (135-145)
[2024-02-19] VITALS (7 sets, daily range): BP systolic 109–129; BP diastolic 56–65; PULSE 59–83; RESP 16–20; TEMP 36–36.6; O2SAT 95–100
[2024-02-19] MEDS: Acetaminophen 325 MG TABLET 650 MG PO ×2 (01:20→07:43)
[2024-02-19] MEDS: Levothyroxine Sodium 112 MCG TABLET PO (05:41)
[2024-02-19 07:03] LABS: MANUAL DIFF FLAG NO
[2024-02-19 07:19] LABS: Anion Gap 10 (12-20); Blood Urea Nitrogen 6 mg/dL (9-16); Calcium 8.6 mg/dL (8.4-10.2); Carbon Dioxide 22 mmol/L (22-29); Chloride 96 mmol/L (96-108); Creatinine Clr Calc Pharmacy 107.7; Estimated Glomerular Filt Rate > 60; Glucose Random 98 mg/dL (60-115); Potassium 3.9 mmol/L (3.3-5.1); Sodium 124 mmol/L (135-145)
[2024-02-19 07:27] LABS: Hemoglobin 11.9 g/dl (12.0-16.0); Red Blood Count 3.92 X10*6/uL (4.20-5.50); White Blood Count 6.4 X10*3/uL (4.8-10.8)
[2024-02-19 07:28] LABS: Basophils Percent Auto 0.3 % (0-2); Eosinophils Absolute Auto 0.1 X10*3/uL (0.0-0.4); Eosinophils Percent Auto 1.7 % (0-4); Imm Gran Abs Auto 0.03 X10*3/uL (0.00-0.03); Imm Gran Pct Auto 0.5 % (0.0-0.4); Lymphocytes Absolute Auto 3.1 X10*3/uL (1.2-4.9); Lymphocytes Percent Auto 48.5 % (20-40); Mean Corpuscular Hemoglobin 30.4 pg (27.0-33.0); Mean Corpuscular Volume 86.7 fL (80.0-98.0); Mean Platelet Volume 10.7 fL (9.4-12.3); Monocytes Absolute Auto 0.5 X10*3/uL (0.1-1.2); Monocytes Percent Auto 7.7 % (2-11); Neutrophils Absolute Auto 2.6 x10*3/uL (2.0-8.3); Neutrophils Percent Auto 41.3 % (45-73); Platelet Count 180 X10*3/uL (160-400); Red Cell Distribution Width 12.6 % (11.0-16.0)
[2024-02-19] MEDS: 0.9 % Sodium Chloride Flush 3 ML SYRINGE IVFLUSH ×3 (07:41→22:11)
[2024-02-19] MEDS: buPROPion HCl XL 150 MG TAB.ER.24H 450 MG PO (07:42)
[2024-02-19] MEDS: Calcium Carbonate 750 MG TAB.CHEW PO (07:42)
[2024-02-19] MEDS: Ascorbic Acid 500 MG TABLET PO (07:42)
[2024-02-19] MEDS: DULoxetine HCl 60 MG CAPSULE.DR 120 MG PO (07:42)
[2024-02-19] MEDS: Topiramate 25 MG TABLET 150 MG PO ×2 (07:42→20:07)
[2024-02-19] MEDS: Sodium Chloride Tab 1 GM TABLET 2 GM PO ×2 (07:42→20:08)
[2024-02-19] MEDS: Cholecalciferol (Vitamin D3) 25 MCG TABLET 50 MCG PO (07:43)
[2024-02-19] MEDS: lamoTRIgine 100 MG TABLET 300 MG PO (07:43)
[2024-02-19] MEDS: Potassium Chloride ER 20 MEQ TAB.ER.PRT PO (07:43)
[2024-02-19] MEDS: Cyanocobalamin (Vitamin B-12) 1,000 MCG TABLET 1000 MCG PO (07:44)
[2024-02-19] MEDS: Loratadine 10 MG TABLET PO ×2 (07:44→20:08)
[2024-02-19] MEDS: Hydrocortisone 10 MG TABLET PO ×2 (07:44→20:08)
--- NOTE | 2024-02-19 10:22 | P.PNIM_ITS ---
Subjective Subjective Date of Service: 02/19/24 Interval History: seen and evaluated this morning Na at 124 this morning she feels weak overall and reports nausea denies any pain tolerating diet Review of Systems Review of Systems: Yes all other systems are reviewed and are negative Physical Exam 2 Vital Signs: Vital Signs: Last Vital Signs Temp 97.1 F 02/19/24 07:13 Pulse 59 02/19/24 07:13 Resp 18 02/19/24 07:13 BP 121/60 02/19/24 07:13 Pulse Ox 100 02/19/24 07:13 O2 Del Method Room Air 02/19/24 07:13 BMI result Body Mass Index 38.7 Const: Other: Constitutional : interactive, not in distress Cardiovascular : no JVP, no lower extremity edema Respiratory : bilateral chest movement, not in resp distress Gastrointestinal: soft, lax, Non tender Skin : Warm, Dry Neurological : Alert & oriented , No focal deficit Objective Data Active Medications Acetaminophen (Acetaminophen 325 Mg Tablet) 650 mg PO Q6H PRN PRN Reason: Pain, Mild (Pain Scale 1-3), fever or headache Last Admin: 02/19/24 07:43 Dose: 650 mg Documented By: GI Ascorbic Acid (Ascorbic Acid 500 Mg Tablet) 500 mg PO DAILY [facility] Last Admin: 02/19/24 07:42 Dose: 500 mg Documented By: GI Bupropion HCl (Bupropion Hcl Xl 150 Mg Tab.Er.24h) 450 mg PO DAILY [facility] Last Admin: 02/19/24 07:42 Dose: 450 mg Documented By: GI Calcium Carbonate (Calcium Carbonate 750 Mg Tab.Chew) 750 mg PO DAILY [facility] Last Admin: 02/19/24 07:42 Dose: 750 mg Documented By: GI Clonazepam (Clonazepam 1 Mg Tablet) 1 mg PO BEDTIME PRN PRN Reason: Anxiety Cyanocobalamin (Cyanocobalamin (Vitamin B-12) 1,000 Mcg Tablet) 1,000 mcg PO DAILY [facility] Last Admin: 02/19/24 07:44 Dose: 1,000 mcg Documented By: GI Doxazosin Mesylate (Doxazosin Mesylate 1 Mg Tablet) 1 mg PO BEDTIME [facility] Last Admin: 02/18/24 20:18 Dose: 1 mg Documented By: CASTILAdarsh Duloxetine HCl (Duloxetine Hcl 60 Mg Capsule.Dr) 120 mg PO DAILY [facility] Last Admin: 02/19/24 07:42 Dose: 120 mg Documented By: GI Famotidine (Famotidine 20 Mg Tablet) 40 mg PO BEDTIME [facility] Last Admin: 02/18/24 20:18 Dose: 40 mg Documented By: ZONIA Hydrocortisone (Hydrocortisone 10 Mg Tablet) 10 mg PO BID [facility] Last Admin: 02/19/24 07:44 Dose: 10 mg Documented By: GI Lamotrigine (Lamotrigine 100 Mg Tablet) 300 mg PO DAILY [facility] Last Admin: 02/19/24 07:43 Dose: 300 mg Documented By: GI Levothyroxine Sodium (Levothyroxine Sodium 112 Mcg Tablet) 112 mcg PO DAILY@0600 [facility] Last Admin: 02/19/24 05:41 Dose: 112 mcg Documented By: ZONIA Loratadine (Loratadine 10 Mg Tablet) 10 mg PO BID [facility] Last Admin: 02/19/24 07:44 Dose: 10 mg Documented By: GI Magnesium Hydroxide (Milk Of Magnesia 30 Ml Oral.Susp) 30 ml PO DAILY PRN PRN Reason: Constipation Melatonin (Melatonin 3 Mg Tablet) 6 mg PO BEDTIME PRN PRN Reason: Insomnia Last Admin: 02/17/24 01:59 Dose: 6 mg Documented By: THADDEUS Montelukast Sodium (Montelukast Sodium 10 Mg Tablet) 10 mg PO BEDTIME [facility] Last Admin: 02/18/24 20:19 Dose: 10 mg Documented By: ZONIA Naloxone HCl (Naloxone Hcl 0.4 Mg/Ml Vial) 0.04 mg IVPUSH Q5M PRN PRN Reason: Excessive sedation or RR < 8 Non-Formulary Medication (Lubiprostone [Amitiza]) 24 mcg PO DAILY [facility] Ondansetron HCl (Ondansetron Hcl 4 Mg/2 Ml Vial) 4 mg IVPUSH Q8H PRN PRN Reason: Nausea and Vomiting Potassium Chloride (Potassium Chloride Er 20 Meq Tab.Er.Prt) 20 meq PO DAILY [facility] Last Admin: 02/19/24 07:43 Dose: 20 meq Documented By: GI Pravastatin Sodium (Pravastatin Sodium 80 Mg Tablet) 80 mg PO BEDTIME [facility] Last Admin: 02/18/24 20:19 Dose: 80 mg Documented By: ZONIA Psyllium Hydrophilic Mucilloid (Psyllium Seed 3.7 Gm Packet) 3.7 gm PO BEDTIME [facility] Last Admin: 02/18/24 20:19 Dose: 3.7 gm Documented By: ZONIA Sodium Chloride (0.9 % Sodium Chloride Flush 3 Ml Syringe) 3 ml IVFLUSH QSHIFT [facility] Last Admin: 02/19/24 07:41 Dose: 3 ml Documented By: GI Sodium Chloride (Sodium Chloride Tab 1 Gm Tablet) 2 gm PO BID [facility] Last Admin: 02/19/24 07:42 Dose: 2 gm Documented By: GI Tizanidine HCl (Tizanidine Hcl 4 Mg Tablet) 4 mg PO TID PRN PRN Reason: Muscle Spasm Topiramate (Topiramate 25 Mg Tablet) 150 mg PO BID [facility] Last Admin: 02/19/24 07:42 Dose: 150 mg Documented By: GI Vitamin D (Cholecalciferol (Vitamin D3) 25 Mcg Tablet) 50 mcg PO DAILY [facility] Last Admin: 02/19/24 07:43 Dose: 50 mcg Documented By: GI Labs 02/19/24 06:36 02/19/24 06:36 Labs: Laboratory Results - last 24 hr 02/18/24 02/18/24 02/19/24 13:08 20:44 06:36 MCV 86.7 MCH 30.4 MCHC 35.0 RDW 12.6 Plt Count 180 D MPV 10.7 Immature Gran % (Auto) 0.5 H Neut % (Auto) 41.3 L Lymph % (Auto) 48.5 H [place] % (Auto) 7.7 Eos % (Auto) 1.7 Baso % (Auto) 0.3 Lymph # (Auto) 3.1 [place] # (Auto) 0.5 Eos # (Auto) 0.1 Baso # (Auto) 0.0 Abs Immat Gran (auto) 0.03 Absolute Neuts (auto) 2.6 Absolute Nucleated RBC 0.000 Nucleated RBC % (auto) 0.0 Anion Gap 11 L 12 10 L Estim Creat Clear Calc 110.9 112.6 107.7 Estimated GFR > 60 > 60 > 60 Random Glucose 103 95 98 Calcium 8.7 8.4 8.6 Assessment and Plan (1) Acute hyponatremia: Status: Acute Plan A 63 years old lady with PMH of diabetes insipidus, GERD, anxiety, hypothyroidism, asthma among others who presents for elective colonoscopy and found to have low sodium level with reported weakness. Acute on chronic hyponatremia secondary to dehydration and hx of adrenal insuffeciency Na at 124 regular diet, water restriction give Urea, continue salt tab nephrology following repeat BMP w goal of Na of 126-129 Acute hypokalemia replacement given, repeat BMP Abnormal bowel habit EGD and colonoscopy done by GI reporting: Gastritis, gastric polyp, hemorroids and Poor prep colonoscopy follow up as OP with GI DVT PPx SCDs for hemorroids and post menopausal bleeding The patient will likely need overnight hospital stay for treatment of electrolytes imbalance pending correction of sodium level Quality Stroke Does the patient have a stroke diagnosis?: No VTE Prior VTE?: No VTE Risk Level:: Medical - moderate - high VTE Device Contraindication: N/A - Device Ordered VTE Drug Contraindication: Treatment Not Indicated
[2024-02-19] MEDS: Urea 15 GM POWDER 30 GM PO ×2 (10:45→20:07)
[2024-02-19] MEDS: ondansetron HCL 4 MG/2 ML VIAL IVPUSH (10:45)
[2024-02-19 13:56] LABS: Anion Gap 10 (12-20); Blood Urea Nitrogen 31 mg/dL (9-16); Carbon Dioxide 21 mmol/L (22-29); Chloride 99 mmol/L (96-108); Creatinine Clr Calc Pharmacy 110.9; Estimated Glomerular Filt Rate > 60; Glucose Random 109 mg/dL (60-115); Potassium 3.8 mmol/L (3.3-5.1); Sodium 126 mmol/L (135-145)
[2024-02-19] MEDS: Psyllium seed 3.7 GM PACKET PO (20:07)
[2024-02-19] MEDS: Famotidine 20 MG TABLET 40 MG PO (20:07)
[2024-02-19] MEDS: Doxazosin Mesylate 1 MG TABLET PO (20:08)
[2024-02-19] MEDS: Pravastatin Sodium 80 MG TABLET PO (20:08)
[2024-02-19] MEDS: Montelukast Sodium 10 MG TABLET PO (20:08)
[2024-02-20] VITALS (9 sets, daily range): BP systolic 84–121; BP diastolic 50–71; PULSE 70–104; RESP 16–20; TEMP 36.6–37.2; O2SAT 93–99
[2024-02-20 05:58] LABS: Anion Gap 14 (12-20); Blood Urea Nitrogen 25 mg/dL (9-16); Carbon Dioxide 20 mmol/L (22-29); Chloride 95 mmol/L (96-108); Creatinine Clr Calc Pharmacy 104.6; Estimated Glomerular Filt Rate > 60; Glucose Random 118 mg/dL (60-115); Sodium 125 mmol/L (135-145)
[2024-02-20] MEDS: Levothyroxine Sodium 112 MCG TABLET PO (06:00)
[2024-02-20] MEDS: Urea 15 GM POWDER 30 GM PO (08:07)
[2024-02-20] MEDS: Potassium Chloride ER 20 MEQ TAB.ER.PRT PO (08:08)
[2024-02-20] MEDS: DULoxetine HCl 60 MG CAPSULE.DR 120 MG PO (08:08)
[2024-02-20] MEDS: Topiramate 25 MG TABLET 150 MG PO ×2 (08:08→20:17)
[2024-02-20] MEDS: Calcium Carbonate 750 MG TAB.CHEW PO (08:08)
[2024-02-20] MEDS: Sodium Chloride Tab 1 GM TABLET 2 GM PO (08:08)
[2024-02-20] MEDS: Cholecalciferol (Vitamin D3) 25 MCG TABLET 50 MCG PO (08:08)
[2024-02-20] MEDS: Ascorbic Acid 500 MG TABLET PO (08:08)
[2024-02-20] MEDS: buPROPion HCl XL 150 MG TAB.ER.24H 450 MG PO (08:08)
[2024-02-20] MEDS: Hydrocortisone 10 MG TABLET PO ×2 (08:09→20:17)
[2024-02-20] MEDS: 0.9 % Sodium Chloride Flush 3 ML SYRINGE IVFLUSH ×2 (08:09→15:07)
[2024-02-20] MEDS: Cyanocobalamin (Vitamin B-12) 1,000 MCG TABLET 1000 MCG PO (08:09)
[2024-02-20] MEDS: Loratadine 10 MG TABLET PO ×2 (08:09→20:17)
[2024-02-20] MEDS: lamoTRIgine 100 MG TABLET 300 MG PO (08:09)
[2024-02-20] MEDS: Acetaminophen 325 MG TABLET 650 MG PO (08:21)
--- NOTE | 2024-02-20 09:00 | P.PNNP_ITS ---
Subjective Subjective Date of Service: 02/20/24 Interval history: 63 y/o female with a medical history of secondary hypothyroidism, diabetes insipidus and adrenal insufficiency (hx pituitary mass, sees [facility] for management), anxiety, depression, hypothyroidism, asthma, obesity, sleep apnea, osteoarthris, IBS, hypercholesterolemia. Presented for colonoscopy 02/15 for constipation workup per pt. Was found to have sodium of 124 and some weakness x1 week. Nephrology consulted for hyponatremia management. 02/16 sodium 119, corrected to 128 in 10 hours so D5W started to slow correction. Has since been d/c'd. Sodium has been 124-126 since that time. 02/19 sodium is 125 renal function remains normal patient has been on fluid restriction of 1.2L, reports less UOP with fluid restriction she had reported drinking eight 16 ounce bottles of water most days prior to her admission She sees [facility] end[facility]in[facility]. 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 Per notes she has had intermittent hyponatremia as well. she was taking oral desmopressin 0.05mg BID, though unclear to endo whether patient was taking or not at home; pt unsure today. She is taking hydrocortisone 10mg BID for adrenal insufficiency, and 112mcg levothyroxine daily for hypothyroidism. T4 and cortisol are within normal limits. she reports nausea and left lower abdominal pain today has continued. reports some sensation of dyspnea. denies other pain outside of lower abdominal pain. She states she has had chronic issue with sensation of incomplete bladder emptying, reports seen by urology and workup negative for incomplete bladder emptying with PVR of 0mL. She had a renal ultrasound in November which was unremarkable without hydronephrosis/obstruction. Physical Exam 2 Vital Signs: Vital Signs: Last Vital Signs Temp 98 F 02/20/24 07:38 Pulse 86 02/20/24 07:38 Resp 16 02/20/24 07:38 BP 106/61 02/20/24 07:38 Pulse Ox 94 02/20/24 07:38 O2 Del Method Room Air 02/20/24 07:38 BMI result Body Mass Index 38.7 Const: General: no acute distress, alert and awake Resp: Effort & Inspection: normal respiratory effort and able to speak in complete sentences Auscultation: clear to auscultation bilaterally Cardio: Jugular venous distension: no JVD Rate: regular rate Rhythm: r egular rhythm Heart sounds: S1 normal heart sound present and S2 normal heart sound present GI: Palpation (GI): Soft to palpation and Tenderness to palpation present (GI) (tenderness across lower abdomen to palpation) : General: Yes no CVA tenderness Back/Spine/Pelvis: Back: no CVA tenderness Skin: Rashes: no rashes Extrem: General: No edema Objective Data Labs 02/19/24 06:36 02/20/24 05:38 Labs: Laboratory Results - last 24 hr 02/19/24 02/20/24 13:37 05:38 Hold Purple Top SEE NOTE Sodium 126 L 125 L Potassium 3.8 4.0 Chloride 99 95 L Carbon Dioxide 21 L 20 L Anion Gap 10 L 14 BUN 31 H 25 H Creatinine 0.67 0.71 Estim Creat Clear Calc 110.9 104.6 Estimated GFR > 60 > 60 Random Glucose 109 118 H Calcium 9.0 9.0 Procedures Date of Service Date of Service: 02/20/24 Assessment & Plan Assessment and plan (1) Acute hyponatremia: Status: Acute Plan hyponatremia likely multifactorial stable likely has some excess ADH given ongoing nausea, antidepressents may be contributing. will check serum osmolality and re-check urine osmolality- previous may have been affected by DDAVP will also get 24 hour urine to assess sodium, creatinine and volume fluids restriction 1.2L/24hrs, given pt has some orthostasis, ok to start NS at 50-60mL/hr (total 1L), this may correct sodium faster so should check sodium level every 4 hours avoid rapid sodium correction- no more than 0.5mmol/L/hr or 10mmol/24hr Discussed with Dr Guzmán Time Spent With Patient Time: Total time managing care of this patient today ____ minutes. Progress Note: Quality Stroke Does the patient have a stroke diagnosis?: No
[2024-02-20] MEDS: polyethylene glycoL 3350 17 GM POWD.PACK PO (10:37)
[2024-02-20 11:07] LABS: Osmolality, Serum 277 mosm/kg (281-305)
[2024-02-20 14:15] LABS: Osmolality Urine 725 mosm/kg (373-1093)
[2024-02-20 14:23] LABS: Anion Gap 9 (12-20); Blood Urea Nitrogen 36 mg/dL (9-16); Calcium 8.8 mg/dL (8.4-10.2); Carbon Dioxide 22 mmol/L (22-29); Chloride 99 mmol/L (96-108); Creatinine Clr Calc Pharmacy 87.4; Estimated Glomerular Filt Rate > 60; Glucose Random 140 mg/dL (60-115); Sodium 126 mmol/L (135-145)
--- NOTE | 2024-02-20 14:48 | HO.PM.IMPN ---
Subjective Subjective Date of Service: 02/20/24 Interval History: seen and evaluated this morning Na improved to 126 she feels weak overall and reports less nausea denies any pain tolerating diet Review of Systems Review of Systems: Yes all other systems are reviewed and are negative Physical Exam Vital Signs: Vital Signs: Last Vital Signs Temp 98 F 02/20/24 07:38 Pulse 87 02/20/24 11:44 Resp 18 02/20/24 11:44 BP 100/67 02/20/24 11:44 Pulse Ox 93 02/20/24 11:44 O2 Del Method Room Air 02/20/24 11:44 BMI result Body Mass Index 38.7 Const: Other: Constitutional : interactive, not in distress Cardiovascular : no JVP, no lower extremity edema Respiratory : bilateral chest movement, not in resp distress Gastrointestinal: soft, lax, Non tender Skin : Warm, Dry Neurological : Alert & oriented , No focal deficit Objective Data Active Medications Acetaminophen (Acetaminophen 325 Mg Tablet) 650 mg PO Q6H PRN PRN Reason: Pain, Mild (Pain Scale 1-3), fever or headache Last Admin: 02/20/24 08:21 Dose: 650 mg Documented By: MOSES Ascorbic Acid (Ascorbic Acid 500 Mg Tablet) 500 mg PO DAILY [facility] Last Admin: 02/20/24 08:08 Dose: 500 mg Documented By: MOSES Bupropion HCl (Bupropion Hcl Xl 150 Mg Tab.Er.24h) 450 mg PO DAILY [facility] Last Admin: 02/20/24 08:08 Dose: 450 mg Documented By: MOSES Calcium Carbonate (Calcium Carbonate 750 Mg Tab.Chew) 750 mg PO DAILY [facility] Last Admin: 02/20/24 08:08 Dose: 750 mg Documented By: MOSES Clonazepam (Clonazepam 1 Mg Tablet) 1 mg PO BEDTIME PRN PRN Reason: Anxiety Cyanocobalamin (Cyanocobalamin (Vitamin B-12) 1,000 Mcg Tablet) 1,000 mcg PO DAILY [facility] Last Admin: 02/20/24 08:09 Dose: 1,000 mcg Documented By: MOSES Doxazosin Mesylate (Doxazosin Mesylate 1 Mg Tablet) 1 mg PO BEDTIME [facility] Last Admin: 02/19/24 20:08 Dose: 1 mg Documented By: KAREN Duloxetine HCl (Duloxetine Hcl 60 Mg Capsule.Dr) 120 mg PO DAILY [facility] Last Admin: 02/20/24 08:08 Dose: 120 mg Documented By: MOSES Famotidine (Famotidine 20 Mg Tablet) 40 mg PO BEDTIME [facility] Last Admin: 02/19/24 20:07 Dose: 40 mg Documented By: KAREN Hydrocortisone (Hydrocortisone 10 Mg Tablet) 10 mg PO BID [facility] Last Admin: 02/20/24 08:09 Dose: 10 mg Documented By: MOSES Lamotrigine (Lamotrigine 100 Mg Tablet) 300 mg PO DAILY [facility] Last Admin: 02/20/24 08:09 Dose: 300 mg Documented By: MOSES Levothyroxine Sodium (Levothyroxine Sodium 112 Mcg Tablet) 112 mcg PO DAILY@0600 [facility] Last Admin: 02/20/24 06:00 Dose: 112 mcg Documented By: KAREN Loratadine (Loratadine 10 Mg Tablet) 10 mg PO BID [facility] Last Admin: 02/20/24 08:09 Dose: 10 mg Documented By: MOSES Magnesium Hydroxide (Milk Of Magnesia 30 Ml Oral.Susp) 30 ml PO DAILY PRN PRN Reason: Constipation Melatonin (Melatonin 3 Mg Tablet) 6 mg PO BEDTIME PRN PRN Reason: Insomnia Last Admin: 02/17/24 01:59 Dose: 6 mg Documented By: THADDEUS Montelukast Sodium (Montelukast Sodium 10 Mg Tablet) 10 mg PO BEDTIME [facility] Last Admin: 02/19/24 20:08 Dose: 10 mg Documented By: KAREN Naloxone HCl (Naloxone Hcl 0.4 Mg/Ml Vial) 0.04 mg IVPUSH Q5M PRN PRN Reason: Excessive sedation or RR < 8 Non-Formulary Medication (Lubiprostone [Amitiza]) 24 mcg PO DAILY [facility] Ondansetron HCl (Ondansetron Hcl 4 Mg/2 Ml Vial) 4 mg IVPUSH Q8H PRN PRN Reason: Nausea and Vomiting Polyethylene Glycol (Polyethylene Glycol 3350 17 Gm Powd.Pack) 17 gm PO DAILY [facility] Last Admin: 02/20/24 10:37 Dose: 17 gm Documented By: MOSES Potassium Chloride (Potassium Chloride Er 20 Meq Tab.Er.Prt) 20 meq PO DAILY [facility] Last Admin: 02/20/24 08:08 Dose: 20 meq Documented By: MOSES Pravastatin Sodium (Pravastatin Sodium 80 Mg Tablet) 80 mg PO BEDTIME [facility] Last Admin: 02/19/24 20:08 Dose: 80 mg Documented By: KAREN Psyllium Hydrophilic Mucilloid (Psyllium Seed 3.7 Gm Packet) 3.7 gm PO BEDTIME [facility] Last Admin: 02/19/24 20:07 Dose: 3.7 gm Documented By: KAREN Sodium Chloride (0.9 % Sodium Chloride Flush 3 Ml Syringe) 3 ml IVFLUSH QSHIFT [facility] Last Admin: 02/20/24 08:09 Dose: 3 ml Documented By: MOSES Tizanidine HCl (Tizanidine Hcl 4 Mg Tablet) 4 mg PO TID PRN PRN Reason: Muscle Spasm Topiramate (Topiramate 25 Mg Tablet) 150 mg PO BID [facility] Last Admin: 02/20/24 08:08 Dose: 150 mg Documented By: MOSES Vitamin D (Cholecalciferol (Vitamin D3) 25 Mcg Tablet) 50 mcg PO DAILY [facility] Last Admin: 02/20/24 08:08 Dose: 50 mcg Documented By: MOSES Labs 02/19/24 06:36 02/20/24 13:56 Labs: Laboratory Results - last 24 hr 02/20/24 02/20/24 02/20/24 05:38 10:24 13:42 Hold Purple Top SEE NOTE Anion Gap 14 Estim Creat Clear Calc 104.6 Estimated GFR > 60 Random Glucose 118 H Osmolality 277 L Calcium 9.0 Urine Osmolality 725 02/20/24 13:56 Hold Purple Top Anion Gap 9 L Estim Creat Clear Calc 87.4 Estimated GFR > 60 Random Glucose 140 H Osmolality Calcium 8.8 Urine Osmolality Assessment and Plan (1) Hypokalemia: Status: Acute (2) Acute hyponatremia: Status: Acute Plan A 63 years old lady with PMH of diabetes insipidus, GERD, anxiety, hypothyroidism, asthma among others who presents for elective colonoscopy and found to have low sodium level with reported weakness. Acute on chronic hyponatremia secondary to dehydration, SIADH and hx of adrenal insuffeciency Patient BP runs soft, reported dizziness while standing Na at 126 this afternoon regular diet, water restriction give Urea, continue salt tab check 24 hour urine to assess sodium, creatinine and volume nephrology following, can give 60cc NS and monitor closely repeat BMP w goal of Na of 126-130 Acute hypokalemia replacement given, repeat BMP Abnormal bowel habit EGD and colonoscopy done by GI reporting: Gastritis, gastric polyp, hemorroids and Poor prep colonoscopy follow up as OP with GI DVT PPx SCDs for hemorroids and post menopausal bleeding The patient will likely need overnight hospital stay for treatment of electrolytes imbalance pending correction of sodium level Quality Stroke Does the patient have a stroke diagnosis?: No VTE Prior VTE?: No VTE Risk Level:: Medical - moderate - high VTE Device Contraindication: N/A - Device Ordered VTE Drug Contraindication: Treatment Not Indicated
[2024-02-20] MEDS: 0.9 % Sodium Chloride 1,000 ML 60 ML IVCONT (15:02)
[2024-02-20] MEDS: Montelukast Sodium 10 MG TABLET PO (20:17)
[2024-02-20] MEDS: Psyllium seed 3.7 GM PACKET PO (20:17)
[2024-02-20] MEDS: Doxazosin Mesylate 1 MG TABLET PO (20:17)
[2024-02-20] MEDS: Pravastatin Sodium 80 MG TABLET PO (20:17)
[2024-02-20] MEDS: Famotidine 20 MG TABLET 40 MG PO (20:17)
[2024-02-20 20:42] LABS: Anion Gap 8 (12-20); Blood Urea Nitrogen 28 mg/dL (9-16); Calcium 8.6 mg/dL (8.4-10.2); Carbon Dioxide 25 mmol/L (22-29); Chloride 97 mmol/L (96-108); Creatinine Clr Calc Pharmacy 88.5; Estimated Glomerular Filt Rate > 60; Glucose Random 93 mg/dL (60-115); Sodium 126 mmol/L (135-145)
[2024-02-21] MEDS: Acetaminophen 325 MG TABLET 650 MG PO (00:46)
[2024-02-21 03:30] VITALS: BP 104/57; PULSE 64; RESP 18; TEMP 36.6; O2SAT 95
[2024-02-21] MEDS: Levothyroxine Sodium 112 MCG TABLET PO (05:43)
[2024-02-21 07:22] VITALS: BP 95/60; PULSE 59; RESP 16; TEMP 36; O2SAT 100
--- NOTE | 2024-02-21 08:45 | PM.PNNEP ---
Subjective Subjective Date of Service: 02/21/24 Interval history: 63 y/o female with a medical history of secondary hypothyroidism, diabetes insipidus and adrenal insufficiency (hx pituitary mass, sees [facility] for management), anxiety, depression, hypothyroidism, asthma, obesity, sleep apnea, osteoarthris, IBS, hypercholesterolemia. Presented for colonoscopy 02/15 for constipation workup per pt. Was found to have sodium of 124 and some weakness x1 week. Nephrology consulted for hyponatremia management. 02/16 sodium 119, corrected to 128 in 10 hours so D5W started to slow correction. Has since been d/c'd. 02/19 sodium is 125 02/20 sodium is 129 (NS at 60mL/hr yesterday, discontinued). renal function remains normal patient has been on fluid restriction of 1.2L she had reported drinking eight 16 ounce bottles of water most days prior to her admission She sees [facility] endocrinology. 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 Per notes she has had intermittent hyponatremia as well. she was taking oral desmopressin 0.05mg BID, though unclear to endo whether patient was taking or not at home; pt unsure today. She is taking hydrocortisone 10mg BID for adrenal insufficiency, and 112mcg levothyroxine daily for hypothyroidism. T4 and cortisol are within normal limits. she reports nausea is improving, left lower abdominal pain persists/the same as yesterday. reports some sensation of dyspnea. denies other pain outside of lower abdominal pain. reports remains weak and tired. Denies other symptoms/concerns. Physical Exam Vital Signs: Vital Signs: Last Vital Signs Temp 96.8 F 02/21/24 07:22 Pulse 59 02/21/24 07:22 Resp 16 02/21/24 07:22 BP 95/60 02/21/24 07:22 Pulse Ox 100 02/21/24 07:22 O2 Del Method Room Air 02/21/24 07:22 BMI result Body Mass Index 38.7 Const: General: no acute distress, alert and awake Resp: Effort & Inspection: normal respiratory effort and able to speak in complete sentences Auscultation: clear to auscultation bilaterally Cardio: Jugular venous distension: no JVD Rate: regular rate Rhythm: regular rhythm Heart sounds: S1 normal heart sound present and S2 normal heart sound present GI: Palpation (GI): Soft to palpation and Tenderness to palpation present (GI) (tenderness across lower abdomen to palpation) : General: Yes no CVA tenderness Back/Spine/Pelvis: Back: no CVA tenderness Skin: Rashes: no rashes Extrem: General: No edema Objective Data Labs 02/19/24 06:36 02/21/24 08:48 Labs: Laboratory Results - last 24 hr 02/20/24 02/20/24 02/20/24 10:24 13:42 13:56 Sodium 126 L Potassium 4.0 Chloride 99 Carbon Dioxide 22 Anion Gap 9 L BUN 36 H Creatinine 0.85 Estim Creat Clear Calc 87.4 Estimated GFR > 60 Random Glucose 140 H Osmolality 277 L Calcium 8.8 Urine Osmolality 725 02/20/24 02/21/24 19:57 08:48 Sodium 126 L 129 L Potassium 4.0 3.5 Chloride 97 99 Carbon Dioxide 25 25 Anion Gap 8 L 9 L BUN 28 H 15 Creatinine 0.84 0.63 Estim Creat Clear Calc 88.5 118.0 Estimated GFR > 60 > 60 Random Glucose 93 85 Osmolality Calcium 8.6 8.3 L Urine Osmolality Procedures Date of Service Date of Service: 02/21/24 Assessment & Plan Assessment and plan (1) Acute hyponatremia: Status: Acute Plan hyponatremia likely multifactorial Improving likely has some excess ADH given nausea, antidepressents may be contributing. Given improvement in sodium level, ok for discharge on fluid restriction with close outpatient nephrology follow up in [address] Guzmán Time Spent With Patient Time: Total time managing care of this patient today ____ minutes. Progress Note: Quality Stroke Does the patient have a stroke diagnosis?: No
[2024-02-21] MEDS: 0.9 % Sodium Chloride Flush 3 ML SYRINGE IVFLUSH (09:09)
[2024-02-21] MEDS: lamoTRIgine 100 MG TABLET 300 MG PO (09:10)
[2024-02-21] MEDS: buPROPion HCl XL 150 MG TAB.ER.24H 450 MG PO (09:12)
[2024-02-21] MEDS: Topiramate 25 MG TABLET 150 MG PO (09:12)
[2024-02-21] MEDS: Calcium Carbonate 750 MG TAB.CHEW PO (09:12)
[2024-02-21] MEDS: Cholecalciferol (Vitamin D3) 25 MCG TABLET 50 MCG PO (09:12)
[2024-02-21] MEDS: Hydrocortisone 10 MG TABLET PO (09:13)
[2024-02-21] MEDS: Cyanocobalamin (Vitamin B-12) 1,000 MCG TABLET 1000 MCG PO (09:13)
[2024-02-21] MEDS: Loratadine 10 MG TABLET PO (09:13)
[2024-02-21] MEDS: polyethylene glycoL 3350 17 GM POWD.PACK PO (09:13)
[2024-02-21] MEDS: Potassium Chloride ER 20 MEQ TAB.ER.PRT PO (09:13)
[2024-02-21] MEDS: Ascorbic Acid 500 MG TABLET PO (09:13)
[2024-02-21] MEDS: DULoxetine HCl 60 MG CAPSULE.DR 120 MG PO (09:13)
[2024-02-21 10:35] LABS: Anion Gap 9 (12-20); Blood Urea Nitrogen 15 mg/dL (9-16); Calcium 8.3 mg/dL (8.4-10.2); Carbon Dioxide 25 mmol/L (22-29); Chloride 99 mmol/L (96-108); Estimated Glomerular Filt Rate > 60; Glucose Random 85 mg/dL (60-115); Potassium 3.5 mmol/L (3.3-5.1); Sodium 129 mmol/L (135-145)
--- NOTE | 2024-02-21 11:22 | P.DS_ITS ---
DS: Providers Provider Date of Service: 02/21/24 Date of admission: 02/16/24 14:16 Date of discharge: 02/21/24 Primary care physician: Armida Mathews NP Consults: 02/17/24 10:57 Consult to Nephrology Routine Consulting Provider: [facility] [place] [facility] Reason for consultation: worsening hyponatremia DS: Diagnosis Discharge Diagnosis (1) Acute hyponatremia: Status: Acute DS: Summary Hospital Course Hospital Course: from initial hpi: 63 years old lady with PMH of diabetes insipidus, GERD, anxiety, hypothyroidism, asthma among others who presents for elective colonoscopy and found to have low sodium level with reported weakness. The patient baseline sodium runs low 126-129 secondary to known history of DI. she had bowel prep per GI and had multiple bowel movements overnight. this morning she is feeling weaker than before. lab work prior to colonoscopy showed Sodium level of 124 along with low potassium of 3.1. Procedure cancelled and she was sent to ED. No chest pain, palpitations, SOB, nausea, vomiting, diarrhea or urinary symptoms. Will be admitted for better controlling sodium level and potassium. hospital course: Patient was admitted for acute on chronic hyponatremia. This is multifactorial due to SIADH, primary polydipsia, adrenal insufficiency, and desmopressin. patient was given urea, salt tablets, fluid restriction, normal saline and sodium has improved and acceptable rate to 129 at time of discharge. She should continue fluid restriction of 1.2 L per day and follow up with Nephrology and repeat labs. For acute hypokalemia replacement was given. For GI symptoms was seen by GI who performed EGD and colonoscopy which showed gastritis, gastric polyp, hemorrhoids, poor bowel prep. We will follow up outpatient with Gastroenterology. Patient is feeling better will be discharged home. Time Attestation Discharge Coordination Time (in mins): 33 Quality: Safe Use of Opioids Does Pt have an Active Cancer Diagnosis on the Problem List?: No Quality: Stroke Does the patient have a stroke diagnosis?: No Physical Exam Vital Signs: Vital Signs: Last Vital Signs Temp 96.8 F 02/21/24 07:22 Pulse 59 02/21/24 07:22 Resp 16 02/21/24 07:22 BP 95/60 02/21/24 07:22 Pulse Ox 100 02/21/24 07:22 O2 Del Method Room Air 02/21/24 07:22 BMI result Body Mass Index 38.7 Const: General: no acute distress, alert and awake Resp: Effort & Inspection: normal respiratory effort and able to speak in complete sentences Auscultation: clear to auscultation bilaterally Cardio: Jugular venous distension: no JVD Rate: regular rate Rhythm: regular rhythm Heart sounds: S1 normal heart sound present and S2 normal heart sound present GI: Palpation (GI): Soft to palpation and Tenderness to palpation present (GI) (tenderness across lower abdomen to palpation) : General: Yes no CVA tenderness Back/Spine/Pelvis: Back: no CVA tenderness Skin: Rashes: no rashes Extrem: General: No edema DS: Data Data Completed and Pending Pending studies at discharge: Pending at discharge 02/17/24 18:04 Surgical [PTH] Routine Labs on day of discharge: Laboratory Results - last 24 hr 02/20/24 02/20/24 02/20/24 13:42 13:56 19:57 Sodium 126 L 126 L Potassium 4.0 4.0 Chloride 99 97 Carbon Dioxide 22 25 Anion Gap 9 L 8 L BUN 36 H 28 H Creatinine 0.85 0.84 Estim Creat Clear Calc 87.4 88.5 Estimated GFR > 60 > 60 Random Glucose 140 H 93 Calcium 8.8 8.6 Urine Osmolality 725 02/21/24 08:48 Sodium 129 L Potassium 3.5 Chloride 99 Carbon Dioxide 25 Anion Gap 9 L BUN 15 Creatinine 0.63 Estim Creat Clear Calc 118.0 Estimated GFR > 60 Random Glucose 85 Calcium 8.3 L Urine Osmolality Discharge Plan Discharge Anticipated Discharge Date/Time: 02/21/24 11:19 Patient Disposition: Home, Self-Care Discharge Diagnosis: hyponatremia Referrals: Dajuan Guzmán MD [Physician] - 1 Week Armida Mathews NP [Primary Care Provider] - 1 Week Discharge Medications: Continued famotidine 40 mg tablet 40 mg PO BEDTIME Qty: 30 6RF psyllium husk 0.4 gram capsule 0.8 g PO BID Qty: 120 3RF terazosin 1 mg capsule 1 mg PO BEDTIME 90 Days Qty: 90 2RF pravastatin 80 mg tablet 1 tab PO BEDTIME calcium carbonate [Calcium 500] 500 mg calcium (1,250 mg) Tablet,Chewable 500 mg PO DAILY lubiprostone [Amitiza] 24 mcg capsule 24 mcg PO DAILY Rx Instructions: NO substitution, BRAND name only. topiramate 100 mg tablet 150 mg PO BID bupropion HCl 200 mg tablet sustained-release 12 hr 200 mg PO BID lamotrigine 150 mg tablet 300 mg PO DAILY duloxetine 60 mg capsule,delayed release(DR/EC) 120 mg PO DAILY cyanocobalamin (vitamin B-12) 1,000 mcg tablet 1,000 mcg PO DAILY potassium chloride 20 mEq tablet,ER particles/crystals 20 meq PO DAILY cetirizine 10 mg tablet 10 mg PO BID cholecalciferol (vitamin D3) 50 mcg (2,000 unit) tablet 50 mcg PO DAILY clonazepam 1 mg tablet 1 mg PO BEDTIME PRN (Reason: Anxiety) montelukast 10 mg tablet 10 mg PO BEDTIME hydrocortisone 5 mg tablet 10 mg PO BID levothyroxine 112 mcg tablet 112 mcg PO DAILY@0600 tizanidine 4 mg tablet 4 mg PO TID PRN (Reason: Muscle Spasm) ascorbic acid (vitamin C) [Vitamin C] 500 mg tablet,chewable 500 mg PO DAILY celecoxib 100 mg capsule 100 mg PO BID Discharge Orders: Discharge Order (Routine); Ordered 02/21/24 Ordered By: Lázaro Prieto Diet: fluid restrict 12.L Activity on Discharge: As tolerated Stand Alone Forms: Patient Portal Discharge page Print Language: Indonesian Other Ambulatory Orders: Basic Metabolic Panel (Routine) Timeframe: 1 Week Facility: [facility] - Location: Laboratory Ordered By: Lázaro Prieto Care Plan Goals: Manage low-sodium Health Concerns: Low-sodium Plan of Treatment: Fluid restrict 1.2 L per day, follow up repeat labs and Nephrology Assessment: See above Patient Instructions: Potassium Content of Foods List (ED), Hyponatremia (ED), Hypokalemia (ED)
--- NOTE | 2024-02-21 11:52 | MHC.CM.PN ---
IMM 02/21/24 Patient is discharged to home self care. She has arranged for transportation home.
[2024-02-21 12:00] VITALS: BP 118/60; PULSE 63; RESP 16; TEMP 37.1; O2SAT 100
[2024-02-21 15:28] LABS: Creatinine, mg/dL 63.17
[2024-02-21 19:46] LABS: Creatinine, 24Hr Urine 1.3 G/Day (1.0-2.0); Sodium 24 Hr Urine 58.7 mmol/Day (40-220); Total Volume 24 Hour Urine 2025 mL
[2024-02-21 19:47] LABS: Creatinine (CrCl) 0.63 mg/dL (0.5-1.4)
== END 2024-02-21 15:32 | disposition home or self-care (01) | DRG 644 ==
LOC: HO.ED 13:41 → HO.EDOVER 14:23 → HO.S3 02-17 09:42
PROVIDERS: Internal Medicine Gastroenterology; Nurse Practitioner Family; Admitting Provider Student in an Organized Health Care Education/Training Program; Emergency Provider Student in an Organized Health Care Education/Training Program; PCP Nurse Practitioner; Visit Provider Internal Medicine
PROC: 0DB98ZX Excision of Duodenum, Via Natural or Artificial Opening Endoscopic, Diagnostic (ICD-10-PCS; principal; 2024-02-17 14:50)
DX: E22.2 Syndrome of inappropriate secretion of antidiuretic hormone (principal); E27.40 Unspecified adrenocortical insufficiency; E23.2 Diabetes insipidus; K64.9 Unspecified hemorrhoids; K29.70 Gastritis, unspecified, without bleeding; E86.0 Dehydration; K59.09 Other constipation; K31.7 Polyp of stomach and duodenum; K63.89 Other specified diseases of intestine; E66.09 Other obesity due to excess calories; E03.9 Hypothyroidism, unspecified; E87.6 Hypokalemia; Z68.38 Body mass index [BMI] 38.0-38.9, adult; D89.40 Mast cell activation, unspecified; Z79.890 Hormone replacement therapy; Z79.899 Other long term (current) drug therapy
CPT/HCPCS: 36415; 80048; 82533; 82575; 83735; 83930; 83935; 84300; 84439; 84443; 85025; 88305; 88313; 88342; 99284; J2003; J2405; J2597; J2704

== ENCOUNTER → 2024-02-16 14:16 | Outpatient (BNV) | payer MEDICARE, SELFPAY | PROVIDERS: Admitting Provider Student in an Organized Health Care Education/Training Program; Emergency Provider Student in an Organized Health Care Education/Training Program; PCP Nurse Practitioner; Visit Provider Internal Medicine Gastroenterology | DX: K52.9 Noninfective gastroenteritis and colitis, unspecified (principal); Z91.199 Patient's noncompliance with other medical treatment and regimen due to unspecified reason; K64.8 Other hemorrhoids; D64.9 Anemia, unspecified; K31.7 Polyp of stomach and duodenum; K29.70 Gastritis, unspecified, without bleeding | CPT/HCPCS: 43239; 45380 ==

== ENCOUNTER → 2024-02-16 14:16 | Outpatient (BNV) | payer MEDICARE, SELFPAY | PROVIDERS: Admitting Provider Student in an Organized Health Care Education/Training Program; Emergency Provider Student in an Organized Health Care Education/Training Program; Visit Provider Nurse Practitioner Family | DX: E87.1 Hypo-osmolality and hyponatremia (principal) | CPT/HCPCS: 99222; 99232 ==

== ENCOUNTER → 2024-02-16 14:16 | Outpatient (BNV) | payer MEDICARE, SELFPAY | PROVIDERS: Admitting Provider Student in an Organized Health Care Education/Training Program; Emergency Provider Student in an Organized Health Care Education/Training Program; Visit Provider Student in an Organized Health Care Education/Training Program | DX: E87.6 Hypokalemia (principal); E87.1 Hypo-osmolality and hyponatremia | CPT/HCPCS: 99223; 99232; 99239 ==

== ENCOUNTER 2024-02-28 14:04 | Outpatient (REF) | payer MEDICARE, SELFPAY ==
[2024-02-28 15:20] LABS: Anion Gap 13 (12-20); Blood Urea Nitrogen 16 mg/dL (9-16); Calcium 9.6 mg/dL (8.4-10.2); Carbon Dioxide 23 mmol/L (22-29); Chloride 112 mmol/L (96-108); Estimated Glomerular Filt Rate > 60; Glucose Random 94 mg/dL (60-115); Potassium 3.8 mmol/L (3.3-5.1); Sodium 144 mmol/L (135-145)
== END 2024-02-28 14:05 | disposition home or self-care (01) ==
LOC: HO.LAB 14:04
PROVIDERS: PCP Nurse Practitioner; Visit Provider Internal Medicine
DX: E87.1 Hypo-osmolality and hyponatremia (principal)
CPT/HCPCS: 36415; 80048

== ENCOUNTER 2024-03-02 10:06 | Outpatient (AMB) | payer MEDICARE, SELFPAY ==
--- NOTE | 2024-03-02 10:07 | HO.NEPHOV ---
Vital Signs 03/02/24 10:09 Height 5 ft 7 in Weight 244 lb BMI 38.2 BP 114/72 Blood Pressure Location Lt brachial Position Sitting Pulse 85 Pulse Source Pulse Oximeter Pulse Oximetry (%) 99 Oxygen Delivery Method Room Air Intake Visit Reasons: [facility] HFU/ LVM Field Research Assistant Required: No Accompanied by: Spouse Allergies garlic Allergy (Severe, Verified 03/19/24 13:58) THROAT CLOSES cephalexin [From Keflex] Allergy (Mild, Verified 03/19/24 13:58) RASH Medication List - Last Reconciled 03/02/24 by Dajuan Guzmán MD ascorbic acid (vitamin C) (Vitamin C) 500 mg PO DAILY bupropion HCl SR 200 mg PO BID calcium carbonate (Calcium 500) 500 mg PO DAILY celecoxib 100 mg PO BID cetirizine 10 mg PO BID cholecalciferol (vitamin D3) 50 mcg PO DAILY clonazepam 1 mg PO BEDTIME PRN cyanocobalamin (vitamin B-12) 1,000 mcg PO DAILY duloxetine 120 mg PO DAILY famotidine 40 mg PO BEDTIME hydrocortisone 10 mg PO BID lamotrigine 300 mg PO DAILY levothyroxine 112 mcg PO DAILY@0600 lubiprostone (Amitiza) 24 mcg PO DAILY montelukast 10 mg PO BEDTIME potassium chloride ER 20 mEq PO DAILY pravastatin 1 tab PO BEDTIME psyllium husk 0.8 grams (2 x 0.4 gram) PO BID terazosin 1 mg PO BEDTIME 90 days tizanidine 4 mg PO TID PRN topiramate 150 mg PO BID Do you need a note to return to daycare/school/sports/work: No HPI Comments Details: 63 y/o female with a medical history of secondary hypothyroidism, and adrenal insufficiency (hx pituitary mass, sees [facility] for management), anxiety, depression, hypothyroidism, asthma, obesity, sleep apnea, osteoarthris, IBS, hypercholesterolemia. The hospitalized for hyponatremia. she had reported drinking eight 16 ounce bottles of water most days prior to her admission She sees [facility] endocrinology. 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 Per notes she has had intermittent hyponatremia as well. she was taking oral desmopressin 0.05mg BID, though unclear to endo whether patient was taking or not at home; pt unsure today. She is taking hydrocortisone 10mg BID for adrenal insufficiency, and 112mcg levothyroxine daily for hypothyroidism. T4 and cortisol are within normal limits. [facility] Medical History Mast cell activation syndrome Diabetes insipidus Hyponatremia Osteoarthritis Chronic back pain Headache GERD (gastroesophageal reflux disease) PTSD (post-traumatic stress disorder) Anxiety and depression LINDSEY (obstructive sleep apnea) Asthma Elevated cholesterol Left lower quadrant abdominal pain IBS (irritable bowel syndrome) Surgical History History of total left knee replacement History of back surgery History of appendectomy History of tonsillectomy and adenoidectomy Hx of cholecystectomy History of total right knee replacement (TKR) Hx of endoscopy History of colonoscopy Family History Father No problems noted. Mother No problems noted. Social History Household Members: Spouse Housing: Apartment Are you a primary intensive care unit nurse to a significant other at home: No Do you presently have visiting nurse or other home services: No Alcohol intake: current Alcohol intake frequency: holidays/special occasions only Comment: fall last week however not frequent Patient Tobacco Use Status: Never used Tobacco service: No Female Reproductive History Menstrual Age of Menarche: 12 Physical Exam Vital Signs: Last Vital Signs Pulse 85 03/02/24 10:09 BP 114/72 03/02/24 10:09 Pulse Ox 99 03/02/24 10:09 Oxygen Delivery Method Room Air 03/02/24 10:09 BMI result Body Mass Index 38.2 Comfortable Neck supple no JVD. Lungs entry equal no rales. Heart S1-S2 heard no gallop or rub. Abdomen soft nontender. Neuro alert awake oriented. No asterixis. Extremities no edema. Results Reviewed Nephrology Results: Hgb 11.9 g/dl (12.0-16.0) L 02/19/24 WBC 6.4 X10*3/uL (4.8-10.8) 12/15/24 Plt Count 180 X10*3/uL (160-400) 02/19/24 Sodium 144 mmol/L (135-145) 02/28/24 Potassium 3.8 mmol/L (3.3-5.1) 02/28/24 Chloride 112 mmol/L (96-108) H 02/28/24 Carbon Dioxide 23 mmol/L (22-29) 02/28/24 BUN 16 mg/dL (9-16) 02/28/24 Creatinine 0.85 mg/dL (0.5-1.4) 02/28/24 Calcium 9.6 mg/dL (8.4-10.2) 02/28/24 Assessment & Plan Assessment & Plan (1) Acute hyponatremia: Code(s): E87.1 - Hypo-osmolality and hyponatremia Category: Medical Plan Hyponatremia stance corrected. Sodium is at 144 millimoles. Encouraged her to liberalize fluid intake. Renal function stable. History of diabetes insipidus. Recheck 24 urine collection and urine osmolality. If she is polyuric she might have to restart desmopressin. Orders: Orders Creatinine, 24 Hr Group 1 Week E87.1 - Hypo-osmolality and hyponatremia Basic Metabolic Panel 6 Months E87.1 - Hypo-osmolality and hyponatremia Osmolality Urine 1 Week E87.1 - Hypo-osmolality and hyponatremia Coding Level of Care Code Est Pt Level 4 (31128) Diagnoses Acute hyponatremia E87.1
[2024-03-02 10:09] VITALS: BP 114/72; PULSE 85; O2SAT 99; BMI 38.2
== END 2024-03-02 10:26 | disposition home or self-care (01) ==
PROVIDERS: PCP Nurse Practitioner; Visit Provider Internal Medicine Hypertension Specialist
DX: E87.1 Hypo-osmolality and hyponatremia (principal)
CPT/HCPCS: 99214

== ENCOUNTER → 2024-03-02 10:06 | Outpatient (BNVA) | payer MEDICARE, SELFPAY | PROVIDERS: PCP Nurse Practitioner; Visit Provider Internal Medicine Hypertension Specialist | DX: E87.1 Hypo-osmolality and hyponatremia (principal) | CPT/HCPCS: 99212 ==

== ENCOUNTER 2024-03-19 13:50 | Outpatient (AMB) | payer MEDICARE, SELFPAY ==
--- NOTE | 2024-03-19 13:53 | A.OFFVIS_ITS ---
Vital Signs 03/19/24 13:58 Height 5 ft 7 in Weight 248 lb BMI 38.8 BP 121/65 Blood Pressure Location Lt brachial Position Sitting Pulse 83 Intake Visit Reasons: 5 month follow up Intake Note: Alcira presents in the office as a 5 month follow up. CC: She states that she is having all the same concerns - here for results to all her testings. 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, with chronic issues with abn bowel habit she has noted mostly issues with diarrhea occ constipation she can go 5-6 times a day she has urgency and she is aware of it as well she can have cramps relieved by passing stool no blood, no melena in stool stool can be just like water, can smell bad at times some times if eats regular ice cream can worsen sx can have mild bloating she takes senna she is taking fiber she was taking cromolyn and it was helping so put on budesonide whihc is not helping she is also on amitiza 24 mcg bid and mag oxide EGD/[facility] 2023 Endoscopy Findings: ESOPHAGUS: GE junction at 40 cms. Esophagus appeared dilated and aperistaltic No esophagitis or Romero's. STOMACH: Moderate diffuse gastric erythema - biopsies were obtained from the gastric body and antrum. A few 8 - 10 mm benign appearing polyps in the gastric body DUODENUM: Normal - biopsied to check for celiac sprue. Colonoscopy Findings: Incomplete colonoscopy till mid transverse colon due to poor prep and solid and semisolid stools throughout the colon indicating pt has chronic constipation with paradoxical diarrhea.. Part of the mucosa was visualized after irrigation and appeared normal without ulcers or inflammation. Random biopsies were obtained from the transverse and left colon to rule out microscopic colitis/ IBD. Moderate hemorrhoids on retroflexed exam. INTERIM: doing better since d/c from hospital no gerd no dysphagia no n/v REVIWED results and path, likely colonic inertia EXAM: GENERAL: The patient is well developed and nontoxic. VITAL SIGNS:see workflow HEENT: Nonicteric sclerae, PERRLA, EOMI. Oropharynx clear. Moist mucous m embranes. Conjunctivae appear well perfused. No thyroid mass. CHEST: Chest wall is nontender. HEART: Regular rate and rhythm without murmurs. LUNGS: Clear to auscultation bilaterally. ABDOMEN: Soft, positive bowel sounds, nontender, no organomegaly.no flank tenderness SKIN: No rash, no excessive bruising, petechiae, or purpura. NEUROLOGIC: Cranial nerves II-XII intact without motor/sensory deficit. Psych: normal affect A/P: 1/ Suspected colonic inertia possible from joint terminal attack controller senna use, or other dysmotility PLAN: 1/ trial of motegrity 2 mg 2/ might add miralax depending on above 3/ talk to MD metcalf stopping topirimate PFSH Medical History Mast cell activation syndrome Diabetes insipidus Hyponatremia Osteoarthritis Chronic back pain Headache GERD (gastroesophageal reflux disease) PTSD (post-traumatic stress disorder) Anxiety and depression LINDSEY (obstructive sleep apnea) Asthma Elevated cholesterol Left lower quadrant abdominal pain IBS (irritable bowel syndrome) Surgical History History of total left knee replacement History of back surgery History of appendectomy History of tonsillectomy and adenoidectomy Hx of cholecystectomy History of total right knee replacement (TKR) Hx of endoscopy History of colonoscopy Family History Father No problems noted. Mother No problems noted. Social History Household Members: Spouse Housing: Apartment Are you a primary eye care professional to a significant other at home: No Do you presently have visiting nurse or other home services: No Alcohol intake: current Alcohol intake frequency: holidays/special occasions only Comment: fall last week however not frequent Patient Tobacco Use Status: Never used Tobacco service: No Female Reproductive History Menstrual Age of Menarche: 12 Physical Exam Vital Signs: Last Vital Signs Pulse 83 03/19/24 13:58 BP 121/65 03/19/24 13:58 BMI result Body Mass Index 38.8 Assessment & Plan Assessment & Plan (1) Abnormal bowel habits: Code(s): R19.8 - Other specified symptoms and signs involving the digestive system and abdomen Category: Medical Plan: as above Medications: New prucalopride (Motegrity) 2 mg PO DAILY 30 tabs 2RF Coding Level of Care Code Est Pt Level 3 (04172) Diagnoses Abnormal bowel habits R19.8
[2024-03-19 13:58] VITALS: BP 121/65; PULSE 83; BMI 38.8
== END 2024-03-19 15:01 | disposition home or self-care (01) ==
PROVIDERS: PCP Nurse Practitioner; Visit Provider Internal Medicine Gastroenterology
DX: R19.8 Other specified symptoms and signs involving the digestive system and abdomen (principal)
CPT/HCPCS: 99213

== ENCOUNTER → 2024-03-19 13:50 | Outpatient (BNVA) | payer MEDICARE, SELFPAY | PROVIDERS: PCP Nurse Practitioner; Visit Provider Internal Medicine Gastroenterology | DX: R19.8 Other specified symptoms and signs involving the digestive system and abdomen (principal) | CPT/HCPCS: 99212 ==

== ENCOUNTER 2024-08-27 14:40 | Outpatient (REF) | payer MEDICARE, SELFPAY ==
[2024-08-27 16:04] LABS: Anion Gap 9 (12-20); Blood Urea Nitrogen 18 mg/dL (9-16); Calcium 9.1 mg/dL (8.4-10.2); Carbon Dioxide 27 mmol/L (22-29); Chloride 109 mmol/L (96-108); Estimated Glomerular Filt Rate > 60; Glucose Random 106 mg/dL (60-115); Potassium 3.8 mmol/L (3.3-5.1); Sodium 141 mmol/L (135-145)
--- OUTSIDE RECORDS SUMMARY | 2024-08-27 16:13 | XMS_ITS | Clinical Summary ---
[facility] Address [address] [place] [address] Care Team Providers Care Nerve Specialist Name Role Phone Eduardo Villela MD Primary Care Provider [phone] Allergies Active Allergy Reactions Criticality Noted Date Comments Cephalosporins Hives 02/02/2011 Garlic Anaphylaxis High 01/09/2019 Garlic 11/09/2017 Cephalexin Rash Low 01/09/2019 Soybean Oil Nausea Only Medium 03/05/2019 Medications Medication Sig Dispensed Refills Start Date End Date Status vitamin C (ASCORBIC ACID) 500 MG tablet TAKE ONE TABLET BY MOUTH EVERY DAY 3 10/11/2018 Active buPROPion (WELLBUTRIN SR) 200 MG 12 hr tablet Take 200 mg by mouth 2 (two) times a day. 2 11/06/2018 Active celecoxib (CeleBREX) 100 MG capsule Take 100 mg by mouth 2 (two) times a day. 5 12/25/2018 Active Cholecalciferol (VITAMIN D) 50 MCG (2000 UT) tablet TAKE ONE TABLET BY MOUTH EVERY HS 3 10/19/2018 Active clonazePAM (KlonoPIN) 1 MG tablet Take 1 mg by mouth every night at bedtime. 2 12/26/2018 Active cloNIDine (CATAPRES) tablet 0.1 mg TAKE ONE TABLET BY MOUTH AT HS 2 10/09/2018 Active Cyanocobalamin (VITAMIN B-12 ER) 1000 MCG TBCR Take 1 tablet by mouth daily. 3 01/02/2019 Active DULoxetine (CYMBALTA) DR capsule 60 mg Take 120 mg by mouth every evening. 2 10/27/2018 Active hydroCHLOROthiazid e (HYDRODIURIL) tablet 25 mg TAKE ONE TABLET BY MOUTH Tuesday AND TUESDAY 3 10/18/2018 Active pravastatin (PRAVACHOL) tablet 40 mg Take 80 mg by mouth every evening. 3 11/20/2018 Active potassium chloride ER (K-DUR,KLOR-CON) tablet 20 mEq TAKE ONE TABLET BY MOUTH EVERY DAY 3 01/02/2019 Active pantoprazole (PROTONIX) 40 MG tablet Take 40 mg by mouth every morning. 3 10/16/2018 Active montelukast (SINGULAIR) 10 MG tablet Take 10 mg by mouth every morning. 3 12/18/2018 Active lamoTRIgine (LaMICtal) 150 MG tablet Take 300 mg by mouth every night at bedtime. 2 10/16/2018 Active topiramate (TOPAMAX) 100 MG tablet TAKE 1 AND 1/2 TABLETS BY MOUTH TWO TIMES A DAY 6 12/25/2018 Active cetirizine (ZyrTEC) 10 MG tablet TAKE ONE TABLET BY MOUTH EVERY HS 3 10/09/2018 Active linaclotide (LINZESS) 145 MCG CAPS Take 290 mcg by mouth every morning before breakfast. 0 Active cromolyn (GASTROCROM) 100 MG/5ML solution TAKE 1 VIAL THREE TIMES DAILY WITH MEALS.. 3 01/31/2019 Active bisacodyl (DULCOLAX) 5 MG EC tablet Take 5 mg by mouth. 0 Activ e lactulose (CHRONULAC) 10 GM/15ML solution TAKE 30ML BY MOUTH FOUR TIMES A DAY 3 02/03/2019 Active acetaminophen (TYLENOL 8 HOUR) 650 MG CR tablet Take 650 mg by mouth 2 (two) times a day. 0 Active Methylcellulose, Laxative, (CITRUCEL) 500 MG TABS Take 1 tablet by mouth daily. 0 Active Misc Natural Products (FIBER 7 PO) Take 1 tablet by mouth every evening. 0 Active hydrocortisone (CORTEF) tablet 5 mg Take 2.5 mg by mouth every morning. 0 Active hydrocortisone (CORTEF) tablet 5 mg Take 5 mg by mouth every evening. 0 Active UNKNOWN TO PATIENT 0 Active Magnesium 100 MG CAPS Take by mouth. 0 Active Magnesium Oxide 250 MG TABS Take 2 tablets by mouth daily. 0 Active oxyCODONE (ROXICODONE) 5 MG immediate release tablet Take 1 tablet (5 mg total) by mouth every 4 (four) hours as needed. 42 tablet 0 03/23/2019 Active aspirin EC 81 MG EC tablet Take 1 tablet (81 mg total) by mouth 2 (two) times a day after meals. 84 tablet 0 03/23/2019 Active docusate sodium (COLACE) 100 MG capsule Take 100 mg by mouth 4 (four) times a day as needed. 0 Active EPINEPHrine 0.3 MG/0.3ML SOAJ Injection 0 Active fluticasone (FLOVENT HFA) 110 MCG/ACT inhaler Inhale 1 puff into the lungs. 0 Active LORazepam (ATIVAN) 1 MG tablet 0 03/21/2019 Active oxyCODONE (ROXICODONE) 5 MG immediate release tablet Take 1 to 2 tabs every 12 hours as needed for pain 40 tablet 0 05/08/2019 Active gabapentin (NEURONTIN) 300 MG capsule 0 08/02/2019 Active topiramate (TOPAMAX) 25 MG tablet 0 06/10/2019 Active LINZESS 290 MCG capsule 0 08/07/2019 Active oxyCODONE (ROXICODONE) 5 MG immediate release tablet Take 1 tab every 24 hours as needed for pain 30 tablet 0 08/14/2019 Active vitamin B-12 (CYANOCOBALAMIN) tablet 1000 mcg Take 1,000 mcg by mouth daily. 0 10/19/2019 Active metoclopramide (REGLAN) tablet 5 mg TAKE ONE TABLET BY MOUTH THREE TIMES A DAY BEFORE MEALS 0 09/04/2019 Active clindamycin (CLEOCIN) 300 MG capsule Take 2 caps 1 hour prior to dental work 20 capsule 3 11/27/2019 Active dicyclomine (BENTYL) 20 MG tablet TAKE TWO TABLETS BY MOUTH FOUR TIMES A DAY 0 01/14/2020 Active hyoscyamine (ANASPAZ,LEVSIN) 0.125 MG tablet TAKE ONE TABLET BY MOUTH TWICE A DAY TO FOUR TIMES DAILY NEEDED FOR DYSPEPSIA 0 02/26/2020 Active imipramine (TOFRANIL) 10 MG tablet Take 10 mg by mouth every night at bedtime. 0 11/28/2019 Active KEVIN-STEPHEN 8.6 MG tablet TAKE TWO TABLETS BY MOUTH AT BEDTIME NEEDED FOR CONSITPATION 0 02/26/2020 Active methocarbamol (ROBAXIN) 750 MG tablet Take 1 tablet (750 mg total) by mouth 3 (three) times a day. 90 tablet 1 11/16/2021 Active Active Problems Problem Noted Date Diagnosed Date Postop check 04/05/2019 Arthritis of left knee 03/22/2019 Family History Medical History Relation Name Comments Alcohol abuse Brother 1 Alcohol abuse Father Cancer Father Alcohol abuse Mother GI problems Mother RECTAL PROLAPSE Hypertension Mother Relation Name Status Comments Brother 1 Alive Father (Age 70) MULTIPLE M YELOMA Mother (Age 69) SEPSIS Social History Tobacco Use Types Packs/Day Years Used Date Smoking Tobacco: Never Smokeless Tobacco: Never Alcohol Use Standard Drinks/Week Comments No 0 (1 standard drink = 0.6 oz pur e alcohol) Sex and Gender Information Value Date Recorded Sex Assigned at Female 03/05/2019 4:52 PM EST Gender Identity Female 03/05/2019 4:52 PM EST Sexual Orientation Straight 03/22/2019 8: 07 AM EST Job Start Date Occupation Industry Not on file Not on file Not on file Last Filed Vital Signs Vital Sign Reading Time Taken Comments Blood Pressure 138/91 03/24/2019 8:13 AM EST Pulse 59 03/24/2019 8:13 AM EST Temperature 36.4 C (97.6 F) 03/24/2019 8:13 AM EST Respiratory Rate 20 03/24/2019 8:13 AM EST Oxygen Saturation 100% 03/24/2019 8:13 AM EST Inhaled Oxygen Concentration - - Weight 112 kg (247 lb) 03/22/2019 8:12 AM EST Height 167.6 cm (5' 6 ) 03/22/2019 8:12 AM EST Body Mass Index 39.87 03/22/2019 8:12 AM EST Plan of Treatment Health Maintenance Due Date Last Done Comments Hepatitis C Screening 1960 COVID-19 Vaccine (#1) 1960 Depression Screening 1972 BMI Counseling 1978 Preventative Health Evaluation 1978 DTap / Tdap / Td (1 - Tdap) 1979 Cervical Cancer Screening (P ap Smear) 1981 Colon Cancer Screening (Colonoscopy) 2005 Breast Cancer Screening (Mammogram) 2010 Shingrix-Zoster Vaccine (1 of 2) 2010 Influenza Vaccine (Season Ended) 2024 Pneumococcal Vaccine (1 of 1 - PCV) 2025 RSV Adult > 60+ Yrs or Pregn ant (1 - 1-dose 75+ series) 2035 Hepatitis B Vaccines Aged Out No long er eligible based on patient's age to complete this topic Pneumococcal Vaccine Aged Out No long er eligible based on patient's age to complete this topic RSV Ped < 20 months Aged Out No longe r eligible based on patient's age to complete this topic Medical Devices Implanted Type Area Liner Machine Operator Device Identifier Shelf Expiration Date Model / Serial / Lot Bone Cement Implanted:Qty: 1 on 03/22/2019 by Jesus Hassan MD [place] [facility] [place] [facility] Total Joint Left: Knee KAYLYN [employer] 12/04/2020 / 6191-1-001 / [id number] Bone Cement Implanted:Qty: 1 on 03/22/2019 by Jesus Hassan MD at [facility] [place] [facility] Total Joint Left: Knee KAYLYN [employer] 12/04/2020 / 6191-1-001 / [id number] Component Triathlon 4 Cemented Posterior Stabilized Femoral - [id number] - [id number] Implanted:Qty: 1 on 03/22/2019 by Jesus Hassan MD at [facility] [place] [facility] Left: Knee [employer] 08/23/2023 5515-F-401 / / [id number] Peg Triathlon Modular Fix Distal Femur Knee - [id number] - [id number] Implanted:Qty: 1 on 03/22/2019 by Jesus Hassan MD at [facility] [place] [facility] Left: Knee [employer] 11/14/2023 5575-X-000 / / [id number] Baseplate Triathlon 5 Primary Cemented Tibial Knee - [id number] - [id number] Implanted:Qty: 1 on 03/22/2019 by Jesus Hassan MD at [facility] [place] [facility] Left: Knee [employer] 11/30/2023 5520-B-500 / / [id number] Component Triathlon 9mm 29mm Asymmetric X3 Ptlar Knee - [id number] - [id number] Implanted:Qty: 1 on 03/22/2019 by Jesus Hassan MD at [facility] [place] [facility] Left: Knee [employer] 12/04/2022 5551-G-299 / / [id number] Insert Triathlon 5 16mm Posterior Stabilized Bearing X3 - [id number] - [id number] Implanted:Qty: 1 on 03/22/2019 by Jesus Hassan MD at [facility] [place] [facility] Left: Knee [employer] 06/14/2022 5532-G-516 / / [id number] Advance Directives For more information, please contact: [phone] Latest Code Status on File Code Status Date Activated Date Inactivated Comments Full Code 03/22/2019 2:54 PM 03/24/2019 8:48 PM This code status was ascertained in the following way: discussion with patient . Code Status History Code Status Date Activated Date Inactivated Comments Full Code 03/22/2019 7:49 AM 03/22/2019 2:53 PM This code status was ascertained in the following way: discussion with patient . Care Teams Nerve Specialist Relationship Specialty Start Date End Date Eduardo Villela MD [address] [place] [address] Med/[place] [address] PCP - General Internal Medicine 08/30/18
[2024-08-28 14:54] LABS: Appearance Urine Cloudy; Color Urine Yellow; Glucose Urine UA Negative (Negative); Leukocyte Esterase Urine Trace (Negative); Nitrite Urine Negative (Negative); Specific Gravity - Urine >= 1.030 (1.005-1.025); UMIC TRIGGER UACC YES; Urine Blood Negative (Negative); Urine Ketones Trace mg/dL (Negative); Urine Protein Negative (Neg-Trace)
[2024-08-28 15:22] LABS: Bacteria Urine None Seen (None Seen); Calcium Oxalate Crystals Urine Present; Hyaline Casts Urine 0-2 /LPF (0-2); Squamous Epithelial Cell Urine 0-2 /HPF (0-2); WBC Urine 0-5 /HPF (0-5)
== END 2024-08-27 14:41 | disposition home or self-care (01) ==
LOC: HO.LAB 14:40
PROVIDERS: Internal Medicine Gastroenterology; Visit Provider Internal Medicine Hypertension Specialist
DX: E87.1 Hypo-osmolality and hyponatremia (principal)
CPT/HCPCS: 36415; 80048; 81001

== ENCOUNTER 2024-09-03 10:30 | Outpatient (AMB) | payer MEDICARE, SELFPAY ==
--- NOTE | 2024-09-03 10:34 | HO.NEPHOV_ITS ---
Vital Signs 09/03/24 10:35 Height 5 ft 7 in BP 114/70 Blood Pressure Location Lt radial Position Sitting Pulse 78 Pulse Source Pulse Oximeter Pulse Oximetry (%) 96 Oxygen Delivery Method Room Air Intake Visit Reasons: 6mon follow up w/labs LVM Hoop Driving Machine Operator Required: No Accompanied by: Spouse Allergies garlic Allergy (Severe, Verified 09/03/24 10:36) THROAT CLOSES cephalexin (From Keflex) Allergy (Mild, Verified 09/03/24 10:36) RASH Medication List - Last Reconciled 09/03/24 by Dajuan Guzmán MD ascorbic acid (vitamin C) (Vitamin C) 500 mg PO DAILY bupropion HCl XL 300 mg PO DAILY bupropion HCl XL 150 mg PO DAILY calcium carbonate (Calcium 500) 500 mg PO DAILY celecoxib 100 mg PO BID cetirizine 10 mg PO BID cholecalciferol (vitamin D3) 50 mcg PO DAILY clonazepam 1 mg PO BEDTIME PRN cyanocobalamin (vitamin B-12) 1,000 mcg PO DAILY duloxetine 120 mg PO DAILY famotidine 40 mg PO BEDTIME hydrocortisone 10 mg PO BID lamotrigine 300 mg PO DAILY levalbuterol tartrate 45 mcg/actuation (Xopenex HFA) 2 inhalations inhalation Q6H levothyroxine 137 mcg PO DAILY lubiprostone (Amitiza) 24 mcg PO DAILY montelukast 10 mg PO BEDTIME potassium chloride ER 20 mEq PO DAILY pravastatin 1 tab PO BEDTIME prucalopride (Motegrity) 2 mg PO DAILY psyllium husk 0.8 grams (2 x 0.4 gram) PO BID terazosin 1 mg PO BEDTIME 90 days tizanidine 4 mg PO TID PRN topiramate 150 mg PO BID HPI Comments Details: 64 y/o female with a medical history of secondary hypothyroidism, and adrenal insufficiency (hx pituitary mass, sees [facility] for management), anxiety, depression, hypothyroidism, asthma, obesity, sleep apnea, osteoarthris, IBS, hypercholesterolemia. The hospitalized for hyponatremia. she had reported drinking eight 16 ounce bottles of water most days prior to her admission She sees [facility]. 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 Per notes she has had intermittent hyponatremia as well. she was taking oral desmopressin 0.05mg BID, though unclear to endo whether patient was taking or not at home; pt unsure today. She is taking hydrocortisone 10mg BID for adrenal insufficiency, and 112mcg levothyroxine daily for hypothyroidism. T4 and cortisol are within normal limits. 09/03/24 The patient is a 64-year-old female presenting for a follow-up visit to manage her diabetes insipidus and to review her current medication regimen. The patient has a history of diabetes insipidus, for which she previously took desmopressin. She has been off desmopressin for almost six months, and her sodium levels have remained stable, indicating good control of her condition without the medication. A urine collection conducted previously showed a urine output of only 2 liters, which is within normal limits for her condition. The patient reports nocturia, waking up approximately four times per night to urinate, but does not experience increased daytime frequency. She does not consume more fluids at night, and her fluid intake is primarily during the day. Her current medications include hydrocortisone, levothyroxine, potassium chloride, and topiramate. Recent laboratory results show normal potassium levels at 3.8 mmol/L, sodium at 141 mmol/L, and creatinine at 0.7 mg/dL, indicating stable renal function. The patient's urine was noted to be concentrated, suggesting a need for increased fluid intake, especially during hot weather. [facility] Medical History Mast cell activation syndrome Diabetes insipidus Hyponatremia Osteoarthritis Chronic back pain Headache GERD (gastroesophageal reflux disease) PTSD (post-traumatic stress disorder) Anxiety and depression LINDSEY (obstructive sleep apnea) Asthma Elevated cholesterol Left lower quadrant abdominal pain IBS (irritable bowel syndrome) Surgical History History of total left knee replacement History of back surgery History of appendectomy History of tonsillectomy and adenoidectomy Hx of cholecystectomy History of total right knee replacement (TKR) Hx of endoscopy History of colonoscopy Family History Father No problems noted. Mother No problems noted. Social History Household Members: Spouse Housing: Apartment Are you a primary residential care officer to a significant other at home: No Do you presently have visiting nurse or other home services: No Alcohol intake: current Alcohol intake frequency: holidays/special occasions only Comment: fall last week however not frequent Patient Tobacco Use Status: Never used Tobacco service: No Female Reproductive History Menstrual Age of Menarche: 12 Physical Exam Vital Signs: Last Vital Signs Pulse 78 09/03/24 10:35 BP 114/70 09/03/24 10:35 Pulse Ox 96 09/03/24 10:35 Oxygen Delivery Method Room Air 09/03/24 10:35 Comfortable Neck supple no JVD. Lungs entry equal no rales. Heart S1-S2 heard no gallop or rub. Abdomen soft nontender. Neuro alert awake oriented. No asterixis. Extremities no edema. Results Reviewed Nephrology Results: Hgb, (12.0-16.0) 11.9 g/dl L 02/19/24 WBC, (4.8-10.8) 6.4 X10*3/uL 02/19/24 Plt Count, (160-400) 180 X10*3/uL Δ 02/19/24 Sodium, (135-145) 141 mmol/L 08/27/24 Potassium, (3.3-5.1) 3.8 mmol/L 08/27/24 Chloride, (96-108) 109 mmol/L H 08/27/24 Carbon Dioxide, (22-29) 27 mmol/L 08/27/24 BUN, (9-16) 18 mg/dL H 08/27/24 Creatinine, (0.5-1.4) 0.74 mg/dL 08/27/24 Calcium, (8.4-10.2) 9.1 mg/dL 08/27/24 Urine Protein, (Neg-Trace) Negative mg/dL 08/27/24 Assessment & Plan Assessment & Plan (1) Acute hyponatremia: Code(s): E87.1 - Hypo-osmolality and hyponatremia Category: Medical Plan Hyponatremia stance corrected. Sodium is at 141 millimoles. Encouraged her to liberalize fluid intake. Renal function stable. History of diabetes insipidus. Repeat 24 urine collection showed a volume of 2025 ml in Feb 2024 Urine SG > 1.030 Currently not on Desmopressin for more than 6 months If she develops polyuria she might have to restart desmopressin. Orders: Orders Basic Metabolic Panel 6 Months E87.1 - Hypo-osmolality and hyponatremia UA and rflx microscopic 6 Months E87.1 - Hypo-osmolality and hyponatremia Osmolality Urine 6 Months E87.1 - Hypo-osmolality and hyponatremia Coding Level of Care Code Est Pt Level 4 (22092) Diagnoses Acute hyponatremia E87.1
[2024-09-03 10:35] VITALS: BP 114/70; PULSE 78; O2SAT 96
--- OUTSIDE RECORDS SUMMARY | 2024-09-03 11:16 | XMS_ITS | Clinical Summary ---
[facility] Address [address] [place] [address] Care Team Providers Care Inspector Crystal Name Role Phone Eduardo Villela MD Primary Care Provider [phone] Allergies Active Allergy Reactions Criticality Noted Date [...] this topic Medical Devices Implanted Type Area Pen Rider Device Identifier Shelf Expiration Date Model / Serial / Lot Bone Cement Implanted:Qty: 1 on 03/22/2019 by Jesus Hassan MD at [facility] Total Joint Left: Knee K[employer]LYN [employer] 12/04/2020 / 6191-1-001 / [id number] Bone Cement Implanted:Qty: 1 on 03/22/2019 by Jesus Hassan MD at [facility] Total Joint Left: Knee K[employer] 12/04/2020 / 6191-1-001 / [id number] Component Triathlon 4 Cemented Posterior Stabilized Femoral - [id number] - [id number] Implanted:Qty: 1 on 03/22/2019 by Jesus Hassan MD at [facility] Left: Knee [employer] 08/23/2023 5515-F-401 / / [id number] Peg Triathlon Modular Fix Distal Femur Knee - [id number] - [id number] Implanted:Qty: 1 on 03/22/2019 by Jesus Hassan MD at [facility] Left: Knee [employer]N [employer] 11/14/2023 5575-X-000 / / [id number] Baseplate Triathlon 5 Primary Cemented Tibial Knee - [id number] - [id number] Implanted:Qty: 1 on 03/22/2019 by Jesus Hassan MD at [facility] Left: Knee [employer] 11/30/2023 5520-B-500 / / [id number] Component Triathlon 9mm 29mm Asymmetric X3 Ptlar Knee - [id number] - [id number] Implanted:Qty: 1 on 03/22/2019 by Jesus Hassan MD at [facility] Left: Knee [employer] 12/04/2022 5551-G-299 / / [id number] Insert Triathlon 5 16mm Posterior Stabilized Bearing X3 - [id number] - [id number] Implanted:Qty: 1 on 03/22/2019 by Jesus Hassan MD at [facility] [place] [facility] Left: Knee [employer] 06/14/2022 5532-G-516 / / [id number] Advance Directives For more information, please contact: [phone] Latest Code Status on File Code Status [...] way: discussion with patient . Care Teams Inspector Crystal Relationship Specialty Start Date End Date Eduardo Villela MD [address] [place] [address] Med/[place] [address] PCP - General Internal Medicine 08/30/18
== END 2024-09-03 10:50 | disposition home or self-care (01) ==
LOC: HO.HKA 10:31
PROVIDERS: PCP Nurse Practitioner; Visit Provider Internal Medicine Hypertension Specialist
DX: E87.1 Hypo-osmolality and hyponatremia (principal)
CPT/HCPCS: 99214

== ENCOUNTER → 2024-09-03 10:30 | Outpatient (BNVA) | payer MEDICARE, SELFPAY | PROVIDERS: PCP Nurse Practitioner; Visit Provider Internal Medicine Hypertension Specialist | DX: R30.0 Dysuria (principal); R35.1 Nocturia; R33.9 Retention of urine, unspecified; R32 Unspecified urinary incontinence; E87.1 Hypo-osmolality and hyponatremia; Z79.2 Long term (current) use of antibiotics; Z79.899 Other long term (current) drug therapy | CPT/HCPCS: 51798; 81003; 99212 ==

== ENCOUNTER 2024-09-03 11:38 | Outpatient (AMB) | payer MEDICARE, SELFPAY ==
--- NOTE | 2024-09-03 11:46 | A.OFFVIS_ITS ---
Intake Visit Reasons: 3m follow up Intake Note: Patient presents today for follow up on: dysuria, incomplete bladder emptying Urology Med: , Terazosin Antibiotic Allergy: Keflex Blood Thinner:None PVR: 152 ml's Forensic Photographer Required: No Accompanied by: Spouse Allergies garlic Allergy (Severe, Verified 09/03/24 13:06) THROAT CLOSES cephalexin (From Keflex) Allergy (Mild, Verified 09/03/24 13:06) RASH Medication List - Last Reconciled 09/03/24 by MACO Pritchard ascorbic acid (vitamin C) (Vitamin C) 500 mg PO DAILY bupropion HCl XL 300 mg PO DAILY bupropion HCl XL 150 mg PO DAILY calcium carbonate (Calcium 500) 500 mg PO DAILY celecoxib 100 mg PO BID cetirizine 10 mg PO BID cholecalciferol (vitamin D3) 50 mcg PO DAILY clonazepam 1 mg PO BEDTIME PRN cyanocobalamin (vitamin B-12) 1,000 mcg PO DAILY duloxetine 120 mg PO DAILY famotidine 40 mg PO BEDTIME hydrocortisone 10 mg PO BID lamotrigine 300 mg PO DAILY levalbuterol tartrate 45 mcg/actuation (Xopenex HFA) 2 inhalations inhalation Q6 H levothyroxine 137 mcg PO DAILY montelukast 10 mg PO BEDTIME potassium chloride ER 20 mEq PO DAILY pravastatin 1 tab PO BEDTIME prucalopride (Motegrity) 2 mg PO DAILY psyllium husk 0.8 grams (2 x 0.4 gram) PO BID terazosin 1 mg PO BEDTIME 90 days tizanidine 4 mg PO TID PRN topiramate 150 mg PO BID HPI Comments Details: Alcira is a 64 year old female patient of Dr. Mathews who is accompanied by her at today's visit. She has a past medical history of anxiety, depression, asthma, chronic back pain, hypercholesteremia, GERD, headaches, irritable bowel syndrome, obstructive sleep apnea, diabetes insipidus, osteoarthritis, and PTSD. She presents to the office today for follow-up of her ongoing lower urinary tract symptoms as well as incomplete bladder emptying. In discussion with the patient today she reports having had no bothersome urinary issues or concerns since her last office visit here. She reports compliance with 1 mg of terazosin at bedtime. She discusses continuing to follow-up with other providers as planned in recently had her nephrology visit earlier today. She reports feeling episodes of urinary incontinence she had been experiencing has since subsided she does however continue to experience episodes of nocturia. When asked she does report to be eating and drinking prior to bed. We did discussed importance of limiting fluids 2-3 hours prior to bed to decrease episodes of nocturia. We did discussed further treatment options in risks and benefits of these treatment options. She does feel she is self managing her symptoms and does not wish to further undergo workup or treatment options at this time. Unable to obtain urine for urinalysis today as patient unable to void PVR 152 mL. She also reports compliance with Estrace cream as prescribed. Previous workup has included a retroperitoneal ultrasound 11/27 noting bilateral kidneys with no calculi, lesions, and or hydronephrosis noted. The bladder is well distended and normal. Pre void bladder volume is approximately 285 mL. Postvoid bladder volume is approximately 30 mL. Patient with a previous microgen 12/27 and has since completed antibiotic therapy of levofloxacin as prescribed. She denies hematuria, changes to urinary stream, flank pain, fever, and or chills. Discussed contributing factors of diabetes insipidus to lower urinary tract symptoms. She discusses how she is continuing to attempt to lose weight as she knows this will be helpful for overall health and well-being. She otherwise offers no other issues or concerns at this time. [facility] Medical History Mast cell activation syndrome Diabetes insipidus Hyponatremia Osteoarthritis Chronic back pain Headache GERD (gastroesophageal reflux disease) PTSD (post-traumatic stress disorder) Anxiety and depression LINDSEY (obstructive sleep apnea) Asthma Elevated cholesterol Left lower quadrant abdominal pain IBS (irritable bowel syndrome) Surgical History History of total left knee replacement History of back surgery History of appendectomy History of tonsillectomy and adenoidectomy Hx of cholecystectomy History of total right knee replacement (TKR) Hx of endoscopy History of colonoscopy Family History Father No problems noted. Mother No problems noted. Social History Household Members: Spouse Housing: Apartment Are you a primary career coach to a significant other at home: No Do you presently have visiting nurse or other home services: No Alcohol intake: current Alcohol intake frequency: holidays/special occasions only Comment: fall last week however not frequent Patient Tobacco Use Status: Never used Tobacco service: No Female Reproductive History Menstrual Age of Menarche: 12 Review of Systems Const Reports as per [facility] Eyes Reports no additional complaints ENT Reports no additional complaints Card Reports as per HPI Resp Reports as per HPI GI Reports as per HPI Reports as per HPI Psych Reports as per HPI Endo Reports as per HPI Physical Exam Const General: cooperative, healthy appearing, comfortable, no acute distress, well developed, alert and awake Nutritional Appearance: overweight Orientation/consciousness: patient oriented x3 HEENT Head: Yes normal to inspection, Yes normocephalic and Yes atraumatic Ears: hearing grossly normal bilaterally Eyes General: appearance normal, both eyes and all related structures Neck Neck: Yes normal visual inspection and Yes trachea midline Chest Chest palpation & inspection: normal inspection of the chest Resp Effort & Inspection: normal respiratory effort and able to speak in complete sentences Cardio Rate: regular rate GI Inspection: Yes normal to inspection General: Yes no CVA tenderness Back/Spine/Pelvis Back: no CVA tenderness Skin General skin exam: no rashes or lesions noted Neuro General: patient oriented x3 Extrem General: Yes normal to inspection Psych Appearance: grossly normal and well kempt Mental Status: mental status grossly normal Speech and movement: Normal speech and movement present and Clear speech present Affect: normal affect Attitude: cooperative Thought process: Normal thought process present Thought content: Normal thought content present Insight: Fair insight present (Psych) Judgement: Fair judgement present (Psych) Office Procedures Post Void Residual Post Residual Void Post Void Residual (PVR): 152 80039-Eyih Void Residual by ultrasound Assessment & Plan Assessment & Plan (1) Incomplete bladder emptying: Code(s): R33.9 - Retention of urine, unspecified Category: Medical (2) Urine incontinence: Code(s): R32 - Unspecified urinary incontinence Category: Medical (3) Nocturia: Code(s): R35.1 - Nocturia Category: Medical Plan Unable to obtain urine for urinalysis PVR 152 mL Sleep study results were reviewed:Normal sleep study minimal snoring Continue Estrace cream and terazosin as prescribed. Discussed at length importance of weight loss as well as management of diabetes insipidus to improve lower urinary tract symptoms as well as overall health and well-being. Discussed lifestyle modifications to assist with nocturia such as limiting fluids 2-3 hours prior to bed as well as elevating bilateral legs in the evening to help with bilateral lower leg edema. We discussed attempting to double void to assist with incomplete bladder emptying. Will continue with surveillance monitoring at this time. Follow-up in 6 months with PVR; or sooner with any issues, concerns, and or questions. Orders: Orders AMB Post Void Residual by ultrasound Today R35.1 - Nocturia Patient Instructions: The patient had an opportunity to ask questions regarding the treatment plan. All questions were answered. Physical exam, labs, and imaging were discussed and reviewed in detail. As well as risks, benefits, and discussion of treatment choices. No major barriers to understanding were identified. The patient expressed understanding and agreement with the above treatment plan. The patient was made aware they should contact our office by phone for worsening of their current condition, the appearance of new symptoms, or with any questions or concerns. Compliance is encouraged with any medications and follow up testing that is ordered. It is a privilege to be allowed the opportunity to participate in? your urological care.? Again, if you have any questions or concerns If you have any questions or concerns please do not hesitate to contact me. The office is [phone]. This note is constructed using voice recognition software. While every effort has been made to ensure accuracy road roller operator errors may have been included. Yours sincerely, MACO Pritchard Coding Level of Care Code Est Pt Level 3 (80984) Complex EM visit Add On G2211 Diagnoses Incomplete bladder emptying R33.9 Urine incontinence R32 Nocturia R35.1 CPT Codes Post Residual Void - PVR CPT Code: 45664-Iopi Void Residual by ultrasound ([id number])
== END 2024-09-03 13:24 | disposition home or self-care (01) ==
LOC: HO.HUSH 11:39
PROVIDERS: PCP Nurse Practitioner; Visit Provider Nurse Practitioner Family
DX: R33.9 Retention of urine, unspecified (principal); R32 Unspecified urinary incontinence; R35.1 Nocturia; Z13.9 Encounter for screening, unspecified
CPT/HCPCS: 99213; G2211

== ENCOUNTER 2024-09-05 13:25 | Outpatient (AMB) | payer MEDICARE, SELFPAY ==
[2024-09-05 13:38] VITALS: BP 130/64; PULSE 83; BMI 42.3
--- NOTE | 2024-09-05 13:38 | A.OFFVIS_ITS ---
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 Required: No Accompanied by: Self / Same As Patient Allergies garlic Allergy (Severe, Verified 09/03/24 13:06) THROAT CLOSES cephalexin (From Keflex) Allergy (Mild, Verified 09/03/24 13:06) RASH Medication List - Last Reconciled 09/05/24 by Jasbir Lee MD ascorbic acid (vitamin C) (Vitamin C) 500 mg PO DAILY bupropion HCl XL 300 mg PO DAILY bupropion HCl XL 150 mg PO DAILY calcium carbonate (Calcium 500) 500 mg PO DAILY celecoxib 100 mg PO BID cetirizine 10 mg PO BID cholecalciferol (vitamin D3) 50 mcg PO DAILY clonazepam 1 mg PO BEDTIME PRN cyanocobalamin (vitamin B-12) 1,000 mcg PO DAILY duloxetine 120 mg PO DAILY famotidine 40 mg PO BEDTIME hydrocortisone 10 mg PO BID lamotrigine 300 mg PO DAILY levalbuterol tartrate 45 mcg/actuation (Xopenex HFA) 2 inhalations inhalation Q6H levothyroxine 137 mcg PO DAILY montelukast 10 mg PO BEDTIME potassium chloride ER 20 mEq PO DAILY pravastatin 1 tab PO BEDTIME prucalopride (Motegrity) 2 mg PO DAILY psyllium husk 0.8 grams (2 x 0.4 gram) PO BID terazosin 1 mg PO BEDTIME 90 days tizanidine 4 mg PO TID PRN topiramate 150 mg PO BID HPI Comments Details: [age] year female who is here for 1st office visit. She has background history of obesity, diabetes, hypothyroidism, hyperlipidemia and is here for dyspnea on exertion and chest discomfort. She has been experiencing these symptoms for last 6 months. She is saying that symptoms have progressed over the last 6 months. Going up 1 flight of stairs she gets out of breath and gets chest discomfort. She also gets some palpitations at the same time. She has never had symptoms at rest. Blood pressure is well controlled. She also had sleep apnea in the past but is saying that 2 months ago she had repeat sleep study and apparently did not have sleep apnea anymore. She is fatigued during the day and sleeps a lot. She is on as needed clonazepam. At 1 stage in the past she was anemic but more recently she is denying any significant anemia. Last blood workup was in February which showed hemoglobin of 11.9. No bleeding recently. [facility] Medical History Mast cell activation syndrome Diabetes insipidus Hyponatremia Osteoarthritis Chronic back pain Headache GERD (gastroesophageal reflux disease) PTSD (post-traumatic stress disorder) Anxiety and depression LINDSEY (obstructive sleep apnea) Asthma Elevated cholesterol Left lower quadrant abdominal pain IBS (irritable bowel syndrome) Surgical History History of total left knee replacement History of back surgery History of appendectomy History of tonsillectomy and adenoidectomy Hx of cholecystectomy History of total right knee replacement (TKR) Hx of endoscopy History of colonoscopy Family History Father No problems noted. Mother No problems noted. Social History Household Members: Spouse Housing: Apartment Are you a primary childcare director to a significant other at home: No Do you presently have visiting nurse or other home services: No Alcohol intake: current Alcohol intake frequency: holidays/special occasions only Comment: fall last week however not frequent Patient Tobacco Use Status: Never used Tobacco service: No Female Reproductive History Menstrual Age of Menarche: 12 Review of Systems Const Denies chills, Denies fatigue, Denies fever(s), Denies frequent falls, Denies weakness, Denies weight gain and Denies weight loss ENT Denies dizziness Card Reports chest pain, Reports chest pain at rest, Reports chest pain with activity, Denies leg edema, Denies lightheadedness, Reports palpitations, Reports dyspnea, Reports dyspnea on exertion and Reports orthopnea Resp Denies cough, Reports dyspnea and Reports dyspnea on exertion GI Denies bloating and Denies change in bowel habits Musc Denies muscle weakness, Denies numbness and Denies tingling Neuro Denies dizziness, Denies frequent falls, Denies numbness, Denies tingling and Denies weakness Endo Denies fatigue and Reports palpitations Physical Exam Vital Signs: Last Vital Signs Pulse 83 09/05/24 13:38 BP 130/64 09/05/24 13:38 BMI result Body Mass Index 42.3 GENERAL APPEARANCE: in no acute distress, obese. Anxious. NECK: no carotid bruit, no jugular venous distention. SKIN: no suspicious lesions, warm and dry. HEART: no murmurs, regular rate and rhythm. LUNGS: clear to auscultation bilaterally. ABDOMEN: soft, nontender. EXTREMITIES: no edema. PERIPHERAL PULSES: equal. NEUROLOGIC: No gross deficits, AAO X 3 Office Procedures EKG Details: Sinus rhythm 83 beats per minute, right axis deviation, nonspecific T-wave changes, QTC 427 milliseconds. 72047-Ndnlcquxqbczefgnr, Complete Assessment & Plan Assessment & Plan (1) Dyspnea: Code(s): R06.00 - Dyspnea, unspecified Category: Medical (2) Chest discomfort: Code(s): R07.89 - Other chest pain Category: Medical (3) Palpitations: Code(s): R00.2 - Palpitations Category: Medical Plan [age] year female presenting for few complaints. She has been experiencing dyspnea on exertion and chest discomfort. She has risk factors for coronary artery disease. Her EKG has nonspecific T-wave changes. I have advised her to undergo exercise stress Mibi. We will also check echocardiogram to rule out any wall motion abnormalities and assess her diastolic function. Also do some basic blood workup including CBC, BNP and iron studies. She has gained weight and has significantly dry skin and is on levothyroxine for hypothyroidism. We will repeat a TSH level for her. Thank you for allowing me to participate in the care of your patient. Please feel free to contact me if you have any questions. Orders: Orders Complete Blood Count no Diff Today R06.00 - Dyspnea, unspecified CA echo transthoracic complete Today R07.89 - Other chest pain CA stress test Today R07.89 - Other chest pain NM cardiolite stress test Today R07.89 - Other chest pain B Type Natriuretic Peptide Today R06.00 - Dyspnea, unspecified TSH reflex Free T4 Today R06.00 - Dyspnea, unspecified IRON PROFILE Today R06.00 - Dyspnea, unspecified Ferritin Today R06.00 - Dyspnea, unspecified Coding Level of Care Code New Pt Level 4 (33060) Diagnoses Dyspnea R06.00 Chest discomfort R07.89 Palpitations R00.2 CPT Codes EKG - CPT: 91384-Jfnhgbegjrcmzbihw, Complete ([id number])
--- OUTSIDE RECORDS SUMMARY | 2024-09-05 14:01 | XMS_ITS | Clinical Summary ---
[facility] Address [address] [place] [address] Care Team Providers Care Community Theater Actor Name Role Phone Eduardo Villela MD Primary Care Provider [phone] Allergies Active Allergy Reactions Criticality Noted Date [...] this topic Medical Devices Implanted Type Area Bookmobile Clerk Device Identifier Shelf Expiration Date Model / Serial / Lot Bone Cement Implanted:Qty: 1 on 03/22/2019 by Jesus Hassan MD at [facility] [place] [place] and [facility] Total Joint Left: Knee [employer] 12/04/2020 / [id number] / [id number] Bone Cement Implanted:Qty: 1 on 03/22/2019 by Jesus Hassan MD at [facility] [place] [place] and [facility] Total Joint Left: Knee [employer] 12/04/2020 / [id number] / [id number] Component Triathlon 4 Cemented Posterior Stabilized Femoral - [id number] - [id number] Implanted:Qty: 1 on 03/22/2019 by Jesus Hassan MD at [facility] [place] [place] and [facility] Left: Knee [employer] 08/23/2023 5515-F-[id number] / / [id number] Peg Triathlon Modular Fix Distal Femur Knee - [id number] - [id number] Implanted:Qty: 1 on 03/22/2019 by Jesus Hassan MD at [facility] [place] [place] and [facility] Left: Knee [employer] 11/14/2023 5575-X-000 / / [id number] Baseplate Triathlon 5 Primary Cemented Tibial Knee - [id number] - [id number] Implanted:Qty: 1 on 03/22/2019 by Jesus Hassan MD at [facility] [place] [place] and [facility] Left: Knee [employer] 11/30/2023 5520-B-500 / / [id number] Component Triathlon 9mm 29mm Asymmetric X3 Ptlar Knee - [id number] - [id number] Implanted:Qty: 1 on 03/22/2019 by Jesus Hassan MD at [facility] [place] [place] and [facility] Left: Knee [employer] 12/04/2022 5551-G-299 / / [id number] Insert Triathlon 5 16mm Posterior Stabilized Bearing X3 - [id number] - [id number] Implanted:Qty: 1 on 03/22/2019 by Jesus Hassan MD at [facility] [place] [place] and Med Left: Knee [employer] 06/14/2022 5532-G-[id number] / / [id number] Advance Directives For more information, please contact: [phone] Latest Code Status on File Code Status [...] way: discussion with patient . Care Teams Community Theater Actor Relationship Specialty Start Date End Date Eduardo Villela MD [address] [place] [address] Med/[place] [id number] PCP - General Internal Medicine 08/30/18
--- OUTSIDE RECORDS SUMMARY | 2024-09-05 14:01 | XMS_ITS | Clinical Summary ---
Author Organization [facility] Address [address] [place] [address] Phone Care Team Providers Care Treasurer [employer] Name Role Phone Esther Boss Primary Care Provider [phone] Allergies Active Allergy Reactions Criticality Noted Date Comments Cephalosporins Hives,Rash Low 02/02/2011 Garlic Anaphylaxis High 11/09/2017 Lauren 11/09/2017 Soy 12/24/2021 Medications dicyclomine (BENTYL) 20 mg tablet Take 1 tablet (20 mg total) by mouth every 6 (six) hours. Active estradioL (VAGIFEM) 10 mcg tablet vaginal tablet Place vaginally. Active senna (SENOKOT) 8.6 mg tablet Take by mouth. 02/26/2020 Active LACTULOSE ORAL Take by mouth. Active magnesium oxide 250 mg magnesium tablet Take by mouth. Active EPINEPHRINE INJ Inject as directed. Active bisacodyL (DULCOLAX) 5 mg EC tablet Take 1 tablet (5 mg total) by mouth 1 (one) time each day if needed. Active ascorbic acid, vitamin C, 500 mg capsule Take 1 capsule by mouth 1 (one) time each day. Active buPROPion SR (WELLBUTRIN SR) 200 mg 12 hr tablet Take 1 tablet (200 mg total) by mouth 2 (two) times a day. Active albuterol HFA (PROAIR HFA ; PROVENTIL HFA ; VENTOLIN HFA) 90 mcg/actuation inhaler 2 puffs 4 (four) times a day if needed. 03/01/2024 Active celecoxib (CeleBREX) 100 mg capsule Take 1 capsule (100 mg total) by mouth 2 (two) times a day. Active levothyroxine (SYNTHROID, LEVOTHROID) 112 mcg tablet Take 1 tablet (112 mcg total) by mouth 1 (one) time each day. Active montelukast (SINGULAIR) 10 mg tablet TAKE ONE TABLET BY MOUTH EVERY DAY BEFORE DINNER. Active potassium chloride (KLOR-CON M20) 20 mEq CR tablet Take 1 tablet (20 mEq total) by mouth 1 (one) time each day. Active pravastatin (PRAVACHOL) 80 mg tablet Take 1 tablet (80 mg total) by mouth 1 (one) time each day. 03/12/2024 Active prucalopride 2 mg tablet Take 1 tablet by mouth 1 (one) time each day. 03/20/2024 Active psyllium (METAMUCIL) 0.4 gram capsule TAKE TWO CAPSULES 0.8G) BY MOUTH TWICE A DAY 03/12/2024 Active topiramate (TOPAMAX) 100 mg tablet Take 150 mg by mouth 2 (two) times a day. Active Active Problems Problem Noted Date Diagnosed Date Venous insufficiency of both lower extremities 0 03/30/2024 Arthritis of left knee 03/22/2019 Abdominal pannus 09/05/2018 Excessive skin and subcutaneous tissue 9 Right carotid bruit 08/27/2018 Varicose veins with pain 12/26/2017 Encounters Date Type Department Care Team Description 07/16/2024 9:30 AM EDT Office Visit Vascular Surgery - [place] [address] [place] [address] Simon Delgado MD Right carotid bruit (Primary Dx) from Last 3 Months Surgical History Surgery Date Site/Laterality Comments CHOLECYSTECTOMY PROCEDURE: CO CHOLECYSTECTOMY; COMMENT: 1978 APPENDECTOMY PROCEDURE: CO APPENDECTOMY TOTAL KNEE ARTHROPLASTY PROCEDURE: CO ARTHRP KNE CONDYLE&PLATU MEDIAL&LAT COMPARTMENTS; COMMENT: Medical History Medical History Date Comments Asthma DX:Asthma Diabetes mellitus type 2, co ntrolled, with complications (CMS/[facility] V24, [facility] V28) DX:Diabetes mellitus type 2, controlled, with complications (HCC) Essential hypertension DX:Essent ial hypertension Depressive disorder DX:Depressiv e disorder Anxiety state DX:Anxiety state Bowel disease DX:Bowel disease ; COMMENT: bowel problems History of joint problems DX:His tory of joint problems Family History Medical History Relation Name Comments Other: gabriella Father Relation Name Status Comments Father Mother Social History Tobacco Use Types Packs/Day Years Used Date Smoking Tobacco: Never Smokeless Tobacco: Never Alcohol Use Standard Drinks/Week Comments No 0 (1 standard drink = 0.6 oz pur e alcohol) Comments Unknown Sex and Gender Information Value Date Recorded Sex Assigned at Not on file Legal Sex Female 10:10 PM EST Gender Identity Not on file Sexual Orientation Not on file Obstetrics History Last Filed Vital Signs Vital Sign Reading Time Taken Comments Blood Pressure 110/70 07/16/2024 9:33 AM EDT Pulse 72 07/16/2024 9:33 AM EDT Temperature - - Respiratory Rate 16 07/16/2024 9:33 AM EDT Oxygen Saturation - - Inhaled Oxygen Concentration - - Weight 141 kg (310 lb 1.3 oz) 12/24/2021 11:01 A M EDT Height 171.5 cm (5' 7.5 ) 07/16/2024 9:33 AM EDT Body Mass Index 48.57 12/24/2021 11:01 AM EDT Plan of Treatment Health Maintenance Due Date Last Done Comments Breast Cancer Screening 1960 Diabetes: Annual Foot Exam 1970 Diabetes: Annual Retina Eye Exam 1970 Cervical Cancer Screening: Pap Smear 1981 Pneumococcal Vaccine: 50+ Years (2 of 2 - PCV) 12/25/2015 12/24/2014 Pneumococcal Vaccine: Pediatrics (0 to 5 Years) and At-Risk Patients (6 to 64 Years) (2 of 2 - PCV) 12/25/2015 12/24/2014 Diabetes: Annual GFR (Glomerular Filtration Rate) 03/06/2020 03/06/2019 RSV Immunization Adult Patients (1 - Risk 60-74 years 1-dose series) 2020 Cholesterol Screening (Lipid Panel) 02/06/2022 Colorectal Cancer Screening: Colonoscopy 02/06/2022 Depression Screening 02/06/2022 HIV Screening 02/06/2022 Hepatitis C Screening 02/06/2022 Medicare Annual Wellness Visit 02/06/2022 Social Influencers of Health Screening 02/06/2022 Diabetes: Annual Urine Albumin-Creatinine Ratio (uACR) 03/31/2024 Diabetes: Blood Sugar Control Test (HGBA1C) 03/31/2024 03/06/2019 DTaP,Tdap,and Td Vaccines (3 - Td or Tdap) 11/05/2029 11/06/2019, 08/27/2009 Zoster Vaccines Completed 06/27/2021, 03/06/2021 COVID-19 Vaccine Completed 12/20/2023, 07/2021, 02/25/2021, Additional history exists Influenza Vaccine Completed 12/20/2023, , 12/26/2021, Additional history exists HIB Vaccines Aged Out No longer eligi ble based on patient's age to complete this topic HPV Vaccines Aged Out No longer eligi ble based on patient's age to complete this topic Hepatitis A Vaccines Aged Out No long er eligible based on patient's age to complete this topic Hepatitis B Vaccines Aged Out No long er eligible based on patient's age to complete this topic IPV Vaccines Aged Out No longer eligi ble based on patient's age to complete this topic MMR Vaccines Aged Out No longer eligi ble based on patient's age to complete this topic Meningococcal ACWY Vaccine Aged Out N o longer eligible based on patient's age to complete this topic Meningococcal B Vaccine Aged Out No l onger eligible based on patient's age to complete this topic RSV Immunization Patients Under 20 months Aged Out No longer eligible based on patient's age to complete this topic Varicella Vaccines Aged Out No longer eligible based on patient's age to complete this topic Medical Devices Implanted Type Area Library Circulation Clerk Device Identifier Shelf Expiration Date Model / Serial / Lot Bone Cement Implanted:Qty: 1 on 03/22/2019 by Jesus Hassan MD Joints Left: Knee [employer] 12/04/2020 / [id number] / [id number] Bone Cement Implanted:Qty: 1 on 03/22/2019 by Jesus Hassan MD Joints Left: Knee [employer] 12/04/2020 / [id number] / [id number] Component Triathlon 4 Cemented Posterior Stabilized Femoral - [id number] Implanted:Qty: 1 on 03/22/2019 by Jesus Hassan MD Left: Knee [employer] 08/23/2023 5515-F-[id number] / / [id number] Peg Triathlon Modular Fix Distal Femur Knee - [id number] Implanted:Qty: 1 on 03/22/2019 by Jesus Hassan MD Left: Knee [employer] 11/14/2023 5575-X-000 / / [id number] Baseplate Triathlon 5 Primary Cemented Tibial Knee - [id number] Implanted:Qty: 1 on 03/22/2019 by Jesus Hassan MD Left: Knee [employer] 11/30/2023 5520-B-500 / / [id number] Component Triathlon 9mm 29mm Asymmetric X3 Ptlar Knee - [id number] Implanted:Qty: 1 on 03/22/2019 by Jesus Hassan MD Left: Knee [employer] 12/04/2022 5551-G-299 / / [id number] Insert Triathlon 5 16mm Posterior Stabilized Bearing X3 - [id number] Implanted:Qty: 1 on 03/22/2019 by Jesus Hassan MD Left: Knee [employer] 06/14/2022 5532-G-[id number] / / [id number] Insurance [facility] MEDICARE Care Teams Treasure[employer] Relationship Specialty Start Date End Date Esther Boss PA [address] [place] [address] PCP - General 07/16/24
--- OUTSIDE RECORDS SUMMARY | 2024-09-05 14:02 | XMS_ITS | Patient Health Record ---
[facility] Address [address] [place] [address] Care Team Providers Care Tax Adjuster Name Role Phone Armida Mathews MD Primary Care Provider Unavail able Oliver Jose Unavailable [phone] Allergies Allergen (clinical drug ingredient) Drug/Non Drug Allergy documented on EMR Reaction Allergy Type Onset Date Status Keflex rash Drug Allergy Active Reason For Referral No Information Medications Medication SIG (Take, Route, Frequency, Duration) Notes Start Date End Date Status lamoTRIgine Active Senna Active Collagen Active Lyrica Not-Taking Metoclopramide HCl A ctive Furosemide Not-Takin g Qvar RediHaler Activ e Dicyclomine HCl Acti ve Cyclobenzaprine HCl Active Topamax 100 MG 1 tablet at bedtime Orally twice a day Not-Taking Wellbutrin XL 200 mg 1 tablet every morning Orally Once a day Not-Taking Protonix 40 MG 1 tablet Orally Once a day; Duration: 30 day(s) Not-Taking Singulair 20 mg 1 tablet in the evening Orally Once a day Not-Taking Diclofenac Not-Takin g Flovent HFA Not-Taki ng ZyrTEC Not-Taking KlonoPIN Not-Taking oxyCODONE ER Not-Sameer ing Cymbalta 60 MG 1 capsule Orally Twice a day Not-Taking Docusate Sodium 100 MG 1 capsule as need ed Orally Four times a day Not-Taking lamoTRIgine 350 mg as directed Orally Not-Taking Gabapentin 300 MG 1 capsule Orally Once a day hs; Duration: 30 days 07/06/2019 Not-Taking Inhaler Decongestant puffs every morning Not-Taking Probiotic Not-Taking Aspirin 81 mg Not-Ta raegan Citrucel 500 MG 2 tablets as needed Orally Six times a day Not-Taking Black Cohosh Not-Sameer ing Topiramate 100 MG 1 tablet Orally Once a day; Duration: 30 day(s) Active Fluocinolone Acetonide 0.01 % 1 application Externally Twice a day Not-Taking Vitamin B12 Active Hydrocortisone Not-T aking Potassium 20 Pack as directed Orally Active Bisacodyl 5 MG Orally Not-T aking Tylenol Arthritis Pain 650 MG as directed Orally Active Fluticasone Propionate HFA 110 MCG/ACT 1 puff Inhalation Twice a day Not-Taking Vitamin C Active Vitamin D Active EpiPen Active Magnesium Active Physical Therapy . . . 2-3x/week; Duration: 3-4 weeks 05/19/2021 Active Pantoprazole Sodium 40 MG 1 tablet Orall y Once a day; Duration: 30 day(s) Active Methylcellulose Acti ve Pravastatin Sodium 80 MG 1 tablet Orally Once a day Active Lactulose Active hydroCHLOROthiazide 25 MG 1 tablet in morning Orally Once a day; Duration: 30 day(s) Active Methocarbamol Active Montelukast Sodium 10 MG 1 tablet Orally Once a day; Duration: 30 day(s) Active Tylenol Active clonazePAM 1 MG 1 tablet Orally Once a day Active Cromolyn Sodium 100 MG/5ML 10 ml 30 sparkle olga before meals and at bedtime Orally Four times a day; Duration: 30 day(s) Active CeleBREX 100 MG 1 capsule with food Orally Once a day; Duration: 30 day(s) Active Calcium Polycarbophil 625 MG 2 tablets a s needed Orally Three times a day Active cloNIDine HCl Active DULoxetine HCl 60 MG 1 capsule Orally Once a day; Duration: 30 day(s) Active albuterol 54mcg as needed Not- Taking Linzess 290 MCG Orally Not- Taking fentaNYL 12 MCG/HR 1 patch to the skin Transdermal Not-Taking miSOPROStol Not-Taki ng Albuterol Sulfate HFA Active Betamethasone Sod Phos & Acet Active Cetirizine HCl Activ e buPROPion HCl Active Adderall XR Not-Taki ng Immunizations Vaccine Route Administration Date Status Comme nts COVID-19 Pfizer BioNTech Vaccine Unknown 06/26/2020 Adm inistered 06/05/20 Influenza Unknown 04/13/2017 Administered Influenza Unknown 12/05/2017 Administered Influenza Unknown 12/19/2018 Administered Social History Tobacco Use: Social History Observation Description Date Details (start date - stop date) Never Smoker NA - NA Tobacco Use/Smoking Question Answer Notes Are you a: nonsmoker Additional Findings: Tobacco Non-User Current no n-smoker Alcohol Screen Question Answer Notes Did you have a drink containing alcohol in the p ast year? Yes Points 0 Interpretation Negative Tobacco use other than smoking: Question Answer Notes Are you an other tobacco user? No Problems Problem Type SNOMED Code ICD Code Onset Dates Problem Status W/U Status Risk Notes Problem Bilateral atherosclerosis of arteries of lower limbs (disorder) (83915818362072574 ) Unspecified atherosclerosis of nome arteries of extremities, bilateral legs (I70.203) Active confirmed Problem Localized, primary osteoarthritis of the ankle and/or foot (321013963) Primary osteoarthritis, right ankle and foot (M19.071) Active confirmed Problem Localized, primary osteoarthritis of the ankle and/or foot (519463951) Primary osteoarthritis, left ankle and foot (M19.072) Active confirmed Problem Polyneuropathy due to type 2 diabetes mellitus (508538390) Type 2 diabetes mellitus with diabetic polyneuropathy (E11.42) Active confirmed Problem Polyneuropathy due to diabetes mellitus type I (127099873) Type 1 diabetes mellitus with diabetic polyneuropathy (E10.42) Active confirmed Problem Raynaud's diseas e without gangrene (I73.00) Active confirmed Plan Of Treatment Pending Test Test Name Order Date X ray : Ankle, left 3V 07/05/2019 X ray : Foot, left 2V 08/10/2017 X ray : Foot, left 3V 07/05/2019 X ray : Foot, right 3V 05/19/2021 60804-TVQIEUD NAIL, 6 OR MORE 09/03/2014 34952-HNYGWWY NAIL, 1-5 05/29/2015 42786-JNHHNWI NAIL, 1-5 08/28/2015 24035-OTXGSDF NAIL, 1-5 11/27/2015 86963-Lwxnppri Plate 09/03/2014 94304-Peiltmjg Plate 10/25/2014 49380-Oztulhlq Plate 05/23/2013 82156-Anlgvjei Plate Each Additional 05945- Debride <25 sq cm 06/16/2011 21601 I&D ABSCESS- SIMPLE,SINGLE 03/27/2 012 84026-SSKU SKIN LESIONS, OVER 4 01/09/20 15 75544-UUDS SKIN LESIONS, OVER 4 11/27/19 16 26039-CCXO SKIN LESIONS, OVER 4 05/29/19 16 94909-JKPQ SKIN LESIONS, OVER 4 08/28/19 16 04201-HTYJ SKIN LESIONS, OVER 4 07/05/19 20 60261-QCEM SKIN LESIONS, OVER 4 10/18/19 20 44200-ARCK SKIN LESIONS, 2 TO 4 02/20/20 19 70169-EPCG SKIN LESIONS, 2 TO 4 08/04/19 19 48293-DAYE SKIN LESIONS, 2 TO 4 11/14/19 19 06958-WPFP SKIN LESIONS, 2 TO 4 08/11/19 18 37342-QCGA SKIN LESIONS, 2 TO 4 10/20/19 18 59426-AKTG SKIN LESIONS, 2 TO 4 01/17/20 18 36069-RKXY SKIN LESIONS, 2 TO 4 05/01/19 19 22165-RIRW NAIL(S) 08/28/2015 96371-FPNJ NAIL(S) 05/29/2015 21201-YRAE NAIL(S) 11/27/2015 05940-BESF NAIL(S) 01/08/2015 E2523-TOQVQZMQ DYSTROPHIC NAILS ANY # X1765-OYGXTJIN DYSTROPHIC NAILS ANY # M3114-GJQCHVVC DYSTROPHIC NAILS ANY # N9673-RLRQKISQ DYSTROPHIC NAILS ANY # W5507-ZLORHSFH DYSTROPHIC NAILS ANY # Z8409-SZRIQQWW DYSTROPHIC NAILS ANY # M5330-TLJILOLI DYSTROPHIC NAILS ANY # P9345-QKCBNEZI DYSTROPHIC NAILS ANY # P4213-SVROGILD DYSTROPHIC NAILS ANY # X ray : Ankle, right 3V 05/19/2021 Insurance Providers Payer Name Payer Address Payer Phone Subscriber Number Group Number Insured Name Patient Relationship to Insured Coverage Start Date Coverage End Date Medicare National [employer] [address] [place] [address] [id number] Alcira Gordon Self - patient is the insured 7 [employer] Blue [employer] [address] [place] [address] [id number] Alcira Gordon Self - patient is the insured Medical (General) History Medical History History ICD Code anemia headaches/migraines depression chicken pox reflux Diabetes mellitus Concussion TIA Right Foot Sprain Bone Spur on L-5 Lumber Pain Surgical History Surgery Date(Month/Year) right knee replacement 2007 right knee revision 2010 cholecystectomy appendectomy tonsillectomy cyst removal arthroscopic left knee surgery Knee replacement 01/21/19 X-rays L 3 views 07/05/19 Hospitalization History Reason Date(Month/Year) [facility]- Knee 02/02/11 [facility] chest pain blood pressure high [facility] hypertension X 4 days 04/2017 [facility]- tumor on pituitary gland, diviated septum 12/26/18
== END 2024-09-05 14:24 | disposition home or self-care (01) ==
LOC: HO.HCS 13:25
PROVIDERS: PCP Nurse Practitioner; Visit Provider Internal Medicine Cardiovascular Disease
DX: R06.00 Dyspnea, unspecified (principal); R07.89 Other chest pain; R00.2 Palpitations
CPT/HCPCS: 93010; 99204

== ENCOUNTER → 2024-09-05 13:25 | Outpatient (BNVA) | payer MEDICARE, SELFPAY | PROVIDERS: PCP Nurse Practitioner; Visit Provider Internal Medicine Cardiovascular Disease | DX: R06.09 Other forms of dyspnea (principal); R07.89 Other chest pain; R00.2 Palpitations; R94.31 Abnormal electrocardiogram [ECG] [EKG] | CPT/HCPCS: 93005; 99202 ==

== ENCOUNTER 2024-09-12 14:39 | Outpatient (REF) | payer MEDICARE, SELFPAY ==
[2024-09-12 15:11] LABS: Hematocrit 39.8 % (37.0-47.0); Hemoglobin 13.5 g/dl (12.0-16.0); Mean Corpuscular HGB Conc 33.9 g/dl (31.0-35.0); Mean Corpuscular Hemoglobin 30.1 pg (27.0-33.0); Mean Corpuscular Volume 88.6 fL (80.0-98.0); NRBC Abs Auto 0.000 X10*3/uL (0.0-0.012); NRBC Pct Auto 0.0 /100WBC (0.0-0.2); Platelet Count 246 X10*3/uL (160-400); Red Blood Count 4.49 X10*6/uL (4.20-5.50); White Blood Count 9.9 X10*3/uL (4.8-10.8)
--- OUTSIDE RECORDS SUMMARY | 2024-09-12 15:12 | XMS_ITS | Patient Health Record ---
[facility] [address] [place] [address] Care Team Providers Care Breakfast Bar Attendant Name Role Phone LORNA DU Unavailable [phone] Allergies Allergen (clinical drug ingredient) Drug/Non Drug Allergy documented on EMR Reaction Allergy Type Onset Date Status Garlic Unknown Drug Allergy Active Keflex rash Drug Allergy Active Reason For Referral No Information Medications Medication SIG (Take, Route, Frequency, Duration) Notes Start Date End Date Status Cetirizine HCl 10 MG TAKE ONE TABLET BY MOUTH TWICE A DAY. Oral; Duration: 30 Active Hydrocortisone 5 MG TAKE TWO TABLETS BY MOUTH TWICE A DAY Oral; Duration: 90 Active Famotidine 40 MG TAKE ONE TABLET BY M OUTH TWICE A DAY Oral; Duration: 30 Active buPROPion HCl ER (SR) 200 MG TAKE ONE TA BLET BY MOUTH TWICE A DAY Oral; Duration: 90 Active DULoxetine HCl 60 MG TAKE ONE CAPSULE BY MOUTH TWICE A DAY Oral; Duration: 90 Active Vitamin D3 50 MCG (1999 UT) TAKE ONE TAB LET BY MOUTH EVERY DAY Oral; Duration: 90 Active Metoclopramide HCl 10 MG TAKE ONE TABLET BY MOUTH FOUR TIMES A DAY BEFORE MEALS AND BED Oral; Duration: 30 Active Potassium Chloride Danielle ER 20 MEQ TAKE ONE TABLET BY MOUTH EVERY DAY Oral; Duration: 90 Active clonazePAM 1 MG Oral; Duration: 30 Active lamoTRIgine 150 MG Oral; Duration: 90 Active Topiramate 100 MG TAKE 1 AND 1/2 TABLE TS BY MOUTH TWO TIMES A DAY Oral; Duration: 30 Active Magnesium 250 MG TAKE 2 TABLETS BY MO UTH DAILY. Oral; Duration: 30 Active Pravastatin Sodium 80 MG Oral; Duration: 90 Active Vitamin B-12 1000 MCG TAKE ONE TABLET BY MOUTH EVERY DAY Oral; Duration: 90 Active Levothyroxine Sodium 100 MCG TAKE ONE TA BLET BY MOUTH EVERY DAY Oral; Duration: 90 Active Celecoxib 100 MG TAKE ONE CAPSULE BY MOUTH TWICE A DAY Oral; Duration: 30 Active Social History Tobacco Use: Social History Observation Description Date Details (start date - stop date) Never Smoker NA - NA Tobacco Use/Smoking Question Answer Notes Are you a nonsmoker Alcohol Screen (Audit-C) Question Answer Notes Did you have a drink contain ing alcohol in the past year? Yes How often did you have a dri nk containing alcohol in the past year? Monthly or less (1 point) Points 1 Interpretation Negative Problems Problem Type SNOMED Code ICD Code Onset Dates Problem Status W/U Status Risk Notes Problem Body mass index 40+ - severely obese (117272251) BMI 45.0-49.9, adult (Z68.42) Active confirmed Problem Morbid obesity due to excess calories (E66.01) Active confirmed Plan Of Treatment No Information Insurance Providers Payer Name Payer Address Payer Phone Subscriber Number Group Number Insured Name Patient Relationship to Insured Coverage Start Date Coverage End Date Medicare Part B J14 [address] [place] [address] [id number] Alcira Gordon Self - patient is the insured 7 [employer] [address] [place] [address] [id number] Alcira Gordon Self - patient is the insured Medical (General) History Medical History History ICD Code hyperlipidemia asthma headache Arthritis anxiety depression seasonal allergies vision problems Mast Cell disease weight gain Surgical History Surgery Date(Month/Year) cholecystectomy Hospitalization History Reason Date(Month/Year) growth on pituitaty and menningitis 03/2021
--- OUTSIDE RECORDS SUMMARY | 2024-09-12 15:12 | XMS_ITS | Patient Health Record ---
Author Organization [facility] Address [address] [place] [address] Care Team Providers Care Plumbing Installer Name Role Phone Loly Stanley Unavailable [phone] Allergies Allergen (clinical drug ingredient) Drug/Non Drug Allergy documented on EMR Reaction Allergy Type Onset Date Status Garlic Unknown Drug Allergy Active Lauren Unknown Drug Allergy Active KEFLEX Skin Rash Drug Allergy Active Reason For Referral No Information Medications Medication SIG (Take, Route, Frequency, Duration) Notes Start Date End Date Status LaMICtal 150 MG 1 tablet Orally Twic e a day Active Cymbalta 60 MG 1 capsule Orally Twice a day [facility] 03/02/2012 Active CeleBREX 100 MG 1 capsule with food Orally Twice a day Active cloNIDine HCl 0.1MG 1 ORAL prn [facility] 11/21/2012 Active Bisacodyl 5 MG 2 tablets Orally at night prn Active Cromolyn Sodium 100 MG/5ML 10 ml 30 sparkle olga before meals and at bedtime Orally Four times a day; Duration: 30 day(s) Active Vitamin B12 1000 MCG 1 tablet Orally Onc e a day; Duration: 30 day(s) Active Klor-Con M20 20 MEQ 1 tablet with food Orally Once a day Active Xopenex HFA 45 MCG/ACT 1 puff as needed Inhalation every 4 hrs Active Flovent HFA 110 MCG/ACT 1 puff Inhalatio n Twice a day Active Cetirizine HCl 10 MG 1 tablet Orally Onc e a day; Duration: 30 day(s) Active buPROPion HCl ER (SR) 100 MG 1 tablet in the morning Orally Once a day Active Pantoprazole Sodium 40 MG 1 tablet Orall y Once a day; Duration: 30 day(s) Active Singulair 10 MG 1 ORAL daily; Duration: -3 [facility] 01/21/2011 Active Tylenol 1 tab Oral; Duration : 14 days Active Citrucel 500 MG 2 tablets with a ful l glass of water as needed Orally Six times a day Active Magnesium Oxide 250 MG 2 tablets Orally Once a day Active Methocarbamol 750 MG 1 tablet Orally Twi ce a day Active Calcium Polycarbophil 625 MG 1 tablet Or ally at night Active Clotrimazole-Betamethasone 1-0.05 % 1 application to affected area Externally as needed prn Active Cyclobenzaprine HCl 5 MG 1 tablet Orally 1 in the AM, 1 at night prn Active clonazePAM 1 MG 1 tablet Orally at night Active Pravastatin Sodium 40 MG 2 tablet Orally at night Active Yuvafem 10 MCG 1 tablet Vaginal TWICE A WEEK; Duration: 90 days 08/01/2020 Active Lactulose 20 GM/30ML 60ml Orally as needed Active hydroCHLOROthiazide 25 MG 1 tablet in th e morning Orally 4x a week Active Hyoscyamine Sulfate 0.125 MG 1 tablet Or ally Twice a day Active Dicyclomine HCl 20 MG 2 Tablets Orally Three times a day Active Vitamin D3 2000 IU ORAL at bedtime; Duration: -3 [facility] 12/28/2013 Active Senna 8.6 MG 2 capsule at bedtime as needed Orally Active Vitamin C 500MG 1 ORAL twice daily; Duration: -3 [facility] 08/27/2011 Active Tylenol Arthritis Pain 650MG 1 ORAL twic e daily; Duration: -3 [facility] 02/28/2012 Active EpiPen 2-Nino 0.3 MG/0.3ML Intramuscula; Duration: -3 [facility] 09/13/2013 Active Topamax 100 MG 1 1/2 tabs Orally morning and night [facility] 03/02/2012 Active lamoTRIgine 150 MG 2 tablets Orally Onc e a day [facility] 08/27/2011 Active Social History Tobacco Use: Social History [...] past year? Monthly or less (1 point) How many drinks did you have on a typical day when you were drinking in the past year? 1 or 2 drinks (0 point) Points 1 Interpretation Negative Sexual History Question Answer Notes Had sex in the past 12 months (vaginal, oral, or anal)? Yes with Men only Prevention strategies discussed: Other Section Notes: MARITAL STATUS: CHILDREN: none LIVES WITH: spouse OCCUPATION: employed full-time NUTRITION: average diet EXERCISE: regular walking SEXUAL ACTIVITY: monogamous relationship. CONTRACEPTION: menopause SMOKING: never a smoker ALCOHOL: rare alcohol TEXT MESSAGING WHILE DRIVING: no SUNSCREEN: yes ILLICIT DRUGS: no SEATBEALT: yes Problems Problem Type SNOMED Code ICD Code Onset Dates Problem Status W/U Status Risk Notes Problem Postmenopausal atrophic vaginitis (23290023) Postmenopausal atrophic vaginitis (N95.2) Active confirmed Problem Postmenopausal bleeding (62759077) Postmenopausal bleeding (N95.0) Active confirmed Problem Urinary incontinence (611735972) Unspecified urinary incontinence (R32) Active confirmed Problem Morbid obesity (disorder) (189801828) Morbid (severe) obesity due to excess calories (E66.01) Active confirmed Problem Hyperlipidemia (62694057) Hyperlipidemia, unspecified (E78.5) Active confirmed Problem Bipolar disorder (76806057) Bipolar disorder, unspecified (F31.9) Active confirmed Problem Asthma (933258403) Other asthma (J45.998) Active confirmed Problem Osteoarthritis (589383703) Unspecified osteoarthritis, unspecified site (M19.90) Active confirmed Problem Fibromyalgia (091748396) Fibromyalgia (M79.7) Active confirmed Problem Atrophy of vulva (762750437) Atrophy of vulva (N90.5) Active confirmed Problem Functional urinary incontinence (544927313) Functional urinary incontinence (R39.81) Active confirmed Problem Candidal vulvovaginitis (87803006) Candidiasis of vulva and vagina (112.1) Active confirmed Diag Problem Obesity (507268118) Obesity, unspecified (278.00) Active confirmed Major Problem Mastodynia (02053990) Mastodynia (611.71) Active confirmed Diag Problem Light and infrequent menstruation (035745474) Scanty or infrequent menstruation (626.1) Active confirmed Major Problem Metrorrhagia (07597549) Metrorrhagia (626.6) Active confirmed Major Problem Gynecological examination normal (211368644658515) Routine gynecological examination (V72.31) Active confirmed Major Plan Of Treatment Pending Test Test Name Order Date Sonohysterogram 07/25/2020 MAMMOGRAM, SCREENING 07/25/2020 Urinalysis 08/15/2020 Urinalysis 09/21/2016 URINE CULTURE 08/15/2020 ENDOMETRIAL BX 07/25/2020 COMPLETE URINALYSIS 09/21/2016 URINE CULTURE 09/21/2016 URINE CULTURE 09/24/2016 Insurance Providers Payer Name Payer Address Payer Phone Subscriber Number Group Number Insured Name Patient Relationship to Insured Coverage Start Date Coverage End Date MEDICARE [address] ANTHONY ZARAGOZA [id number] [phone] [id number] LELELAILAJOAQUIM Self - patient is the insured MEDEX [address] [place] [address] [phone] [id number] LELE, JOAQUIM Self - patient is the insured Medical (General) History Medical History History ICD Code Abnormal glucose level Mastodynia N64.4 Candidiasis of vulva and vagina B37.3 Excessive and frequent menstruation with irregular cycle N92.1 Oligomenorrhea, unspecified N91.5 Tendinitis TIA Atrophy of vulva N90.5 Pelvic and perineal pain R10.2 Morbid (severe) obesity due to excess ca lories E66.01 Fibromyalgia M79.7 Bipolar disorder, unspecified F31.9 Other asthma J45.998 Unspecified osteoarthritis, unspecified site M19.90 Concussion 850 Hyperlipidemia, unspecified E78.5 Surgical History Surgery Date(Month/Year) Appendectomy Cholecystectomy Rt knee Replacement Urethral Cyst removal Brain Surgery 12/27/18 Deviated Septum Left Knee Replacement 2019 Hospitalization History Reason Date(Month/Year) See Surgical hx TIA 02/18/16
--- OUTSIDE RECORDS SUMMARY | 2024-09-12 15:12 | XMS_ITS | Clinical Summary ---
Author Organization [facility] [employer] [facility] Address [address] [place] [address] Phone Care Team Providers Care Lining Ironer Name Role Phone Esther Boss Primary Care Provider [phone] Allergies Active Allergy Reactions Criticality Noted Date [...] AM EDT Office Visit [facility] [place] [address] [place] [address] Simon Delgado MD Right carotid bruit (Primary Dx) from Last 3 Months Surgical History Surgery Date Site/Laterality Comments CHOLECYSTECTOMY PROCEDURE: ND CHOLECYSTECTOMY; COMMENT: 1978 APPENDECTOMY PROCEDURE: ND APPENDECTOMY TOTAL KNEE ARTHROPLASTY PROCEDURE: ND ARTHRP KNE CONDYLE&PLATU MEDIAL&LAT COMPARTMENTS; COMMENT: Medical History Medical History Date Comments Asthma DX:Asthma Diabetes mellitus type 2, co ntrolled, with complications (CMS/[facility] V24, [facility] V28) DX:Diabetes mellitus type 2, controlled, with [...] Blood Sugar Control Test (HGBA1C) 03/31/2024 03/06/2019 Influenza Vaccine (#1) 2024 , 12/11/2022, 12/26/2021, Additional history exists DTaP,Tdap,and Td Vaccines (3 - Td or Tdap) 11/05/2029 11/06/2019, 08/27/2009 Zoster Vaccines Completed 06/27/2021, 03/06/2021 COVID-19 Vaccine Completed 12/20/2023, 07/2021, 02/25/2021, Additional history exists HIB Vaccines Aged Out [...] this topic Medical Devices Implanted Type Area Tap Grinder Device Identifier Shelf Expiration Date Model / Serial / Lot Bone Cement Implanted:Qty: 1 on 03/22/2019 by Jesus Hassan MD Joints Left: Knee [employer] 12/04/2020 / 6191-1-001 / [id number] Bone Cement Implanted:Qty: 1 on 03/22/2019 by Jesus Hassan MD Joints Left: Knee [employer] 12/04/2020 / [id number] / [id number] Component Triathlon 4 Cemented Posterior Stabilized Femoral - [id number] Implanted:Qty: 1 on 03/22/2019 by Jesus Hassan MD Left: Knee [employer] 08/23/2023 5515-F-401 / / [id number] Peg Triathlon Modular Fix Distal Femur Knee - [id number] Implanted:Qty: 1 on 03/22/2019 by Jesus Hassan MD Left: Knee [employer] 11/14/2023 5575-X-000 / / [id number] Baseplate Triathlon 5 Primary Cemented Tibial Knee - [id number] Implanted:Qty: 1 on 03/22/2019 by Jesus Hassan MD Left: Knee [employer] 11/30/2023 5520-B-500 / / [id number] Component Triathlon 9mm 29mm Asymmetric X3 Ptlar Knee - [id number] Implanted:Qty: 1 on 03/22/2019 by Jesus Hassan MD Left: Knee [employer] 12/04/2022 5551-G-299 / / [id number] Insert Triathlon 5 16mm Posterior Stabilized Bearing X3 - [id number] Implanted:Qty: 1 on 03/22/2019 by Jseus Hassan MD Left: Knee [employer] 06/14/2022 5532-G-516 / / [id number] Insurance [facility] MEDICARE Care Teams Lining Ironer Relationship Specialty Start Date End Date Esther Boss PA [address] [place] [address] [address] [place] [phone] PCP - General 07/16/24
--- OUTSIDE RECORDS SUMMARY | 2024-09-12 15:13 | XMS_ITS | Patient Health Record ---
[facility] [place] Address [address] [place] [address] Care Team Providers Care Business Office Associate Name Role Phone Armida Mathews MD Primary Care Provider Unavail able Oliver Jose Unavailable [phone] Allergies Allergen (clinical drug ingredient) Drug/Non Drug [...] Vaccine Route Administration Date Status Comme nts Influenza Unknown 04/13/2017 Administered Influenza Unknown 12/05/2017 Administered Influenza Unknown 12/19/2018 Administered COVID-19 Pfizer Blendin Vaccine Unknown 06/26/2020 Adm inistered 06/05/20 Social History Tobacco Use: Social History Observation [...] atherosclerosis of arteries of lower limbs (disorder) (91082953678247298 ) Unspecified atherosclerosis of [place] arteries of extremities, bilateral legs (I70.203) Active confirmed Problem Localized, primary osteoarthritis of the ankle and/or foot (853624248) Primary osteoarthritis, right ankle and foot (M19.071) Active confirmed Problem Localized, primary osteoarthritis of the ankle and/or foot (159300919) Primary osteoarthritis, left ankle and foot (M19.072) Active confirmed Problem Polyneuropathy due to type 2 diabetes mellitus (792643317) Type 2 diabetes mellitus with diabetic polyneuropathy (E11.42) Active confirmed Problem Polyneuropathy due to diabetes mellitus type I (288082030) Type 1 diabetes mellitus with diabetic polyneuropathy (E10.42) Active confirmed Problem Raynaud's disease (518616725) Raynaud's disease without gangrene (I73.00) Active confirmed Plan Of Treatment Pending Test Test Name Order Date X ray : Ankle, left 3V 07/05/2019 X ray : Foot, left 2V 08/10/2017 X ray : Foot, left 3V 07/05/2019 X ray : Foot, right 3V 05/19/2021 45599-NNIIKGF NAIL, 6 OR MORE 09/03/2014 07499-OYSJKFG NAIL, 1-5 05/29/2015 86582-VOPDTZA NAIL, 1-5 08/28/2015 92779-ECAKPTM NAIL, 1-5 11/27/2015 60706-Blckxiga Plate 09/03/2014 28387-Fpxzinwm Plate 10/25/2014 97480-Wchgsdpk Plate 05/23/2013 38026-Whetpogd Plate Each Additional 20306- Debride <25 sq cm 06/16/2011 54545 I&D ABSCESS- SIMPLE,SINGLE 012 84567-FBBD SKIN LESIONS, OVER 4 01/09/20 15 46110-PWIZ SKIN LESIONS, OVER 4 11/27/19 16 07359-EVHO SKIN LESIONS, OVER 4 05/29/19 16 42309-HXAQ SKIN LESIONS, OVER 4 08/28/19 16 95036-UHSX SKIN LESIONS, OVER 4 07/05/19 20 77833-XYGC SKIN LESIONS, OVER 4 10/18/19 20 21941-HLUK SKIN LESIONS, 2 TO 4 02/20/20 19 17964-LSIP SKIN LESIONS, 2 TO 4 08/04/19 19 50789-MUZA SKIN LESIONS, 2 TO 4 11/14/19 19 90237-DZXY SKIN LESIONS, 2 TO 4 08/11/19 18 88804-OJNT SKIN LESIONS, 2 TO 4 10/20/19 18 57031-XWZB SKIN LESIONS, 2 TO 4 01/17/20 18 54990-HCKQ SKIN LESIONS, 2 TO 4 05/01/19 19 16553-WPAU NAIL(S) 08/28/2015 75857-KULI NAIL(S) 05/29/2015 05871-VTRU NAIL(S) 11/27/2015 80045-YSXF NAIL(S) 01/08/2015 F4537-WHKCHQWN DYSTROPHIC NAILS ANY # N2106-CYPRAZOP DYSTROPHIC NAILS ANY # Z9273-RZZEQLFM DYSTROPHIC NAILS ANY # J6224-LOTZZMIP DYSTROPHIC NAILS ANY # S6151-GMHJDHMN DYSTROPHIC NAILS ANY # P9091-SRSXFDXI DYSTROPHIC NAILS ANY # Q0916-WLMUGENM DYSTROPHIC NAILS ANY # E2029-WYCGTCBQ DYSTROPHIC NAILS ANY # O0356-XAUXYSCA DYSTROPHIC NAILS ANY # X ray : Ankle, right 3V 05/19/2021 Insurance Providers Payer Name Payer Address Payer Phone Subscriber Number Group Number Insured Name Patient Relationship to Insured Coverage Start Date Coverage End Date Medicare National Govt Sv[employer] [address] [place] [address] [id number] Alcira Gordon Self - patient is the insured 7 [employer]ex Blue Shield [address] [place] [address] [id number] Alcira Gordon Self - patient is the [...] 07/05/19 Hospitalization History Reason Date(Month/Year) [facility] 02/02/11 [facility] [place] chest pain blood pressure high [facility] [place] hypertension X 4 days 04/2017 [facility]- tumor on pituitary gland, diviated septum 12/26/18
[2024-09-12 15:40] LABS: Iron 91 mcg/dL (30-160); Percent Iron Saturation 27 % (15-50); Total Iron Binding Capacity 343 mcg/dL (228-428); Unsaturated Iron Binding 252 ug/dL
[2024-09-12 15:46] LABS: B Type Natriuretic Peptide 12 pg/mL (<100)
[2024-09-12 15:55] LABS: Ferritin 75 ng/mL (10-250)
[2024-09-12 16:29] LABS: Free T4 (Free Thyroxine) 0.71 ng/dL (0.71-1.85)
== END 2024-09-12 14:40 | disposition home or self-care (01) ==
LOC: HO.LAB 14:39
PROVIDERS: Visit Provider Internal Medicine Cardiovascular Disease
DX: E87.1 Hypo-osmolality and hyponatremia (principal)
CPT/HCPCS: 36415; 82728; 83540; 83880; 84439; 84443; 85027

== ENCOUNTER → 2024-10-10 12:43 | Outpatient (REF) | payer MEDICARE, SELFPAY ==
--- NOTE | 2024-10-10 12:46 | CA_ITS ---
Transthoracic Echocardiogram Patient (Last, First, Middle): Alcira Gordon A Gender: Female Date of : 1960 Age: 64 Procedure Date: 10/10/2024 Procedure Type: Transthoracic Echocardiogram Location: OP Height: 170.18 cm Weight: 122.47 kg BSA: 2.30 m2 Heart Rate: bpm BP: 118 / 68 mmHg Lead Java Software Engineer: TO Referring MD: Jasbir Lee MD Garment Worker: Jasbir Lee MD Symptoms: R07.89 - Other chest pain Study Quality: Technically Difficult w contrast ECG Rhythm: Sinus Conclusions: - The left ventricular systolic function is mildly decreased. The calculated ejection fraction is 52% by biplane method. - No obvious valvular pathology seen on this study. Findings Procedure Information Contrast agent, definity, is being given per protocol without apparent complications. Left Ventricle Normal left ventricular cavity size. There is normal left ventricular wall thickness. The left ventricular systolic function is mildly decreased. The calculated ejection fraction is 52% by biplane method. There is mild global hypokinesis. Diastolic function is normal for age. Right Ventricle Normal right ventricular cavity size and systolic function. Atria Both atria are normal in size. Aortic Valve There is mild calcification of the aortic valve. There is no aortic valve stenosis. Trace to mild aortic regurgitation. Mitral Valve The mitral valve appears normal. There is no mitral valve regurgitation. There is no mitral valve stenosis. Pulmonic Valve The pulmonic valve is likely normal. Tricuspid Valve There is no tricuspid valve regurgitation. Tricuspid regurgitation envelope is inadequate for calculation of right ventricular systolic pressure. Great Vessels The asc aorta and aortic arch are normal in size. Venous The inferior vena cava is normal in size and collapses greater than 50% with inspiration. Pericardium/Pleural There is no evidence of pericardial effusion. Prior Study Comparison No prior study available for comparison. Recommendations, Care & Conclusions No obvious valvular pathology seen on this study. Measurements 2D Linear Measurements IVSd: 0.83 0.6-0.9/0.6-1.0 cm LVIDd: 4.11 3.9-5.3/4.2-5.9 cm LVIDd Index: 1.79 2.4-3.2/2.2-3.1 cm/m2 LVIDs: 3.32 2.0-3.6 cm LVPWd: 0.79 0.7-1.1 cm LV Mass: 123.45 67-162/88-224 g LV Mass Index: 53.68 43-95/49-115 g/m2 LVOT Diam: 2.20 3.0+(-)1.3 cm 2D Systolic Function EF 4C: 46.50 >55% EF 2C: 54.20 >55% EF BiP: 51.50 >55% Mitral Valve MV Pk E: 0.64 MV PK A: 0.52 MV Decel Time: 216.00 E/A: 1.20 E'Lateral: 9.90 E'Medial: 7.18 E/E' Med: 8.90 E/E' Lat: 6.40 PHT: 63.00 MVA PHT: 3.49 Decel Cedar: 2.95 Aortic Valve AoV Pk Camilo: 1.88 AoV Mn Camilo: 1.20 AoV VTI: 0.33 AoV Pk Grad: 14.00 Aov Mn Grad: 7.00 EMI Cont.VTI: 2.72 AI Pk Camilo: 4.13 AI Cedar: 1.74 LVOT LVOT Pk Camilo: 1.15 LVOT Mn Camilo: 0.78 LVOT VTI: 0.23 LVOT Pk Grad: 5.00 LVOT Mn Grad: 3.00 LVOT Diam: 2.20 LVOT Area: 3.80 Diastolic Function MV Pk E: 0.64 MV Pk A: 0.52 E/A: 1.20 E'Medial: 7.18 E/E' Med: 8.90 E' Laterial: 9.90 E/E' Lat: 6.40 Right Ventricle TAPSE (mm): 18.90 TVS' Camilo: 10.40 Tricuspid Valve RA Press: 3.00 Great Vessels Aorta Sinus of Valsalva: 3.42 2.0-3.5 cm Ao Asc: 3.70 2.1-3.4 cm Ao Arch: 3.30 Updated in Other Vendor System with Status of Final Fuentes Hightower MD electronically signed on 10/12/2024 3:33:35 PM with status of Final
--- OUTSIDE RECORDS SUMMARY | 2024-10-10 13:14 | XMS_ITS | Patient Health Record ---
[facility] Address [address] [place] [address] Care Team Providers Care Finish Painter Name Role Phone LORNA DU Unavailable [phone] Allergies Allergen (clinical drug ingredient) Drug/Non Drug [...] Body mass index 40+ - severely obese (705711930) BMI 45.0-49.9, adult (Z68.42) Active confirmed Problem Morbid obesity (065715716) Morbid obesity due to excess calories (E66.01) Active confirmed Plan Of Treatment No Information Insurance Providers Payer Name Payer Address Payer Phone Subscriber Number Group Number Insured Name Patient Relationship to Insured Coverage Start Date Coverage End Date Medicare Part B [id number] [address] [place] [address] [id number] Alcira Gordon Self - patient is the insured 7 MEDEX [address] [place] [address] [phone] [id number] Alciar Gordon Self - patient is the insured Medical (General) History Medical History History ICD Code hyperlipidemia asthma headache Arthritis anxiety depression seasonal allergies vision problems Mast Cell disease weight gain Surgical History Surgery Date(Month/Year) cholecystectomy Hospitalization History Reason Date(Month/Year) growth on pituitaty and menningitis 03/2021
--- OUTSIDE RECORDS SUMMARY | 2024-10-10 13:14 | XMS_ITS | Encounter Summary ---
Author Organization [facility] Address [address] [place] [address] Phone Care Team Providers Care Development Coach Name Role Phone Eduardo Villela MD Unavailable [phone] Earl Desouza MD Unavailable [phone] Dorian Begum [place], [place] Unavailable [phone] Brandon Foreman MD Unavailable Eduardo Villela MD Primary Care Provider [phone] Encounter Details Date Type Department Care Team (Late st Contact Info) Description 08/14/2018 Transcribe Orders Virtual Department [address] [place] [address] Armida Mathews NP [address] [place], [place] [id number] [email or web address] Benign neoplasm of pituitary gland (Primary Dx) Social History Tobacco Use Types Packs/Day Years Used Date Smoking Tobacco: Never Assessed Comments Unknown Sex and Gender Information Value Date Recorded Sex Assigned at Not on file Legal Sex Female 5:13 PM EST Gender Identity Not on file Sexual Orientation Not on file documented as of this encounter Plan of Treatment Not on file documented as of this encounter Visit Diagnoses Diagnosis Benign neoplasm of pituitary gland- Primary Benign neoplasm of pituitary gland and craniopharyngeal duct (pouch) documented in this encounter Care Teams Development Coach Relationship Specialty Start Date End Date Eduardo Villela MD [address] [place] [address] [email or web address] PCP - General 03/10/17 Eduardo Villela MD [address] [place] [phone] [email or web address] Historical LMR Provider 12/25/16 03/14/21 Earl Desouza MD [address] [place] [address] Historical LMR Provider 12/25/16 Dorian Begum MD, MS [address] [place] [address] [email or web address] Historical LMR Provider 12/25/16 03/14/21 Brandon Foreman MD [address] [place] [address] [email or web address] Historical LMR Provider 12/25/16 03/14/21 documented as of this encounter Additional Source Comments The information contained in this document represents components of the legal health record. It is not the complete legal health record.[facility]
--- OUTSIDE RECORDS SUMMARY | 2024-10-10 13:14 | XMS_ITS | Clinical Summary ---
Author Organization [facility] [employer] [facility] Address [address] [place] [address] Phone Care Team Providers Care Project Superintendent Name Role Phone Esther Boss Primary Care Provider [phone] Allergies Active Allergy Reactions Criticality Noted Date [...] AM EDT Office Visit Vascular Surgery - [place] [address] [place] [address] Simon Delgado MD Right carotid bruit (Primary Dx) from Last 3 Months Surgical History Surgery Date Site/Laterality Comments CHOLECYSTECTOMY PROCEDURE: [place] CHOLECYSTECTOMY; COMMENT: 1978 APPENDECTOMY PROCEDURE: [place] APPENDECTOMY TOTAL KNEE ARTHROPLASTY PROCEDURE: [place] ARTHRP KNE CONDYLE&PLATU MEDIAL&LAT COMPARTMENTS; COMMENT: Medical History Medical History Date Comments Asthma DX:Asthma Diabetes mellitus type 2, co ntrolled, with complications (CMS/[facility] V24, [facility] V28) DX:Diabetes mellitus type 2, controlled, with [...] Panel) 02/06/2022 Colorectal Cancer Screening: Colonoscopy 02/06/2022 HIV Screening 02/06/2022 Hepatitis C Screening 02/06/2022 Medicare Annual Wellness Visit 02/06/2022 Social Influencers of Health Screening 02/06/2022 Depression Screening 03/07/2024 Diabetes: Annual Urine Albumin-Creatinine Ratio (uACR) 03/31/2024 [...] this topic Medical Devices Implanted Type Area Blood Bank Calendar Control Clerk Device Identifier Shelf Expiration Date Model / Serial / Lot Bone Cement Implanted:Qty: 1 on 03/22/2019 by Jesus Hassan MD Joints Left: Knee [employer] 12/04/2020 / 6191-1-001 / [id number] Bone Cement Implanted:Qty: 1 on 03/22/2019 by Jesus Hassan MD Joints Left: Knee [employer] 12/04/2020 / 6191-1-001 / [id number] Component Triathlon 4 Cemented Posterior Stabilized Femoral - [id number] Implanted:Qty: 1 on 03/22/2019 by Jesus Hassan MD Left: Knee [employer] 08/23/2023 5515-F-401 / / [id number] Peg Triathlon Modular Fix Distal Femur Knee - [id number] Implanted:Qty: 1 on 03/22/2019 by Jesus Hassan MD Left: Knee [employer] 11/14/2023 5575-X-000 / / [id number] Baseplate Triathlon 5 Primary Cemented Tibial Knee - [id number] Implanted:Qty: 1 on 03/22/2019 by Jesus Hassan MD Left: Knee [employer] 11/30/2023 5520-B-500 / / [id number] Component Triathlon 9mm 29mm Asymmetric X3 Ptlar Knee - [id number] Implanted:Qty: 1 on 03/22/2019 by Jesus Hassan MD Left: Knee [employer] 12/04/2022 5551-G-299 / / [id number] Insert Triathlon 5 16mm Posterior Stabilized Bearing X3 - [id number] Implanted:Qty: 1 on 03/22/2019 by Jesus Hassan MD Left: Knee [employer] 06/14/2022 5532-G-516 / / [id number] Insurance [facility] MEDICARE Care Teams Project Superintendent Relationship Specialty Start Date End Date Esther Boss PA [address] [place] [address] [address] [place] [address] PCP - General 07/16/24
--- OUTSIDE RECORDS SUMMARY | 2024-10-10 13:14 | XMS_ITS | Clinical Summary ---
[facility] Organization [facility] Address [address] [place] [address] Care Team Providers Care Terrazzo Laborer Name Role Phone Eduardo Villela MD Primary Care Provider [phone] Allergies Active Allergy Reactions Criticality Noted Date [...] Vaccine (1 of 2) 2010 Influenza Vaccine (#1) 2024 Pneumococcal Vaccine (1 of 1 - [...] this topic Medical Devices Implanted Type Area Jinriksha Driver Device Identifier Shelf Expiration Date Model / Serial / Lot Bone Cement Implanted:Qty: 1 on 03/22/2019 by Jesus Hassan MD at [facility] Total Joint Left: Knee K[employer] 12/04/2020 / 6191-1-001 / [id number] Bone Cement Implanted:Qty: 1 on 03/22/2019 by Jesus Hassan MD at [facility] Total Joint Left: Knee [employer] 12/04/2020 / 6191-1-001 / [id number] Component Triathlon 4 Cemented Posterior Stabilized Femoral - [id number] - [id number] Implanted:Qty: 1 on 03/22/2019 by Jesus Hassan MD at [facility] Left: Knee [employer] 08/23/2023 5515-F-401 / / [id number] Peg Triathlon Modular Fix Distal Femur Knee - 585231 - [id number] Implanted:Qty: 1 on 03/22/2019 by Jesus Hassan MD at [facility] Left: Knee [employer] 11/14/2023 5575-X-000 / / [id number] Baseplate Triathlon 5 Primary Cemented Tibial Knee - [id number] - [id number] Implanted:Qty: 1 on 03/22/2019 by Jesus Hassan MD at [facility] Left: Knee [employer] [facility] 11/30/2023 5520-B-500 / / [id number] Component Triathlon 9mm 29mm Asymmetric X3 Ptlar Knee - [id number] - [id number] Implanted:Qty: 1 on 03/22/2019 by Jesus Hassan MD at [facility] Left: Knee [employer] [facility] 12/04/2022 5551-G-299 / / [id number] Insert Triathlon 5 16mm Posterior Stabilized Bearing X3 - [id number] - [id number] Implanted:Qty: 1 on 03/22/2019 by Jesus Hassan MD at [facility] Left: Knee [employer] 06/14/2022 5532-G-516 / / [id number] Advance Directives For more information, please contact: [phone] Latest Code Status on File Code Status [...] way: discussion with patient . Care Teams Terrazzo Laborer Relationship Specialty Start Date End Date Eduardo Villela MD [address] [place] [address] Med/[place] [address] PCP - General Internal Medicine 08/30/18
--- OUTSIDE RECORDS SUMMARY | 2024-10-10 13:14 | XMS_ITS | Patient Health Record ---
Author Organization [facility] Address [address] [place] [address] Care Team Providers Care Salicylic Acid Blender Name Role Phone Loly Stanley Unavailable [phone] Allergies Allergen (clinical drug ingredient) Drug/Non Drug [...] MG 1 capsule Orally Twice a day [facility] 03/02/2012 Active CeleBREX 100 MG 1 capsule with food Orally Twice a day Active cloNIDine HCl 0.1MG 1 ORAL prn [facility] 11/21/2012 Active Bisacodyl 5 MG 2 tablets [...] 10 MG 1 ORAL daily; Duration: -3 [facility] 01/21/2011 Active Tylenol 1 tab Oral; Duration [...] 2000 IU ORAL at bedtime; Duration: -3 [facility] 12/28/2013 Active Senna 8.6 MG 2 capsule at bedtime as needed Orally Active Vitamin C 500MG 1 ORAL twice daily; Duration: -3 [facility] 08/27/2011 Active Tylenol Arthritis Pain 650MG 1 ORAL twic e daily; Duration: -3 [facility] 02/28/2012 Active EpiPen 2-Nino 0.3 MG/0.3ML Intramuscula; Duration: -3 [facility] 09/13/2013 Active Topamax 100 MG 1 1/2 tabs Orally morning and night [facility] 03/02/2012 Active lamoTRIgine 150 MG 2 tablets Orally Onc e a day [facility] 08/27/2011 Active Social History Tobacco Use: Social [...] Status Risk Notes Problem Postmenopausal atrophic vaginitis (35466263) Postmenopausal atrophic vaginitis (N95.2) Active confirmed Problem Postmenopausal bleeding (75887477) Postmenopausal bleeding (N95.0) Active confirmed Problem Urinary incontinence (708696393) Unspecified urinary incontinence (R32) Active confirmed Problem Morbid obesity (disorder) (223975996) Morbid (severe) obesity due to excess calories (E66.01) Active confirmed Problem Hyperlipidemia (85584539) Hyperlipidemia, unspecified (E78.5) Active confirmed Problem Bipolar disorder (16358239) Bipolar disorder, unspecified (F31.9) Active confirmed Problem Asthma (227780424) Other asthma (J45.998) Active confirmed Problem Osteoarthritis (157487803) Unspecified osteoarthritis, unspecified site (M19.90) Active confirmed Problem Fibromyalgia (347178510) Fibromyalgia (M79.7) Active confirmed Problem Atrophy of vulva (528582338) Atrophy of vulva (N90.5) Active confirmed Problem Functional urinary incontinence (100271225) Functional urinary incontinence (R39.81) Active confirmed Problem Candidal vulvovaginitis (59400151) Candidiasis of vulva and vagina (112.1) Active confirmed Diag Problem Obesity (846906433) Obesity, unspecified (278.00) Active confirmed Major Problem Mastodynia (99107611) Mastodynia (611.71) Active confirmed Diag Problem Light and infrequent menstruation (541154246) Scanty or infrequent menstruation (626.1) Active confirmed Major Problem Metrorrhagia (25687524) Metrorrhagia (626.6) Active confirmed Major Problem Gynecological examination normal (432905372990445) Routine gynecological examination (V72.31) Active confirmed Major [...] Date MEDICARE [address] ANTHONY ZARAGOZA [id number] [phone] [id number] LELELAILAJOAQUIM Self - patient is the insured MEDEX [address] [place] [address] [id number] 7 LELE, JOAQUIM Self - patient is [...]
--- OUTSIDE RECORDS SUMMARY | 2024-10-10 13:15 | XMS_ITS | Patient Health Record ---
Author [facility] Address [address] [place] [address] Care Team Providers Care Brick Mason Name Role Phone Armida Mathews MD Primary Care Provider Unavail able Oliver Jose Unavailable [phone] Allergies Allergen (clinical drug ingredient) Drug/Non Drug [...] Administered Influenza Unknown 12/19/2018 Administered COVID-19 Pfizer [employer] Vaccine Unknown 06/26/2020 Adm inistered 06/05/20 Social [...] atherosclerosis of arteries of lower limbs (disorder) (06134430852697737 ) Unspecified atherosclerosis of algaaciq arteries of extremities, bilateral legs (I70.203) Active confirmed Problem Localized, primary osteoarthritis of the ankle and/or foot (073098178) Primary osteoarthritis, right ankle and foot (M19.071) Active confirmed Problem Localized, primary osteoarthritis of the ankle and/or foot (899867996) Primary osteoarthritis, left ankle and foot (M19.072) Active confirmed Problem Polyneuropathy due to type 2 diabetes mellitus (354219232) Type 2 diabetes mellitus with diabetic polyneuropathy (E11.42) Active confirmed Problem Polyneuropathy due to diabetes mellitus type I (810017150) Type 1 diabetes mellitus with diabetic polyneuropathy (E10.42) Active confirmed Problem Raynaud's disease (367823232) Raynaud's disease without gangrene (I73.00) Active confirmed Plan Of Treatment Pending Test Test Name Order Date X ray : Ankle, left 3V 07/05/2019 X ray : Foot, left 2V 08/10/2017 X ray : Foot, left 3V 07/05/2019 X ray : Foot, right 3V 05/19/2021 38983-RPRQNCX NAIL, 6 OR MORE 09/03/2014 03135-PVXDOYF NAIL, 1-5 05/29/2015 50200-MTTPBUV NAIL, 1-5 08/28/2015 16200-ULIILEP NAIL, 1-5 11/27/2015 45941-Clgzukjw Plate 09/03/2014 49121-Piveuxwx Plate 10/25/2014 37964-Jmtdcvci Plate 05/23/2013 78612-Jmnkodct Plate Each Additional 57558- Debride <25 sq cm 06/16/2011 58911 I&D ABSCESS- SIMPLE,SINGLE 012 66929-IKFX SKIN LESIONS, OVER 4 01/09/20 15 79107-YXQX SKIN LESIONS, OVER 4 11/27/19 16 49862-RPST SKIN LESIONS, OVER 4 05/29/19 16 54115-RKIY SKIN LESIONS, OVER 4 08/28/19 16 22097-EXRH SKIN LESIONS, OVER 4 07/05/19 20 13259-PSIS SKIN LESIONS, OVER 4 10/18/19 20 53131-ARST SKIN LESIONS, 2 TO 4 02/20/20 19 71079-ARJU SKIN LESIONS, 2 TO 4 08/04/19 19 38335-COKA SKIN LESIONS, 2 TO 4 11/14/19 19 43012-EPTF SKIN LESIONS, 2 TO 4 08/11/19 18 40628-TOVF SKIN LESIONS, 2 TO 4 10/20/19 18 60461-EYZD SKIN LESIONS, 2 TO 4 01/17/20 18 97496-YSUY SKIN LESIONS, 2 TO 4 05/01/19 19 60542-VHTC NAIL(S) 08/28/2015 96979-UZRJ NAIL(S) 05/29/2015 52122-LXGQ NAIL(S) 11/27/2015 65235-ZBBQ NAIL(S) 01/08/2015 C4840-NRQDGDKF DYSTROPHIC NAILS ANY # V2690-BXAXVDNM DYSTROPHIC NAILS ANY # L6747-GWXMRUUU DYSTROPHIC NAILS ANY # R4007-FRUYSUZT DYSTROPHIC NAILS ANY # K1338-OQRZYVPL DYSTROPHIC NAILS ANY # O0317-GIXYBFSK DYSTROPHIC NAILS ANY # J9810-VXACRQCQ DYSTROPHIC NAILS ANY # S2016-YBBTMVDX DYSTROPHIC NAILS ANY # U4775-GISDMOTY DYSTROPHIC NAILS ANY # X ray : Ankle, right 3V 05/19/2021 Insurance Providers Payer Name Payer Address Payer Phone Subscriber Number Group Number Insured Name Patient Relationship to Insured Coverage Start Date Coverage End Date Medicare National Govt S[employer] [address] [place] [address] [id number] Alcira Gordon Self - patient is the insured 7 [employer] Blue Shield [address] [place] [address] [id number] Alcira Gordon Self - patient is the [...] Reason Date(Month/Year) [facility] 02/02/11 [facility] chest pain blood pressure high [facility] hypertension X 4 days 04/2017 [facility]- tumor on pituitary gland, diviated septum 12/26/18
== END ==
LOC: HO.CARD 12:43
PROVIDERS: Visit Provider Internal Medicine Cardiovascular Disease
DX: R07.89 Other chest pain (principal)
CPT/HCPCS: 93306; Q9957

== ENCOUNTER → 2024-10-10 12:46 | Outpatient (BNV) | payer MEDICARE, SELFPAY | PROVIDERS: Visit Provider Internal Medicine | DX: R07.89 Other chest pain (principal) | CPT/HCPCS: 93306 ==

== ENCOUNTER → 2024-10-19 09:49 | Outpatient (REF) | payer MEDICARE, SELFPAY ==
--- NOTE | ~2024-10-19 | NM_ITS ---
EXERCISE MYOCARDIAL PERFUSION STUDY INDICATION: Chest pain to evaluate for myocardial ischemia TECHNIQUE: The patient was brought in for an exercise perfusion study on 10/19/2024. Patient performed exercise as per Isac protocol and was injected 40 mCi of sestamibi once target heart rate was achieved. Images were obtained using the SPECT gamma camera interlaced with the gating device. Images were obtained in supine position. Resting perfusion study was performed on 10/22/2024. Patient was administered 40 mCi of sestamibi intravenously at rest. Images were then obtained in supine position. Images obtained without without CT attenuation. Total DLP 189 mGy-cm. Images were processed with the software and compared side to side in short axis, horizontal long axis and vertical long axis views. FINDINGS: Raw images were reviewed The stress perfusion study showed nonattenuated images show overall normal uptake of radiotracer in all segments of the LV myocardium. Attenuated corrected images show mildly reduced uptake in the apex of the LV myocardium.. The gated study shows normal LV systolic function with calculated LVEF of 63%. LV cavity is normal in size. The gated study shows normal systolic wall thickening and contraction of segments. Resting study shows nonattenuated images show mildly reduced uptake in the apex as well as some thinning of the distal anterior wall of the LV myocardium. Attenuated corrected images show moderately reduced uptake in the apex of the distal septum of the LV myocardium. Gating at rest reveals normal systolic wall motion with ejection fraction at 56%. The findings are consistent with normal myocardial perfusion. NM/NM cardiolite stress test IMPRESSION: 1. Myocardial perfusion imaging study shows normal myocardial perfusion. 2. Gated LVEF is 63%. 3. Transient ischemic dilatation not present. EKG revealed negative for ischemia. Electronically signed by: Jeff Hyatt MD 10/22/2024 05:33 PM EDT
--- NOTE | 2024-10-19 09:53 | CA_ITS ---
Acquisition Time: 2024-10-19 10:18:01 Total Exercise Time: 00:05:04 Test Indications: CHEST PAIN Medications: Protocol: MOD ROXANA Max HR: 153 BPM 98% of Pred: 156 BPM Max BP: 140/80 mmHG Max Work Load: 3.3 METS Exercise stress test with exercise 5 mins 4 secs of Modified Roxana Protocol, achieving 87% MPHR, with reports of 4/10 mid chest tightness that didnot change with exercise, with severe SOB, with isolated PVCs, with normotensive response to exercise. Without any EKG changes meeting criteria for ischemia. In recovery, pt's breathing improved to baseline and chest tightnes stayed unchanged. Nuclear images pending. Test reviewed with Dr. Lee. Referred By: Jasbir Lee Electronically Signed By: Bonifacio Green
--- OUTSIDE RECORDS SUMMARY | 2024-10-19 10:01 | XMS_ITS | Encounter Summary ---
Author Organization [facility] Address [address] [place] [address] Phone Care Team Providers Care Greenhouse Superintendent Name Role Phone Eduardo Villela MD Unavailable [phone] Earl Desouza MD Unavailable [phone] Dorian Begum MD, [place] Unavailable [phone] [facility] lopes MD Unavailable Eduardo Villela MD Primary Care Provider [phone] Encounter Details Date Type Department Care Team (Late st Contact Info) Description 08/14/2018 Transcribe Orders Virtual Department [address] [place] [address] Armida Mathews NP [address] [place], [place] [id number] [email or web address] Benign neoplasm of pituitary gland (Primary Dx) [...] (pouch) documented in this encounter Care Teams Greenhouse Superintendent Relationship Specialty Start Date End Date Eduardo Villela MD [address] [place] [address] [email or web address] PCP - General 03/10/17 Eduardo Villela MD [address] [place] [address] [email or web address] Historical LMR Provider 12/25/16 03/14/21 Earl Desouza MD [address] [place] [address] Historical LMR Provider 12/25/16 Dorian Begum MD, MS [address] [place] [address] [email or web address] Historical LMR Provider 12/25/16 03/14/21 Brandon Foreman MD [address] [place] [address] [email or web address] Historical LMR Provider 12/25/16 03/14/21 documented as of this encounter Additional Source Comments The information contained in this document represents components of the legal health record. It is not the complete legal health record.[facility]
--- OUTSIDE RECORDS SUMMARY | 2024-10-19 10:02 | XMS_ITS | Patient Health Record ---
Author Organization [facility] Address [address] [place] [address] Care Team Providers Care Electricians Top Helper Name Role Phone Loly Stanley Unavailable [phone] Allergies Allergen (clinical drug ingredient) Drug/Non Drug [...] MG 1 capsule Orally Twice a day [facility] 03/02/2012 Active CeleBREX 100 MG 1 capsule with food Orally Twice a day Active cloNIDine HCl 0.1MG 1 ORAL prn [facility] 11/21/2012 Active Bisacodyl 5 MG 2 [...] 10 MG 1 ORAL daily; Duration: -3 [facility] 01/21/2011 Active Tylenol 1 tab Oral; [...] 2000 IU ORAL at bedtime; Duration: -3 [facility] 12/28/2013 Active Senna 8.6 MG 2 capsule at bedtime as needed Orally Active Vitamin C 500MG 1 ORAL twice daily; Duration: -3 [facility] 08/27/2011 Active Tylenol Arthritis Pain 650MG 1 ORAL twic e daily; Duration: -3 [facility] 02/28/2012 Active EpiPen 2-Nino 0.3 MG/0.3ML Intramuscula; Duration: -3 [facility] 09/13/2013 Active Topamax 100 MG 1 1/2 tabs Orally morning and night [facility] 03/02/2012 Active lamoTRIgine 150 MG 2 tablets Orally Onc e a day [facility] 08/27/2011 Active Social History Tobacco Use: [...] Status Risk Notes Problem Postmenopausal atrophic vaginitis (55166250) Postmenopausal atrophic vaginitis (N95.2) Active confirmed Problem Postmenopausal bleeding (94439921) Postmenopausal bleeding (N95.0) Active confirmed Problem Urinary incontinence (674532917) Unspecified urinary incontinence (R32) Active confirmed Problem Morbid obesity (disorder) (371778271) Morbid (severe) obesity due to excess calories (E66.01) Active confirmed Problem Hyperlipidemia (22339741) Hyperlipidemia, unspecified (E78.5) Active confirmed Problem Bipolar disorder (81039780) Bipolar disorder, unspecified (F31.9) Active confirmed Problem Asthma (004027266) Other asthma (J45.998) Active confirmed Problem Osteoarthritis (962359878) Unspecified osteoarthritis, unspecified site (M19.90) Active confirmed Problem Fibromyalgia (193199283) Fibromyalgia (M79.7) Active confirmed Problem Atrophy of vulva (662831340) Atrophy of vulva (N90.5) Active confirmed Problem Functional urinary incontinence (136739417) Functional urinary incontinence (R39.81) Active confirmed Problem Candidal vulvovaginitis (81518938) Candidiasis of vulva and vagina (112.1) Active confirmed Diag Problem Obesity (590469083) Obesity, unspecified (278.00) Active confirmed Major Problem Mastodynia (53791816) Mastodynia (611.71) Active confirmed Diag Problem Light and infrequent menstruation (123485199) Scanty or infrequent menstruation (626.1) Active confirmed Major Problem Metrorrhagia (96594059) Metrorrhagia (626.6) Active confirmed Major Problem Gynecological examination normal (295096370254465) Routine gynecological examination (V72.31) Active confirmed Major [...] Date MEDICARE [address] ANTHONY ZARAGOZA [id number] LELELAILAJOAQUIM Self - patient is the insured MED[employer] [address] [place] [address] [phone] [id number] 7 LELE, JOAQUIM Self - patient is [...]
--- OUTSIDE RECORDS SUMMARY | 2024-10-19 10:02 | XMS_ITS | Clinical Summary ---
[facility] Organization [facility] Address [address] [place] [address] Care Team Providers Care Transmitter Supervisor Name Role Phone Eduardo Villela MD Primary Care Provider [phone] Allergies Active Allergy Reactions Criticality Noted Date [...] this topic Medical Devices Implanted Type Area Nuclear Auxiliary Operator Device Identifier Shelf Expiration Date Model / Serial / Lot Bone Cement Implanted:Qty: 1 on 03/22/2019 by Jesus Hassan MD [place] [facility] Total Joint Left: Knee [employer] 12/04/2020 / 6191-1-001 / [id number] Bone Cement Implanted:Qty: 1 on 03/22/2019 by Jesus Hassan MD at [facility] Total Joint Left: Knee [employer] 12/04/2020 / 6191-1-001 / [id number] Component Triathlon 4 Cemented Posterior Stabilized Femoral - [id number] - [id number] Implanted:Qty: 1 on 03/22/2019 by Jesus Hassan MD at [facility] Left: Knee [employer] 08/23/2023 5515-F-401 / / [id number] Peg Triathlon Modular Fix Distal Femur Knee - 819253 - [id number] Implanted:Qty: 1 on 03/22/2019 by Jesus Hassan MD at [facility] Left: Knee [employer] 11/14/2023 5575-X-000 / / [id number] Baseplate Triathlon 5 Primary Cemented Tibial Knee - 860119 - [id number] Implanted:Qty: 1 on 03/22/2019 by Jesus Hassan MD at [facility] Left: Knee [employer] 11/30/2023 5520-B-500 / / [id number] Component Triathlon 9mm 29mm Asymmetric X3 Ptlar Knee - 191427 - [id number] Implanted:Qty: 1 on 03/22/2019 by Jesus Hassan MD at [facility] Left: Knee [employer] 12/04/2022 5551-G-299 / / [id number] Insert Triathlon 5 16mm Posterior Stabilized Bearing X3 - 164036 - [id number] Implanted:Qty: 1 on 03/22/2019 by Jesus Hassan MD [place] [facility] Left: Knee [employer] [facility] 06/14/2022 5532-G-516 / / [id number] Advance Directives For more information, please contact: [phone] Latest Code Status on File Code Status [...] way: discussion with patient . Care Teams Transmitter Supervisor Relationship Specialty Start Date End Date Eduardo Villela MD [address] [place] [address] Med/[place] [address] PCP - General Internal Medicine 08/30/18
--- OUTSIDE RECORDS SUMMARY | 2024-10-19 10:02 | XMS_ITS | Patient Health Record ---
Author Organization [facility] Address [address] [place] [address] Care Team Providers Care Roundhouse Firer/Fireman Name Role Phone LORNA DU Unavailable [phone] Allergies Allergen (clinical drug ingredient) Drug/Non Drug [...] Body mass index 40+ - severely obese (360224260) BMI 45.0-49.9, adult (Z68.42) Active confirmed Problem Morbid obesity due to excess calories (E66.01) Active confirmed Plan Of Treatment No Information Insurance Providers Payer Name Payer Address Payer Phone Subscriber Number Group Number Insured Name Patient Relationship to Insured Coverage Start Date Coverage End Date Medicare Part B J14 [address] [place] [address] [id number] Alcira Gordon Self - patient is the insured 7 [employer]EX [address] [place] [address] [id number] Alcira Gordon Self - patient is the insured Medical (General) History Medical History History ICD Code hyperlipidemia asthma headache Arthritis anxiety depression seasonal allergies vision problems Mast Cell disease weight gain Surgical History Surgery Date(Month/Year) cholecystectomy Hospitalization History Reason Date(Month/Year) growth on pituitaty and menningitis 03/2021
--- OUTSIDE RECORDS SUMMARY | 2024-10-19 10:02 | XMS_ITS | Clinical Summary ---
Author Organization [facility] [employer] [facility] Address [address] [place] [address] Phone Care Team Providers Care Product Promoter Retail Pet Name Role Phone Esther Boss Primary Care Provider [phone] Allergies Active Allergy Reactions Criticality Noted Date [...] bruit 08/27/2018 Varicose veins with pain 12/26/2017 Surgical History Surgery Date Site/Laterality Comments CHOLECYSTECTOMY PROCEDURE: ME CHOLECYSTECTOMY; COMMENT: 1978 APPENDECTOMY PROCEDURE: ME APPENDECTOMY TOTAL KNEE ARTHROPLASTY PROCEDURE: ME ARTHRP KNE CONDYLE&PLATU MEDIAL&LAT COMPARTMENTS; COMMENT: Medical History Medical History Date Comments Asthma DX:Asthma Diabetes mellitus type 2, co ntrolled, with complications (CMS/HCC V24, CMS/HCC V28) DX:Diabetes mellitus type 2, controlled, with complications ([facility]) Essential hypertension DX:Essent ial hypertension Depressive disorder DX:Depressiv e disorder Anxiety state DX:Anxiety state Bowel disease DX:Bowel disease ; COMMENT: bowel problems History of joint problems DX:His tory of joint problems Family History Medical History Relation Name Comments Other: myloma Father Relation Name Status Comments Father Mother [...] (HGBA1C) 03/31/2024 03/06/2019 Influenza Vaccine (#1) 2024 4, 12/11/2022, 12/26/2021, Additional history exists DTaP,Tdap,and Td [...] this topic Medical Devices Implanted Type Area Lehr Tender Device Identifier Shelf Expiration Date Model / Serial / Lot Bone Cement Implanted:Qty: 1 on 03/22/2019 by Jesus Hassan MD Joints Left: Knee [employer] 12/04/2020 / 6191-1-001 / [id number] Bone Cement Implanted:Qty: 1 on 03/22/2019 by Jesus Hassan MD Joints Left: Knee [employer] 12/04/2020 / 6191-1-001 / [id number] Component Triathlon 4 Cemented Posterior Stabilized Femoral - [id number] Implanted:Qty: 1 on 03/22/2019 by Jesus Hassan MD Left: Knee [employer] 08/23/2023 5515-F-401 / / [id number] Peg Triathlon Modular Fix Distal Femur Knee - [id number] Implanted:Qty: 1 on 03/22/2019 by Jesus Hassan MD Left: Knee [employer] 11/14/2023 5575-X-000 / / [id number] Baseplate Triathlon 5 Primary Cemented Tibial Knee - [id number] Implanted:Qty: 1 on 03/22/2019 by Jesus Hassan MD Left: Knee [employer] 11/30/2023 5520-B-500 / / [id number] Component Triathlon 9mm 29mm Asymmetric X3 Ptlar Knee - [id number] Implanted:Qty: 1 on 03/22/2019 by Jesus Hassan MD Left: Knee [employer] 12/04/2022 5551-G-299 / / [id number] Insert Triathlon 5 16mm Posterior Stabilized Bearing X3 - [id number] Implanted:Qty: 1 on 03/22/2019 by Jesus Hassan MD Left: Knee [employer] 06/14/2022 5532-G-516 / / [id number] Insurance [facility] MEDICARE Care Teams Product Promoter Retail Pet Relationship Specialty Start Date End Date Esther Boss PA [address] [place] [address] PCP - General 07/16/24
--- OUTSIDE RECORDS SUMMARY | 2024-10-19 10:03 | XMS_ITS | Patient Health Record ---
Author Organization [facility] Address [address] [place] [address] Care Team Providers Care Mold Shop Supervisor Name Role Phone Armida Mathews MD Primary Care Provider Unavail able Oliver Jose Unavailable [phone] Allergies Allergen (clinical drug ingredient) Drug/Non Drug [...] Administered Influenza Unknown 12/19/2018 Administered COVID-19 Pfizer Dtime Vaccine Unknown 06/26/2020 Adm inistered 06/05/20 Social [...] atherosclerosis of arteries of lower limbs (disorder) (70133836885056740 ) Unspecified atherosclerosis of [place] arteries of extremities, bilateral legs (I70.203) Active confirmed Problem Localized, primary osteoarthritis of the ankle and/or foot (407469757) Primary osteoarthritis, right ankle and foot (M19.071) Active confirmed Problem Localized, primary osteoarthritis of the ankle and/or foot (452401678) Primary osteoarthritis, left ankle and foot (M19.072) Active confirmed Problem Polyneuropathy due to type 2 diabetes mellitus (147274294) Type 2 diabetes mellitus with diabetic polyneuropathy (E11.42) Active confirmed Problem Polyneuropathy due to diabetes mellitus type I (055756981) Type 1 diabetes mellitus with diabetic polyneuropathy (E10.42) Active confirmed Problem Raynaud's disease (700155091) Raynaud's disease without gangrene (I73.00) Active confirmed Plan Of Treatment Pending Test Test Name Order Date X ray : Ankle, left 3V 07/05/2019 X ray : Foot, left 2V 08/10/2017 X ray : Foot, left 3V 07/05/2019 X ray : Foot, right 3V 05/19/2021 33015-XWAZBMX NAIL, 6 OR MORE 09/03/2014 13929-KIXHTZT NAIL, 1-5 05/29/2015 53207-VOWCKNI NAIL, 1-5 08/28/2015 75624-VBOWNVG NAIL, 1-5 11/27/2015 90144-Xedxhrwa Plate 09/03/2014 08227-Nonehmpc Plate 10/25/2014 39188-Prjwqvcu Plate 05/23/2013 67949-Swuaedec Plate Each Additional 03399- Debride <25 sq cm 06/16/2011 13605 I&D ABSCESS- SIMPLE,SINGLE 012 17768-EWNV SKIN LESIONS, OVER 4 01/09/20 15 31949-MZNV SKIN LESIONS, OVER 4 11/27/19 16 44625-YWOU SKIN LESIONS, OVER 4 05/29/19 16 66851-QKPG SKIN LESIONS, OVER 4 08/28/19 16 43155-XVCZ SKIN LESIONS, OVER 4 07/05/19 20 56592-JMLP SKIN LESIONS, OVER 4 10/18/19 20 12527-ZOOJ SKIN LESIONS, 2 TO 4 02/20/20 19 30961-MXYN SKIN LESIONS, 2 TO 4 08/04/19 19 09398-INGX SKIN LESIONS, 2 TO 4 11/14/19 19 36036-EQNQ SKIN LESIONS, 2 TO 4 08/11/19 18 59151-WZYH SKIN LESIONS, 2 TO 4 10/20/19 18 01524-SWRI SKIN LESIONS, 2 TO 4 01/17/20 18 06288-GOML SKIN LESIONS, 2 TO 4 05/01/19 19 27578-OMSN NAIL(S) 08/28/2015 69894-UCSJ NAIL(S) 05/29/2015 52054-EGCB NAIL(S) 11/27/2015 33514-MUQW NAIL(S) 01/08/2015 N5121-QDUPAMIY DYSTROPHIC NAILS ANY # A5174-NFEJPHZJ DYSTROPHIC NAILS ANY # D1435-KHZTNBMD DYSTROPHIC NAILS ANY # X1601-AFPZKSPJ DYSTROPHIC NAILS ANY # O1463-GCVDWFPH DYSTROPHIC NAILS ANY # L1875-IBIITFMU DYSTROPHIC NAILS ANY # S4610-OPIDDAFJ DYSTROPHIC NAILS ANY # M6380-PVYOVBXQ DYSTROPHIC NAILS ANY # Y3832-RRWZORVG DYSTROPHIC NAILS ANY # X ray : Ankle, right 3V 05/19/2021 Insurance Providers Payer Name Payer Address Payer Phone Subscriber Number Group Number Insured Name Patient Relationship to Insured Coverage Start Date Coverage End Date Medicare National Govt Svcs Inc [address] [place] [address] [id number] Alcira Gordon Self - patient is the insured 7 [employer] Blue Shield [address] [place] [address] [id number] Alcira Gordon Self - patient is the [...] Reason Date(Month/Year) [employer]- Knee 02/02/11 [facility] chest pain blood pressure high [facility] hypertension X 4 days 04/2017 [facility]- tumor on pituitary gland, diviated septum 12/26/18
== END ==
LOC: HO.CARD 09:49
PROVIDERS: Visit Provider Internal Medicine Cardiovascular Disease
DX: R07.89 Other chest pain (principal)
CPT/HCPCS: 78452; 93017; A9500; J0280; J2785

== ENCOUNTER → 2024-10-19 09:53 | Outpatient (BNV) | payer MEDICARE, SELFPAY | DX: R06.02 Shortness of breath (principal); I49.3 Ventricular premature depolarization | CPT/HCPCS: 78452; 93016; 93018 ==

== ENCOUNTER 2024-12-10 15:25 | Outpatient (AMB) | payer MEDICARE, SELFPAY ==
--- NOTE | 2024-12-10 15:33 | MHC.OFFVIS ---
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: No Accompanied by: Significant Other Allergies garlic Allergy (Severe, Verified 09/03/24 13:06) THROAT CLOSES cephalexin (From Keflex) Allergy (Mild, Verified 09/03/24 13:06) RASH Medication List - Last Reconciled 12/11/24 by Jasbir Lee MD ascorbic acid (vitamin C) (Vitamin C) 500 mg PO DAILY bupropion HCl XL 300 mg PO DAILY bupropion HCl XL 150 mg PO DAILY calcium carbonate (Calcium 500) 500 mg PO DAILY celecoxib 100 mg PO BID cetirizine 10 mg PO BID cholecalciferol (vitamin D3) 50 mcg PO DAILY clonazepam 1 mg PO BEDTIME PRN cyanocobalamin (vitamin B-12) 1,000 mcg PO DAILY duloxetine 120 mg PO DAILY famotidine 40 mg PO BEDTIME hydrocortisone 10 mg PO BID lamotrigine 300 mg PO DAILY levalbuterol tartrate 45 mcg/actuation (Xopenex HFA) 2 inhalations inhalation Q6H levothyroxine 137 mcg PO DAILY montelukast 10 mg PO BEDTIME potassium chloride ER 20 mEq PO DAILY pravastatin 1 tab PO BEDTIME prucalopride 2 mg PO DAILY psyllium husk 0.8 grams (2 x 0.4 gram) PO BID terazosin 1 mg PO BEDTIME 90 days tizanidine 4 mg PO TID PRN topiramate 150 mg PO BID HPI Comments Details: [age] year female who is here for f/u. She has background history of obesity, diabetes, hypothyroidism, hyperlipidemia and is here for dyspnea on exertion and chest discomfort. She has been experiencing these symptoms for last 6 months. She is saying that symptoms have progressed over the last 6 months. Going up 1 flight of stairs she gets out of breath and gets chest discomfort. She also gets some palpitations at the same time. She has never had symptoms at rest. Blood pressure is well controlled. She also had sleep apnea in the past but is saying that 2 months ago she had repeat sleep study and apparently did not have sleep apnea anymore. She is fatigued during the day and sleeps a lot. She is on as needed clonazepam. At 1 stage in the past she was anemic but more recently she is denying any significant anemia. Last blood workup was in February which showed hemoglobin of 11.9. No bleeding recently. 12/10/2024: She is here for follow-up. She had exercise stress test where she could not exercise long and had severe shortness of breath and chest pain. Her echocardiography has shown low normal ejection fraction. She continues to get significant symptoms with activities and limits her exercise capacity. [facility] Medical History Mast cell activation syndrome Diabetes insipidus Hyponatremia Osteoarthritis Chronic back pain Headache GERD (gastroesophageal reflux disease) PTSD (post-traumatic stress disorder) Anxiety and depression LINDSEY (obstructive sleep apnea) Asthma Elevated cholesterol Left lower quadrant abdominal pain IBS (irritable bowel syndrome) Surgical History History of total left knee replacement History of back surgery History of appendectomy History of tonsillectomy and adenoidectomy Hx of cholecystectomy History of total right knee replacement (TKR) Hx of endoscopy History of colonoscopy Family History Father No problems noted. Mother No problems noted. Social History Household Members: Spouse Housing: Apartment Are you a primary child care centre manager to a significant other at home: No Do you presently have visiting nurse or other home services: No Alcohol intake: current Alcohol intake frequency: holidays/special occasions only Comment: fall last week however not frequent Patient Tobacco Use Status: Never used Tobacco service: No Female Reproductive History Menstrual Age of Menarche: 12 Review of Systems Const Denies chills, Denies fatigue, Denies fever(s), Denies frequent falls, Denies weakness, Denies weight gain and Denies weight loss ENT Denies dizziness Card Denies chest pain, Denies leg edema, Denies lightheadedness, Denies palpitations, Denies dyspnea and Denies dyspnea on exertion Resp Denies cough, Denies dyspnea and Denies dyspnea on exertion GI Denies hematochezia Musc Denies abnormal gait, Denies muscle weakness, Denies numbness, Denies radiating pain into limb and Denies tingling Neuro Denies abnormal gait, Denies dizziness, Denies frequent falls, Denies numbness, Denies tingling and Denies weakness Endo Denies fatigue and Denies palpitations Physical Exam Vital Signs: Last Vital Signs Pulse 90 12/10/24 15:34 BP 124/62 12/10/24 15:34 BMI result Body Mass Index 42.8 GENERAL APPEARANCE: in no acute distress, obese. Anxious. NECK: no carotid bruit, no jugular venous distention. SKIN: no suspicious lesions, warm and dry. HEART: no murmurs, regular rate and rhythm. LUNGS: clear to auscultation bilaterally. ABDOMEN: soft, nontender. EXTREMITIES: no edema. PERIPHERAL PULSES: equal. NEUROLOGIC: No gross deficits, AAO X 3 Assessment & Plan Assessment & Plan (1) Chest discomfort: Code(s): R07.89 - Other chest pain Category: Medical (2) Dyspnea: Code(s): R06.00 - Dyspnea, unspecified Category: Medical Plan Pleasant 64 year female who is here for follow-up. She was seen previously for chest pain and shortness of breath. She was referred for exercise stress test but stopped quickly during exercise due to severe shortness of breath and chest discomfort. Echocardiography is showing low normal ejection fraction. I have explained to her that her stress test is abnormal because her functional capacity is quite poor and she also had symptoms with activities. I have advised her to do diagnostic angiography and she is agreeable. We are going to arrange diagnostic cardiac catheterization for her. We will do left and right heart catheterization. We will check labs before cardiac catheterization. Thank you for allowing me to participate in the care of your patient. Please feel free to contact me if you have any questions. Orders: Orders Basic Metabolic Panel Today R06.00 - Dyspnea, unspecified Complete Blood Count no Diff Today R06.00 - Dyspnea, unspecified Prothrombin Time INR Today R06.00 - Dyspnea, unspecified Cardiac Cath MARCELLE Diagnostic Today R06.00 - Dyspnea, unspecified Coding Level of Care Code Est Pt Level 4 (89775) Diagnoses Chest discomfort R07.89 Dyspnea R06.00
[2024-12-10 15:34] VITALS: BP 124/62; PULSE 90; BMI 42.8
--- OUTSIDE RECORDS SUMMARY | 2024-12-10 17:49 | XMS_ITS | Encounter Summary ---
Author Organization [facility] Address [address] [place] [address] Phone Care Team Providers Care Public Health Clinical Nurse Specialist Name Role Phone Eduardo Villela MD Unavailable [phone] Earl Desouza MD Unavailable [phone] Dorian Begum MD, PA Unavailable [phone] Brandon Foreman MD Unavailable Eduardo Villela MD Primary Care Provider [phone] Encounter Details Date Type Department Care Team (Late st Contact Info) Description 08/14/2018 Transcribe Orders Virtual Department [address] [place] [address] Armida Mathews NP [address] [place], [place] [id number] [email or web address] Benign neoplasm of pituitary gland (Primary Dx) [...] (pouch) documented in this encounter Care Teams Public Health Clinical Nurse Specialist Relationship Specialty Start Date End Date Eduardo Villela MD [address] [place] [address] [email or web address] PCP - General 03/10/17 Eduardo Villela MD [address] [place] [address] [email or web address] Historical LMR Provider 12/25/16 03/14/21 Earl Desouza MD [address] [place] [phone] Historical LMR Provider 12/25/16 Dorian Begum MD, MS [address] [place] [address] [email or web address] Historical LMR Provider 12/25/16 03/14/21 Brandon Foreman MD [address] [place] [address] [email or web address] Historical LMR Provider 12/25/16 03/14/21 documented as of this encounter Additional Source Comments The information contained in this document represents components of the legal health record. It is not the complete legal health record.[facility]
--- OUTSIDE RECORDS SUMMARY | 2024-12-10 17:50 | XMS_ITS | Patient Health Record ---
Author Organization [facility] Address [address] [place] [address] Care Team Providers Care Placement Specialist Name Role Phone Armida Mathews MD Primary Care Provider Unavail able Oliver Rider Unavailable [phone] Allergies Allergen (clinical drug ingredient) Drug/Non Drug [...] 12/05/2017 Administered Influenza Unknown 12/19/2018 Administered COVID-19 Bilibot Vaccine Unknown 06/26/2020 Adm inistered 06/05/20 Social [...] atherosclerosis of arteries of lower limbs (disorder) (78157446214380536 ) Unspecified atherosclerosis of [place] arteries of extremities, bilateral legs (I70.203) Active confirmed Problem Localized, primary osteoarthritis of the ankle and/or foot (823362430) Primary osteoarthritis, right ankle and foot (M19.071) Active confirmed Problem Localized, primary osteoarthritis of the ankle and/or foot (790034792) Primary osteoarthritis, left ankle and foot (M19.072) Active confirmed Problem Polyneuropathy due to type 2 diabetes mellitus (017278255) Type 2 diabetes mellitus with diabetic polyneuropathy (E11.42) Active confirmed Problem Polyneuropathy due to diabetes mellitus type I (774405934) Type 1 diabetes mellitus with diabetic polyneuropathy (E10.42) Active confirmed Problem Raynaud's disease (280542070) Raynaud's disease without gangrene (I73.00) Active confirmed Plan Of Treatment Pending Test Test Name Order Date X ray : Ankle, left 3V 07/05/2019 X ray : Foot, left 2V 08/10/2017 X ray : Foot, left 3V 07/05/2019 X ray : Foot, right 3V 05/19/2021 21519-KXCXNNC NAIL, 6 OR MORE 09/03/2014 64915-ARTNHGM NAIL, 1-5 05/29/2015 75876-FIQMVOI NAIL, 1-5 08/28/2015 81437-MPUSOLD NAIL, 1-5 11/27/2015 15556-Kaitugkr Plate 09/03/2014 65603-Hfyqdsgk Plate 10/25/2014 99315-Yrboehdi Plate 05/23/2013 99734-Ohsapxzc Plate Each Additional 70201- Debride <25 sq cm 06/16/2011 73407 I&D ABSCESS- SIMPLE,SINGLE 012 99918-QCRJ SKIN LESIONS, OVER 4 01/09/20 15 95703-FWVL SKIN LESIONS, OVER 4 05/29/19 16 56793-TXFT SKIN LESIONS, OVER 4 08/28/19 16 15773-FFLB SKIN LESIONS, OVER 4 10/18/19 20 82306-VGCW SKIN LESIONS, OVER 4 07/05/19 20 98164-IAJH SKIN LESIONS, OVER 4 11/27/19 16 38667-JZAH SKIN LESIONS, 2 TO 4 08/11/19 18 15021-VHYS SKIN LESIONS, 2 TO 4 02/20/20 19 46483-GYXL SKIN LESIONS, 2 TO 4 05/01/19 19 92176-QDMG SKIN LESIONS, 2 TO 4 11/14/19 19 28141-RBZP SKIN LESIONS, 2 TO 4 08/04/19 19 32320-JOQM SKIN LESIONS, 2 TO 4 10/20/19 18 88849-PGPU SKIN LESIONS, 2 TO 4 01/17/20 18 82795-ZMCZ NAIL(S) 08/28/2015 94012-XLBG NAIL(S) 05/29/2015 15448-XWXF NAIL(S) 01/08/2015 85352-KHVW NAIL(S) 11/27/2015 X7735-XPBNDUKM DYSTROPHIC NAILS ANY # P1686-VEPYAEZE DYSTROPHIC NAILS ANY # N1054-BYHRDLCD DYSTROPHIC NAILS ANY # Z0711-SWEMZPHH DYSTROPHIC NAILS ANY # Z4340-FUXCIXTR DYSTROPHIC NAILS ANY # Q0186-XMVJRHPT DYSTROPHIC NAILS ANY # Z7482-FIVDWHIX DYSTROPHIC NAILS ANY # H1064-XRVJCWKS DYSTROPHIC NAILS ANY # L3048-VVSYQTDW DYSTROPHIC NAILS ANY # X ray : Ankle, right 3V 05/19/2021 Insurance Providers Payer Name Payer Address Payer Phone Subscriber Number Group Number Insured Name Patient Relationship to Insured Coverage Start Date Coverage End Date Medicare National Govt Svcs Inc [address] [place] [address] [id number] Alcira Gordon Self - patient is the insured 7 [employer] Blue Shield [address] [place] [address] [id number] HeidiAlcira truong Self - patient is the insured Medical [...] 3 views 07/05/19 Hospitalization History Reason Date(Month/Year) [facility] 02/02[facility] [place] pain blood pressure high [facility] hypertension X 4 days 04/2017 [facility]- tumor on pituitary gland, diviated septum 12/26/18
--- OUTSIDE RECORDS SUMMARY | 2024-12-10 17:50 | XMS_ITS | Clinical Summary ---
Author Organization [facility] Address [address] [place] [address] Care Team Providers Care Shipping And Receiving Supervisor Name Role Phone Eduardo Villela MD Primary Care Provider [phone] Allergies Active Allergy Reactions Criticality Noted Date [...] this topic Medical Devices Implanted Type Area Flake [employer] Device Identifier Shelf Expiration Date Model / Serial / Lot Bone Cement Implanted:Qty: 1 on 03/22/2019 by Jesus Hassan MD at [facility] and [facility] Total Joint Left: Knee KAY[employer]N [employer] 12/04/2020 / 6191-1-001 / [id number] Bone Cement Implanted:Qty: 1 on 03/22/2019 by Jesus Hassan MD at [facility] and [facility] Total Joint Left: Knee K[employer]N [employer]SD[employer] 12/04/2020 / 6191-1-001 / [id number] Component Triathlon 4 Cemented Posterior Stabilized Femoral - [id number] - [id number] Implanted:Qty: 1 on 03/22/2019 by Jesus Hassan MD at [facility] and [facility] Left: Knee [employer] 08/23/2023 5515-F-401 / / [id number] Peg Triathlon Modular Fix Distal Femur Knee - [id number] - [id number] Implanted:Qty: 1 on 03/22/2019 by Jesus Hassan MD at [facility] and [facility] Left: Knee [employer]N [employer] 11/14/2023 5575-X-000 / / [id number] Baseplate Triathlon 5 Primary Cemented Tibial Knee - [id number] - [id number] Implanted:Qty: 1 on 03/22/2019 by Jesus Hassan MD at [facility] and [facility] Left: Knee [employer] 11/30/2023 5520-B-500 / / [id number] Component Triathlon 9mm 29mm Asymmetric X3 Ptlar Knee - [id number] - [id number] Implanted:Qty: 1 on 03/22/2019 by Jesus Hassan MD at [facility] and [facility] Left: Knee [employer] 12/04/2022 5551-G-299 / / [id number] Insert Triathlon 5 16mm Posterior Stabilized Bearing X3 - [id number] - [id number] Implanted:Qty: 1 on 03/22/2019 by Jesus Hassan MD at [facility] and Med Left: Knee [employer] 06/14/2022 5532-G-516 / / [id number] Advance Directives For more information, please contact: [phone] Latest Code Status on File Code Status [...] way: discussion with patient . Care Teams Shipping And Receiving Supervisor Relationship Specialty Start Date End Date Eduardo Villela MD [address] [place] [address] Med/[place] [address] PCP - General Internal Medicine 08/30/18
--- OUTSIDE RECORDS SUMMARY | 2024-12-10 17:50 | XMS_ITS | Patient Health Record ---
[facility] Organization [facility] Address [address] [place] [address] Care Team Providers Care Office Runner Name Role Phone LORNA DU Unavailable [phone] Allergies Allergen (clinical drug ingredient) Drug/Non Drug [...] Body mass index 40+ - severely obese (285228798) BMI 45.0-49.9, adult (Z68.42) Active confirmed Problem Morbid obesity (889667165) Morbid obesity due to excess calories (E66.01) Active confirmed Plan Of Treatment No Information Insurance Providers Payer Name Payer Address Payer Phone Subscriber Number Group Number Insured Name Patient Relationship to Insured Coverage Start Date Coverage End Date Medicare Part B J14 [address] [place] [address] [id number] Alcira Gordon Self - patient is the insured 7 MEDEX [address] [place] [address] [id number] Alcira Gordon Self - patient is the insured Medical (General) History Medical History History ICD Code hyperlipidemia asthma headache Arthritis anxiety depression seasonal allergies vision problems Mast Cell disease weight gain Surgical History Surgery Date(Month/Year) cholecystectomy Hospitalization History Reason Date(Month/Year) growth on pituitaty and menningitis 03/2021
--- OUTSIDE RECORDS SUMMARY | 2024-12-10 17:50 | XMS_ITS | Clinical Summary ---
Author Organization [facility] Address [address] [facility] [address] [place] [address] Phone Care Team Providers Care Commercial Installer Name Role Phone Eduardo Villela MD Primary Care Provider [phone] Allergies Active Allergy Reactions Criticality Noted Date Comments Cephalosporins Hives 02/02/2011 Medications DULoxetine (CYMBALTA) 60 MG capsule Take 60 mg by mouth daily. Active pantoprazole (PROTONIX) 40 MG tablet Take 40 mg by mouth daily. Active inhaler spacing device (AEROCHAMBER,BR EATHERITE) Spcr as directed DX J45.40 Active peak flow meter Teresa as directed as directed as directed Active montelukast (SINGULAIR) 10 mg tablet 1 tablet in the evening Orally Once a day Active cetirizine (ZYRTEC) 10 MG tablet Take 10 mg by mouth daily. Active levalbuterol (XOPENEX HFA) 45 mcg/actuation inhaler 1 puff as needed Inhalation every 4 hrs Active fluticasone (FLOVENT HFA) 110 mcg/actuation inhaler 1 puff Inhalation Twice a day Active TRIAMCINOLONE ACETONIDE TOP 1 application to affected area Externally as needed Active Lactobacillus acidophilus Cap Orally Acti ve Medication-Free Text Black Cohosh 450 MG Capsule, Sig: Orally Active bisacodyl (DULCOLAX) 5 mg EC tablet Take 5 mg by mouth daily as needed. Active pravastatin (PRAVACHOL) 20 MG tablet Take 20 mg by mouth daily. Active cloNIDine HCl (CATAPRES) 0.1 MG tablet 1 tablet Orally Once a day Active EPINEPHrine (EPIPEN) 0.3 mg/0.3 mL auto-injector Injection Active NYSTATIN MM Mouth/Throat Activ e diclofenac sodium (VOLTAREN) 50 MG EC tablet Take 50 mg by mouth 2 (two) times a day. Active clonazePAM (KLONOPIN) 1 MG tablet 1/2 tablet Orally Once daily Active Medication-Free Text Vitamin D 2000 UNIT Tablet, Si capsule Orally Once a day Active ascorbic acid, vitamin C, (VITAMIN C) 500 mg Chew as directed Orally Active acetaminophen (TYLENOL ARTHRITIS PAIN) 650 MG CR tablet 1 tablet as needed Orally every 6 hrs Active potassium chloride (KAYCIEL 10%) 20 mEq/15 mL solution 15 applications Orally Twice a day Active methylcellulose (CITRUCEL) 500 mg Tab 1 tablets as needed Orally daily Active docusate sodium (COLACE) 100 MG capsule Take 100 mg by mouth 4 (four) times a day as needed. Active aspirin (ASPIR-81) 81 MG EC tablet Take 81 mg by mouth daily. Active phentermine (ADIPEX-P) 37.5 mg tablet as directed Orally Active Medication-Free Text Wellbutrin XL 200 Milligrams Tablet Extended Release 24 Hour, Si tablet every morning Orally am Active topiramate (TOPAMAX) 100 MG tablet Take 100 mg by mouth 2 (two) times a day. Active lamoTRIgine (LAMICTAL) 150 MG tablet 2 tablet on the tongue and allow to dissolve Orally Once a day Active Immunizations Immunization Administration Dates Next Due Influenza, Unspecified Formulation 02/02/2011(De ferred: Other) Pneumococcal polysaccharide PPSV23 02/02/2011(De monalisad: Other) Family History Medical History Relation Comments Cancer Father multiple myeloma Other Mother heavy smoker sepsis Mother Relation Status Comments Father Mother Social History Tobacco Use Types Packs/Day Years Used Date Smoking Tobacco: Never Assessed Education Answer Date Recorded Are you interested in more education? Not on kassidy e 07/12/2022 Are you concerned about learning? Not on file 07/12/2022 No 07/12/2022 No 07/12/2022 Digital Access Answer Date Recorded No 08/01/2022 No 08/01/2022 No 08/01/2022 Reliable internet access at home? Not on file 08/01/2022 Device with a working camera? Not on file Comments Unknown Sex and Gender Information Value Date Recorded Sex Assigned at Not on file Legal Sex Female 5:13 PM EST Gender Identity Not on file Sexual Orientation Not on file Last Filed Vital Signs Vital Sign Reading Time Taken Comments Blood Pressure 148/84 02/24/2016 12:08 PM EST Pulse 96 02/24/2016 12:08 PM EST Temperature 36.3 C (97.3 F) 02/24/2016 12:08 PM EST Respiratory Rate - - Oxygen Saturation - - Inhaled Oxygen Concentration - - Weight 154.2 kg (340 lb) 02/24/2016 12:08 PM EST Height 168.9 cm (5' 6.5 ) 02/24/2016 12:08 PM ES T Body Mass Index 54.06 02/24/2016 12:08 PM EST Plan of Treatment Health Maintenance Due Date Last Done Comments LIPID PANEL 1960 DEPRESSION SCREENING 1972 HEPATITIS C SCREENING 1978 HIV ONE-TIME SCREENING (18-65 YEARS) 1978 PAP SMEAR 1981 MAMMOGRAM 2000 POTASSIUM LEVEL 02/18/2012 02/17/2011, 11/2010, 02/10/2011, Additional history exists PNEUMOCOCCAL VACCINES (50+ years) (2 of 2 - PCV) 12/25/2015 12/24/2014 INFLUENZA VACCINE (#1) 2024 , 12/13/2019, 12/13/2018, Additional history exists COVID-19 VACCINE (2 - 2024- season) 2024 02/25/2021 Adult Td,Tdap Booster 11/05/2029 11/06/2019, 010 RSV VACCINE (1 - 1-dose 75+ series) 2035 ZOSTER VACCINES Completed 06/27/2021, 03/06/2021 COLORECTAL CANCER SCREENING Completed HEPATITIS A VACCINES Aged Out No long er eligible based on patient's age to complete this topic HIB VACCINES Aged Out No longer eligi ble based on patient's age to complete this topic MENINGOCOCCAL VACCINES (ACWY) Aged Out No longer eligible based on patient's age to complete this topic MENINGOCOCCAL VACCINES (B) Aged Out N o longer eligible based on patient's age to complete this topic Medical Devices Not on file Procedures Procedure Name Priority Date/Time Associated Diagnosis Comments HISTORICAL LAB Routine 02/17/2011 6:50 AM EST from Last 3 Months or Most Recently Relevant to Health Maintenance Results * Historical Lab (02/17/2011 6:50 AM EST) SODIUM 142 136 - 145 [facility] POTASSIUM 3.9 3.5 - 5.2 [facility] CHLORIDE 109 99 - 109 [facility] CARBON DIOXIDE 27 20 - 31 [facility] ANION GAP 6.0 4.0 - 13.9 [facility] GLUCOSE, SERUM 91 74 - 106 MG/DL [facility] BUN 14 9 - 23 MG/DL [facility] CREATININE 0.6 0.5 - 1.3 MG/DL [facility] .EST GLOM FILT RATE NON- AM 112.5 [facility] Comment:Units: ml/min/1.73ms q .EST GLOM FILT RATE AMERIC 136.1 [facility] Comment: Units: ml/min/1.73msq Reference Table for Population Mean GFRs AGE AVERAGE GFR 20-29 116 ml/min/1.73msq 30-39 107 ml/min/1.73msq 40-49 99 ml/min/1.73msq 50-59 93 ml/min/1.73msq 60-69 85 ml/min/1.73msq 70+ 75 ml/min/1.73msq CALCIUM 8.8 8.7 - 10.4 MG/DL [facility] 02/17/2011 6:50 AM EST 02/17/2011 9:29 AM EST us Natalia Alicea DO LAB BLOOD ORDERABLES Final Res ult [facility] [address] [place] [address] from Last 3 Months or Most Recently Relevant to Health Maintenance Insurance MEDICARE PART A & B 0xdata MEDEX SUPPLEMENT MEDICARE PART A & B 0xdata MEDEX SUPPLEMENT MEDICARE PART A & B 0xdata MEDEX SUPPLEMENT MEDICARE PART A & B 0xdata MEDEX SUPPLEMENT MEDICARE PART A & B [facility] MEDEX SUPPLEMENT MEDICARE PART A & B 0xdata MEDEX SUPPLEMENT MEDICARE PART A & B 0xdata MEDEX SUPPLEMENT MEDICARE PART A & B 0xdata MEDEX SUPPLEMENT MEDICARE PART A & B 0xdata MEDEX SUPPLEMENT Care Teams Commercial Installer Relationship Specialty Start Date End Date Eduardo Villela MD [email or web address] PCP - General 03/10/17 Additional Source Comments The information contained in this document represents components of the legal health record. It is not the complete legal health record.[facility]
--- OUTSIDE RECORDS SUMMARY | 2024-12-10 17:50 | XMS_ITS | Encounter Summary ---
Author Organization [facility] Address [address] [facility] [address] [place] [address] Phone Care Team Providers Care Invoice Classification Clerk Name Role Phone Eduardo Villela MD Unavailable [phone] Earl Desouza MD Unavailable Dorian Begum MD, [place] Unavailable [phone] Brandon Foreman MD Unavailable Eduardo Villela MD Primary Care Provider [phone] Encounter Details Date Type Department Care Team (Late st Contact Info) Description 09/18/2018 Ancillary Orders [address] [address] Armida Mathews, YONATHAN [address] [place] [address] [email or web address] Left leg pain Social History Tobacco Use Types Packs/Day Years Used Date Smoking Tobacco: Never Assessed Comments Unknown Sex and Gender Information Value Date Recorded Sex Assigned at Not on file Legal Sex Female 5:13 PM EST Gender Identity Not on file Sexual Orientation Not on file documented as of this encounter Plan of Treatment Not on file documented as of this encounter Results * US Lower Extremity Veins Duplex (Left) (09/18/2018 7:09 PM EDT) Anatomical Region Laterality Modality Hip Left, Thigh Left, Knee L eft, Leg Left, Ankle Left, Foot Left Ultrasound 09/18/2018 7:28 PM EDT Impressions 09/18/2018 7:29 PM EDT No evidence of deep venous thrombosis in left lower extremity. POS - [facility] Narrative 09/18/2018 7:29 PM EDT HISTORY: Left leg pain COMPARISON:None. TECHNIQUE: Evaluation of the deep venous system of the left lower extremity is performed, including the calf veins. FINDINGS: The veins of the deep venous system of the left leg is clear and compresses normally. Normal Doppler flow was demonstrated. Augmentation maneuvers are normal. No evidence of masses in the popliteal fossa. Procedure Note Socrates Oliva MD - 09/18/2018 HISTORY: Left leg pain COMPARISON:None. TECHNIQUE: Evaluation of the deep venous system of the left lowerextremity is performed, including the calf veins. FINDINGS: The veins of the deep venous system of the left leg is clear andcompresses normally. Normal Doppler flow was demonstrated. Augmentationmaneuvers are normal. No evidence of masses in the popliteal fossa. IMPRESSION: No evidence of deep venous thrombosis in left lower extremity. POS - [facility] Armida Mathews NP US VASCULAR Final Result documented in this encounter Visit Diagnoses Diagnosis Left leg pain Pain in soft tissues of limb Left leg pain Pain in soft tissues of limb documented in this encounter Care Teams Invoice Classification Clerk Relationship Specialty Start Date End Date Eduardo Villela MD [address] [place] [address] PCP - General 03/10/17 Eduardo Villela MD [address] [place] [address] Historical LMR Provider 12/25/16 03/14/21 Earl Desouza MD [address] [place] [address] Historical LMR Provider 12/25/16 Dorian Begum MD, [place] [address] [place] [address] [email or web address] Historical LMR Provider 12/25/16 03/14/21 Brandon Foreman MD [address] [place] [address], [facility] [address] [place] [address] [email or web address] Historical LMR Provider 12/25/16 03/14/21 documented as of this encounter Additional Source Comments The information contained in this document represents components of the legal health record. It is not the complete legal health record.[facility]
--- OUTSIDE RECORDS SUMMARY | 2024-12-10 17:50 | XMS_ITS | Patient Health Record ---
Author Organization [employer] [facility] Address [address] [place] [address] Care Team Providers Care Pc Support Specialist Name Role Phone Loly Stanley Unavailable [phone] Allergies Allergen (clinical drug ingredient) Drug/Non Drug [...] MG 1 capsule Orally Twice a day [facility] 03/02/2012 Active CeleBREX 100 MG 1 capsule with food Orally Twice a day Active cloNIDine HCl 0.1MG 1 ORAL prn [facility] 11/21/2012 Active Bisacodyl 5 MG 2 tablets [...] 10 MG 1 ORAL daily; Duration: -3 [facility] 01/21/2011 Active Tylenol 1 tab Oral; Duration [...] 2000 IU ORAL at bedtime; Duration: -3 [facility] 12/28/2013 Active Senna 8.6 MG 2 capsule at bedtime as needed Orally Active Vitamin C 500MG 1 ORAL twice daily; Duration: -3 [facility] 08/27/2011 Active Tylenol Arthritis Pain 650MG 1 ORAL twic e daily; Duration: -3 [facility] 02/28/2012 Active EpiPen 2-Nino 0.3 MG/0.3ML Intramuscula; Duration: -3 [facility] 09/13/2013 Active Topamax 100 MG 1 1/2 tabs Orally morning and night [facility] 03/02/2012 Active lamoTRIgine 150 MG 2 tablets Orally Onc e a day [facility] 08/27/2011 Active Social History Tobacco Use: Social [...] Status Risk Notes Problem Postmenopausal atrophic vaginitis (62789198) Postmenopausal atrophic vaginitis (N95.2) Active confirmed Problem Postmenopausal bleeding (65440361) Postmenopausal bleeding (N95.0) Active confirmed Problem Urinary incontinence (908523758) Unspecified urinary incontinence (R32) Active confirmed Problem Morbid obesity (disorder) (068648028) Morbid (severe) obesity due to excess calories (E66.01) Active confirmed Problem Hyperlipidemia (47715009) Hyperlipidemia, unspecified (E78.5) Active confirmed Problem Bipolar disorder (54712854) Bipolar disorder, unspecified (F31.9) Active confirmed Problem Asthma (414190401) Other asthma (J45.998) Active confirmed Problem Osteoarthritis (716085653) Unspecified osteoarthritis, unspecified site (M19.90) Active confirmed Problem Fibromyalgia (062234531) Fibromyalgia (M79.7) Active confirmed Problem Atrophy of vulva (519717842) Atrophy of vulva (N90.5) Active confirmed Problem Functional urinary incontinence (825065663) Functional urinary incontinence (R39.81) Active confirmed Problem Candidal vulvovaginitis (01990711) Candidiasis of vulva and vagina (112.1) Active confirmed Diag Problem Obesity (170402681) Obesity, unspecified (278.00) Active confirmed Major Problem Mastodynia (95914623) Mastodynia (611.71) Active confirmed Diag Problem Light and infrequent menstruation (260034078) Scanty or infrequent menstruation (626.1) Active confirmed Major Problem Metrorrhagia (50157127) Metrorrhagia (626.6) Active confirmed Major Problem Gynecological examination normal (668281062619124) Routine gynecological examination (V72.31) Active confirmed Major [...] Date MEDICARE [address] ANTHONY ZARAGOZA [id number] LELELAILAJOAQUIM Self - patient is the insured MEDEX [address] [place] [address] [phone] [id number] LELE, JOAQUIM Self - patient is [...]
--- OUTSIDE RECORDS SUMMARY | 2024-12-10 17:50 | XMS_ITS | Clinical Summary ---
Author Organization [facility] Address [address] [place] [address] Phone Care Team Providers Care Coil Connector Repairer Name Role Phone Esther Boss Primary Care Provider [phone] Allergies Active Allergy Reactions Criticality Noted Date [...] History Surgery Date Site/Laterality Comments CHOLECYSTECTOMY PROCEDURE: [place] CHOLECYSTECTOMY; COMMENT: 1978 APPENDECTOMY PROCEDURE: [place] APPENDECTOMY TOTAL KNEE ARTHROPLASTY PROCEDURE: [place] ARTHRP KNE CONDYLE&PLATU MEDIAL&LAT COMPARTMENTS; COMMENT: Medical History Medical History Date Comments Asthma DX:Asthma Diabetes mellitus type 2, co ntrolled, with complications (CMS/HCC V24, CMS/HCC V28) DX:Diabetes mellitus type 2, controlled, with complications ([facility]) Essential hypertension DX:Essent ial hypertension Depressive disorder [...] Last Done Comments Breast Cancer Screening 1960 Colorectal Cancer Screening: Colonoscopy 1960 Diabetes: Annual Foot Exam 1970 Diabetes: Annual Retina Eye Exam 1970 Cervical Cancer Screening: Pap Smear 1981 Pneumococcal Vaccine: 50+ Years (2 of 2 - PCV) 12/25/2015 12/24/2014 Diabetes: Annual GFR (Glomerular Filtration Rate) 03/06/2020 03/06/2019 RSV Immunization Adult Patients (1 - Risk 60-74 years 1-dose series) 2020 Cholesterol Screening (Lipid Panel) 02/06/2022 HIV Screening 02/06/2022 Hepatitis C Screening [...] this topic Medical Devices Implanted Type Area Clinical Technologist Device Identifier Shelf Expiration Date Model / Serial / Lot Bone Cement Implanted:Qty: 1 on 03/22/2019 by Jesus Hassan MD Joints Left: Knee [employer] 12/04/2020 / 6191-1-001 / [id number] Bone Cement Implanted:Qty: 1 on 03/22/2019 by Jesus Hassan MD Joints Left: Knee [employer] 12/04/2020 / [id number] / [id number] Component Triathlon 4 Cemented Posterior Stabilized Femoral - [id number] Implanted:Qty: 1 on 03/22/2019 by Jesus Hassan MD Left: Knee [employer] 08/23/2023 5515-F-[id number] / / [id number] Peg Triathlon Modular Fix Distal Femur Knee - [id number] Implanted:Qty: 1 on 03/22/2019 by Jesus Hassan MD Left: Knee [employer] 11/14/2023 5575-X-000 / / [id number] Baseplate Triathlon 5 Primary Cemented Tibial Knee - [id number] Implanted:Qty: 1 on 03/22/2019 by Jesus Hassan MD Left: Knee [employer] 11/30/2023 5520-B-500 / / [id number] Component Triathlon 9mm 29mm Asymmetric X3 Ptlar Knee - [id number] Implanted:Qty: 1 on 03/22/2019 by Jesus Hassan MD Left: Knee [employer] 12/04/2022 5551-G-299 / / [id number] Insert Triathlon 5 16mm Posterior Stabilized Bearing X3 - [id number] Implanted:Qty: 1 on 03/22/2019 by Jesus Hassan MD Left: Knee [employer] 06/14/2022 5532-G-516 / / [id number] Insurance [facility] MEDICARE Care Teams Coil Connector Repairer Relationship Specialty Start Date End Date Esther Boss PA [address] [place] [address] PCP - General 07/16/24
== END 2024-12-10 16:02 | disposition home or self-care (01) ==
LOC: HO.HCS 15:26
PROVIDERS: PCP Nurse Practitioner; Visit Provider Internal Medicine Cardiovascular Disease
DX: R07.89 Other chest pain (principal); R06.00 Dyspnea, unspecified
CPT/HCPCS: 99214

== ENCOUNTER → 2024-12-10 15:25 | Outpatient (BNVA) | payer MEDICARE, SELFPAY | PROVIDERS: PCP Nurse Practitioner; Visit Provider Internal Medicine Cardiovascular Disease | DX: R07.89 Other chest pain (principal); R06.00 Dyspnea, unspecified | CPT/HCPCS: 99212 ==

== ENCOUNTER 2024-12-18 14:21 | Outpatient (REF) | payer MEDICARE, SELFPAY ==
[2024-12-18 14:58] LABS: Hematocrit 39.6 % (37.0-47.0); Hemoglobin 12.6 g/dl (12.0-16.0); Mean Corpuscular HGB Conc 31.8 g/dl (31.0-35.0); Mean Corpuscular Hemoglobin 29.0 pg (27.0-33.0); Mean Corpuscular Volume 91.2 fL (80.0-98.0); NRBC Abs Auto 0.000 X10*3/uL (0.0-0.012); NRBC Pct Auto 0.0 /100WBC (0.0-0.2); Platelet Count 258 X10*3/uL (160-400); Red Blood Count 4.34 X10*6/uL (4.20-5.50); White Blood Count 9.8 X10*3/uL (4.8-10.8)
[2024-12-18 15:04] LABS: INTERNATIONAL NORM RATIO 1.0 (0.9-1.1); Prothrombin Time 11.0 SEC (10.9-12.4)
[2024-12-18 15:10] LABS: Anion Gap 12 (12-20); Blood Urea Nitrogen 21 mg/dL (9-16); Calcium 9.5 mg/dL (8.4-10.2); Carbon Dioxide 22 mmol/L (22-29); Chloride 111 mmol/L (96-108); Estimated Glomerular Filt Rate > 60; Potassium 4.1 mmol/L (3.3-5.1); Sodium 141 mmol/L (135-145)
--- OUTSIDE RECORDS SUMMARY | 2024-12-18 17:19 | XMS_ITS | Encounter Summary ---
Author Organization [facility] Address [address] [place] [address] Phone Care Team Providers Care Accounting File Clerk Name Role Phone Eduardo Villela MD Unavailable [phone] Earl Desouza MD Unavailable [phone] Dorian Begum MD, [place] Unavailable [phone] Brandon Foreman MD Unavailable Eduardo Villela MD Primary Care Provider [phone] Encounter Details Date Type Department Care Team (Late st Contact Info) Description 09/18/2018 Ancillary Orders [address] [address] Armida Mathews, YONATHAN [address] [place] [address] [email or web address] Left leg pain Social History Tobacco Use [...] limb documented in this encounter Care Teams Accounting File Clerk Relationship Specialty Start Date End Date Eduardo Villela MD [address] [place] [address] PCP - General 03/10/17 Eduardo Villela MD [address] [place] [address] Historical LMR Provider 12/25/16 03/14/21 Earl Desouza MD [address] [place] [address] Historical LMR Provider 12/25/16 Dorian Begum MD, [place] [address] [place] [address] [email or web address] Historical LMR Provider 12/25/16 03/14/21 Brandon Foreman MD [address] [place] [address], [facility] [address] [place] [address] [email or web address] Historical LMR Provider 12/25/16 03/14/21 documented as of this encounter Additional Source Comments The information contained in this document represents components of the legal health record. It is not the complete legal health record.[facility]
--- OUTSIDE RECORDS SUMMARY | 2024-12-18 17:19 | XMS_ITS | Encounter Summary ---
Author Organization [facility] Address [address] [facility] [address] [place] [address] Phone Care Team Providers Care Boiler Shop Mechanic Name Role Phone Eduardo Villela MD Unavailable [phone] Earl Desouza MD Unavailable Dorian Begum MD, [place] Unavailable [phone] Brandon Foreman MD Unavailable Eduardo Villela MD Primary Care Provider [phone] Encounter Details Date Type Department Care Team (Late st Contact Info) Description 08/14/2018 Transcribe Orders Virtual Department [address] [place] [address] Armida Mathews NP [address] [place], [place] [id number] [email or web address] Benign neoplasm of pituitary gland (Primary Dx) [...] (pouch) documented in this encounter Care Teams Boiler Shop Mechanic Relationship Specialty Start Date End Date Eduardo Villela MD [address] [place] [address] [address] [place] [address] [email or web address] PCP - General 03/10/17 Eduardo Villela MD [address] [place] [address] [email or web address] Historical LMR Provider 12/25/16 03/14/21 Earl Desouza MD [address] [place] [address] Historical LMR Provider 12/25/16 Dorian Begum MD, MS [address] [place] [address] [email or web address] Historical LMR Provider 12/25/16 03/14/21 Brandon Foreman MD [address] [place] [address] [email or web address] Historical LMR Provider 12/25/16 03/14/21 documented as of this encounter Additional Source Comments The information contained in this document represents components of the legal health record. It is not the complete legal health record.[facility]
--- OUTSIDE RECORDS SUMMARY | 2024-12-18 17:19 | XMS_ITS | Clinical Summary ---
Author Organization [facility] Address [address] [place] [address] Care Team Providers Care Associate Editor Name Role Phone Eduardo Villela MD Primary Care Provider [phone] Allergies Active Allergy Reactions Criticality Noted Date [...] this topic Medical Devices Implanted Type Area Director Of Distance Learning Device Identifier Shelf Expiration Date Model / Serial / Lot Bone Cement Implanted:Qty: 1 on 03/22/2019 by Jesus Hassan MD at [facility] [place] and [facility] Total Joint Left: Knee K[employer] 12/04/2020 / [id number] / [id number] Bone Cement Implanted:Qty: 1 on 03/22/2019 by Jesus Hassan MD at [facility] [place] and [facility] Total Joint Left: Knee [employer] 12/04/2020 / [id number] / [id number] Component Triathlon 4 Cemented Posterior Stabilized Femoral - [id number] - [id number] Implanted:Qty: 1 on 03/22/2019 by Jesus Hassan MD at [facility] [place] and [facility] Left: Knee [employer] 08/23/2023 5515-F-[id number] / / [id number] Peg Triathlon Modular Fix Distal Femur Knee - [id number] - [id number] Implanted:Qty: 1 on 03/22/2019 by Jesus Hassan MD at [facility] [place] and [facility] Left: Knee [employer] 11/14/2023 5575-X-000 / / [id number] Baseplate Triathlon 5 Primary Cemented Tibial Knee - [id number] - [id number] Implanted:Qty: 1 on 03/22/2019 by Jesus Hassan MD at [facility] [place] and [facility] Left: Knee [employer] 11/30/2023 5520-B-500 / / [id number] Component Triathlon 9mm 29mm Asymmetric X3 Ptlar Knee - [id number] - [id number] Implanted:Qty: 1 on 03/22/2019 by Jesus Hassan MD at [facility] [place] and [facility] Left: Knee [employer] 12/04/2022 5551-G-299 / / [id number] Insert Triathlon 5 16mm Posterior Stabilized Bearing X3 - [id number] - [id number] Implanted:Qty: 1 on 03/22/2019 by Jesus Hassan MD at [facility] [place] and Med Left: Knee [employer] 06/14/2022 5532-G-516 / / [id number] Advance Directives For more information, please contact: [phone] Latest Code Status on File Code Status [...] way: discussion with patient . Care Teams Associate Editor Relationship Specialty Start Date End Date Eduardo Villela MD [address] [place] [address] Med/[place] [address] PCP - General Internal Medicine 08/30/18
--- OUTSIDE RECORDS SUMMARY | 2024-12-18 17:19 | XMS_ITS | Patient Health Record ---
Author Organization [facility] Address [address] [place] [address] Care Team Providers Care Box Order Person Name Role Phone LORNA DU Unavailable [phone] Allergies Allergen (clinical drug ingredient) Drug/Non Drug [...] Body mass index 40+ - severely obese (255532640) BMI 45.0-49.9, adult (Z68.42) Active confirmed Problem Morbid obesity (611770564) Morbid obesity due to excess calories (E66.01) Active confirmed Plan Of Treatment No Information Insurance Providers Payer Name Payer Address Payer Phone Subscriber Number Group Number Insured Name Patient Relationship to Insured Coverage Start Date Coverage End Date Medicare Part B J14 [address] [place] [address] [id number] Alcira Gordon Self - patient is the insured 7 [employer]EX [address] [place] [address] [phone] [id number] Alcira Gordon Self - patient is the insured Medical (General) History Medical History History ICD Code hyperlipidemia asthma headache Arthritis anxiety depression seasonal allergies vision problems Mast Cell disease weight gain Surgical History Surgery Date(Month/Year) cholecystectomy Hospitalization History Reason Date(Month/Year) growth on pituitaty and menningitis 03/2021
--- OUTSIDE RECORDS SUMMARY | 2024-12-18 17:20 | XMS_ITS | Clinical Summary ---
Author Organization [facility] Address [address] [facility] [address] [place] [address] Phone Care Team Providers Care Rubber Turner Name Role Phone Eduardo Villela MD Primary Care Provider [phone] Allergies Active Allergy Reactions Criticality Noted Date [...] EST) SODIUM 142 136 - 145 MMOL/L [facility] POTASSIUM 3.9 3.5 - 5.2 [facility]OL/L [facility] CHLORIDE 109 99 - 109 [facility]OL[facility]L [facility] CARBON DIOXIDE 27 20 - 31 MMOL/L [facility] ANION GAP 6.0 4.0 - 13.9 [facility] GLUCOSE, SERUM 91 74 - 106 MG/DL [facility] BUN 14 9 - 23 MG/DL [facility] CREATININE 0.6 0.5 - 1.3 MG/DL [facility] .EST GLOM FILT RATE NON- AM 112.5 [facility] Comment:Units: ml/min/1.73ms q .EST GLOM FILT RATE AMERIC 136.1 [facility] Comment: Units: ml/min/1.73msq Reference Table for Population Mean GFRs AGE AVERAGE GFR 20-29 116 ml/min/1.73msq 30-39 107 ml/min/1.73msq 40-49 99 ml/min/1.73msq 50-59 93 ml/min/1.73msq 60-69 85 ml/min/1.73msq 70+ 75 ml/min/1.73msq CALCIUM 8.8 8.7 - 10.4 MG/DL [facility] 02/17/2011 6:50 AM EST 02/17/2011 9:29 AM EST us Natalia Alicea DO LAB BLOOD ORDERABLES Final Res ult [facility] [address] [place] [address] from Last 3 Months or Most Recently Relevant to Health Maintenance Insurance MEDICARE PART A & B [employer] SUPPLEMENT MEDICARE PART A & B [employer] MED[employer] SUPPLEMENT MEDICARE PART A & B [employer] MEDEX SUPPLEMENT Member Subscriber Plan / Payer ( fective 2006-Present) Name:Reillyesa Relation to Subscriber:Self Name:HeidiAlcira sinha Payer ID:[id number] ([facility]) Type:Indemnity Address: [address] [place] [address] MEDICARE PART A & B [employer] MED[employer] SUPPLEMENT MEDICARE PART A & B [facility] MEDEX SUPPLEMENT MEDICARE PART A & B [employer] MED[employer] SUPPLEMENT MEDICARE PART A & B [employer] MED[employer] SUPPLEMENT MEDICARE PART A & B [employer] MED[employer] SUPPLEMENT MEDICARE PART A & B [employer] MEDEX SUPPLEMENT Care Teams Rubber Turner Relationship Specialty Start Date End Date Eduardo Villela MD [email or web address] PCP - General 03/10/17 Additional Source Comments The information contained in this document represents components of the legal health record. It is not the complete legal health record.[facility]
--- OUTSIDE RECORDS SUMMARY | 2024-12-18 17:20 | XMS_ITS | Patient Health Record ---
Author Organization [facility] Address [address] [place] [address] Care Team Providers Care Lacquer Coater Name Role Phone Loly Stanley Unavailable [phone] Allergies Allergen (clinical drug ingredient) Drug/Non Drug [...] MG 1 capsule Orally Twice a day [facility] 03/02/2012 Active CeleBREX 100 MG 1 capsule with food Orally Twice a day Active cloNIDine HCl 0.1MG 1 ORAL prn [facility] 11/21/2012 Active Bisacodyl 5 MG 2 [...] 10 MG 1 ORAL daily; Duration: -3 [facility] 01/21/2011 Active Tylenol 1 tab Oral; [...] 2000 IU ORAL at bedtime; Duration: -3 [facility] 12/28/2013 Active Senna 8.6 MG 2 capsule at bedtime as needed Orally Active Vitamin C 500MG 1 ORAL twice daily; Duration: -3 [facility] 08/27/2011 Active Tylenol Arthritis Pain 650MG 1 ORAL twic e daily; Duration: -3 [facility] 02/28/2012 Active EpiPen 2-Nino 0.3 MG/0.3ML Intramuscula; Duration: -3 [facility] 09/13/2013 Active Topamax 100 MG 1 1/2 tabs Orally morning and night [facility] 03/02/2012 Active lamoTRIgine 150 MG 2 tablets Orally Onc e a day [facility] 08/27/2011 Active Social History Tobacco Use: [...] Status Risk Notes Problem Postmenopausal atrophic vaginitis (61567785) Postmenopausal atrophic vaginitis (N95.2) Active confirmed Problem Postmenopausal bleeding (10522490) Postmenopausal bleeding (N95.0) Active confirmed Problem Urinary incontinence (982972472) Unspecified urinary incontinence (R32) Active confirmed Problem Morbid obesity (disorder) (087339134) Morbid (severe) obesity due to excess calories (E66.01) Active confirmed Problem Hyperlipidemia (44965126) Hyperlipidemia, unspecified (E78.5) Active confirmed Problem Bipolar disorder (02314609) Bipolar disorder, unspecified (F31.9) Active confirmed Problem Asthma (045204432) Other asthma (J45.998) Active confirmed Problem Osteoarthritis (564689222) Unspecified osteoarthritis, unspecified site (M19.90) Active confirmed Problem Fibromyalgia (161285119) Fibromyalgia (M79.7) Active confirmed Problem Atrophy of vulva (196758860) Atrophy of vulva (N90.5) Active confirmed Problem Functional urinary incontinence (957726030) Functional urinary incontinence (R39.81) Active confirmed Problem Candidal vulvovaginitis (87995528) Candidiasis of vulva and vagina (112.1) Active confirmed Diag Problem Obesity (987227144) Obesity, unspecified (278.00) Active confirmed Major Problem Mastodynia (05753786) Mastodynia (611.71) Active confirmed Diag Problem Light and infrequent menstruation (087463103) Scanty or infrequent menstruation (626.1) Active confirmed Major Problem Metrorrhagia (31371889) Metrorrhagia (626.6) Active confirmed Major Problem Gynecological examination normal (127405620750434) Routine gynecological examination (V72.31) Active confirmed Major [...] Date MEDICARE [address] ANTHONY ZARAGOZA [id number] LELELAILAJOAQUIM Self - patient is the insured MEDEX [address] [place] [address] [phone] [id number] LELE, JOAQUIM Self - patient is [...]
--- OUTSIDE RECORDS SUMMARY | 2024-12-18 17:20 | XMS_ITS | Patient Health Record ---
[facility] Address [address] [facility] [place] [address] Care Team Providers Care Small Craft Operator Name Role Phone Armida Mathews MD Primary Care Provider Unavail able Oliver Rider Unavailable [phone] Allergies Allergen (clinical drug ingredient) Drug/Non Drug [...] 12/05/2017 Administered Influenza Unknown 12/19/2018 Administered COVID-19 [employer] Vaccine Unknown 06/26/2020 Adm inistered 06/05/20 Social [...] atherosclerosis of arteries of lower limbs (disorder) (89590675673532625 ) Unspecified atherosclerosis of [place] arteries of extremities, bilateral legs (I70.203) Active confirmed Problem Localized, primary osteoarthritis of the ankle and/or foot (628584206) Primary osteoarthritis, right ankle and foot (M19.071) Active confirmed Problem Localized, primary osteoarthritis of the ankle and/or foot (659239239) Primary osteoarthritis, left ankle and foot (M19.072) Active confirmed Problem Polyneuropathy due to type 2 diabetes mellitus (085735886) Type 2 diabetes mellitus with diabetic polyneuropathy (E11.42) Active confirmed Problem Polyneuropathy due to diabetes mellitus type I (257281188) Type 1 diabetes mellitus with diabetic polyneuropathy (E10.42) Active confirmed Problem Raynaud's disease (073750058) Raynaud's disease without gangrene (I73.00) Active confirmed Plan Of Treatment Pending Test Test Name Order Date X ray : Ankle, left 3V 07/05/2019 X ray : Foot, left 2V 08/10/2017 X ray : Foot, left 3V 07/05/2019 X ray : Foot, right 3V 05/19/2021 91912-QJLOYVG NAIL, 6 OR MORE 09/03/2014 28035-KUSVFEG NAIL, 1-5 05/29/2015 22833-FVWQFDF NAIL, 1-5 08/28/2015 25910-FPAYQJK NAIL, 1-5 11/27/2015 45868-Mlucxibb Plate 09/03/2014 85025-Lqjmgcmu Plate 10/25/2014 30703-Cdiaekti Plate 05/23/2013 51967-Opkotdaw Plate Each Additional 55716- Debride <25 sq cm 06/16/2011 76399 I&D ABSCESS- SIMPLE,SINGLE 012 70893-NIIL SKIN LESIONS, OVER 4 01/09/20 15 72754-FAKH SKIN LESIONS, OVER 4 11/27/19 16 94202-QONN SKIN LESIONS, OVER 4 05/29/19 16 77014-TPUU SKIN LESIONS, OVER 4 08/28/19 16 69060-WVLC SKIN LESIONS, OVER 4 07/05/19 20 81321-ZODZ SKIN LESIONS, OVER 4 10/18/19 20 29118-DQCJ SKIN LESIONS, 2 TO 4 02/20/20 19 41988-QKIA SKIN LESIONS, 2 TO 4 08/04/19 19 59318-LULB SKIN LESIONS, 2 TO 4 11/14/19 19 12149-PGUV SKIN LESIONS, 2 TO 4 08/11/19 18 47719-PLJB SKIN LESIONS, 2 TO 4 10/20/19 18 77823-WUTA SKIN LESIONS, 2 TO 4 01/17/20 18 16900-WVJE SKIN LESIONS, 2 TO 4 05/01/19 19 04942-RPWU NAIL(S) 08/28/2015 82221-APXY NAIL(S) 05/29/2015 27107-XZQE NAIL(S) 11/27/2015 30079-JFDY NAIL(S) 01/08/2015 F7435-VTLKAOHV DYSTROPHIC NAILS ANY # S4975-DXZEDMVF DYSTROPHIC NAILS ANY # K1365-WTWWGWCX DYSTROPHIC NAILS ANY # E0525-FCVVTGLQ DYSTROPHIC NAILS ANY # I8398-WRZAKWJV DYSTROPHIC NAILS ANY # T8031-VAAGAEIV DYSTROPHIC NAILS ANY # X1685-ZIQXYJAY DYSTROPHIC NAILS ANY # S1837-MJPQYZXL DYSTROPHIC NAILS ANY # I6045-NTGCKMZU DYSTROPHIC NAILS ANY # X ray : Ankle, right 3V 05/19/2021 Insurance Providers Payer Name Payer Address Payer Phone Subscriber Number Group Number Insured Name Patient Relationship to Insured Coverage Start Date Coverage End Date Medicare National Govt Sv[employer] [address] [place] [address] [id number] Alcira Gordon Self - patient is the insured 7 [employer] Blue Shield [address] [place] [address] [id number] HeidiAlcira truong Self - patient is the [...] 3 views 07/05/19 Hospitalization History Reason Date(Month/Year) [facility] 02/02/11 [facility] chest pain blood pressure high [facility] hypertension X 4 days 04/2017 [facility]- tumor on pituitary gland, diviated septum 12/26/18
== END 2024-12-18 14:22 | disposition home or self-care (01) ==
LOC: HO.LAB 14:21
PROVIDERS: Visit Provider Internal Medicine Cardiovascular Disease
DX: R06.00 Dyspnea, unspecified (principal); Z51.81 Encounter for therapeutic drug level monitoring
CPT/HCPCS: 36415; 80048; 85027; 85610

== ENCOUNTER → 2024-12-20 23:59 | Outpatient (BNV) | payer MEDICARE, SELFPAY | PROVIDERS: PCP Nurse Practitioner; Visit Provider Internal Medicine Cardiovascular Disease | DX: I25.10 Atherosclerotic heart disease of native coronary artery without angina pectoris (principal) | CPT/HCPCS: 93460; 99152 ==

== ENCOUNTER 2024-12-28 08:33 | Outpatient (AMB) | payer MEDICARE, SELFPAY ==
--- NOTE | 2024-12-28 08:44 | MHC.OFFVIS ---
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 [employer] Electronics Required: No Allergies garlic Allergy (Severe, Verified 12/28/24 08:47) THROAT CLOSES cephalexin (From Keflex) Allergy (Mild, Verified 12/28/24 08:47) RASH Medication List - Last Reconciled 12/28/24 by RONALDO Otto ascorbic acid (vitamin C) (Vitamin C) 500 mg PO DAILY bupropion HCl XL 300 mg PO DAILY bupropion HCl XL 150 mg PO DAILY calcium carbonate (Calcium 500) 500 mg PO DAILY celecoxib 100 mg PO BID cetirizine 10 mg PO BID cholecalciferol (vitamin D3) 50 mcg PO DAILY clonazepam 1 mg PO BEDTIME PRN cyanocobalamin (vitamin B-12) 1,000 mcg PO DAILY duloxetine 120 mg PO DAILY famotidine 40 mg PO BEDTIME hydrocortisone 10 mg PO BID lamotrigine 300 mg PO DAILY levothyroxine 137 mcg PO DAILY montelukast 10 mg PO BEDTIME potassium chloride ER 20 mEq PO DAILY pravastatin 1 tab PO BEDTIME prucalopride 2 mg PO DAILY psyllium husk 0.8 grams (2 x 0.4 gram) PO BID terazosin 1 mg PO BEDTIME 90 days tizanidine 4 mg PO TID PRN topiramate 150 mg PO BID HPI HPI Follow up after Cath: Details: Coco is a 64-year-old female with past medical history of morbid obesity, hyperlipidemia who was being evaluated for shortness of breath and chest tightness with exertion. She recently underwent a cardiac catheterization procedure and now presents for follow-up. Today she reports that she still has shortness of breath and chest tightness with activities. She says she is active throughout the day but does sleep a lot. She said in the past she was sleeping up to 20 hours a day, currently not quite so much. She says she has had testing for sleep apnea within the last 1-2 years and she was told she does not have it. In the past she was told she had asthma but not in recent years. In all she has lost close to 180 lb and tells me she was over 400 lb in the past. She says she always has remained active and working. Currently she has trouble walking distances due to her symptoms. No heart palpitations, lightheadedness, presyncope, syncope, falls. No chest discomfort or shortness of breath at rest. No problems with leg edema. Right radial catheterization site is feeling good. Takes meds as directed. is present. [facility] Medical History Mast cell activation syndrome Diabetes insipidus Hyponatremia Osteoarthritis Chronic back pain Headache GERD (gastroesophageal reflux disease) PTSD (post-traumatic stress disorder) Anxiety and depression LINDSEY (obstructive sleep apnea) Asthma Elevated cholesterol Left lower quadrant abdominal pain IBS (irritable bowel syndrome) Surgical History History of total left knee replacement History of back surgery History of appendectomy History of tonsillectomy and adenoidectomy Hx of cholecystectomy History of total right knee replacement (TKR) Hx of endoscopy History of colonoscopy Family History Father No problems noted. Mother No problems noted. Social History Household Members: Spouse Housing: Apartment Are you a primary healthcare facility administrator to a significant other at home: No Do you presently have visiting nurse or other home services: No Alcohol intake: current Alcohol intake frequency: holidays/special occasions only Comment: fall last week however not frequent Patient Tobacco Use Status: Never used Tobacco service: No Female Reproductive History Menstrual Age of Menarche: 12 Review of Systems Const All systems reviewed & are unremarkable except as noted in HPI and below Reports fatigue ENT Denies dizziness Card Details: Chest tightness with exertion Denies chest pain, Denies chest pain at rest, Denies chest pain with activity, Denies rapid heart rate, Denies pedal edema, Denies edema, Denies leg edema, Denies lightheadedness, Denies palpitations, Reports dyspnea, Reports dyspnea on exertion and Denies orthopnea Resp Denies cough, Reports dyspnea and Reports dyspnea on exertion GI Denies hematochezia and Denies change in stool character Musc Reports abnormal gait (Unable to do prolonged walking), Denies limited range of motion, Denies muscle cramps, Denies muscle weakness, Denies numbness, Denies radiating pain into limb, Denies stiffness and Denies tingling Neuro Reports abnormal gait (Unable to do prolonged walking), Denies dizziness, Denies numbness and Denies tingling Endo Reports fatigue and Denies palpitations Physical Exam Vital Signs: Last Vital Signs Pulse 75 12/28/24 08:45 BP 110/64 12/28/24 08:45 BMI result Body Mass Index 42.9 Const Other: Morbid obesity General: cooperative, comfortable and no acute distress Orientation/consciousness: patient oriented x3 Resp Effort & Inspection: normal respiratory effort Auscultation: clear to auscultation bilaterally, no rales, no rhonchi and no wheezes Cardio Rate: regular rate Rhythm: regular rhythm Heart sounds: S1 normal heart sound present, S2 normal heart sound present, no gallops, no murmurs and no rubs Neuro General: patient oriented x3 Extrem Other: right radial cath site with easily palpable right radial pulse, normal right hand assessment General: Yes normal to inspection, No no pedal edema and No calf tenderness Psych Appearance: grossly normal Mental Status: mental status grossly normal Speech and movement: Normal speech and movement present Assessment & Plan Assessment & Plan (1) Dyspnea: Code(s): R06.00 - Dyspnea, unspecified Category: Medical Plan: Symptoms of shortness of breath and chest tightness with exertional activities. Echocardiogram 10/10/2024 shows EF 52%, no valve abnormalities, diastolic function normal. She did undergo exercise stress test 10/19/2024 which showed exercise 5 minutes with chest tightness and severe shortness of breath, no EKG changes, normal myocardial perfusion, EF 63%. -for further evaluation she had a right and left heart catheterization showing elevated filling pressures. Catheterization report indicates Lasix 40 mg daily as well as Jardiance 10 mg daily. At this point she is not taking Jardiance yet, will send to her pharmacy. Test results reviewed with her in detail in the need for diuretic therapy reviewed. Benefits of ongoing weight loss, increase physical activity as tolerated reviewed. Cardiology follow-up 3 months, sooner if needed. (2) Diastolic heart failure: Code(s): I50.30 - Unspecified diastolic (congestive) heart failure Category: Medical Plan: Cardiac catheterization with no coronary artery disease, elevated filling pressures. She was put on Lasix 40 mg daily and recommendation for Jardiance 10 mg daily. Still having shortness of breath with activity. Has not received Jardiance yet - will order. 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 Right radial catheterization site well healed, easily palpable radial pulse. (4) Chest discomfort: Code(s): R07.89 - Other chest pain Category: Medical Plan: Chest tightness with activity. Evaluation as above. Plan Time spent on chart review, documentation, interview and assessment Medications: New empagliflozin (Jardiance) new 10 mg PO DAILY 30 tabs 5RF Coding Level of Care Code Est Pt Level 4 (81616) Complex EM visit Add On G2211 Diagnoses Dyspnea R06.00 Diastolic heart failure I50.30 S/P cardiac catheterization Z98.890 Chest discomfort R07.89 Time Spent (min) 32
[2024-12-28 08:45] VITALS: BP 110/64; PULSE 75; BMI 42.9
== END 2024-12-28 09:17 | disposition home or self-care (01) ==
LOC: HO.HCS 08:33
PROVIDERS: PCP Nurse Practitioner; Visit Provider Nurse Practitioner Family
DX: R06.00 Dyspnea, unspecified (principal); I50.30 Unspecified diastolic (congestive) heart failure; Z98.890 Other specified postprocedural states; R07.89 Other chest pain
CPT/HCPCS: 99214; G2211

== ENCOUNTER → 2024-12-28 08:33 | Outpatient (BNVA) | payer MEDICARE, SELFPAY | PROVIDERS: PCP Nurse Practitioner; Visit Provider Nurse Practitioner Family | DX: R06.00 Dyspnea, unspecified (principal); I50.30 Unspecified diastolic (congestive) heart failure; Z98.890 Other specified postprocedural states; R07.89 Other chest pain; E66.01 Morbid (severe) obesity due to excess calories; Z68.41 Body mass index [BMI] 40.0-44.9, adult | CPT/HCPCS: 99212 ==

== ENCOUNTER 2025-02-15 15:07 | Outpatient (REF) | payer MEDICARE, SELFPAY ==
[2025-02-15 17:04] LABS: Anion Gap 15 (12-20); Blood Urea Nitrogen 14 mg/dL (9-16); Calcium 9.8 mg/dL (8.4-10.2); Carbon Dioxide 24 mmol/L (22-29); Chloride 108 mmol/L (96-108); Estimated Glomerular Filt Rate > 60; Potassium 3.8 mmol/L (3.3-5.1); Sodium 143 mmol/L (135-145)
--- OUTSIDE RECORDS SUMMARY | 2025-02-15 20:08 | XMS_ITS | Clinical Summary ---
Author Organization [facility] [employer] [facility] Address [address] [place] [address] Phone Care Team Providers Care Meter Attendant Name Role Phone Esther Boss Primary Care Provider [phone] Allergies Active Allergy Reactions Criticality Noted Date [...] History Surgery Date Site/Laterality Comments CHOLECYSTECTOMY PROCEDURE: CT CHOLECYSTECTOMY; COMMENT: 1978 APPENDECTOMY PROCEDURE: CT APPENDECTOMY TOTAL KNEE ARTHROPLASTY PROCEDURE: CT ARTHRP KNE CONDYLE&PLATU MEDIAL&LAT COMPARTMENTS; COMMENT: Medical History Medical History Date Comments Asthma DX:Asthma Diabetes mellitus type 2, co ntrolled, with complications (CMS/HCC V24, CMS/HCC V28) DX:Diabetes mellitus type 2, controlled, with complications ([facility]) Essential hypertension DX:Essent ial hypertension Depressive disorder [...] 1970 Cervical Cancer Screening: Pap Smear 1981 RSV Immunization Adult Patients (1 - Risk 50-74 years 1-dose series) 2010 Pneumococcal Vaccine: 50+ Years (2 of 2 - PCV) 12/25/2015 12/24/2014 Diabetes: Annual GFR (Glomerular Filtration Rate) 03/06/2020 03/06/2019 Cholesterol Screening (Lipid Panel) 02/06/2022 HIV Screening 02/06/2022 Hepatitis C Screening 02/06/2022 Medicare Annual Wellness Visit 02/06/2022 Social Influencers of Health Screening 02/06/2022 Depression Screening 03/07/2024 Diabetes: Annual Urine Albumin-Creatinine Ratio (uACR) 03/31/2024 Diabetes: Blood Sugar Control Test (HGBA1C) 03/31/2024 03/06/2019 COVID-19 Vaccine ( season) 2024 12/20/2023, 09/08/2021, 02/25/2021, Additional history exists Influenza Vaccine (#1) 2024 4, 12/11/2022, 12/26/2021, Additional history exists DTaP,Tdap,and Td Vaccines (3 - Td or Tdap) 11/05/2029 11/06/2019, 08/27/2009 Zoster Vaccines Completed 06/27/2021, 03/06/2021 HIB Vaccines Aged Out No longer eligi [...] this topic Medical Devices Implanted Type Area Pattern Stamper Device Identifier Shelf Expiration Date Model / Serial / Lot Bone Cement Implanted:Qty: 1 on 03/22/2019 by Jesus Hassan MD Joints Left: Knee [employer] 12/04/2020 / 6191-1-001 / [id number] Bone Cement Implanted:Qty: 1 on 03/22/2019 by Jesus Hassan MD Joints Left: Knee [employer] 12/04/2020 / 6191-1-001 / [id number] Component Triathlon 4 Cemented Posterior Stabilized Femoral - [id number] Implanted:Qty: 1 on 03/22/2019 by Jesus Hassan MD Left: Knee [employer] 08/23/2023 5515-F-401 / / [id number] Peg Triathlon Modular Fix Distal Femur Knee - [id number] Implanted:Qty: 1 on 03/22/2019 by Jesus Hassan MD Left: Knee [employer] 11/14/2023 5575-X-000 / / [id number] Baseplate Triathlon 5 Primary Cemented Tibial Knee - [id number] Implanted:Qty: 1 on 03/22/2019 by Jesus Hassan MD Left: Knee [employer] 11/30/2023 5520-B-500 / / [id number] Component Triathlon 9mm 29mm Asymmetric X3 Ptlar Knee - [id number] Implanted:Qty: 1 on 03/22/2019 by Jesus Hassan MD Left: Knee [employer] 12/04/2022 5551-G-299 / / [id number] Insert Triathlon 5 16mm Posterior Stabilized Bearing X3 - [id number] Implanted:Qty: 1 on 03/22/2019 by Jesus Hassan MD Left: Knee [employer] 06/14/2022 5532-G-516 / / [id number] Insurance [facility] [email or web address] [place] [id number] Care Teams Meter Attendant Relationship Specialty Start Date End Date Esther Boss PA [address] [place] [address] PCP - General 07/16/24
--- OUTSIDE RECORDS SUMMARY | 2025-02-15 20:08 | XMS_ITS | Patient Health Record ---
Author Organization [facility] Address [address] [place] [address] Care Team Providers Care Research Assistant Member Name Role Phone LORNA DU Unavailable [phone] Allergies Allergen (clinical drug ingredient) Drug/Non Drug Allergy documented on EMR Reaction Allergy Type Onset Date Status Garlic Unknown Drug Allergy Active Keflex rash Drug Allergy Active Reason For Referral No Information Medications Medication SIG (Take, Route, Frequency, Duration) Notes Start Date End Date Status Cetirizine HCl 10 MG Tablet TAKE ONE TAB LET BY MOUTH TWICE A DAY. Oral; Duration: 30 Active Hydrocortisone 5 MG Tablet TAKE TWO TABL ETS BY MOUTH TWICE A DAY Oral; Duration: 90 Active Famotidine 40 MG Tablet TAKE ONE TABLET BY MOUTH TWICE A DAY Oral; Duration: 30 Active buPROPion HCl ER (SR) 200 MG Tablet Extended Release 12 Hour TAKE ONE TABLET BY MOUTH TWICE A DAY Oral; Duration: 90 Active DULoxetine HCl 60 MG Capsule Delayed Release Particles TAKE ONE CAPSULE BY MOUTH TWICE A DAY Oral; Duration: 90 Active Vitamin D3 50 MCG (2000 UT) Tablet TAKE ONE TABLET BY MOUTH EVERY DAY Oral; Duration: 90 Active Metoclopramide HCl 10 MG Tablet TAKE ONE TABLET BY MOUTH FOUR TIMES A DAY BEFORE MEALS AND BED Oral; Duration: 30 Active Potassium Chloride Danielle ER 20 MEQ Tablet Extended Release TAKE ONE TABLET BY MOUTH EVERY DAY Oral; Duration: 90 Active clonazePAM 1 MG Tablet Oral; Duration: 30 Active lamoTRIgine 150 MG Tablet Oral; Duration: 90 Active Topiramate 100 MG Tablet TAKE 1 AND 1/2 TABLETS BY MOUTH TWO TIMES A DAY Oral; Duration: 30 Active Magnesium 250 MG Tablet TAKE 2 TABLETS B Y MOUTH DAILY. Oral; Duration: 30 Active Pravastatin Sodium 80 MG Tablet Oral; Duration: 90 Active Vitamin B-12 1000 MCG Tablet TAKE ONE TA BLET BY MOUTH EVERY DAY Oral; Duration: 90 Active Levothyroxine Sodium 100 MCG Tablet TAKE ONE TABLET BY MOUTH EVERY DAY Oral; Duration: 90 Active Celecoxib 100 MG Capsule TAKE ONE CAPSUL E BY MOUTH TWICE A DAY Oral; Duration: 30 Active Social History Tobacco Use: Social History Observation Description Date Details (start date - stop date) Never Smoker NA - NA Social History Drugs/Alcohol: Social Info Question Answer Notes Alcohol Screen (Audit-C) Did you have a drink containing alcohol in the past year? Yes How often did you have a drink containing alcohol in the past year? Monthly or less (1 point) Points 1 Interpretation Negative Drugs Have you used drugs other than those for medical reasons in the past 12 months? No Tobacco Use: Social Info Question Answer Notes Tobacco Use/Smoking Are you a nonsmoker Problems Problem Type SNOMED Code ICD Code Onset Dates Problem Status W/U Status Risk Notes Problem Body mass index 40+ - severely obese (187552567) BMI 45.0-49.9, adult (Z68.42) Active confirmed Problem Morbid obesity (611874511) Morbid obesity due to excess calories (E66.01) Active confirmed Plan Of Treatment No Information Insurance Providers Payer Name Payer Address Payer Phone Subscriber Number Group Number Insured Name Patient Relationship to Insured Coverage Start Date Coverage End Date Medicare Part B [id number] [address] [place] [address] [id number] Alcira Gordon Self - patient is the insured 7 MEDEX [address] [place] [address] [phone] [id number] Alcira Gordon Self - patient is the insured Medical (General) History Medical History History ICD Code hyperlipidemia asthma headache Arthritis anxiety depression seasonal allergies vision problems Mast Cell disease weight gain Surgical History Surgery Date(Month/Year) cholecystectomy Hospitalization History Reason Date(Month/Year) growth on pituitaty and menningitis 03/2021
--- OUTSIDE RECORDS SUMMARY | 2025-02-15 20:08 | XMS_ITS | Encounter Summary ---
Author Organization [facility] Address [address] [place] [address] Phone Care Team Providers Care Reception Manager Name Role Phone Eduardo Villela MD Unavailable [phone] Earl Desouza MD Unavailable [phone] Dorian Begum MD, [place] Unavailable [phone] Brandon Foreman MD Unavailable Eduardo Villela MD Primary Care Provider [phone] Encounter Details Date Type Department Care Team (Late st Contact Info) Description 08/14/2018 Transcribe Orders Virtual Department [address] [place] [address] Armida Mathews NP [address] [place], [place] [id number] [email or web address] Benign neoplasm of pituitary gland (Primary Dx) [...] (pouch) documented in this encounter Care Teams Reception Manager Relationship Specialty Start Date End Date Eduardo Villela MD [address] [place] [address] [address] [place] [address] [email or web address] PCP - General 03/10/17 Eduardo Villela MD [address] [place] [address] [email or web address] Historical LMR Provider 12/25/16 03/14/21 Earl Desouza MD [address] [place] [address] Historical LMR Provider 12/25/16 Dorian Begum MD, [place] [address] [place] [address] [email or web address] Historical LMR Provider 12/25/16 03/14/21 Brandon Foreman MD [address] [place] [address] [email or web address] Historical LMR Provider 12/25/16 03/14/21 documented as of this encounter Additional Source Comments The information contained in this document represents components of the legal health record. It is not the complete legal health record.[facility]
--- OUTSIDE RECORDS SUMMARY | 2025-02-15 20:08 | XMS_ITS | Encounter Summary ---
Author Organization [facility] Address [address] [place] [address] Phone Care Team Providers Care Microsoft Dynamics Developer Name Role Phone Eduardo Villela MD Unavailable [phone] Earl Desouza MD Unavailable [phone] Dorian Begum MD, [place] Unavailable [phone] Brandon Foreman MD Unavailable Eduardo Villela MD Primary Care Provider [phone] Encounter Details Date Type Department Care Team (Late st Contact Info) Description 09/18/2018 Ancillary Orders [address] [address] Armida Mathews, YONATHAN [address] [place] [address] [email or web address] Left leg pain Social History Tobacco Use [...] limb documented in this encounter Care Teams Microsoft Dynamics Developer Relationship Specialty Start Date End Date Eduardo Villela MD [address] [place] [address] PCP - General 03/10/17 Eduardo Villela MD [address] [place] [address] Historical LMR Provider 12/25/16 03/14/21 Earl Desouza MD [address] [place] [address] Historical LMR Provider 12/25/16 Dorian Begum MD, MS [address] [place] [address] [email or web address] Historical LMR Provider 12/25/16 03/14/21 Brandon Foreman MD [address] [place] [address], [facility] [address] [place] [address] [email or web address] Historical LMR Provider 12/25/16 03/14/21 documented as of this encounter Additional Source Comments The information contained in this document represents components of the legal health record. It is not the complete legal health record.[facility]
--- OUTSIDE RECORDS SUMMARY | 2025-02-15 20:08 | XMS_ITS | Patient Health Record ---
Author Organization [facility] Address [address] [place] [address] Care Team Providers Care Lifter Name Role Phone Loly Stanley Unavailable [phone] Allergies Allergen (clinical drug ingredient) Drug/Non Drug [...] 1 capsule Orally Twice a day [facility] 03/02/2012 Active CeleBREX 100 MG 1 capsule with food Orally Twice a day Active cloNIDine HCl 0.1MG 1 ORAL prn [facility] 11/21/2012 Active Bisacodyl 5 MG [...] MG 1 ORAL daily; Duration: -3 [facility] 01/21/2011 Active Tylenol 1 tab [...] IU ORAL at bedtime; Duration: -3 [facility] 12/28/2013 Active Senna 8.6 MG 2 capsule at bedtime as needed Orally Active Vitamin C 500MG 1 ORAL twice daily; Duration: -3 [facility] 08/27/2011 Active Tylenol Arthritis Pain 650MG 1 ORAL twic e daily; Duration: -3 [facility] 02/28/2012 Active EpiPen 2-Nino 0.3 MG/0.3ML Intramuscula; Duration: -3 [facility] 09/13/2013 Active Topamax 100 MG 1 1/2 tabs Orally morning and night [facility] 03/02/2012 Active lamoTRIgine 150 MG 2 tablets Orally Onc e a day [facility] 08/27/2011 Active Social History Tobacco [...] Status Risk Notes Problem Postmenopausal atrophic vaginitis (97582550) Postmenopausal atrophic vaginitis (N95.2) Active confirmed Problem Postmenopausal bleeding (65697077) Postmenopausal bleeding (N95.0) Active confirmed Problem Urinary incontinence (778795184) Unspecified urinary incontinence (R32) Active confirmed Problem Morbid obesity (disorder) (265650278) Morbid (severe) obesity due to excess calories (E66.01) Active confirmed Problem Hyperlipidemia (26826136) Hyperlipidemia, unspecified (E78.5) Active confirmed Problem Bipolar disorder (66522665) Bipolar disorder, unspecified (F31.9) Active confirmed Problem Asthma (083797500) Other asthma (J45.998) Active confirmed Problem Osteoarthritis (155244504) Unspecified osteoarthritis, unspecified site (M19.90) Active confirmed Problem Fibromyalgia (839669160) Fibromyalgia (M79.7) Active confirmed Problem Atrophy of vulva (946629126) Atrophy of vulva (N90.5) Active confirmed Problem Functional urinary incontinence (977829933) Functional urinary incontinence (R39.81) Active confirmed Problem Candidal vulvovaginitis (26247554) Candidiasis of vulva and vagina (112.1) Active confirmed Diag Problem Obesity (843829085) Obesity, unspecified (278.00) Active confirmed Major Problem Mastodynia (64038180) Mastodynia (611.71) Active confirmed Diag Problem Light and infrequent menstruation (736591315) Scanty or infrequent menstruation (626.1) Active confirmed Major Problem Metrorrhagia (71548580) Metrorrhagia (626.6) Active confirmed Major Problem Gynecological examination normal (863135076300586) Routine gynecological examination (V72.31) Active confirmed Major [...] Date MEDICARE [address] ANTHONY ZARAGOZA [id number] LELELAILAJOAQUIM Self - patient is the insured MEDEX [address] [place] [address] [phone] [id number] LELE, JOAQUIM Self - patient is [...]
--- OUTSIDE RECORDS SUMMARY | 2025-02-15 20:08 | XMS_ITS | Patient Health Record ---
Author Organization [facility] Address [address] [place] [address] Care Team Providers Care Door Worker Name Role Phone Armida Mathews MD Primary Care Provider Unavail able Oliver Rider Unavailable [phone] Allergies Allergen (clinical drug ingredient) Drug/Non Drug [...] 12/05/2017 Administered Influenza Unknown 12/19/2018 Administered COVID-19 PolySuite Vaccine Unknown 06/26/2020 Adm inistered 06/05/20 Social [...] atherosclerosis of arteries of lower limbs (disorder) (14787535211962578 ) Unspecified atherosclerosis of kashia arteries of extremities, bilateral legs (I70.203) Active confirmed Problem Localized, primary osteoarthritis of the ankle and/or foot (430286590) Primary osteoarthritis, right ankle and foot (M19.071) Active confirmed Problem Localized, primary osteoarthritis of the ankle and/or foot (851216496) Primary osteoarthritis, left ankle and foot (M19.072) Active confirmed Problem Polyneuropathy due to type 2 diabetes mellitus (787437832) Type 2 diabetes mellitus with diabetic polyneuropathy (E11.42) Active confirmed Problem Polyneuropathy due to diabetes mellitus type I (559686435) Type 1 diabetes mellitus with diabetic polyneuropathy (E10.42) Active confirmed Problem Raynaud's disease (614239234) Raynaud's disease without gangrene (I73.00) Active confirmed Plan Of Treatment Pending Test Test Name Order Date X ray : Ankle, left 3V 07/05/2019 X ray : Foot, left 2V 08/10/2017 X ray : Foot, left 3V 07/05/2019 X ray : Foot, right 3V 05/19/2021 88019-NNSCSMM NAIL, 6 OR MORE 09/03/2014 97066-TOMFRVC NAIL, 1-5 05/29/2015 50000-JOYHXIW NAIL, 1-5 08/28/2015 30924-KJCQRZI NAIL, 1-5 11/27/2015 51186-Tfighrwb Plate 09/03/2014 18661-Jrzolgsf Plate 10/25/2014 17724-Xscmwoyr Plate 05/23/2013 81913-Wggibhnm Plate Each Additional 42311- Debride <25 sq cm 06/16/2011 12159 I&D ABSCESS- SIMPLE,SINGLE 012 89407-ZORA SKIN LESIONS, OVER 4 01/09/20 15 88293-JJTS SKIN LESIONS, OVER 4 11/27/19 16 68814-XTTC SKIN LESIONS, OVER 4 05/29/19 16 79266-UAUD SKIN LESIONS, OVER 4 08/28/19 16 72969-ULUX SKIN LESIONS, OVER 4 07/05/19 20 01254-QEAA SKIN LESIONS, OVER 4 10/18/19 20 73127-OKIR SKIN LESIONS, 2 TO 4 02/20/20 19 76085-LMNN SKIN LESIONS, 2 TO 4 08/04/19 19 53750-JAOW SKIN LESIONS, 2 TO 4 11/14/19 19 96084-ILJU SKIN LESIONS, 2 TO 4 08/11/19 18 33137-XFXZ SKIN LESIONS, 2 TO 4 10/20/19 18 00745-SZWK SKIN LESIONS, 2 TO 4 01/17/20 18 36908-TGYV SKIN LESIONS, 2 TO 4 05/01/19 19 37866-JKUT NAIL(S) 08/28/2015 18816-FOLT NAIL(S) 05/29/2015 97462-CVLB NAIL(S) 11/27/2015 87674-OCPD NAIL(S) 01/08/2015 M7965-SRENXCEQ DYSTROPHIC NAILS ANY # W5791-KOLKYGGM DYSTROPHIC NAILS ANY # E6098-OLBIILXL DYSTROPHIC NAILS ANY # T7658-JKUWXHVJ DYSTROPHIC NAILS ANY # H8936-CACOWCOU DYSTROPHIC NAILS ANY # S7162-BWWYKPIR DYSTROPHIC NAILS ANY # G0560-NENHAHWT DYSTROPHIC NAILS ANY # S4234-ICJOSHAZ DYSTROPHIC NAILS ANY # G7415-OAQAKMBK DYSTROPHIC NAILS ANY # X ray : Ankle, right 3V 05/19/2021 Insurance Providers Payer Name Payer Address Payer Phone Subscriber Number Group Number Insured Name Patient Relationship to Insured Coverage Start Date Coverage End Date Medicare National Govt Sv[employer] [address] [place] [address] [id number] Alcira Gordon Self - patient is the insured 7 [employer] Blue Shield [address] [place] [address] [id number] HeidiAlcira truong Self - patient is the [...] 3 views 07/05/19 Hospitalization History Reason Date(Month/Year) [facility] Knee 02/02/11 [facility] chest pain blood pressure high [facility] hypertension X 4 days 04/2017 [facility]- tumor on pituitary gland, diviated septum 12/26/18
--- OUTSIDE RECORDS SUMMARY | 2025-02-15 20:08 | XMS_ITS | Clinical Summary ---
Author Organization [facility] Address [address] [place] [address] Phone Care Team Providers Care Buyer Broker Name Role Phone Eduardo Villela MD Primary Care Provider [phone] Allergies Active Allergy Reactions Criticality Noted Date [...] EST) SODIUM 142 136 - 145 [facility]OL/[facility] POTASSIUM 3.9 3.5 - 5.2 [facility] CHLORIDE 109 99 - 109 [facility] CARBON DIOXIDE 27 20 - 31 [facility] ANION GAP 6.0 4.0 - 13.9 [facility] GLUCOSE, SERUM 91 74 - 106 MG/DL [facility] BUN 14 9 - 23 MG/DL [facility] CREATININE 0.6 0.5 - 1.3 MG/DL [facility] .EST GLOM FILT RATE NON- AM 112.5 [facility] Comment:Units: ml/min/1.73ms q .EST GLOM FILT RATE AMERIC 136.1 [facility] Comment: Units: ml/min/1.73msq Reference Table for Population Mean GFRs AGE AVERAGE GFR 20-29 116 ml/min/1.73msq 30-39 107 ml/min/1.73msq 40-49 99 ml/min/1.73msq 50-59 93 ml/min/1.73msq 60-69 85 ml/min/1.73msq 70+ 75 ml/min/1.73msq CALCIUM 8.8 8.7 - 10.4 MG/DL [facility] 02/17/2011 6:50 AM EST 02/17/2011 9:29 AM EST us Natalia Alicea DO LAB BLOOD ORDERABLES Final Res ult [facility] [address] [place] [address] from Last 3 Months or Most Recently Relevant to Health Maintenance Insurance MEDICARE PART A & B Survature [employer]EX SUPPLEMENT MEDICARE PART A & B Survature [employer] SUPPLEMENT MEDICARE PART A & B Survature MEDEX SUPPLEMENT MEDICARE PART A & B Survature MEDEX SUPPLEMENT MEDICARE PART A & B [facility] MEDEX SUPPLEMENT MEDICARE PART A & B Survature MEDEX SUPPLEMENT MEDICARE PART A & B Survature MEDEX SUPPLEMENT MEDICARE PART A & B Survature MEDEX SUPPLEMENT MEDICARE PART A & B Survature [employer]EX SUPPLEMENT Care Teams Buyer Broker Relationship Specialty Start Date End Date Eduardo Villela MD [email or web address] PCP - General 03/10/17 Additional Source Comments The information contained in this document represents components of the legal health record. It is not the complete legal health record.[facility]
--- OUTSIDE RECORDS SUMMARY | 2025-02-15 20:08 | XMS_ITS | Clinical Summary ---
Author Organization [facility] Address [address] [place] [address] Care Team Providers Care Air Antisubmarine Officer Name Role Phone Eduardo Villela MD Primary Care Provider [phone] Allergies Active Allergy Reactions Criticality Noted Date [...] every night at bedtime. 0 11/28/2019 Active KEVNI-STEPHEN 8.6 MG tablet TAKE TWO TABLETS BY [...] this topic Medical Devices Implanted Type Area Professor Of Genetics Device Identifier Shelf Expiration Date Model / Serial / Lot Bone Cement Implanted:Qty: 1 on 03/22/2019 by Jesus Hassan MD at [facility] Total Joint Left: Knee [employer] 12/04/2020 / 6191-1-001 / [id number] Bone Cement Implanted:Qty: 1 on 03/22/2019 by Jesus Hassan MD at [facility] Total Joint Left: Knee [employer] 12/04/2020 / 6191-1-001 / [id number] Component Triathlon 4 Cemented Posterior Stabilized Femoral - [id number] - [id number] Implanted:Qty: 1 on 03/22/2019 by Jesus Hassan MD at [facility] Left: Knee [employer] 08/23/2023 5515-F-401 / / [id number] Peg Triathlon Modular Fix Distal Femur Knee - [id number] - [id number] Implanted:Qty: 1 on 03/22/2019 by Jesus Hassan MD at [facility] Left: Knee [employer] 11/14/2023 5575-X-000 / / [id number] Baseplate Triathlon 5 Primary Cemented Tibial Knee - [id number] - [id number] Implanted:Qty: 1 on 03/22/2019 by Jesus Hassan MD at [facility] Left: Knee [employer] 11/30/2023 5520-B-500 / / [id number] Component Triathlon 9mm 29mm Asymmetric X3 Ptlar Knee - [id number] - [id number] Implanted:Qty: 1 on 03/22/2019 by Jesus Hassan MD at [facility] Left: Knee [employer] 12/04/2022 5551-G-299 / / [id number] Insert Triathlon 5 16mm Posterior Stabilized Bearing X3 - [id number] - [id number] Implanted:Qty: 1 on 03/22/2019 by Jesus Hassan MD at [facility] Left: Knee [employer] 06/14/2022 5532-G-516 / / [id number] Advance Directives For more information, please contact: [phone] Latest Code Status on File Code Status [...] way: discussion with patient . Care Teams Air Antisubmarine Officer Relationship Specialty Start Date End Date Eduardo Villela MD [address] [facility] Med/[place] [address] PCP - General Internal Medicine 08/30/18
== END 2025-02-15 15:08 | disposition home or self-care (01) ==
LOC: HO.LAB 15:07
PROVIDERS: Visit Provider Internal Medicine Hypertension Specialist
DX: E87.1 Hypo-osmolality and hyponatremia (principal)
CPT/HCPCS: 36415; 80048

== ENCOUNTER 2025-02-16 10:32 | Outpatient (REF) | payer MEDICARE, SELFPAY ==
--- OUTSIDE RECORDS SUMMARY | 2025-02-16 10:35 | XMS_ITS | Clinical Summary ---
Author Organization [facility] Address [address] [facility] [address] [place] [address] Phone Care Team Providers Care Insole Taper Name Role Phone Eduardo Villela MD Primary Care Provider [phone] Allergies Active Allergy Reactions Criticality Noted Date [...] EST) SODIUM 142 136 - 145 MMOL/L [facility] POTASSIUM 3.9 3.5 - 5.2 MMOL/L [facility] CHLORIDE 109 99 - 109 MMOL/L [facility] CARBON DIOXIDE 27 20 - 31 MMOL/L [facility] ANION GAP 6.0 4.0 - 13.9 [facility] GLUCOSE, SERUM 91 74 - 106 MG/DL [facility] BUN 14 9 - 23 MG/DL [facility] CREATININE 0.6 0.5 - 1.3 MG/DL [facility] .EST GLOM FILT RATE NON- AM 112.5 [facility] Comment:Units: ml/min/1.73ms q .EST GLOM FILT RATE AMERIC 136.1 [facility] Comment: Units: ml/min/1.73msq Reference Table for Population Mean GFRs AGE AVERAGE GFR 20-29 116 ml/min/1.73msq 30-39 107 ml/min/1.73msq 40-49 99 ml/min/1.73msq 50-59 93 ml/min/1.73msq 60-69 85 ml/min/1.73msq 70+ 75 ml/min/1.73msq CALCIUM 8.8 8.7 - 10.4 MG/DL [facility] 02/17/2011 6:50 AM EST 02/17/2011 9:29 AM EST us Natalia Alicea DO LAB BLOOD ORDERABLES Final Res ult [facility] [address] [place] [address] from Last 3 Months or Most Recently Relevant to Health Maintenance Insurance MEDICARE PART A & B [employer] MEDEX SUPPLEMENT MEDICARE PART A & B [employer] MEDEX SUPPLEMENT MEDICARE PART A & B [employer] MEDEX SUPPLEMENT MEDICARE PART A & B [employer] MEDEX SUPPLEMENT MEDICARE PART A & B [facility] MEDEX SUPPLEMENT MEDICARE PART A & B [employer] MEDEX SUPPLEMENT MEDICARE PART A & B [employer] MEDEX SUPPLEMENT MEDICARE PART A & B [employer] MEDEX SUPPLEMENT MEDICARE PART A & B [employer] MEDEX SUPPLEMENT Care Teams Insole Taper Relationship Specialty Start Date End Date Eduardo Villela MD [email or web address] PCP - General 03/10/17 Additional Source Comments The information contained in this document represents components of the legal health record. It is not the complete legal health record.[facility]
--- OUTSIDE RECORDS SUMMARY | 2025-02-16 10:35 | XMS_ITS | Patient Health Record ---
Author Organization [facility] Address [address] [place] [address] Care Team Providers Care Assault Amphibious Vehicle Officer Name Role Phone Loly Stanley Unavailable [phone] Allergies Allergen (clinical drug ingredient) Drug/Non Drug [...] MG 1 capsule Orally Twice a day [facility] 03/02/2012 Active CeleBREX 100 MG 1 capsule with food Orally Twice a day Active cloNIDine HCl 0.1MG 1 ORAL prn [facility] 11/21/2012 Active Bisacodyl 5 MG 2 [...] 10 MG 1 ORAL daily; Duration: -3 [facility] 01/21/2011 Active Tylenol 1 tab Oral; [...] 2000 IU ORAL at bedtime; Duration: -3 [facility] 12/28/2013 Active Senna 8.6 MG 2 capsule at bedtime as needed Orally Active Vitamin C 500MG 1 ORAL twice daily; Duration: -3 [facility] 08/27/2011 Active Tylenol Arthritis Pain 650MG 1 ORAL twic e daily; Duration: -3 [facility] 02/28/2012 Active EpiPen 2-Nino 0.3 MG/0.3ML Intramuscula; Duration: -3 [facility] 09/13/2013 Active Topamax 100 MG 1 1/2 tabs Orally morning and night [facility] 03/02/2012 Active lamoTRIgine 150 MG 2 tablets Orally Onc e a day [facility] 08/27/2011 Active Social History Tobacco Use: [...] Status Risk Notes Problem Postmenopausal atrophic vaginitis (48042687) Postmenopausal atrophic vaginitis (N95.2) Active confirmed Problem Postmenopausal bleeding (25007388) Postmenopausal bleeding (N95.0) Active confirmed Problem Urinary incontinence (570474666) Unspecified urinary incontinence (R32) Active confirmed Problem Morbid obesity (disorder) (064135164) Morbid (severe) obesity due to excess calories (E66.01) Active confirmed Problem Hyperlipidemia (55713593) Hyperlipidemia, unspecified (E78.5) Active confirmed Problem Bipolar disorder (17261428) Bipolar disorder, unspecified (F31.9) Active confirmed Problem Asthma (931912851) Other asthma (J45.998) Active confirmed Problem Osteoarthritis (419187483) Unspecified osteoarthritis, unspecified site (M19.90) Active confirmed Problem Fibromyalgia (402646896) Fibromyalgia (M79.7) Active confirmed Problem Atrophy of vulva (522327256) Atrophy of vulva (N90.5) Active confirmed Problem Functional urinary incontinence (193784413) Functional urinary incontinence (R39.81) Active confirmed Problem Candidal vulvovaginitis (61829000) Candidiasis of vulva and vagina (112.1) Active confirmed Diag Problem Obesity (269655672) Obesity, unspecified (278.00) Active confirmed Major Problem Mastodynia (44429368) Mastodynia (611.71) Active confirmed Diag Problem Light and infrequent menstruation (244974400) Scanty or infrequent menstruation (626.1) Active confirmed Major Problem Metrorrhagia (37763639) Metrorrhagia (626.6) Active confirmed Major Problem Gynecological examination normal (919066549631453) Routine gynecological examination (V72.31) Active confirmed Major [...] Date MEDICARE [address] ANTHONY ZARAGOZA [id number] LELELAILAJOAQUIM Self - patient is the insured MEDEX [address] [place] [address] [id number] 7 LELE, JOAQUIM Self - patient is [...]
--- OUTSIDE RECORDS SUMMARY | 2025-02-16 10:35 | XMS_ITS | Clinical Summary ---
Author Organization [facility] Address [address] [place] [address] Phone Care Team Providers Care Coastal Tug Mate Name Role Phone Esther Boss Primary Care Provider [phone] Allergies Active Allergy Reactions Criticality Noted Date [...] History Surgery Date Site/Laterality Comments CHOLECYSTECTOMY PROCEDURE: MD CHOLECYSTECTOMY; COMMENT: 1978 APPENDECTOMY PROCEDURE: MD APPENDECTOMY TOTAL KNEE ARTHROPLASTY PROCEDURE: MD ARTHRP KNE CONDYLE&PLATU MEDIAL&LAT COMPARTMENTS; COMMENT: Medical History Medical History Date Comments Asthma DX:Asthma Diabetes mellitus type 2, co ntrolled, with complications (CMS/HCC V24, CMS/HCC V28) DX:Diabetes mellitus type 2, controlled, with complications ([facility]) Essential hypertension DX:Essent ial hypertension Depressive [...] this topic Medical Devices Implanted Type Area Sales Leader Device Identifier Shelf Expiration Date Model / Serial / Lot Bone Cement Implanted:Qty: 1 on 03/22/2019 by Jesus Hassan MD Joints Left: Knee [employer] 12/04/2020 / 6191-1-001 / [id number] Bone Cement Implanted:Qty: 1 on 03/22/2019 by Jesus Hassan MD Joints Left: Knee [employer] 12/04/2020 / 6191-1-001 / [id number] Component Triathlon 4 Cemented Posterior Stabilized Femoral - [id number] Implanted:Qty: 1 on 03/22/2019 by Jesus Hassan MD Left: Knee [employer] 08/23/2023 5515-F-401 / / [id number] Peg Triathlon Modular Fix Distal Femur Knee - [id number] Implanted:Qty: 1 on 03/22/2019 by Jesus Hassan MD Left: Knee [employer] 11/14/2023 5575-X-000 / / [id number] Baseplate Triathlon 5 Primary Cemented Tibial Knee - [id number] Implanted:Qty: 1 on 03/22/2019 by Jesus Hassan MD Left: Knee [employer] 11/30/2023 5520-B-500 / / [id number] Component Triathlon 9mm 29mm Asymmetric X3 Ptlar Knee - [id number] Implanted:Qty: 1 on 03/22/2019 by Jesus Hassan MD Left: Knee [employer] 12/04/2022 5551-G-299 / / [id number] Insert Triathlon 5 16mm Posterior Stabilized Bearing X3 - [id number] Implanted:Qty: 1 on 03/22/2019 by Jesus Hassan MD Left: Knee [employer] 06/14/2022 5532-G-516 / / [id number] Insurance [facility] [place] [id number] Care Teams Coastal Tug Mate Relationship Specialty Start Date End Date Esther Boss PA [address] [place] [address] PCP - General 07/16/24
--- OUTSIDE RECORDS SUMMARY | 2025-02-16 10:36 | XMS_ITS | Encounter Summary ---
Author Organization [facility] Address [address] [facility] [address] [place] [address] Phone Care Team Providers Care Metal Lather Name Role Phone Eduardo Villela MD Unavailable [phone] Earl Desouza MD Unavailable Dorian Begum MD, [place] Unavailable [phone] Brandon Foreman MD Unavailable Eduardo Villela MD Primary Care Provider [phone] Encounter Details Date Type Department Care Team (Late st Contact Info) Description 08/14/2018 Transcribe Orders Virtual Department [address] [place] [address] Armida Mathews NP [address] [place], [place] [id number] [email or web address] Benign neoplasm of pituitary gland (Primary Dx) [...] (pouch) documented in this encounter Care Teams Metal Lather Relationship Specialty Start Date End Date Eduardo Villela MD [address] [place] [address] [email or web address] PCP - General 03/10/17 Eduardo Villela MD [address] [place] [address] [email or web address] Historical LMR Provider 12/25/16 03/14/21 Earl Desouza MD [address] [place] [address] Historical LMR Provider 12/25/16 Dorian Begum MD, [place] [address] [place] [address] [email or web address] Historical LMR Provider 12/25/16 03/14/21 Brandon Foreman MD [address] [place] [address] [email or web address] Historical LMR Provider 12/25/16 03/14/21 documented as of this encounter Additional Source Comments The information contained in this document represents components of the legal health record. It is not the complete legal health record.[facility]
--- OUTSIDE RECORDS SUMMARY | 2025-02-16 10:36 | XMS_ITS | Patient Health Record ---
Author [facility] Address [address] [facility] [place] [address] Care Team Providers Care Bulb Brander Name Role Phone Armida Mathews MD Primary Care Provider Unavail able Oliver Rider Unavailable [phone] Allergies Allergen (clinical drug ingredient) Drug/Non Drug [...] 12/05/2017 Administered Influenza Unknown 12/19/2018 Administered COVID-19 [employer] Vaccine Unknown 06/26/2020 Adm inistered 06/05/20 Social [...] atherosclerosis of arteries of lower limbs (disorder) (22264415585871407 ) Unspecified atherosclerosis of mohegan arteries of extremities, bilateral legs (I70.203) Active confirmed Problem Localized, primary osteoarthritis of the ankle and/or foot (217488870) Primary osteoarthritis, right ankle and foot (M19.071) Active confirmed Problem Localized, primary osteoarthritis of the ankle and/or foot (917315590) Primary osteoarthritis, left ankle and foot (M19.072) Active confirmed Problem Polyneuropathy due to type 2 diabetes mellitus (107453058) Type 2 diabetes mellitus with diabetic polyneuropathy (E11.42) Active confirmed Problem Polyneuropathy due to diabetes mellitus type I (668411117) Type 1 diabetes mellitus with diabetic polyneuropathy (E10.42) Active confirmed Problem Raynaud's disease (122820327) Raynaud's disease without gangrene (I73.00) Active confirmed Plan Of Treatment Pending Test Test Name Order Date X ray : Ankle, left 3V 07/05/2019 X ray : Foot, left 2V 08/10/2017 X ray : Foot, left 3V 07/05/2019 X ray : Foot, right 3V 05/19/2021 12705-ENYIJQC NAIL, 6 OR MORE 09/03/2014 19109-UMSEFRX NAIL, 1-5 05/29/2015 82512-GSRRJBI NAIL, 1-5 08/28/2015 93076-IIYKNRL NAIL, 1-5 11/27/2015 61629-Gbvwbjuv Plate 09/03/2014 26049-Enmbqzqi Plate 10/25/2014 12507-Vrobgwbv Plate 05/23/2013 67680-Kdmexxbd Plate Each Additional 64768- Debride <25 sq cm 06/16/2011 79771 I&D ABSCESS- SIMPLE,SINGLE 012 05559-KQEQ SKIN LESIONS, OVER 4 01/09/20 15 19909-ZCPC SKIN LESIONS, OVER 4 11/27/19 16 54018-ERKN SKIN LESIONS, OVER 4 05/29/19 16 46485-XGSA SKIN LESIONS, OVER 4 08/28/19 16 60685-IZFW SKIN LESIONS, OVER 4 07/05/19 20 23827-BWBG SKIN LESIONS, OVER 4 10/18/19 20 87931-SYJR SKIN LESIONS, 2 TO 4 02/20/20 19 28008-BQCC SKIN LESIONS, 2 TO 4 08/04/19 19 46483-DDCP SKIN LESIONS, 2 TO 4 11/14/19 19 66754-ZBMR SKIN LESIONS, 2 TO 4 08/11/19 18 20962-SMPJ SKIN LESIONS, 2 TO 4 10/20/19 18 65353-TDCZ SKIN LESIONS, 2 TO 4 01/17/20 18 05268-GBBZ SKIN LESIONS, 2 TO 4 05/01/19 19 91718-KORW NAIL(S) 08/28/2015 83332-XKGB NAIL(S) 05/29/2015 75389-KSEM NAIL(S) 11/27/2015 18114-XRTL NAIL(S) 01/08/2015 O7985-DAKVUBPC DYSTROPHIC NAILS ANY # J0827-AZXOFFAL DYSTROPHIC NAILS ANY # O5913-CACSHAIX DYSTROPHIC NAILS ANY # E0101-HZWGHJZV DYSTROPHIC NAILS ANY # R1535-ZQILQJQF DYSTROPHIC NAILS ANY # H2527-EQOBIYDX DYSTROPHIC NAILS ANY # E0277-MOJFVCID DYSTROPHIC NAILS ANY # P1739-RRSTOVUH DYSTROPHIC NAILS ANY # X8969-XVBMQWDK DYSTROPHIC NAILS ANY # X ray : Ankle, right 3V 05/19/2021 Insurance Providers Payer Name Payer Address Payer Phone Subscriber Number Group Number Insured Name Patient Relationship to Insured Coverage Start Date Coverage End Date Medicare National [employer] [address] [place] [address] [id number] Alcira Gordon Self - patient is the insured 7 [employer] Blue [employer] [address] [place] [address] [id number] HeidiAlcira truong Self - patient is the [...] Reason Date(Month/Year) [facility]- Knee 02/02/11 [facility] chest pain blood pressure high [facility] hypertension X 4 days 04/2017 [facility]- tumor on pituitary gland, diviated septum 12/26/18
--- OUTSIDE RECORDS SUMMARY | 2025-02-16 10:36 | XMS_ITS | Clinical Summary ---
[facility] Address [address] [place] [address] Care Team Providers Care Energy Efficient Site Manager Name Role Phone Eduardo Villela MD Primary Care Provider [phone] Allergies Active Allergy Reactions Criticality Noted Date [...] this topic Medical Devices Implanted Type Area Resident Care Spec Device Identifier Shelf Expiration Date Model / Serial / Lot Bone Cement Implanted:Qty: 1 on 03/22/2019 by Jesus Hassan MD at [facility] Total Joint Left: Knee [employer] 12/04/2020 / 6191-1-001 / [id number] Bone Cement Implanted:Qty: 1 on 03/22/2019 by Jesus Hassan MD at [facility] Total Joint Left: Knee [employer] 12/04/2020 / 6191-1-001 / [id number] Component Triathlon 4 Cemented Posterior Stabilized Femoral - [id number] - [id number] Implanted:Qty: 1 on 03/22/2019 by Jesus Hassan MD at [facility] Left: Knee [employer] 08/23/2023 5515-F-401 / / [id number] Peg Triathlon Modular Fix Distal Femur Knee - [id number] - [id number] Implanted:Qty: 1 on 03/22/2019 by Jesus Hassan MD at [facility] Left: Knee [employer] 11/14/2023 5575-X-000 / / [id number] Baseplate Triathlon 5 Primary Cemented Tibial Knee - 820035 - [id number] Implanted:Qty: 1 on 03/22/2019 by Jesus Hassan MD at [facility] Left: Knee [employer] 11/30/2023 5520-B-500 / / [id number] Component Triathlon 9mm 29mm Asymmetric X3 Ptlar Knee - 840341 - [id number] Implanted:Qty: 1 on 03/22/2019 by Jesus Hassan MD at [facility] Left: Knee [employer] 12/04/2022 5551-G-299 / / [id number] Insert Triathlon 5 16mm Posterior Stabilized Bearing X3 - [id number] - [id number] Implanted:Qty: 1 on 03/22/2019 by Jesus Hassan MD at [facility] Left: Knee [employer] 06/14/2022 5532-G-516 / / [id number] Advance Directives For more information, please contact: [phone] Latest Code Status on File Code Status [...] way: discussion with patient . Care Teams Energy Efficient Site Manager Relationship Specialty Start Date End Date Eduardo Villela MD [address] [facility] [place] [address] PCP - General Internal Medicine 08/30/18
--- OUTSIDE RECORDS SUMMARY | 2025-02-16 10:36 | XMS_ITS | Patient Health Record ---
[facility] Address [address] [place] [address] Care Team Providers Care Account Specialist Name Role Phone LORNA DU Unavailable [phone] Allergies Allergen (clinical drug ingredient) Drug/Non Drug [...] Body mass index 40+ - severely obese (636132928) BMI 45.0-49.9, adult (Z68.42) Active confirmed Problem Morbid obesity (155920003) Morbid obesity due to excess calories (E66.01) Active confirmed Plan Of Treatment No Information Insurance Providers Payer Name Payer Address Payer Phone Subscriber Number Group Number Insured Name Patient Relationship to Insured Coverage Start Date Coverage End Date Medicare Part B J14 [address] [place] [address] [id number] Alcira Gordon Self - patient is the insured 7 [employer] [address] [place] [address] [id number] Alcira Gordon Self - patient is the insured Medical (General) History Medical History History ICD Code hyperlipidemia asthma headache Arthritis anxiety depression seasonal allergies vision problems Mast Cell disease weight gain Surgical History Surgery Date(Month/Year) cholecystectomy Hospitalization History Reason Date(Month/Year) growth on pituitaty and menningitis 03/2021
--- OUTSIDE RECORDS SUMMARY | 2025-02-16 10:36 | XMS_ITS | Encounter Summary ---
Author Organization [facility] Address [address] [place] [address] Phone Care Team Providers Care Qa Auditor Name Role Phone Eduardo Villela MD Unavailable [phone] Earl Desouza MD Unavailable [phone] Dorian Begum MD, [place] Unavailable [phone] Brandon Foreman MD Unavailable Eduardo Villela MD Primary Care Provider [phone] Encounter Details Date Type Department Care Team (Late st Contact Info) Description 09/18/2018 Ancillary Orders [address] [address] Armida Mathews, YONATHAN [address] [place] [address] [email or web address] Left leg pain Social History Tobacco Use [...] limb documented in this encounter Care Teams Qa Auditor Relationship Specialty Start Date End Date Eduardo Villela MD [address] [place] [address] PCP - General 03/10/17 Eduardo Villela MD [address] [place] [address] Historical LMR Provider 12/25/16 03/14/21 Earl Desouza MD [address] [place] [address] Historical LMR Provider 12/25/16 Dorian Begum MD, [place] [address] [place] [address] [email or web address] Historical LMR Provider 12/25/16 03/14/21 Brandon Foreman MD [address] [place] [address], [facility] [address] [place] [address] [email or web address] Historical LMR Provider 12/25/16 03/14/21 documented as of this encounter Additional Source Comments The information contained in this document represents components of the legal health record. It is not the complete legal health record.[facility]
[2025-02-16 11:25] LABS: Appearance Urine Clear; Glucose Urine UA 500 mg/dL (Negative); PH 5.0 (5.0-9.0); Specific Gravity - Urine 1.010 (1.005-1.025); UMIC TRIGGER UA YES
== END 2025-02-16 10:33 | disposition home or self-care (01) ==
LOC: HO.LNP 10:32
PROVIDERS: Visit Provider Internal Medicine Hypertension Specialist
DX: E87.1 Hypo-osmolality and hyponatremia (principal)
CPT/HCPCS: 81001; 81003; 83935

== ENCOUNTER 2025-02-18 09:24 | Outpatient (AMB) | payer MEDICARE, SELFPAY ==
--- NOTE | 2025-02-18 09:26 | HO.NEPHOV ---
Vital Signs 02/18/25 09:27 Height 5 ft 7 in BP 110/78 Blood Pressure Location Lt radial Position Sitting Pulse 92 Pulse Source Pulse Oximeter Pulse Oximetry (%) 97 Oxygen Delivery Method Room Air Intake Visit Reasons: 6 MO FU New Account Interviewer Required: No Accompanied by: Spouse Allergies garlic Allergy (Severe, Verified 02/18/25 09:29) THROAT CLOSES cephalexin (From Keflex) Allergy (Mild, Verified 02/18/25 09:29) RASH Medication List - Last Reconciled 02/18/25 by Dajuan Guzmán MD ascorbic acid (vitamin C) (Vitamin C) 500 mg PO DAILY bupropion HCl XL 300 mg PO DAILY bupropion HCl XL 150 mg PO DAILY calcium carbonate (Calcium 500) 500 mg PO DAILY celecoxib 100 mg PO BID cetirizine 10 mg PO BID cholecalciferol (vitamin D3) 50 mcg PO DAILY clonazepam 1 mg PO BEDTIME PRN cyanocobalamin (vitamin B-12) 1,000 mcg PO DAILY duloxetine 120 mg PO DAILY empagliflozin (Jardiance) 10 mg PO DAILY famotidine 40 mg PO BEDTIME furosemide 40 mg PO DAILY hydrocortisone 10 mg PO BID lamotrigine 300 mg PO DAILY levothyroxine 137 mcg PO DAILY montelukast 10 mg PO BEDTIME potassium chloride ER 20 mEq PO DAILY pravastatin 1 tab PO BEDTIME prucalopride 2 mg PO DAILY psyllium husk 0.8 grams (2 x 0.4 gram) PO BID terazosin 1 mg PO BEDTIME 90 days tizanidine 4 mg PO TID PRN topiramate 150 mg PO BID HPI Comments Details: History of Present Illness The patient is a 64-year-old female presenting for a routine 6-month nephrology follow-up. Her medical history is significant for adrenal insufficiency secondary to hypothyroidism, a history of a pituitary mass, hyperuricemia, and hyponatremia. She has had no hospitalizations in the past six months and reports no changes to her medication list. Approximately two months ago, the patient started furosemide and Jardiance for pericardial effusion, which presented with shortness of breath and leg swelling without weight gain. She reports some improvement in her breathing and a slight reduction in leg swelling with the furosemide. Her current medications include bupropion, calcium, celecoxib twice daily, hydrocortisone, potassium, and topiramate. She has upcoming appointments with her urologist today for a routine 6-month follow-up and with her clay washer on April 15. s/p Coronary Angiogram No CAD Elevated Filling pressures and started on Lasix 40 mg QD in Dec 2024 by Cardiology Results - Labs (02/15): - Sodium: 143 mEq/L. - Creatinine: Normal. FOR[facility]LY [facility], [facility] Medical History Mast cell activation syndrome Diabetes insipidus Hyponatremia Osteoarthritis Chronic back pain Headache GERD (gastroesophageal reflux disease) PTSD (post-traumatic stress disorder) Anxiety and depression LINDSEY (obstructive sleep apnea) Asthma Elevated cholesterol Left lower quadrant abdominal pain IBS (irritable bowel syndrome) Surgical History History of total left knee replacement History of back surgery History of appendectomy History of tonsillectomy and adenoidectomy Hx of cholecystectomy History of total right knee replacement (TKR) Hx of endoscopy History of colonoscopy Family History Father No problems noted. Mother No problems noted. Social History Household Members: Spouse Housing: Apartment Are you a primary progressive care unit registered nurse to a significant other at home: No Do you presently have visiting nurse or other home services: No Alcohol intake: current Alcohol intake frequency: holidays/special occasions only Comment: fall last week however not frequent Patient Tobacco Use Status: Never used Tobacco service: No Female Reproductive History Menstrual Age of Menarche: 12 Physical Exam Exam Exam: Physical Exam General: Awake. Comfortable. HENT: Neck supple. Mucosa moist. Pulmonary: Lungs aeration equal. No rales. Cardiology: Heart S1-S2 heard. No gallop. Some fluid around the heart noted. Abdomen: Soft. Non tender. Bowel sounds normal. Neurologic: No involuntary movements. No myoclonus. Extremities: Mild edema noted. No rash. Vital Signs: Last Vital Signs Pulse 92 02/18/25 09:27 BP 110/78 02/18/25 09:27 Pulse Ox 97 02/18/25 09:27 Oxygen Delivery Method Room Air 02/18/25 09:27 Results Reviewed Nephrology Results: Hgb, (12.0-16.0) 12.6 g/dl 12/18/24 WBC, (4.8-10.8) 9.8 X10*3/uL 12/18/24 Plt Count, (160-400) 258 X10*3/uL 12/18/24 Sodium, (135-145) 143 mmol/L 02/15/25 Potassium, (3.3-5.1) 3.8 mmol/L 02/15/25 Chloride, (96-108) 108 mmol/L 02/15/25 Carbon Dioxide, (22-29) 24 mmol/L 02/15/25 BUN, (9-16) 14 mg/dL 02/15/25 Creatinine, (0.5-1.4) 0.74 mg/dL 02/15/25 Calcium, (8.4-10.2) 9.8 mg/dL 02/15/25 Urine Protein, (Neg-Trace) Negative mg/dL 02/16/25 Assessment & Plan Assessment & Plan (1) Acute hyponatremia: Code(s): E87.1 - Hypo-osmolality and hyponatremia Category: Medical Plan Hyponatremia stands corrected. Sodium is at 143 millimoles. Renal function stable. History of diabetes insipidus. Repeat 24 urine collection showed a volume of 2025 ml in Feb 2024 Urine SG > 1.030 Currently not on Desmopressin for more than 12 months If she develops polyuria she might have to restart desmopressin. Currently on Lasix Watch Renal function and serum Sodium Follow with cardiology Orders: Orders Basic Metabolic Panel 6 Months E87.1 - Hypo-osmolality and hyponatremia Coding Level of Care Code Est Pt Level 4 (05180) Diagnoses Acute hyponatremia E87.1
[2025-02-18 09:27] VITALS: BP 110/78; PULSE 92; O2SAT 97
== END 2025-02-18 09:41 | disposition home or self-care (01) ==
LOC: HO.HKA 09:25
PROVIDERS: PCP Nurse Practitioner; Visit Provider Internal Medicine Hypertension Specialist
DX: E87.1 Hypo-osmolality and hyponatremia (principal)
CPT/HCPCS: 99214

== ENCOUNTER → 2025-02-18 09:24 | Outpatient (BNVA) | payer MEDICARE, SELFPAY | PROVIDERS: PCP Nurse Practitioner; Visit Provider Internal Medicine Hypertension Specialist | DX: R33.9 Retention of urine, unspecified (principal); R39.15 Urgency of urination; Z13.9 Encounter for screening, unspecified; E87.1 Hypo-osmolality and hyponatremia | CPT/HCPCS: 51798; 81003; 99212 ==

== ENCOUNTER 2025-02-18 11:33 | Outpatient (AMB) | payer MEDICARE, SELFPAY ==
--- NOTE | 2025-02-18 11:38 | MHC.OFFVIS ---
Intake Visit Reasons: 6m/PVR/UA Intake Note: Reason for Visit: PVR/UA Follow Up Urology Meds: Terazosin, Vit C Blood Thinners: None Labs: BUN: 14 Creatinine: 0.74 (02/15/2025) Last Culture: 11/01/2023 Imaging: None Last PVR: 152ml PVR: 0ml Allergies garlic Allergy (Severe, Verified 02/18/25 12:11) THROAT CLOSES cephalexin (From Keflex) Allergy (Mild, Verified 02/18/25 12:11) RASH Medication List - Last Reconciled 02/18/25 by DEAN Pritchard-ROMINA ascorbic acid (vitamin C) (Vitamin C) 500 mg PO DAILY bupropion HCl XL 300 mg PO DAILY bupropion HCl XL 150 mg PO DAILY calcium carbonate (Calcium 500) 500 mg PO DAILY celecoxib 100 mg PO BID cetirizine 10 mg PO BID cholecalciferol (vitamin D3) 50 mcg PO DAILY clonazepam 1 mg PO BEDTIME PRN cyanocobalamin (vitamin B-12) 1,000 mcg PO DAILY duloxetine 120 mg PO DAILY empagliflozin (Jardiance) 10 mg PO DAILY famotidine 40 mg PO BEDTIME furosemide 40 mg PO DAILY hydrocortisone 10 mg PO BID lamotrigine 300 mg PO DAILY levothyroxine 137 mcg PO DAILY montelukast 10 mg PO BEDTIME potassium chloride ER 20 mEq PO DAILY pravastatin 1 tab PO BEDTIME prucalopride 2 mg PO DAILY psyllium husk 0.8 grams (2 x 0.4 gram) PO BID terazosin 1 mg PO BEDTIME 90 days tizanidine 4 mg PO TID PRN topiramate 150 mg PO BID HPI Comments Details: Alcira is a 64 year old female patient of Dr. Mathews who is accompanied by her at today's visit. She has a past medical history of anxiety, depression, asthma, chronic back pain, hypercholesteremia, GERD, headaches, irritable bowel syndrome, obstructive sleep apnea, diabetes insipidus, osteoarthritis, and PTSD. She presents to the office today for follow-up of her ongoing lower urinary tract symptoms as well as incomplete bladder emptying. In discussion with the patient today she reports at times she will experience urinary urgency with minimal voids. She does however feel these episodes are manageable independently. She reports having recently followed up with her stained glass window designer and has been started on Jardiance in his due to undergo a diagnostic cardiac catheterization in the near future. In office urinalysis results reviewed with the patient today 3+ glucosuria otherwise within normal limits. PVR 0 mL which is significantly improved as last postvoid residuals were noted to be greater than 150 mL. She does endorse to drinking increased amounts of soda and Pepcid daily. We did discuss bladder triggers and irritants as well as importance of weight loss in relation to cardiac issues as well as overall health and well-being. She reports compliance with terazosin and Estrace cream as prescribed. Previous workup has included a retroperitoneal ultrasound 11/27 noting bilateral kidneys with no calculi, lesions, and or hydronephrosis noted. The bladder is well distended and normal. Pre void bladder volume is approximately 285 mL. Postvoid bladder volume is approximately 30 mL. Patient with a previous microgen 12/27 and has since completed antibiotic therapy of levofloxacin as prescribed. She denies hematuria, changes to urinary stream, flank pain, fever, and or chills. Discussed contributing factors of diabetes insipidus to lower urinary tract symptoms. She reports having followed up with Nephrology earlier this today. She otherwise offers no other issues or concerns at this time. [facility] Medical History Mast cell activation syndrome Diabetes insipidus Hyponatremia Osteoarthritis Chronic back pain Headache GERD (gastroesophageal reflux disease) PTSD (post-traumatic stress disorder) Anxiety and depression LINDSEY (obstructive sleep apnea) Asthma Elevated cholesterol Left lower quadrant abdominal pain IBS (irritable bowel syndrome) Surgical History History of total left knee replacement History of back surgery History of appendectomy History of tonsillectomy and adenoidectomy Hx of cholecystectomy History of total right knee replacement (TKR) Hx of endoscopy History of colonoscopy Family History Father No problems noted. Mother No problems noted. Social History Household Members: Spouse Housing: Apartment Are you a primary complex care nurse practitioner to a significant other at home: No Do you presently have visiting nurse or other home services: No Alcohol intake: current Alcohol intake frequency: holidays/special occasions only Comment: fall last week however not frequent Patient Tobacco Use Status: Never used Tobacco service: No Female Reproductive History Menstrual Age of Menarche: 12 Review of Systems Const Reports as per [facility] Eyes Reports no additional complaints ENT Reports no additional complaints Card Reports as per [facility] Resp Reports as per [facility] GI Reports as per [facility] Reports as per [facility] Psych Reports as per [facility] Endo Reports as per [facility] Physical Exam Const General: cooperative, healthy appearing, comfortable, no acute distress, well developed, alert and awake Nutritional Appearance: overweight Orientation/consciousness: patient oriented x3 HEENT Head: Yes normal to inspection, Yes normocephalic and Yes atraumatic Ears: hearing grossly normal bilaterally Eyes General: appearance normal, both eyes and all related structures Neck Neck: Yes normal visual inspection and Yes trachea midline Chest Chest palpation & inspection: normal inspection of the chest Resp Effort & Inspection: normal respiratory effort and able to speak in complete sentences Cardio Rate: regular rate GI Inspection: Yes normal to inspection General: Yes no CVA tenderness Back/Spine/Pelvis Back: no CVA tenderness Skin General skin exam: no rashes or lesions noted Neuro General: patient oriented x3 Extrem General: Yes normal to inspection Psych Appearance: grossly normal and well kempt Mental Status: mental status grossly normal Speech and movement: Normal speech and movement present and Clear speech present Affect: normal affect Attitude: cooperative Thought process: Normal thought process present Thought content: Normal thought content present Insight: Fair insight present (Psych) Judgement: Fair judgement present (Psych) Office Procedures Post Void Residual Post Residual Void Post Void Residual (PVR): 0 [id number] Void Residual by ultrasound Results AMB Urinalysis, Automated UA Leukoctes 0 Yemi/uL Last Edit by Melida Quinones Alexis on 02/18/25 11:51 UA Nitrite Negative Last Edit by Melida Quinones Alexis on 02/18/25 11:51 UA Urobilinogen 0.2 mg/dL Last Edit by Melida Quinones Alexis on 02/18/25 11:51 UA Protein 0 mg/dL Last Edit by Melida Quinones [facility] on 02/18/25 11:51 UA pH 6.0 Last Edit by Melida Quinones [facility] on 02/18/25 11:51 UA Blood 0 Thanh/uL Last Edit by Melida Quinones A on 02/18/25 11:51 UA Specific [place] 1.015 Last Edit by Melida Quinones A on 02/18/25 11:51 UA Ketone Negative Last Edit by Melidalisa Quinones, RMA on 02/18/25 11:51 UA Bilirubin 0 mg/dL Last Edit by Melida Quinones A on 02/18/25 11:51 UA Glucose 1000 mg/dL Last Edit by Melida Quinones A on 02/18/25 11:51 Results Reviewed Results Reviewed: Laboratory Last Values Urine pH (Auto) 6.0 02/18/25 11:51 Specific [place] (Auto) 1.015 02/18/25 11:51 Urine Protein (Auto) 0 mg/dL 02/18/25 11:51 Glucose (UA)(Auto) 1000 mg/dL 02/18/25 11:51 Urine Ketones (Auto) Negative 02/18/25 11:51 Urine Blood (Auto) 0 Thanh/uL 02/18/25 11:51 Urine Nitrite (Auto) Negative 02/18/25 11:51 Urine Bilirubin (Auto) 0 mg/dL 02/18/25 11:51 Urine Urobilinogen (Auto) 0.2 mg/dL 02/18/25 11:51 Leukocyte Esterase (Auto) 0 Yemi/uL 02/18/25 11:51 Assessment & Plan Assessment & Plan (1) Incomplete bladder emptying: Code(s): R33.9 - Retention of urine, unspecified Category: Medical (2) Urinary urgency: Code(s): R39.15 - Urgency of urination Category: Medical Plan Urinalysis results with the patient today; as noted above. PVR 0 mL. Continue terazosin and Estrace cream as discussed and prescribed We did discuss potential causes of urinary urgency. We did discuss further treatment options and risks and benefits of these treatment options. We discussed bladder triggers and irritants. We discussed the importance of weight loss in relation to overall health and well-being. All questions were answered. Continue to follow-up with nephrology, Cardiology, and PCP as planned. Follow-up in 3-6 months with PVR; or sooner with any issues, concerns, and or questions. Orders: Orders AMB Urinalysis Automated Today Z13.9 - Encounter for screening, unspecified AMB Post Void Residual by ultrasound Today R33.9 - Retention of urine, unspecified Patient Instructions: The patient had an opportunity to ask questions regarding the treatment plan. All questions were answered. Physical exam, labs, and imaging were discussed and reviewed in detail. As well as risks, benefits, and discussion of treatment choices. No major barriers to understanding were identified. The patient expressed understanding and agreement with the above treatment plan. The patient was made aware they should contact our office by phone for worsening of their current condition, the appearance of new symptoms, or with any questions or concerns. Compliance is encouraged with any medications and follow up testing that is ordered. It is a privilege to be allowed the opportunity to participate in? your urological care.? Again, if you have any questions or concerns If you have any questions or concerns please do not hesitate to contact me. The office is [phone]. This note is constructed using voice recognition software. While every effort has been made to ensure accuracy circle cutting saw operator errors may have been included. Yours sincerely, MACO Pritchard Coding Level of Care Code Est Pt Level 3 (75139) Add On Problem Visit Only Diagnoses Incomplete bladder emptying R33.9 Urinary urgency R39.15 CPT Codes Post Residual Void - PVR CPT Code: 33682-Hsdw Void Residual by ultrasound ([id number])
== END 2025-02-18 12:16 | disposition home or self-care (01) ==
LOC: HO.HUSH 11:34
PROVIDERS: PCP Nurse Practitioner; Visit Provider Nurse Practitioner Family
DX: R33.9 Retention of urine, unspecified (principal); R39.15 Urgency of urination; Z13.9 Encounter for screening, unspecified
CPT/HCPCS: 99213; G2211